=== PATIENT | male | born 1950 | race Hispanic/Latino ===

== ENCOUNTER → 2017-12-06 | Outpatient (CLI) | payer MEDICARE ==
[~2017-12-06] MED LIST: GADOBENATE DIMEGLUMINE 1 ML IV ONE; IOPAMIDOL 300 MG/ML 15ML VIAL IT ONE; LIDOCAINE HCL 1% LOCAL INJ 20 ML VIAL ONE
--- NOTE | 2017-12-06 12:59 | Diagnostic Imaging Report ---
MRI of the right shoulder with contrast. History: Shoulder pain. Labral tear. Fall. Decreased range of motion. Comparison: None Technique: Multiplanar multisequence MRI of the shoulder after the administration of intra-articular gadolinium contrast material Findings: Rotator cuff: There is rotator cuff tendinosis with a full-thickness tear involving the supraspinatus and anterior fibers of the infraspinatus tendons at the humeral insertion site. There is retraction of the torn fibers to the level of the glenoid and there is moderate rotator cuff muscle atrophy. Additionally, there is subscapularis tendinosis. The teres minor tendon is intact. Osseous acromion complex: There is a type II acromion with mild lateral downsloping. There is moderate degenerative arthrosis at the acromioclavicular joint with undersurface spurring and narrowing of the supraspinatus tendon outlet. There is subacromial/subdeltoid bursitis. Glenohumeral joint: There is circumferential degeneration and fraying of the labrum. The glenohumeral articular cartilage surfaces are thinned with regions of fraying and fissuring most pronounced at the inferior glenoid best seen on coronal series 5 image 12. Gadolinium contrast material is seen filling the glenohumeral joint. Biceps tendon: There is intra-articular biceps tendinosis with fraying at the biceps anchor. Other findings: Negative for muscle denervation or osseous fracture. Impression: Rotator cuff tendinosis with full-thickness tear, retraction and muscle atrophy as described above. Moderate degenerative arthrosis at the acromioclavicular joint with narrowing of the supraspinatus tendon outlet and subacromial/subdeltoid bursitis. 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 Intra-articular biceps tendinosis with fraying at the biceps anchor. Signed by: Dr. Pedro Glover M.D. on 12/06/2017 12:56 PM
--- NOTE | 2017-12-06 13:53 | Diagnostic Imaging Report ---
Right shoulder arthrogram December 06, 2017 Pre-Procedure Diagnosis: Right shoulder pain Post-procedure Diagnosis:Rotator cuff tear Oncology Account Specialist: Samantha Larson Non Destructive Evaluation Technician: None Radiation Dose: 32.55 mGy (cumulative air kerma) Fluoroscopy time: 3.8 minutes Estimate blood loss: <5 mL Blood administered: None Complications: None Implants/Grafts: None Specimen: None Procedure: Informed consent was obtained and the patient placed supine. A timeout was performed. The right shoulder was prepped and draped in standard sterile fashion. Using fluoroscopic guidance a 22-gauge spinal needle was advanced into the right glenohumeral joint. Fluid from an effusion was returned and a 10 mL solution consisting of 5 mL normal saline, 5 mL 1% lidocaine and 0.1 mL gadolinium contrast was injected into the joint. The injection was monitored under fluoroscopy to confirm intra-joint positioning. The needle was removed and a sterile dressing applied. Findings: Please see the magnetic resonance imaging report for full findings. Impression: Successful right shoulder arthrogram. This report was generated with voice-recognition technology. Errors in caddymaster can occur. Please interpret accordingly and contact a radiologist if there are any questions regarding the report. Signed by: Dr. Jaylon Larson M.D. on 12/06/2017 1:49 PM
== END ==
LOC: DX 09:46
PROVIDERS: ATTEND Specialist
DX: M19.011 Primary osteoarthritis, right shoulder (principal); S46.091A Other injury of muscle(s) and tendon(s) of the rotator cuff of right shoulder, initial encounter; S43.431A Superior glenoid labrum lesion of right shoulder, initial encounter
CPT/HCPCS: 23350; 73222; 77002; J2001; Q9967

== ENCOUNTER → 2019-01-20 | Outpatient (CLI) | payer MEDICARE ==
--- NOTE | 2019-01-20 14:00 | Diagnostic Imaging Report ---
Renal ultrasound. History: Proteinuria Discussion: Transverse and longitudinal images of the kidneys were obtained demonstrating normal renal sizes and echogenicities. There is no evidence of hydronephrosis, mass or renal calculus. The right kidney measures 11.5 x 6.8 x 6.3 cm with a maximal cortical thickness of 1.5 cm and the left kidney measures 12.2 x 7.1 x 4.2 cm with a maximal cortical thickness of 1.6 cm. The urinary bladder is unremarkable. Bilateral urinary jet is noted. There is no evidence of free fluid. IMPRESSION: Normal renal ultrasound. Signed by: Dr. Luis Armando Marin DO on 01/20/2019 1:56 PM
== END ==
LOC: US 10:47
PROVIDERS: ATTEND Urology
DX: R80.9 Proteinuria, unspecified (principal)
CPT/HCPCS: 76770

== ENCOUNTER 2020-08-21 07:06 | Inpatient (IN) | payer MEDICARE, OTHER ==
[2020-08-21] VITALS (11 sets, daily range): BP systolic 92–133; BP diastolic 55–67
[~2020-08-21] VITALS: Ht 170.2 cm; Wt 100.0 kg
[2020-08-21 07:29] LABS: BASOPHILS # (AUTO) 0.1 (0.0-0.1); BASOPHILS % 0.4 % (0.0-1.0); EOSINOPHILS % 0.2 % (0.0-6.0); HEMATOCRIT 27.5 % (38.2-49.6); HEMOGLOBIN 8.3 g/dL (14.0-18.0); LYMPHOCYTES # (AUTO) 2.2 (1.0-3.2); LYMPHOCYTES % 12.6 % (18.0-39.1); MEAN CORPUSCULAR HEMOGLOBIN 27.9 pg (28-32); MEAN CORPUSCULAR HGB CONC 30.2 g/dL (31-35); MEAN CORPUSCULAR VOLUME 92.3 fL (81-99); MONOCYTES # (AUTO) 0.4 (0.2-0.8); MONOCYTES % 2.3 % (4.4-11.3); NEUTROPHILS # (AUTO) 14.2 (2.1-6.9); NEUTROPHILS % 83.2 % (38.7-80.0); PLATELET COUNT 460 x10e3/uL (140-360); RED BLOOD COUNT 2.98 x10e6/uL (4.3-5.7); RED CELL DISTRIBUTION WIDTH 16.4 % (11.7-14.4)
[2020-08-21 07:44] LABS: BILIRUBIN,URINE SMALL (NEGATIVE); CLARITY,URINE CLEAR (CLEAR); COLOR,URINE YELLOW (YELLOW); KETONES,URINE 1+ (NEGATIVE); LEUKOCYTE ESTERASE ,URINE LARGE (NEGATIVE); NITRITE,URINE NEGATIVE (NEGATIVE); PROTEIN,URINE DIPSTICK 2+ (NEGATIVE); URINE UROBILINOGEN 1 mg/dL (0.2 - 1)
[2020-08-21 07:44] LABS: INR 1.16; PROTHROMBIN TIME 15.4 seconds (11.9-14.5)
[2020-08-21 07:54] LABS: ALANINE AMINOTRANSFERASE 19 IU/L (0-55); ALBUMIN 2.8 g/dL (3.5-5.0); ALBUMIN/GLOBULIN RATIO 0.6 (0.8-2.0); ALKALINE PHOSPHATASE 123 IU/L (40-150); ANION GAP 14.7 mmol/L (8-16); BLOOD UREA NITROGEN 37 mg/dL (7-26); BUN/CREATININE RATIO 50 (6-25); CALCIUM 8.3 mg/dL (8.4-10.2); CARBON DIOXIDE 29 mmol/L (22-29); CHLORIDE 97 mmol/L (98-107); CREATINE KINASE 158 IU/L (30-200); CREATININE, SERUM 0.74 mg/dL (0.72-1.25); EST GLOMERULAR FILTRATION RATE > 60 ML/MIN (60-); GLUCOSE 221 mg/dL (74-118); SODIUM 138 mmol/L (136-145)
[2020-08-21 07:57] LABS: POTASSIUM 2.7 mmol/L (3.5-5.1)
[2020-08-21] MEDS ORDERED: MEROPENEM 1GRAM 1 GM in SODIUM CHLORIDE 0.9% 100 ML 100 ML IV STA (07:57)
[2020-08-21] MEDS ORDERED: SODIUM CHLORIDE 0.9% 1000ML 1,000 ML IV STA ×2 (07:58→08:56)
[2020-08-21 08:00] LABS: BACTERIA,URINE RARE /HPF; EPITHELIAL CELLS,URINE FEW /LPF; WBC,URINE (MAN) 21-50 /HPF (0-5)
[2020-08-21] MEDS ORDERED: VANCOMYCIN 1GM/NS 250 ML 250 ML IV ONE (08:00)
[2020-08-21 08:06] LABS: B-TYPE NATRIURETIC PEPTIDE2 29.8 pg/mL (0-100)
[2020-08-21] MEDS ORDERED: POTASSIUM CHLORIDE 20MEQ/15ML UDC ONE (08:17)
[2020-08-21] MEDS ORDERED: SODIUM CHLORIDE 0.9% 500ML 500 ML IV ONE (09:00)
--- NOTE | 2020-08-21 09:02 | NUR ---
Received call from MAT team, notified this RN that [facility] should be arriving soon to nut picker pt for transport to inpatient facility.
--- NOTE | 2020-08-21 09:05 | Diagnostic Imaging Report ---
EXAMINATION: CHEST SINGLE (PORTABLE) INDICATION: trach/vent patient, hypoxia COMPARISON: None FINDINGS: TUBES and LINES: Left arm PICC terminates near the cavoatrial junction. LUNGS: Lungs are well inflated. Bilateral perihilar and interstitial opacities, right greater than left. Bibasilar patchy opacities. PLEURA: Small bilateral pleural effusions. No pneumothorax. HEART AND MEDIASTINUM: The cardiomediastinal silhouette is unremarkable. BONES AND SOFT TISSUES: No acute osseous abnormality. Partially seen cervical spine fusion. UPPER ABDOMEN: No free air under the diaphragm. IMPRESSION: Bilateral opacities, compatible with multifocal pneumonia and/or pulmonary edema. Small bilateral pleural effusions. Lucencies overlying the superior mediastinum, which may represent overlying material, although small volume pneumomediastinum may have a similar appearance. If of clinical concern, repeat radiograph may be considered. The above findings were discussed with Dr. Joby Denny on 08/21/2020 at 902 AM. Signed by: Dr. John Kelly MD on 08/21/2020 9:02 AM
[2020-08-21] MEDS ORDERED: MEROPENEM 1 GM VIAL ONE (09:07)
--- NOTE | 2020-08-21 09:15 | Emergency Department Note ---
History of Present Illnes History of Present Illness Chief Complaint: Respiratory History of Present Illness This is a 70 year old male PATIENT IN FROM THE [facility] FOR LOW O2 SATURATION FOR UNKNOWN LENGTH OF TIME; PATIENT BEING BAGGED BY EMS UPON ARRIVAL. PATIENT WITH CHRONIC TRACH, FOLLOWING COMMANDS UPON ARRIVAL; MD, RN, AND RT BEDSIDE UPON ARRIVAL. 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 Any updates have been documented here. Past Medical History Recent Fever: No Clinical Suspicion of Infectio: Yes New/Unexplained Change in Ment: No Past Medical History: Diabetes, Hyperlipedemia Other Medical History: RESP. FAILURE OBESITY SLEEP APNEA H/O CERVICAL SPINAL STENOSIS WITH CORD COMPRESSION, QUADRIPLEGIA G-TUBE TRACHEOSTOMY Other Surgery: G-TUBE TRACHEOSTOMY Social History Smoking Cessation: Former smoker Counseling Performed: No Alcohol Use: None Any Illegal Drug Use: No TB Exposure/Symptoms: No Physically hurt or threatened: No Family History Family history of heart diseas: No Other Any Pre-Existing Lines (PICC,: No Review of Systems ROS Narrative Unable to obtain ROS: altered mental status, critical patient Review of Systems Constitutional: Reports no symptoms EENTM: Reports no symptoms Cardiovascular: Reports no symptoms Respiratory: Reports as per HPI Gastrointestinal: Reports no symptoms Genitourinary: Reports no symptoms Musculoskeletal: Reports no symptoms Integumentary: Reports no symptoms Neurological: Reports no symptoms Psychological: Reports no symptoms Endocrine: Reports no symptoms Hematological/Lymphatic: Reports no symptoms Physical Exam Related Data Allergies: Coded Allergies: No Known Allergies (Unverified , 08/21/20) Triage Vital Signs Vital Signs Date Time Temp Pulse Resp B/P (MAP) Pulse Ox O2 Delivery O2 Flow Rate FiO2 08/21/20 07:06 97 24 97/49 90 Ambu-Bag Vital signs reviewed: Yes Physical Exam CONSTITUTIONAL Constitutional: Present ill appearing HENT HENT: Present normocephalic, Present atraumatic, Present oropharynx clear/moist, Present nose normal HENT L/R: Present left ext ear normal, Present right ext ear normal EYES Eyes: Reports PERRL, Reports conjunctivae normal NECK Neck: Present ROM normal, Present other (TRACHEOSTOMY IN PLACE, [place] C- COLLAR IN PLACE) PULMONARY Pulmonary: Present rales, Present rhonchi CARDIOVASCULAR Cardiovascular: Present regular rhythm, Present heart sounds normal, Present capillary refill normal, Present normal rate GASTROINTESTINAL Abdominal: Present soft, Present nontender, Present bowel sounds normal, Present other (G-TUBE PRESENT) GENITOURINARY Genitourinary: Present exam deferred, Present other (INDWELLING Guzman PRESENT) SKIN Skin: Present warm, Present dry, Present other (ST 2 PRESSURE ULCER SACRU M/GLUTEAL CREASE, ST 1 ON BILAT BUTTOCKS) MUSCULOSKELETAL Musculoskeletal: Present ROM normal, Present edema (PITTING EDEMA OF ALL EXT's), Present other (LEFT ARM PICC) NEUROLOGICAL Neurological: Present alert, Present other (NO SPEECH, FOLLOWS COMMANDS - 0/5 STR BILAT LE'S, 1/5 RUE, 3/5 LUE); Absent cranial nerve deficit PSYCHOLOGICAL Psychological: Present mood/affect normal, Present judgement normal Results Laboratory Result Diagram: 08/21/20 0715 08/21/20 0715 Laboratory Laboratory Tests Test 08/21/20 07:45 08/21/20 07:16 08/21/20 07:15 Urine Color Yellow (YELLOW) Urine Clarity Clear (CLEAR) Urine pH 6 (5 - 7) Urine Specific [place] 1.020 (1.010-1.025) Urine Protein 2+ (NEGATIVE) Urine Glucose (UA) Negative (NEGATIVE) Urine Ketones 1+ (NEGATIVE) Urine Blood Large (NEGATIVE) Urine Nitrite Negative (NEGATIVE) Urine Bilirubin Small (NEGATIVE) Urine Urobilinogen 1 mg/dL (0.2 - 1) Urine Leukocyte Esterase Large (NEGATIVE) Urine RBC 11-20 /HPF (0-5) Urine WBC 21-50 /HPF (0-5) Urine Epithelial Cells Few /LPF (NONE) Urine Bacteria Rare /HPF (NONE) White Blood Count 17.10 x10e3/uL (4.8-10.8) Red Blood Count 2.98 x10e6/uL (4.3-5.7) Hemoglobin 8.3 g/dL (14.0-18.0) Hematocrit 27.5 % (38.2-49.6) Mean Corpuscular Volume 92.3 fL (81-99) Mean Corpuscular Hemoglobin 27.9 pg (28-32) Mean Corpuscular Hemoglobin Concent 30.2 g/dL (31-35) Red Cell Distribution Width 16.4 % (11.7-14.4) Platelet Count 460 x10e3/uL (140-360) Neutrophils (%) (Auto) 83.2 % (38.7-80.0) Lymphocytes (%) (Auto) 12.6 % (18.0-39.1) Monocytes (%) (Auto) 2.3 % (4.4-11.3) Eosinophils (%) (Auto) 0.2 % (0.0-6.0) Basophils (%) (Auto) 0.4 % (0.0-1.0) Neutrophils # (Auto) 14.2 (2.1-6.9) Lymphocytes # (Auto) 2.2 (1.0-3.2) Monocytes # (Auto) 0.4 (0.2-0.8) Eosinophils # (Auto) 0.0 (0.0-0.4) Basophils # (Auto) 0.1 (0.0-0.1) Absolute Immature Granulocyte (auto 0.22 x10e3/uL (0-0.1) Prothrombin Time 15.4 seconds (11.9-14.5) Prothromb Time International Ratio 1.16 Activated Partial Thromboplast Time 39.0 seconds (23.8-35.5) Sodium Level 138 mmol/L (136-145) Potassium Level 2.7 mmol/L (3.5-5.1) Chloride Level 97 mmol/L (98-107) Carbon Dioxide Level 29 mmol/L (22-29) Anion Gap 14.7 mmol/L (8-16) Blood Urea Nitrogen 37 mg/dL (7-26) Creatinine 0.74 mg/dL (0.72-1.25) Estimat Glomerular Filtration Rate > 60 ML/MIN (60-) BUN/Creatinine Ratio 50 (6-25) Glucose Level 221 mg/dL (74-118) Lactic Acid Level 3.1 mmol/L (0.5-2.0) Calcium Level 8.3 mg/dL (8.4-10.2) Magnesium Level 1.6 MG/DL (1.3-2.1) Total Bilirubin 0.3 mg/dL (0.2-1.2) Aspartate Amino Transf (AST/SGOT) 16 IU/L (5-34) Alanine Aminotransferase (ALT/SGPT) 19 IU/L (0-55) Alkaline Phosphatase 123 IU/L (40-150) Creatine Kinase 158 IU/L (30-200) Creatine Kinase MB 8.70 ng/mL (0-5.0) Troponin I < 0.001 ng/mL (0-0.300) B-Type Natriuretic Peptide 29.8 pg/mL (0-100) Total Protein 7.3 g/dL (6.5-8.1) Albumin 2.8 g/dL (3.5-5.0) Globulin 4.5 g/dL (2.3-3.5) Albumin/Globulin Ratio 0.6 (0.8-2.0) Lab results reviewed: Yes Imaging Imaging results reviewed: Yes Procedures 12 Lead ECG Interpretation ECG Interpretation : ECG: ECG 1 Iron Assorter: Interpreted by ED physician Date: Aug 21, 2020 Time: 07:13 Rhythm: sinus rhythm Rate: normal BPM: 97 QRS axis: normal Conduction: incomplete LBBB T wave inversion: I, II, III, aVL, aVF, V6 Clinical Impression: abnormal ECG Additional Comments POOR RWP, POOR QUALITY ECG ABG Interpretation ABG Results: ABG 1 Interpretation: other (HYPOXIA) Additional comments pH 7.309, CO2 58.7, pO2 63 (ON 100% FIO2 VENT), HCO3 29.5 Critical Care Time Total Critical Care Time (min): 45 Critical care time exclusive o: separately billable procedures Critcal care necessary due to: circulatory failure, respiratory failure, sepsis Critcal care time spent by me: discussion w consultants, discussion w primary provider, order/review laboratory studies, order/review radiographic studies, pulse oximetry, re-evaluation of patient condition, review of old charts, ventilator management Assessment & Plan Medical Decision Making MDM QUADRIPLEGIC PT WITH TRACH/G-TUBE/INDWELLING GUZMAN PRESENTS FROM [place] WITH HYPOXIA AND LOW BP (MAP>65 CURRENTLY), HYPOTHERMIA - CBC, CHEM, ECG, CARDIACS, BNP, UA/CX, BLOOD CX'S, LACTIC ACID, CXR, ABG. PRESENTATION MOST CONCERNING FOR SEPSIS WITH SOURCE OF VENTILATOR ASSOC PNEUMONIA BUT ALSO HAS CHRONIC INDWELLING GUZMAN SO COULD HAVE UTI SOURCE. ALSO NEED TO R/O COVID19. PT APPEARS TO HAVE ANASARCA AND CONSIDER RENAL FAILURE, CHF, OR HYPOALBUMINEMIA. R/O STEMI/NSTEMI, ELECTROLYTE ABNL, PNEUMOTHORAX CAUSING HYPOXIA IN A VENT PT Reassessment Reassessment LACTIC RETURNED AT 0756 = 3.1. IVF'S GIVEN, MERREM/VANCO ORDERED. MAP DID DROP < 65 ONCE SO THIS IS SEPTIC SHOCK, 30CC/KG = 2590ML. I PERFORMED A VOLUME REASSESSMENT. I SPOKE WITH DR BASHIR FOR ADMISSION AND DR [facility]IT[facility] WHO HAS SEEN PT PRIOR Assessment & Plan Final Impression: (1) Septic shock (2) Ventilator-acquired pneumonia (3) UTI (urinary tract infection) (4) Hypoxia (5) Respiratory failure Depart Disposition: ADMITTED Last Vital Signs Date Time Temp Pulse Resp B/P (MAP) Pulse Ox O2 Delivery O2 Flow Rate FiO2 08/21/20 07:06 97 24 97/49 90 Ambu-Bag Medications in the ED Meropenem 1 gm/ Sodium Chloride 100 ml @ 100 mls/hr NOW STAT IV ; Start at 07:57; Stop 08/21/20 at 08:56 Vancomycin HCl 250 ml @ 200 mls/hr NOW ONCE IV ; Start 08/21/20 at 08:00; Stop 08/21/20 at 09:14 Sodium Chloride 1,000 ml @ 0 mls/hr Q0M STAT IV ; Start 08/21/20 at 07:58; Stop 08/21/20 at 08:02; Status DC Potassium Chloride 20 meq STK-MED ONCE .ROUTE ; Start 08/21/20 at 08:17; Stop 08/21/20 at 08:10; Status DC ANTONIA REYES MD Aug 21, 2020 09:15
[2020-08-21] MEDS ORDERED: SODIUM CHLORIDE 0.9% 1000ML 1,000 ML IV SCH (09:30)
[2020-08-21] MEDS ORDERED: NOREPINEPHRINE INJ 4MG/4ML 8 MG in DEXTROSE 5% 250ML 250 ML IV PRN (09:30)
[2020-08-21] MEDS ORDERED: POTASSIUM CHLORIDE 20MEQ/15ML UDC PO ONE ×2 (09:30→12:00)
[2020-08-21] MEDS ORDERED: NOREPINEPHRINE 8 MG/D5W 250 ML 250 ML IV PRN (09:45)
--- NOTE | 2020-08-21 10:16 | Diagnostic Imaging Report ---
EXAMINATION: CHEST SINGLE (PORTABLE) INDICATION: REPEAT COMPARISON: Chest radiograph 08/21/2020. FINDINGS: TUBES and LINES: Left arm PICC terminates near the cavoatrial junction. LUNGS: Lungs are well inflated. Bilateral perihilar and interstitial opacities, right greater than left. Bibasilar patchy opacities. PLEURA: Small bilateral pleural effusions. No pneumothorax. HEART AND MEDIASTINUM: The cardiomediastinal silhouette is unremarkable. Previously noted lucencies overlying the superior mediastinum are no longer present. BONES AND SOFT TISSUES: No acute osseous abnormality. Partially seen cervical spine fusion. UPPER ABDOMEN: No free air under the diaphragm. IMPRESSION: Previously noted lucencies overlying the superior mediastinum are no longer present, compatible with overlying material. Bilateral opacities, compatible with multifocal pneumonia and/or pulmonary edema. Small bilateral pleural effusions. Signed by: Dr. John Kelly MD on 08/21/2020 10:13 AM
[2020-08-21] MEDS ORDERED: ALTEPLASE RECOMBINANT 2 MG/2 ML VIAL IV ONE (10:30)
--- NOTE | 2020-08-21 13:09 | Consultation ---
DATE OF CONSULTATION: Pulmonary Critical Care Consultation. CHIEF COMPLAINT: Hypothermia, fever, and worsening respiratory status. HISTORY OF PRESENT ILLNESS: The patient is a 70-year-old man. He has a history of spinal stenosis leading to incomplete quadriplegia. He required a laminectomy and apparently fell and developed hematoma and required a second surgery. He is now at [facility]. He has a tracheostomy and is on the ventilator. He was sent from [facility] because of worsening oxygen saturation. He also had hypothermia and increased secretions. PAST SURGICAL HISTORY: 1. Status post cervical spine surgery as noted above. 2. Status post tracheostomy. PAST MEDICAL HISTORY: 1. Incomplete quadriplegia from spinal stenosis. 2. Arm swelling was checked with the ultrasound, but there was no deep vein thrombosis. 3. Diabetes. 4. Hyperlipidemia. ALLERGIES: THERE ARE NO KNOWN DRUG ALLERGIES. SOCIAL HISTORY: The patient stays at [facility]. He has a feeding tube in place. He also has a tracheostomy and remains on the ventilator. His smoking status is out of a former smoker. He is not an active drinker. FAMILY HISTORY: Family history is not obtainable at this time. REVIEW OF SYSTEMS: The patient had a low temperature. There was no reported headache. He has a hard cervical collar in place. He has tracheostomy. He is not having any chest pain. He does have increased secretions and congestion. He does not have abdominal pain. There is no nausea or vomiting. He has no abdominal pain. He does have some arm swelling. He has incomplete quadriplegia neurologically. PHYSICAL EXAMINATION: VITAL SIGNS: The patient is afebrile, the blood pressure is 111/62, saturation is 97%. He is currently on a PRVC mode of ventilation at a rate of 20 with a tidal volume of 450 and FiO2 of 100%. His PEEP is set at 10. He is breathing over the vent in the low 20s. HEENT: Shows no facial swelling or erythema. LYMPHATIC: Shows no submandibular, cervical, supraclavicular adenopathy. The patient has a hard cervical collar in place. There is tracheostomy. The site looks clean. CARDIAC: Reveals a regular rate and rhythm with normal S1, S2. LUNGS: Auscultation of lungs shows decreased breath sounds at the bases. There is no wheezing. ABDOMEN: Soft and nontender. There is no rebound or guarding. EXTREMITIES: Shows no leg edema or calf tenderness. There is no cyanosis or clubbing. SKIN: Shows no rashes. NEUROLOGICAL: Incomplete quadriplegia. LABORATORY DATA: White blood cell count is 17.1, hemoglobin is 8.3, platelet count is 460. The BUN to creatinine ratio is 37 to 0.74. The potassium is 2.7. The carbon dioxide is 29. The lactic acid is 3.1 and the albumin is 2.8. Urinalysis shows 20-50 white blood cells. RADIOGRAPHIC DATA: Chest x-ray shows bilateral infiltrates, suggestive of multifocal pneumonia. IMPRESSION: 1. Acute on chronic respiratory failure. 2. Healthcare-associated pneumonia with severe sepsis, present on admission. 3. Urinary tract infection with chronic indwelling [place] present on admission. 4. Spinal stenosis and prior cervical spine surgery. 5. Diabetes. 6. Obesity. PLAN: 1. The patient has received 30 mL/kg of intravenous fluid. 2. The patient has been gutierrez-cultured and has been started on meropenem and vancomycin. 3. Continue current ventilator settings and monitor ABG. 4. Continue enteral feedings. 5. Tracheostomy care. 6. Long-term prognosis is poor. Micky Hernandez MD [facility] /[id number]
[2020-08-21 13:13] LABS: ABG HCO3 30 mmol/L (22-26); ABG PCO2 59 mmHg (35-45); ABG PH 7.31 (7.35-7.45); ABG PO2 63 mmHg (80-105); ABG TCO2 31
--- NOTE | 2020-08-21 14:00 | NUR ---
Rec'd patient to Room 196; trach to mechanical ventilator. 97.1 ax, HR 109, 89% O2 sats, 101/57, RR 27 Communicates via nodding to "yes/no" questions and mouthing words. Alert, oriented to self, situation, place, and time. Unable to turn patient d/t respiratory status presently.
--- NOTE | 2020-08-21 14:35 | NUR ---
Per conversation with Dr Ralph Hernandez, no DVT to right arm, aware of swelling, okay to place PICC in right arm so as to remove PICC in left arm that was present on admission.
--- NOTE | 2020-08-21 15:10 | Diagnostic Imaging Report ---
EXAMINATION: CHEST SINGLE (PORTABLE) INDICATION: picc line placement verification COMPARISON: None FINDINGS: TUBES and LINES: Interval placement of right arm PICC which terminates in the SVC. Left arm PICC terminates at the cavoatrial junction. Tracheostomy tube terminates in the mid trachea. LUNGS: Lungs are well inflated. Bilateral perihilar and interstitial opacities, right greater than left. Bibasilar patchy opacities. PLEURA: Small bilateral pleural effusions. No pneumothorax. HEART AND MEDIASTINUM: The cardiomediastinal silhouette is unremarkable. BONES AND SOFT TISSUES: No acute osseous abnormality. Partially seen cervical spine fusion. UPPER ABDOMEN: No free air under the diaphragm. IMPRESSION: Interval placement of right arm PICC which terminates in the SVC. No evidence of pneumothorax. Bilateral opacities, compatible with multifocal pneumonia and/or pulmonary edema. Small bilateral pleural effusions. Signed by: Dr. John Kelly MD on 08/21/2020 3:07 PM
[2020-08-21] MEDS: MEROPENEM 1GM 100 ML IV SCH ×2 (15:42→22:02)
[2020-08-21] MEDS ORDERED: MAGNESIUM SULFATE 2GM/50ML 50 ML IV ONE (17:00)
[2020-08-21] MEDS ORDERED: FUROSEMIDE INJ 10 MG/ML 4 ML VIAL IV ONE (18:15)
--- NOTE | 2020-08-21 18:24 | NUR ---
Left arm PICC line removed per MD order, Right PICC line intact. No s/s distress noted, dressing clean, dry, and intact. Patient noted to have output of 50cc urine for this shift. Dr Hernandez made aware, new orders received and carried out.
[2020-08-21] MEDS: VANCOMYCIN 1GM/NS 250 ML 250 ML IV SCH (20:11)
[2020-08-21 20:16] LABS: CREATINE KINASE MB 5.6 ng/mL (0-5.0)
--- NOTE | 2020-08-21 20:18 | NUR ---
Nutrition Intervention Note RD Recommendation(s) for Physician: -Continue Vital AF 1.2, advance as tolerated to goal rate @60ml/hr, 1728kcal, 108g protein, 1168ml water -Rec adding MVI w/ minerals and vitamin C for wound healing Plan of Care: RD following, monitoring for tolerance and adequacy Nutrition reason for involvement: New tube feeding RD Assessment (08/21) 70yo M, who was admitted from [facility] for worsening oxygen saturation. + trach on vent and PEG. History of spinal stenosis leading to incomplete quadriplegia. Non-verbal. Per RN, Vital AF 1.2 was initiated an hour ago. + stage I pressure wound on sacrum and stage II on buttock. Negative COVID. Pt was septic on admission and received IVF. No vasopressors. On lasix due to poor output. Principal Problems/Diagnoses: 1. Acute on chronic respiratory failure. 2. Healthcare-associated pneumonia with severe sepsis, present on admission. PMH: 1. Incomplete quadriplegia from spinal stenosis. 2. Arm swelling was checked with the ultrasound, but there was no deep vein thrombosis. 3. Diabetes. 4. Hyperlipidemia. 5. Obesity I/O: +530ml/ -50ml GI: + PEG, LBM 08/21 Skin: stage I pressure wound on sacrum and stage II on buttock Labs: (08/21) K 2.7 L, BUN 37 H, Glucose 221 H, Ca 8.3 L Meds: (08/21) lasix, meropenem Ht: 67in Wt: 220.56lb BMI: 34.5kg/m2 IBW: 148lb +/- 10% Adjusted IBW: 125 133lb (quadriplegia) Malnutrition Evaluation (08/21/20) The patient does not meet criteria for a specified degree of malnutrition at this time. Will re-evaluate at follow-up as appropriate. Nutrition Prescription (Diet Order): Vital AF 1.2 @30ml/hr Estimated Nutritional Needs: Calories: 1500 1800kcal (25-30kcal/kg Adjusted IBW) Protein : 111 150g (1.5 2.5g/kg Adjusted IBW) Diet Adequacy: Not meeting calorie needs, Not meeting protein needs Tolerance: Tolerating TF Diet Education Needs Assessment: Diet education not indicated. Nutrition Care Level: moderate Nutrition Diagnosis: Swallowing difficulty related to trach/ neurological disorder as evidenced by EN via PEG. Goal: Patient will meet 75-100% of estimated needs by follow up Progress: Progressing Interventions: Composition, Rate, Route, Multivitamin/mineral supplement therapy Monitoring/Evaluation: Total energy intake, Total protein intake, Formula/Solution, Weight change Signed: Genevieve Xiao MS, RD, LD
--- NOTE | 2020-08-21 20:35 | History and Physical ---
PRIMARY CARE PHYSICIAN: Dr. Jasper Eisenberg. CONSULTING PHYSICIAN: Dr. Davin Quach with Pulmonary/Critical Care Medicine. CHIEF COMPLAINT: Respiratory failure. HISTORY OF PRESENT ILLNESS: The patient is a 70-year-old male, brought in by EMS from the [facility] due to hypoxia and respiratory failure. Apparently, his oxygen saturation was low for an undetermined duration of time and the patient was being manually ventilated by EMS upon arrival according to documentation by the emergency department physician. According to nurses in ICU, the patient has an unfortunate history of attempting to open his refrigerator door, having difficulty, gave it a hard jerk and fell backwards hitting his head. This led to an incomplete quadriplegia. He was put on a backboard, developed respiratory problems, had to be intubated. Spent about 45 days at a long-term acute care hospital on mechanical ventilation and after that was sent to the [facility]. He had been fully functional prior to that incident. Per documentation, he required laminectomy and apparently developed a hematoma and required a second surgery. In anyway, he was sent from the [facility] because of worsening oxygen saturation of unknown duration. He also had hypothermia with increased pulmonary secretions. He is currently seen in ICU bed #196 after being transferred from the OR holding bed #1. On admission, his temperature was 90.5 and subsequently 89.1 core, heart rate 97, respirations 24, blood pressure 97/49, oxygen saturation 90%. PAST MEDICAL HISTORY: 1. Cervical spinal stenosis with cord compression and incomplete quadriplegia. 2. Arm swelling. 3. Diabetes mellitus. 4. Hyperlipidemia. 5. Chronic respiratory failure. 6. Obesity. 7. Obstructive sleep apnea. PAST SURGICAL HISTORY: 1. Status post cervical spine surgery. 2. Status post tracheostomy placement. 3. Status post G-tube placement. FAMILY HISTORY: Unobtainable at this time. SOCIAL HISTORY: The patient is a former smoker. Not an active drinker. No known use of illicit drugs. The patient apparently now resides at [facility] and has tracheostomy with chronic ventilator use and a feeding tube in place. ALLERGIES: NO KNOWN ALLERGIES. REVIEW OF SYSTEMS: The patient able to mouth some words and apparently mostly speaks Martiniquais. He does complain of neck pain. He is really only able to move his left hand. He has incomplete quadriplegia neurologically, arrived with low temperature, but denies chills. PHYSICAL EXAMINATION: VITAL SIGNS: Most recent vital signs are temperature 94.4 core, pulse 96, blood pressure 111/62, respiratory rate 33, oxygen saturation 90%. Height 5 feet 7 inches. Weight 190 pounds, BMI 29.75. GENERAL: Supine. Head of bed elevated more than 40 degrees. LUNGS: Diminished in the bases. Tracheostomy to ventilator, currently on PRVC mode, respiratory rate 20, tidal volume 450, FiO2 of 95%, PEEP of 12, peak pressure 32, minute ventilation 14.9. HEENT: EOMI. Moist mucous membranes. NECK: C-collar in place. CARDIOVASCULAR: Regular rate and rhythm. No murmur. Right upper extremity PICC line with normal saline infusing at 125 mL an hour. ABDOMEN: Bowel sounds positive. Soft. Keene catheter with yellow urine. EXTREMITIES: Right upper extremity swelling noted. Otherwise, no signs of DVT. NEUROLOGICAL: Makes eye contact and able to mouth words. No speech. He is able to follow some commands. LABORATORY DATA: WBC 17.1, hemoglobin 8.3, hematocrit 27.5, platelets 460, neutrophils 83.2%. Blood gas; pH 7.31, pCO2 of 59, PO2 of 63, HCO3 of 30, SaO2 of 89%, base excess of 3, FiO2 of 100%. PT 15.4, INR 1.16, PTT 39. Sodium 138, potassium 2.7, chloride 97, CO2 of 29, anion gap 14.7, BUN 37, creatinine 0.74, estimated GFR greater than 60, glucose 221. Lactic acid 3.1 and then subsequently 2.9, calcium 8.3, magnesium 1.6, total bilirubin 0.3, AST 16, ALT 19, alkaline phosphatase 123. Creatine kinase 158, CK-MB 8.7, troponin I less than 0.001. B-type natriuretic peptide 29.8. Total protein 7.3, albumin 2.8. Urinalysis shows specific gravity 1.02, pH 6, urine protein 2+, urine ketones 1+, large amount of blood, negative for nitrites, small amount of bilirubin, large amount of leukocyte esterase, rbc 11-20, wbc 21-50, epithelial cells few, urine bacteria rare. Coronavirus PCR was negative on 08/21. Urine culture and blood culture are pending. IMAGING/OTHER: Three chest x-rays today thus far. First chest x-ray shows bilateral opacities compatible with multifocal pneumonia and/or pulmonary edema. Small bilateral pleural effusions. Lucencies overlying the superior mediastinum, which may represent overlying material. Following x-ray showed bilateral opacities compatible with multifocal pneumonia and/or pulmonary edema. Small bilateral pleural effusions. Final x-ray showed interval placement of right arm PICC line, which terminates in the superior vena cava. No evidence of pneumothorax. Bilateral opacities compatible with multifocal pneumonia and/or pulmonary edema. Small bilateral pleural effusions. A 12-lead EKG showed sinus rhythm with a heart rate of 97. ASSESSMENT AND PLAN: 1. Health care-associated pneumonia with severe sepsis, present on admission. The patient is currently on vancomycin and Merrem. Currently not requiring Levophed. Continue IV fluids with a strong rate of 125 mL an hour. 2. Cxccx-sc-orbgbgu respiratory failure, tracheostomy in situ. Ventilator weaning per Pulmonology/Critical Care Medicine as tolerated. 3. Acute urinary tract infection with chronic indwelling Keene catheter, present on admission. Continue IV antibiotics, Merrem and vancomycin. Await final culture and sensitivity results from urine and blood. 4. Incomplete quadriplegia from cervical spinal stenosis with cord compression. Supportive care. Wound care consult. Monitor for any breakdown of the skin. 5. Uncontrolled type 2 diabetes mellitus with hyperglycemia. Serum glucose 221. Regular insulin sliding scale. Monitor fingerstick blood glucose levels q.6 hours. 6. PEG in situ. 7. Acute hypomagnesemia. Magnesium level 1.6, repleted with 2 g of magnesium sulfate IV once, reassess magnesium in the morning. 8. Acute hypokalemia. Potassium level 2.7. Potassium chloride 40 mEq p.o. once ordered by ED physician as well as 20 mEq IV. Reassess potassium level tomorrow. 9. Hypoalbuminemia due to protein-calorie malnutrition. Orders have been entered for Vital AF at 30 mL an hour. 10. Prophylaxis, IV Pepcid, SCDs. Inpatient, ICU bed #196, billing code [id number], time spent 60 minutes. Dictated by Tomas Pretty, SONY Maico Fajardo MD [facility]ACOB Wheeler: 08/21/2020 17:03:24 /[id number]
[2020-08-21] MEDS ORDERED: LORAZEPAM INJ 2 MG/ML VIAL IV PRN (21:45)
[2020-08-21] MEDS ORDERED: ONDANSETRON HCL INJ 2MG/ML 2ML 2 MG/ML VIAL IV PRN (21:45)
[2020-08-21] MEDS ORDERED: HYDROCODONE/APAP 10MG-325MG TAB PO PRN (22:00)
[2020-08-21] MEDS ORDERED: DEXTROSE 50% SYRINGE 50 ML IV PRN (22:00)
[2020-08-22] VITALS (26 sets, daily range): BP systolic 89–138; BP diastolic 54–71
[2020-08-22] MEDS: INSULIN REGULAR, HUMAN 100 UNIT/1 ML 3ML VIAL SQ SCH ×4 (00:35→17:35)
[2020-08-22] MEDS ORDERED: DOXAZOSIN MESYLA4 MG GT (01:15)
[2020-08-22] MEDS ORDERED: ASPIRIN81 MG GT (01:15)
[2020-08-22] MEDS ORDERED: CHLORHEXIDINE 0.12% PO (01:15)
[2020-08-22] MEDS ORDERED: SPIRONOLACTONE100 MG GT (01:15)
[2020-08-22] MEDS ORDERED: ALB IH (01:15)
[2020-08-22] MEDS ORDERED: CILOSTAZOL100 MG GT (01:15)
[2020-08-22] MEDS ORDERED: ACETAMINOP325 MG/10 GT (01:15)
[2020-08-22] MEDS ORDERED: FUROSEMIDE40 MG GT (01:15)
[2020-08-22] MEDS ORDERED: BANANA FLAKES GT (01:15)
[2020-08-22] MEDS ORDERED: POTASSIUM CHLO20 ME1 GT (01:15)
[2020-08-22] MEDS ORDERED: [UNRECOGNIZED DRUG - OTHER] IH (01:15)
[2020-08-22] MEDS ORDERED: FAMOTIDINE20 MG GT (01:15)
[2020-08-22] MEDS ORDERED: ZOFRAN4 MG GT (01:15)
[2020-08-22] MEDS ORDERED: ATORVASTATIN CA10 MG PO (01:15)
[2020-08-22 04:08] LABS: CREATINE KINASE MB 7.8 ng/mL (0-5.0)
--- NOTE | 2020-08-22 04:58 | NUR ---
Cleaned or smear of stool. Alevyn drsg applied to sacral area.
[2020-08-22 05:10] LABS: BASOPHILS # (AUTO) 0.1 (0.0-0.1); BASOPHILS % 0.2 % (0.0-1.0); HEMATOCRIT 22.5 % (38.2-49.6); LYMPHOCYTES % 4.9 % (18.0-39.1); MEAN CORPUSCULAR HEMOGLOBIN 28.6 pg (28-32); MEAN CORPUSCULAR HGB CONC 30.7 g/dL (31-35); MEAN CORPUSCULAR VOLUME 93.4 fL (81-99); MONOCYTES # (AUTO) 0.5 (0.2-0.8); MONOCYTES % 2.2 % (4.4-11.3); NEUTROPHILS # (AUTO) 18.3 (2.1-6.9); PLATELET COUNT 470 x10e3/uL (140-360); RED BLOOD COUNT 2.41 x10e6/uL (4.3-5.7); RED CELL DISTRIBUTION WIDTH 16.9 % (11.7-14.4)
[2020-08-22 05:18] LABS: HEMOGLOBIN 6.9 g/dL (14.0-18.0)
[2020-08-22 05:25] LABS: ALANINE AMINOTRANSFERASE 17 IU/L (0-55); ALBUMIN 2.4 g/dL (3.5-5.0); ALBUMIN/GLOBULIN RATIO 0.6 (0.8-2.0); ALKALINE PHOSPHATASE 92 IU/L (40-150); ANION GAP 14.5 mmol/L (8-16); BLOOD UREA NITROGEN 42 mg/dL (7-26); BUN/CREATININE RATIO 47 (6-25); CALCIUM 7.9 mg/dL (8.4-10.2); CARBON DIOXIDE 25 mmol/L (22-29); CHLORIDE 105 mmol/L (98-107); EST GLOMERULAR FILTRATION RATE > 60 ML/MIN (60-); GLUCOSE 130 mg/dL (74-118); POTASSIUM 4.5 mmol/L (3.5-5.1); SODIUM 140 mmol/L (136-145)
[2020-08-22] MEDS: MEROPENEM 1GM 100 ML IV SCH ×3 (05:37→22:37)
[2020-08-22] MEDS ORDERED: SODIUM CHLORIDE 0.9% 250ML 250 ML IV ONE (06:30)
--- NOTE | 2020-08-22 06:30 | NUR ---
Call to Tomas Pretty NP for low Hgb. Orders given. Blood drawn for type & screen.
--- NOTE | 2020-08-22 06:43 | Diagnostic Imaging Report ---
EXAMINATION: CHEST SINGLE (PORTABLE) INDICATION: ^resp failure COMPARISON: 08/21/2020 FINDINGS: AP view TUBES and LINES: Stable tracheostomy tube and right PICC. Interval removal of left PICC. LUNGS: Lungs are well inflated. Diffuse bilateral airspace opacities, increased from prior exam. PLEURA: No pneumothorax. Suspected small bilateral pleural effusions. HEART AND MEDIASTINUM: The cardiomediastinal silhouette is enlarged. BONES AND SOFT TISSUES: No acute osseous lesion. Cervical spine fusion hardware. Soft tissues are unremarkable. UPPER ABDOMEN: No free air under the diaphragm. IMPRESSION: Diffuse bilateral airspace opacities, slightly increased from prior exam. Signed by: Dr. Eric Womack MD on 08/22/2020 6:40 AM
[2020-08-22] MEDS ORDERED: SODIUM CHLORIDE 0.9% 250ML 250 ML IV PRN (06:45)
[2020-08-22 06:53] LABS: BAND NEUTROPHILS % (MANUAL) 47 %; LYMPHOCYTES % (MANUAL) 6 % (19-48); METAMYELOCYTES % (MANUAL) 2 % (0-0); MONOCYTES % (MANUAL) 2 % (3.4-9.0); MYELOCYTES % (MANUAL) 2 % (0-0); NEUTROPHILS % (MANUAL) 41 % (40-74)
[2020-08-22 06:54] LABS: PLATELET ESTIMATE SLIGHTLY INCREASED; PLATELET MORPHOLOGY COMMENT NORMAL; RBC MORPHOLOGY COMMENT ABNORMAL; TOXIC GRANULATION SLIGHT
[2020-08-22 06:55] LABS: ANISOCYTOSIS SLIGHT; POLYCHROMASIA FEW; STOMATOCYTES FEW
[2020-08-22] MEDS: HEPARIN SOD (PORCINE) 5,000 UNIT/ML VIAL SC SCH ×2 (08:24→21:18)
[2020-08-22] MEDS: FAMOTIDINE 20 MG/2 ML VIAL IV SCH ×2 (08:24→16:29)
[2020-08-22] MEDS: VANCOMYCIN 1GM/NS 250 ML 250 ML IV SCH (08:24)
[2020-08-22 09:51] LABS: ABG HCO3 27 mmol/L (22-26); ABG PCO2 39 mmHg (35-45); ABG PH 7.44 (7.35-7.45); ABG PO2 168 mmHg (80-105); ABG TCO2 28
[2020-08-22] MEDS ORDERED: ACETAMINOPHEN 325 MG/10 ML UDC GT PRN (10:00)
--- NOTE | 2020-08-22 10:33 | Progress Note ---
DATE: SUBJECTIVE: The patient has remained on the ventilator overnight. He received intravenous fluids yesterday, followed by Lasix to maintain adequate urine output. His blood and urine are growing out gram-negative rods. PHYSICAL EXAMINATION: VITAL SIGNS: Blood pressure is 110/60, saturation is 99%. He is currently on a mechanical ventilator at a rate of 20 with a tidal volume of 430 and FiO2 of 60%. His PEEP is set at 8. His spontaneous breathing is 30. HEENT: Shows no facial swelling or erythema. NECK: There is a hard cervical collar in place. He has a tracheostomy. The patient has a right-sided PICC line. CARDIAC: Reveals regular rate and rhythm with normal S1, S2. LUNGS: Auscultation of lungs showed rhonchorous breath sounds bilaterally. There is no wheezing. ABDOMEN: Soft, nontender. There is no rebound or guarding. EXTREMITIES: Shows no leg edema or calf tenderness. There is some swelling in the right upper extremity. LABORATORY DATA: Hemoglobin is 6.9, white blood cell count is 20.1, and platelet count is 470. The BUN to creatinine ratio is 42 to 0.9. The other electrolytes are within normal limits. Albumin is 2.4. RADIOGRAPHIC DATA: Chest x-ray shows bilateral airspace disease. IMPRESSION: 1. Gram-negative urinary tract infection with bacteremia and septic shock, present on admission. 2. Izqxi-gn-rbamxeg respiratory failure. 3. Healthcare-associated pneumonia. 4. Spinal stenosis and prior cervical spine surgery. 5. Diabetes. 6. Obesity. 7. Anemia secondary to chronic blood loss. PLAN: 1. The patient to receive black red blood cells. 2. Continue meropenem and await final culture results. 3. Stop vancomycin. 4. Continue to wean oxygen and ventilator support as tolerated. 5. Continue enteral feedings. 6. Tracheostomy care. 7. Lasix as needed to maintain urine output. Greater than 35 minutes in direct critical care time. Micky Hernandez MD [facility] /[id number]
[2020-08-22] MEDS: CILOSTAZOL 100 MG TAB GT SCH ×2 (11:06→23:01)
[2020-08-22] MEDS: ALBUMIN 25% 25GM 100ML 0.25 GM/ML BTL IV SCH ×2 (11:19→17:26)
[2020-08-22] MEDS ORDERED: SODIUM CHLORIDE 0.9% 250ML 250 ML ONE (12:19)
[2020-08-22] MEDS ORDERED: FUROSEMIDE INJ 10 MG/ML 4 ML VIAL IV ONE (16:00)
--- OUTSIDE RECORDS SUMMARY | 2020-08-22 16:36 | XMS REPORT | Continuity of Care Document ---
Author Author [facility] t Organization [facility] Address [address] [place] [address] Phone Unavailable Care Team Providers Care Strand Buncher Fine Wire Name Role Phone RENEE BASHIR Attphys Unavailable ANA DYSON Attphys Unavailable ANA AGUILAR Attphys Unavailable RENEE BASHIR Admphypili Unavailable Payers Payer Name Policy Type Policy Number Effective Date Expiration Date S ource Problems This patient has no known problems. Allergies, Adverse Reactions, Alerts Allergy Name Allergy Type Status Severity Reaction(s) Onset Date Inacti ve Date Treating Clinician Comments Source No Known Allergies DA Active U 2020-06-11 00:00:00 [facility] No Known Allergies DA Active U 2020-06-10 00:00:00 [facility] No Known Allergies DA Active U 2020-05-25 00:00:00 [facility] No Known Allergies DA Active U 2019-09-23 00:00:00 [facility] Fish Containing Products DA Active U 2016-07-30 00:00:00 [facility] Fish Containing Products FA Active U 2016-07-30 00:00:00 [facility] Medications This patient has no known medications. Procedures This patient has no known procedures. Results Test Description Test Time Test Comments Results Result Comments Source CHEST SINGLE (PORTABLE) 2020-08-22 06:38:00 [facility] [address] [place], [place] [address] Patient Name: BOOKER PIERRE MR #: [id number] : 1950 Age/Sex: 70/M Req #: [id number] Adm Physician: RENEE BASHIR MD Ordered by: ALEXEI WRIGHT MD Report #: [id number] Location: ICU Room/Bed: ICU 196 Procedure: [id number] DX/CHEST SINGLE (PORTABLE) Exam Date: Exam Time: REPORT STATUS: Signed EXAMINATION: CHEST SINGLE (PORTABLE) INDICATION: resp failure COMPARISON: 08/21/2020 FINDINGS: AP view TUBES and LINES: Stable tracheostomy tube and right PICC. Interval removal of left PICC. LUNGS: Lungs are well inflated. Diffuse bilateral airspace opacities, increased from prior exam. PLEURA: No pneumothorax. Suspected small bilateral pleural effusions. HEART AND MEDIASTINUM: The cardiomediastinal silhouette is enlarged. BONES AND SOFT TISSUES: No acute osseous lesion. Cervical spine fusion hardware. Soft tissues are unremarkable. UPPER ABDOMEN: No free air under the diaphragm. IMPRESSION: Diffuse bilateral airspace opacities, slightly increased from prior exam. Signed by: Dr. Fox Womack MD on 08/22/2020 6:40 AM Dictated By: FOX WOMACK MD 9 Transcribed By: MIRIAN on 08/22/20639 COPY TO: ALEXEI WRIGHT MD CHEST SINGLE (PORTABLE) 2020-08-21 15:04:00 [place] [address] Patient Name: BOOKER PIERRE MR #: [id number] : 1950 Age/Sex: 70/M Req #: [id number] Adm Physician: RENEE BASHIR MD Ordered by: ALEXEI WRIGHT MD Report #: [id number] Location: ICU Room/Bed: ICU 196-1 Procedure: [id number] DX/CHEST SINGLE (PORTABLE) Exam Date: Exam Time: REPORT STATUS: Signed EXAMINATION: CHEST SINGLE (PORTABLE) INDICATION: picc line placement verification COMPARISON: None FINDINGS: TUBES and LINES: Interval placement of right arm PICC which terminates in the SVC. Left arm PICC terminates at the cavoatrial junction. Tracheostomy tube terminates in the mid trachea. LUNGS: Lungs are well inflated. Bilateral perihilar and interstitial opacities, right greater than left. Bibasilar patchy opacities. PLEURA: Small bilateral pleural effusions. No pneumothorax. HEART AND MEDIASTINUM: The cardiomediastinal silhouette is unremarkable. BONES AND SOFT TISSUES: No acute osseous abnormality. Partially seen cervical spine fusion. UPPER ABDOMEN: No free air under the diaphragm. IMPRESSION: Interval placement of right arm PICC which terminates in the SVC. No evidence of pneumothorax. Bilateral opacities, compatible with multifocal pneumonia and/or pulmonary edema. Small bilateral pleural effusions. Signed by: Dr. Jayant Bolden MD on 08/21/2020 3:07 PM Dictated By: JAYANT BOLDEN MD 1508 Transcribed By: MIRIAN on 08/21/20 1507 COPY TO: ALEXEI WRIGHT MD CHEST SINGLE (PORTABLE) 2020-08-21 10:10:00 [place] [address] Patient Name: BOOKER PIERRE MR #: [id number] : 1950 Age/Sex: 70/M Req #: [id number] Adm Physician: RENEE BASHIR MD Ordered by: JOBY DENNY MD Report #: [id number] Location: ERHOLD Room/Bed: ERHOLD-1 Procedure: [id number] DX/CHEST SINGLE (PORTABLE) Exam Date: 08/21/20 Exam Time: 924 REPORT STATUS: Signed EXAMINATION: CHEST SINGLE (PORTABLE) INDICATION: REPEAT COMPARISON: Chest radiograph 08/21/2020. FINDINGS: TUBES and LINES: Left arm PICC terminates near the cavoatrial junction. LUNGS: Lungs are well inflated. Bilateral perihilar and interstitial opacities, right greater than left. Bibasilar patchy opacities. PLEURA: Small bilateral pleural effusions. No pneumothorax. HEART AND MEDIASTINUM: The cardiomediastinal silhouette is unremarkable. Previously noted lucencies overlying the superior mediastinum are no longer present. BONES AND SOFT TISSUES: No acute osseous abnormality. Partially seen cervical spine fusion. UPPER ABDOMEN: No free air under the diaphragm. IMPRESSION: Previously noted lucencies overlying the superior mediastinum are no longer present, compatible with overlying material. Bilateral opacities, compatible with multifocal pneumonia and/or pulmonary edema. Small bilateral pleural effusions. Signed by: Dr. Jayant Bolden MD on 08/21/2020 10:13 AM Dictated By: JAYANT BOLDEN MD 1013 Transcribed By: MIRIAN on 08/21/20 1013 COPY TO: JOBY DENNY MD CHEST SINGLE (PORTABLE) 2020-08-21 08:55:00 [place] [address] Patient Name: BOOKER PIERRE MR #: [id number] : 1950 Age/Sex: 70/M Req #: [id number] Adm Physician: Ordered by: JOBY DENNY MD Report #: [id number] Location: ER Room/Bed: Procedure: [id number] DX/CHEST SINGLE (PORTABLE) Exam Date: 08/21/20 Exam Time: 729 REPORT STATUS: Signed EXAMINATION: CHEST SINGLE (PORTABLE) INDICATION: trach/vent patient, hypoxia COMPARISON: None FINDINGS: TUBES and LINES: Left arm PICC terminates near the cavoatrial junction. LUNGS: Lungs are well inflated. Bilateral perihilar and interstitial opacities, right greater than left. Bibasilar patchy opacities. PLEURA: Small bilateral pleural effusions. No pneumothorax. HEART AND MEDIASTINUM: The cardiomediastinal silhouette is unremarkable. BONES AND SOFT TISSUES: No acute osseous abnormality. Partially seen cervical spine fusion. UPPER ABDOMEN: No free air under the diaphragm. IMPRESSION: Bilateral opacities, compatible with multifocal pneumonia and/or pulmonary edema. Small bilateral pleural effusions. Lucencies overlying the superior mediastinum, which may represent overlying material, although small volume pneumomediastinum may have a similar appearance. If of clinical concern, repeat radiograph may be considered. The above findings were discussed with Dr. Joby Denny on 08/21/2020 at 902 AM. Signed by: Dr. Jayant Bolden MD on 08/21/2020 9:02 AM Dictated By: JAYANT BOLDEN MD 1 Transcribed By: MIRIAN on 08/21/20901 COPY TO: JOBY DENNY MD [facility] 2020-07-02 16:28:00 RUN DATE: 07/02/20 [facility] Lab PAGE 1 RUN TIME: 1628 Specimen Inquiry RUN USER: INTERFACE PATIENT: BOOKER PIERRE LOC: DAYAN U #: [id number] AGE/SX: 70/M ROOM: [facility] RE06/14/20REG DR: Stephanie Morel : 50 BED: A DIS: 07/01/20 STATUS: DIS IN TLOC: SPEC #: [id number] RECD: 07/01/20 STATUS: SOUT REQ #: [id number] MYLES: 06/30/20- [facility] DR: Denilson Morel ENTERED: 07/01/20-1003 SP TYPE: STOMACH OTHR DR: No Primary or Family Physician Sánchez Gan MD, Daniel Haryanto MD Faisal, Muhammad MD Guthikonda, Lalitha N MD Pakzaban, Peyman MD Pham,Jasper Bobo MD, MD, Andres F MDORDERED: GROSS COPIES TO: No Primary or Family Physician Sánchez Gan MD [address] [place] [address] Patrick Martinez MD [address] [place], [place] [address] Checo Valladares MD [address] [place] [address] Maria TeresaTyresejerome Escoto [address] [place] [address] [place] F[place] [address] [facility], [address] [place] [address] Jamie Rust MD [address] [place] [address] CONTINUED ON NEXT PAGE RUN DATE: 07/02/20 [facility] - Lab PAGE 2 RUN TIME: 1628 Specimen Inquiry RUN USER: INTERFACE SPEC #: [id number] PATIENT: BOOKER PIERRE #[id number] (Continued)--------- --- COPIES TO: (Continued) Tnaja oBateng MD [address] [place], [place] [address], [place] [address] Jasper Eisenberg MD [address] [place] [address] Gordon Priest MD [address] [facility] [address] [place] [address] PROCEDURES: GROSS (07/02/20-1321) TISSUES: ANTRUM - BX CLINICAL HISTORY COLLECTION DATE: 06/30/20 DYSPHAGIA FINAL DIAGNOSIS Gastric antrum, biopsy: GASTRIC MUCOSA WITH MILD REACTIVE EPITHELIAL CHANGE NO SIGNIFICANTLY INCREASED ACUTE OR CHRONIC INFLAMMATION NEGATIVE FOR INTESTINAL METAPLASIA NEGATIVE FOR HELICOBACTER ORGANISMS NEGATIVE FOR MALIGNANCY RRB/gm D 71413, 75985 MACROSCOPIC The specimen is received in formalin, labeled with the patient's name, identified as "antrum", and consists of a single hennessy biopsy measuring 0.25 cm, submitted for histologic evaluation. GROSS PERFORMED AT [facility] CONTINUED ON NEXT PAGE ---- --------RUN DATE: 07/02/20 [facility] - Lab PAGE 3 RUN TIME: 1628 Specimen Inquiry RUN USER: INTERFACE SPEC #: [id number] PATIENT: BOOKER PIERRE #[id number] (Continued) MACROSCOPIC (Continued) [address] [place] [address] [phone] MICROSCOPIC At the request of Dr. Saldaña, a Giemsa stain is performed to exclude Helicobacter organisms. No organisms are identified. All of the stains, including any controls performed, stain appropriately. MICROSCOPIC PERFORMED AT [facility] [address] [place] [address] [phone] PERFORMING SITE Processed at: [facility] [address] [place] [address] Signed SIGNATURE ON FILE Josef Nuno MD 07/02/20 1628 END OF REPORT GLUBED 2020-07-01 17:54:00 Test Item GLUBED (test code = GLUBED) 163 mg/dL 74-106 H Performed by certified tool machine setup operator at [facility] [id number] 17:38:00* Test Item Value Reference Range Interpretation Comments GLUBED (test code = GLUBED) 165 mg/dL 74-106 H Performed by certified tool machine setup operator at [facility] [id number] 12:10:00* Test Item Value Reference Range Interpretation Comments GLUBED (test code = GLUBED) 174 mg/dL 74-106 H Performed by certified tool machine setup operator at [facility] - XR CHEST 1 [id number] 07:51:00 FAX: Ama Long NP [place]: B St: ADM FAX: David Townsend [facility] Fo FAX: Jasper Prince MD [phone] Name: BOOKER PIERRE [facility] : 1950 Age[facility]S: 70/M [address] [facility]: [id number] Loc: [address] [address] Phys: Ama Long NP Acct: [id number] Dis Date: Status: ADM IN PH ONE #: [phone] Exam Date: 07/01/2020 0518 FAX #: [phone] Reason: Acute Respiratory Failure EXAMS: CPT CODE: [id number] XR CHEST 1 V [id number] REASON FOR EXAM: Acute Respiratory Failure Exam Order Date: 07/01/2020 2:00 AM Ordering M.DRitesh: Ama Long NP PROCEDURE: - XR CHEST 1 V COMPARISON: Chest x-ray the previous morning FINDINGS: Enteric suction tube has been removed. Tracheostomy appli ance is unchanged. Opacity in the left midlung on the previo us examination has nearly resolved on this exam. Additionally the previous ly seen right lung base opacity is also improved in the right hemidiaphrag m is able to be visualized. Left lung base opacity is unchanged. These opa cities may represent any combination of pneumonia and atelectasis bilatera lly as well as a pleural effusion on the left side. Cardiome diastinal silhouette appears prominent however this may be due to the dimi nished lung volumes. There are degenerative changes in the thoracic spine. Cervical spine hardware is unchanged. Upper abdomen is radiographically u nremarkable. IMPRESSION: Improved aeration of the lungs and interval removal of enteric suction tube. Location : [facility] at 0751 Reported and signed by: Michael Mehta MD CC: Ama Long HAZARDOUS SUBSTANCES SCIENTIST; David Guzman DO; Jasper Eisenberg Technologist: JONN MILES JR RT (R) Trnscrd Date/Time/By: 07/01/2020 (075) : B y: [id number] Orig Print D/T: S: 07/01/2020 (0755) PAGE 1 Signed Report [id number] 05:50:00* Test Item Value Reference Range Interpretation Comments GLUBED (test code = GLUBED) 132 mg/dL 74-106 H Performed by certified tool machine setup operator at [facility] COMPREHENSIVE METABOLIC [id number] 04:15:00* Test Item Value Reference Range Interpretation Comments SODIUM (test code = NA) 139 mmol/L 136-145 N POTASSIUM (test code = K) 3.9 mmol/L 3.5-5.1 N CHLORIDE (test code = CL) 101.0 mmol/L 98-107 N CARBON DIOXIDE (test code = CO2) 31.0 mmol/L 21-32 N ANION GAP (test code = GAP) 10.9 10-20 N GLUCOSE (test code = GLU) 135 mg/dL 74-106 H BLOOD UREA NITROGEN (test code = BUN) 29 mg/dL 7-18 H GLOMERULAR FILTRATION RATE (test code = GFR) > 60 mL/min >=60 Estimated GFR by using Modified MDRD formula.Chronic kidney disease is defined as either kidney damageor GFR <60 mL/min/1.73 m2 for >3 months. CREATININE (test code = CREAT) 0.70 mg/dL 0.7-1.3 N BUN/CREATININE RATIO (test code = BUN/CREA) 39.5 10-20 H TOTAL PROTEIN (test code = PROT) 4.5 gram/dL 6.4-8.2 L ALBUMIN (test code = ALB) 1.6 g/dL 3.4-5.0 L GLOBULIN (test code = GLOB) 2.9 gram/dL 2.7-4.2 N ALBUMIN/GLOBULIN RATIO (test code = A/G) 0.6 0.75-1.50 L CALCIUM (test code = CA) 8.1 mg/dL 8.5-10.1 L BILIRUBIN TOTAL (test code = BILT) 0.50 mg/dL 0.0-1.0 N SGOT/AST (test code = AST) 13 IUnit/L 15-37 L SGPT/ALT (test code = ALT) 49 IUnit/L 12-78 N ALKALINE PHOSPHATASE TOTAL (test code = ALKP) 79 IUnit/L 45-117 N Note change in reference range due to change in reagent. [id number] 04:15:00* Test Item Value Reference Range Interpretation Comments PHOSPHORUS (test code = PHOS) 3.4 mg/dL 2.5-4.9 N [id number] 04:15:00* Test Item Value Reference Range Interpretation Comments MAGNESIUM (test code = MAG) 2.0 mg/dL 1.8-2.4 N CALCIUM [id number] 04:15:00* Test Item Value Reference Range Interpretation Comments CALCIUM IONIZED (test code = PHILLIP) 1.20 mmol/L 1.12-1.32 N COMPREHENSIVE METABOLIC [id number] 04:10:00* Test Item Value Reference Range Interpretation Comments SODIUM (test code = NA) 139 mmol/L 136-145 N POTASSIUM (test code = K) 3.9 mmol/L 3.5-5.1 N CHLORIDE (test code = CL) 101.0 mmol/L 98-107 N CARBON DIOXIDE (test code = CO2) 31.0 mmol/L 21-32 N ANION GAP (test code = GAP) 10.9 10-20 N GLUCOSE (test code = GLU) 135 mg/dL 74-106 H BLOOD UREA NITROGEN (test code = BUN) 29 mg/dL 7-18 H GLOMERULAR FILTRATION RATE (test code = GFR) > 60 mL/min >=60 Estimated GFR by using Modified MDRD formula.Chronic kidney disease is defined as either kidney damageor GFR <60 mL/min/1.73 m2 for >3 months. CREATININE (test code = CREAT) 0.70 mg/dL 0.7-1.3 N BUN/CREATININE RATIO (test code = BUN/CREA) 39.5 10-20 H TOTAL PROTEIN (test code = PROT) 4.5 gram/dL 6.4-8.2 L ALBUMIN (test code = ALB) 1.6 g/dL 3.4-5.0 L GLOBULIN (test code = GLOB) 2.9 gram/dL 2.7-4.2 N ALBUMIN/GLOBULIN RATIO (test code = A/G) 0.6 0.75-1.50 L CALCIUM (test code = CA) 8.1 mg/dL 8.5-10.1 L BILIRUBIN TOTAL (test code = BILT) 0.50 mg/dL 0.0-1.0 N SGOT/AST (test code = AST) 13 IUnit/L 15-37 L SGPT/ALT (test code = ALT) 49 IUnit/L 12-78 N ALKALINE PHOSPHATASE TOTAL (test code = ALKP) 79 IUnit/L 45-117 N Note change in reference range due to change in reagent. [id number] 04:10:00* Test Item Value Reference Range Interpretation Comments PHOSPHORUS (test code = PHOS) 3.4 mg/dL 2.5-4.9 N [id number] 04:10:00* Test Item Value Reference Range Interpretation Comments MAGNESIUM (test code = MAG) 2.0 mg/dL 1.8-2.4 N CALCIUM [id number] 04:10:00* Test Item Value Reference Range Interpretation Comments CALCIUM IONIZED (test code = PHILLIP) mmol/L 1.12-1.32 COMPREHENSIVE METABOLIC [id number] 04:07:00* Test Item Value Reference Range Interpretation Comments SODIUM (test code = NA) 139 mmol/L 136-145 N POTASSIUM (test code = K) 3.9 mmol/L 3.5-5.1 N CHLORIDE (test code = CL) 101.0 mmol/L 98-107 N CARBON DIOXIDE (test code = CO2) mmol/L 21-32 ANION GAP (test code = GAP) 10-20 GLUCOSE (test code = GLU) mg/dL 74-106 BLOOD UREA NITROGEN (test code = BUN) mg/dL 7-18 GLOMERULAR FILTRATION RATE (test code = GFR) mL/min >=60 CREATININE (test code = CREAT) mg/dL 0.7-1.3 BUN/CREATININE RATIO (test code = BUN/CREA) 10-20 TOTAL PROTEIN (test code = PROT) gram/dL 6.4-8.2 ALBUMIN (test code = ALB) g/dL 3.4-5.0 GLOBULIN (test code = GLOB) gram/dL 2.7-4.2 ALBUMIN/GLOBULIN RATIO (test code = A/G) 0.75-1.50 CALCIUM (test code = CA) mg/dL 8.5-10.1 BILIRUBIN TOTAL (test code = BILT) mg/dL 0.0-1.0 SGOT/AST (test code = AST) IUnit/L 15-37 SGPT/ALT (test code = ALT) IUnit/L 12-78 ALKALINE PHOSPHATASE TOTAL (test code = ALKP) IUnit/L 45-117 [id number] 04:07:00* Test Item Value Reference Range Interpretation Comments PHOSPHORUS (test code = PHOS) mg/dL 2.5-4.9 [id number] 04:07:00* Test Item Value Reference Range Interpretation Comments MAGNESIUM (test code = MAG) mg/dL 1.8-2.4 CALCIUM [id number] 04:07:00* Test Item Value Reference Range Interpretation Comments CALCIUM IONIZED (test code = PHILLIP) mmol/L 1.12-1.32 CBC W/AUTO [id number] 02:50:00* Test Item Value Reference Range Interpretation Comments WHITE BLOOD CELL (test code = WBC) 9.6 K/mm3 4.5-12.5 N RED BLOOD CELL (test code = RBC) 3.10 mill/mm3 4.0-5.8 L HEMOGLOBIN (test code = HGB) 9.0 gram/dL 13.0-17.5 L HEMATOCRIT (test code = HCT) 28.0 % 42.0-52.0 L MEAN CELL VOLUME (test code = MCV) 90.3 fL 80-98 N MEAN CELL HGB (test code = MCH) 29.0 picogram 27.0-33.0 N MEAN CELL HGB CONCETRATION (test code = MCHC) 32.1 gram/dL 33.0-36. 0 L RED CELL DISTRIBUTION WIDTH (test code = RDW) 14.9 % 11.6-16. 2 N RED CELL DISTRIBUTION WIDTH SD (test code = RDW-SD) 47.4 fL 37 .0-51.0 N PLATELET COUNT (test code = PLT) 289 K/mm3 150-450 N MEAN PLATELET VOLUME (test code = MPV) 10.6 fL 6.7-11.0 N NEUTROPHIL % (test code = NT%) 95.3 % 39.0-69.0 H IMMATURE GRANULOCYTE % (test code = IG%) 0.6 % 0.0-5.0 N LYMPHOCYTE % (test code = LY%) 1.8 % 25.0-55.0 L MONOCYTE % (test code = MO%) 2.2 % 0.0-10.0 N EOSINOPHIL % (test code = EO%) 0.0 % 0.0-5.0 N BASOPHIL % (test code = BA%) 0.1 % 0.0-1.0 N NUCLEATED RBC % (test code = NRBC%) 0.0 % 0-0 N NEUTROPHIL # (test code = NT#) 9.11 K/mm3 1.8-7.7 H IMMATURE GRANULOCYTE # (test code = IG#) 0.06 x10 3/uL 0-0.03 H LYMPHOCYTE # (test code = LY#) 0.17 K/mm3 1.0-5.0 L MONOCYTE # (test code = MO#) 0.21 K/mm3 0-0.8 N EOSINOPHIL # (test code = EO#) 0.00 K/mm3 0.0-0.5 N BASOPHIL # (test code = BA#) 0.01 K/mm3 0.0-0.2 N NUCLEATED RBC # (test code = NRBC#) 0.00 K/mm3 0.0-0.1 N MANUAL DIFF REQUIRED (test code = MDIFF) NO CBC W/AUTO [id number] 02:49:00* Test Item Value Reference Range Interpretation Comments WHITE BLOOD CELL (test code = WBC) K/mm3 4.5-12.5 RED BLOOD CELL (test code = RBC) mill/mm3 4.0-5.8 HEMOGLOBIN (test code = HGB) gram/dL 13.0-17.5 HEMATOCRIT (test code = HCT) % 42.0-52.0 MEAN CELL VOLUME (test code = MCV) fL 80-98 MEAN CELL HGB (test code = MCH) picogram 27.0-33.0 MEAN CELL HGB CONCETRATION (test code = MCHC) gram/dL 33.0-36. 0 RED CELL DISTRIBUTION WIDTH (test code = RDW) % 11.6-16. 2 RED CELL DISTRIBUTION WIDTH SD (test code = RDW-SD) fL 37 .0-51.0 PLATELET COUNT (test code = PLT) 289 K/mm3 150-450 N MEAN PLATELET VOLUME (test code = MPV) fL 6.7-11.0 NEUTROPHIL % (test code = NT%) % 39.0-69.0 IMMATURE GRANULOCYTE % (test code = IG%) % 0.0-5.0 LYMPHOCYTE % (test code = LY%) % 25.0-55.0 MONOCYTE % (test code = MO%) % 0.0-10.0 EOSINOPHIL % (test code = EO%) % 0.0-5.0 BASOPHIL % (test code = BA%) % 0.0-1.0 NEUTROPHIL # (test code = NT#) K/mm3 1.8-7.7 LYMPHOCYTE # (test code = LY#) K/mm3 1.0-5.0 MONOCYTE # (test code = MO#) K/mm3 0-0.8 EOSINOPHIL # (test code = EO#) K/mm3 0.0-0.5 BASOPHIL # (test code = BA#) K/mm3 0.0-0.2 [id number] 00:50:00* Test Item Value Reference Range Interpretation Comments GLUBED (test code = GLUBED) 149 mg/dL 74-106 H Performed by certified tool machine setup operator at [facility] [id number] 18:21:00* Test Item Value Reference Range Interpretation Comments GLUBED (test code = GLUBED) 141 mg/dL 74-106 H Performed by certified tool machine setup operator at [facility] [id number] 11:56:00* Test Item Value Reference Range Interpretation Comments GLUBED (test code = GLUBED) 145 mg/dL 74-106 H Performed by certified tool machine setup operator at [facility] - XR CHEST 1 [id number] 07:50:00 FAX: Ama Long NP [place]: B St: ADM FAX: David Townsend Fo FAX: Jasper Prince MD [phone] Name: BOOKER PIERRE [facility] : 1950 Age/S: 70/M [address] [facility] Unit #: [id number] Loc: [place] [address] Phys: Ama Long NP Acct: [id number] Dis Date: Status: ADM IN ONE #: [phone] Exam Date: 06/30/2020 05 FAX #: [phone] Reason: Acute Respiratory Failure EXAMS: CPT CODE: [id number] XR CHEST 1 V [id number] REASON FOR EXAM: Acute Respiratory Failure Exam Order Date: 06/30/2020 2:00 AM Ordering M.D.: Ama Long NP PROCEDURE: - XR CHEST 1 V COMPARISON: Chest x-ray the previous morning FINDINGS: Tracheostomy appliance and enteric suction tube appear gr ossly appropriately positioned. Cervical spine hardware is noted. Lung volumes are diminished and there are opacities in the lung bases which may represent any combination of layering effusions, atelectatic c hanges, and consolidations. Compared to the previous examination these fin dings appear grossly similar when accounting for differences in technique. Cardiac mediastinal silhouette appears prominent although this may be due to the diminished lung volumes. Degenerative changes are present in the shoulders and spine. IMPRESSION: Cardiopulm onary findings appear grossly unchanged when accounting for differences in technique. Location: [facility] at 0750 Reported and sig good by: Michael Mehta MD CC: Ama Long HAZARDOUS SUBSTANCES SCIENTIST; David Guzman DO; Jasper Eisenberg Technologist: JONN MILES JR RT(R) T rnscrd Date/Time/By: 06/30/2020 (075) : By: [id number] Orig Print D/T: S: 06/30/2020 (6703) PAGE 1 Sign ed Report [id number] 05:51:00* Test Item Value Reference Range Interpretation Comments GLUBED (test code = GLUBED) 207 mg/dL 74-106 H Performed by certified tool machine setup operator at [facility] COMPREHENSIVE METABOLIC [id number] 03:57:00* Test Item Value Reference Range Interpretation Comments SODIUM (test code = NA) 139 mmol/L 136-145 N POTASSIUM (test code = K) 3.6 mmol/L 3.5-5.1 N CHLORIDE (test code = CL) 102.0 mmol/L 98-107 N CARBON DIOXIDE (test code = CO2) 29.0 mmol/L 21-32 N ANION GAP (test code = GAP) 11.6 10-20 N GLUCOSE (test code = GLU) 241 mg/dL 74-106 H BLOOD UREA NITROGEN (test code = BUN) 33 mg/dL 7-18 H GLOMERULAR FILTRATION RATE (test code = GFR) > 60 mL/min >=60 Estimated GFR by using Modified MDRD formula.Chronic kidney disease is defined as either kidney damageor GFR <60 mL/min/1.73 m2 for >3 months. CREATININE (test code = CREAT) 0.80 mg/dL 0.7-1.3 N BUN/CREATININE RATIO (test code = BUN/CREA) 40.3 10-20 H TOTAL PROTEIN (test code = PROT) 4.3 gram/dL 6.4-8.2 L ALBUMIN (test code = ALB) 1.5 g/dL 3.4-5.0 L GLOBULIN (test code = GLOB) 2.8 gram/dL 2.7-4.2 N ALBUMIN/GLOBULIN RATIO (test code = A/G) 0.5 0.75-1.50 L CALCIUM (test code = CA) 7.7 mg/dL 8.5-10.1 L BILIRUBIN TOTAL (test code = BILT) 0.40 mg/dL 0.0-1.0 N SGOT/AST (test code = AST) 9 IUnit/L 15-37 L SGPT/ALT (test code = ALT) 37 IUnit/L 12-78 N ALKALINE PHOSPHATASE TOTAL (test code = ALKP) 83 IUnit/L 45-117 N Note change in reference range due to change in reagent. [id number] 03:57:00* Test Item Value Reference Range Interpretation Comments PHOSPHORUS (test code = PHOS) 3.1 mg/dL 2.5-4.9 N [id number] 03:57:00* Test Item Value Reference Range Interpretation Comments MAGNESIUM (test code = MAG) 1.6 mg/dL 1.8-2.4 L CALCIUM [id number] 03:57:00* Test Item Value Reference Range Interpretation Comments CALCIUM IONIZED (test code = PHILLIP) 0.88 mmol/L 1.12-1.32 L COMPREHENSIVE METABOLIC [id number] 03:17:00* Test Item Value Reference Range Interpretation Comments SODIUM (test code = NA) 139 mmol/L 136-145 N POTASSIUM (test code = K) 3.6 mmol/L 3.5-5.1 N CHLORIDE (test code = CL) 102.0 mmol/L 98-107 N CARBON DIOXIDE (test code = CO2) 29.0 mmol/L 21-32 N ANION GAP (test code = GAP) 11.6 10-20 N GLUCOSE (test code = GLU) 241 mg/dL 74-106 H BLOOD UREA NITROGEN (test code = BUN) 33 mg/dL 7-18 H GLOMERULAR FILTRATION RATE (test code = GFR) > 60 mL/min >=60 Estimated GFR by using Modified MDRD formula.Chronic kidney disease is defined as either kidney damageor GFR <60 mL/min/1.73 m2 for >3 months. CREATININE (test code = CREAT) 0.80 mg/dL 0.7-1.3 N BUN/CREATININE RATIO (test code = BUN/CREA) 40.3 10-20 H TOTAL PROTEIN (test code = PROT) 4.3 gram/dL 6.4-8.2 L ALBUMIN (test code = ALB) 1.5 g/dL 3.4-5.0 L GLOBULIN (test code = GLOB) 2.8 gram/dL 2.7-4.2 N ALBUMIN/GLOBULIN RATIO (test code = A/G) 0.5 0.75-1.50 L CALCIUM (test code = CA) 7.7 mg/dL 8.5-10.1 L BILIRUBIN TOTAL (test code = BILT) 0.40 mg/dL 0.0-1.0 N SGOT/AST (test code = AST) 9 IUnit/L 15-37 L SGPT/ALT (test code = ALT) 37 IUnit/L 12-78 N ALKALINE PHOSPHATASE TOTAL (test code = ALKP) 83 IUnit/L 45-117 N Note change in reference range due to change in reagent. [id number] 03:17:00* Test Item Value Reference Range Interpretation Comments PHOSPHORUS (test code = PHOS) 3.1 mg/dL 2.5-4.9 N [id number] 03:17:00* Test Item Value Reference Range Interpretation Comments MAGNESIUM (test code = MAG) 1.6 mg/dL 1.8-2.4 L CALCIUM [id number] 03:17:00* Test Item Value Reference Range Interpretation Comments CALCIUM IONIZED (test code = PHILLIP) mmol/L 1.12-1.32 COMPREHENSIVE METABOLIC [id number] 03:05:00* Test Item Value Reference Range Interpretation Comments SODIUM (test code = NA) 139 mmol/L 136-145 N POTASSIUM (test code = K) 3.6 mmol/L 3.5-5.1 N CHLORIDE (test code = CL) 102.0 mmol/L 98-107 N CARBON DIOXIDE (test code = CO2) mmol/L 21-32 ANION GAP (test code = GAP) 10-20 GLUCOSE (test code = GLU) mg/dL 74-106 BLOOD UREA NITROGEN (test code = BUN) mg/dL 7-18 GLOMERULAR FILTRATION RATE (test code = GFR) mL/min >=60 CREATININE (test code = CREAT) mg/dL 0.7-1.3 BUN/CREATININE RATIO (test code = BUN/CREA) 10-20 TOTAL PROTEIN (test code = PROT) gram/dL 6.4-8.2 ALBUMIN (test code = ALB) g/dL 3.4-5.0 GLOBULIN (test code = GLOB) gram/dL 2.7-4.2 ALBUMIN/GLOBULIN RATIO (test code = A/G) 0.75-1.50 CALCIUM (test code = CA) mg/dL 8.5-10.1 BILIRUBIN TOTAL (test code = BILT) mg/dL 0.0-1.0 SGOT/AST (test code = AST) IUnit/L 15-37 SGPT/ALT (test code = ALT) IUnit/L 12-78 ALKALINE PHOSPHATASE TOTAL (test code = ALKP) IUnit/L 45-117 [id number] 03:05:00* Test Item Value Reference Range Interpretation Comments PHOSPHORUS (test code = PHOS) mg/dL 2.5-4.9 [id number] 03:05:00* Test Item Value Reference Range Interpretation Comments MAGNESIUM (test code = MAG) mg/dL 1.8-2.4 CALCIUM [id number] 03:05:00* Test Item Value Reference Range Interpretation Comments CALCIUM IONIZED (test code = PHILLIP) mmol/L 1.12-1.32 CBC W/AUTO [id number] 02:49:00* Test Item Value Reference Range Interpretation Comments WHITE BLOOD CELL (test code = WBC) 9.9 K/mm3 4.5-12.5 N RED BLOOD CELL (test code = RBC) 2.89 mill/mm3 4.0-5.8 L HEMOGLOBIN (test code = HGB) 8.4 gram/dL 13.0-17.5 L HEMATOCRIT (test code = HCT) 26.5 % 42.0-52.0 L MEAN CELL VOLUME (test code = MCV) 91.7 fL 80-98 N MEAN CELL HGB (test code = MCH) 29.1 picogram 27.0-33.0 N MEAN CELL HGB CONCETRATION (test code = MCHC) 31.7 gram/dL 33.0-36. 0 L RED CELL DISTRIBUTION WIDTH (test code = RDW) 15.2 % 11.6-16. 2 N RED CELL DISTRIBUTION WIDTH SD (test code = RDW-SD) 48.8 fL 37 .0-51.0 N PLATELET COUNT (test code = PLT) 243 K/mm3 150-450 N MEAN PLATELET VOLUME (test code = MPV) 10.2 fL 6.7-11.0 N NEUTROPHIL % (test code = NT%) 96.1 % 39.0-69.0 H IMMATURE GRANULOCYTE % (test code = IG%) 0.8 % 0.0-5.0 N LYMPHOCYTE % (test code = LY%) 1.0 % 25.0-55.0 L MONOCYTE % (test code = MO%) 1.9 % 0.0-10.0 N EOSINOPHIL % (test code = EO%) 0.0 % 0.0-5.0 N BASOPHIL % (test code = BA%) 0.2 % 0.0-1.0 N NUCLEATED RBC % (test code = NRBC%) 0.0 % 0-0 N NEUTROPHIL # (test code = NT#) 9.53 K/mm3 1.8-7.7 H IMMATURE GRANULOCYTE # (test code = IG#) 0.08 x10 3/uL 0-0.03 H LYMPHOCYTE # (test code = LY#) 0.10 K/mm3 1.0-5.0 L MONOCYTE # (test code = MO#) 0.19 K/mm3 0-0.8 N EOSINOPHIL # (test code = EO#) 0.00 K/mm3 0.0-0.5 N BASOPHIL # (test code = BA#) 0.02 K/mm3 0.0-0.2 N NUCLEATED RBC # (test code = NRBC#) 0.00 K/mm3 0.0-0.1 N MANUAL DIFF REQUIRED (test code = MDIFF) NO [id number] 00:47:00* Test Item Value Reference Range Interpretation Comments GLUBED (test code = GLUBED) 211 mg/dL 74-106 H Performed by certified tool machine setup operator at [facility] [id number] 17:22:00* Test Item Value Reference Range Interpretation Comments GLUBED (test code = GLUBED) 225 mg/dL 74-106 H Performed by certified tool machine setup operator at [facility] [id number] 11:29:00* Test Item Value Reference Range Interpretation Comments GLUBED (test code = GLUBED) 212 mg/dL 74-106 H Performed by certified tool machine setup operator at [facility] ARTERIAL BLOOD [id number] 07:28:00* Test Item Value Reference Range Interpretation Comments ARTERIAL BLOOD GAS PH (test code = PHA) 7.51 7.35-7.45 H ARTERIAL BLOOD GAS PCO2 (test code = PCO2A) 35.1 mm Hg 35-45 N ARTERIAL BLOOD GAS PO2 (test code = PO2A) 65.6 mmHg 80-100 L BICARBONATE TOTAL HCO3 (test code = HCO3) 27.3 mmol/L 23.0-27.0 H BASE EXCESS (test code = HERBERT) 4.0 mmol/L -3.0-5.0 N ABG O2 SATURATION (test code = SATA) 94.4 % 90.0-98.0 N ABG TYPE (test code = TYPEA) Arterial FIO2 (test code = FIO2A) 40.0 ABG VENT MODE (test code = MODEA) Assist Control ABG SITE (test code = SITEA) ARTERIAL LINE MODIFIED ALLENS (test code = MODALL) Unable CHECK PERFORMED HEMATOCRIT (test code = HCT/ABG) 21 % 42-52 L TOTAL HGB (test code = THB) 7.3 gram/dL 13.0-17.5 L HGB O2 SAT (test code = HBOSAT) 93.9 % 94.00-98.00 L CARBOXYHEMOGLOBIN (test code = HOHGBT) 0.2 %totalHg 0.5-1.5 LL Results called to and read back by venkat : - 06/26/2020; by dave METHEMOGLOBIN (test code = METHGB) 0.3 % 0.0-1.50 N O2 CONTENT (test code = O2CT) 9.7 % vol 18.0-22.0 LL [id number] 05:42:00* Test Item Value Reference Range Interpretation Comments GLUBED (test code = GLUBED) 139 mg/dL 74-106 H Performed by certified tool machine setup operator at [facility] CBC W/MANUAL [id number] 04:42:00* Test Item Value Reference Range Interpretation Comments WHITE BLOOD CELL (test code = WBC) 7.7 K/mm3 4.5-12.5 N RED BLOOD CELL (test code = RBC) 3.11 mill/mm3 4.0-5.8 L HEMOGLOBIN (test code = HGB) 9.1 gram/dL 13.0-17.5 L HEMATOCRIT (test code = HCT) 28.6 % 42.0-52.0 L MEAN CELL VOLUME (test code = MCV) 92.0 fL 80-98 N MEAN CELL HGB (test code = MCH) 29.3 picogram 27.0-33.0 N MEAN CELL HGB CONCETRATION (test code = MCHC) 31.8 gram/dL 33.0-36. 0 L RED CELL DISTRIBUTION WIDTH (test code = RDW) 15.5 % 11.6-16. 2 N RED CELL DISTRIBUTION WIDTH SD (test code = RDW-SD) 48.9 fL 37 .0-51.0 N PLATELET COUNT (test code = PLT) 230 K/mm3 150-450 N MEAN PLATELET VOLUME (test code = MPV) 11.2 fL 6.7-11.0 H NEUTROPHIL % (test code = NT%) 95.2 % 39.0-69.0 H IMMATURE GRANULOCYTE % (test code = IG%) 1.2 % 0.0-5.0 N LYMPHOCYTE % (test code = LY%) 1.7 % 25.0-55.0 L MONOCYTE % (test code = MO%) 1.8 % 0.0-10.0 N EOSINOPHIL % (test code = EO%) 0.0 % 0.0-5.0 N BASOPHIL % (test code = BA%) 0.1 % 0.0-1.0 N NUCLEATED RBC % (test code = NRBC%) 0.0 % 0-0 N NEUTROPHIL # (test code = NT#) 7.28 K/mm3 1.8-7.7 N IMMATURE GRANULOCYTE # (test code = IG#) 0.09 x10 3/uL 0-0.03 H LYMPHOCYTE # (test code = LY#) 0.13 K/mm3 1.0-5.0 L MONOCYTE # (test code = MO#) 0.14 K/mm3 0-0.8 N EOSINOPHIL # (test code = EO#) 0.00 K/mm3 0.0-0.5 N BASOPHIL # (test code = BA#) 0.01 K/mm3 0.0-0.2 N NUCLEATED RBC # (test code = NRBC#) 0.00 K/mm3 0.0-0.1 N MANUAL DIFF REQUIRED (test code = MDIFF) DIFF NEEDED STAIN ACCEPTABILITY (test code = STN ACCEPTABLE) STAIN ACCEPTABLE TOTAL CELLS COUNTED (test code = TCC) 115 #CELLS SEGMENTED NEUTROPHILS (test code = SEG) 95.7 % 39-69 H BAND NEUTROPHIL (test code = BAND) 0 % 0-10 N LYMPHOCYTE (test code = LYMPH) 0.9 % 25-55 L REACTIVE LYMPH (test code = RELYMPH) 0 % MONOCYTE (test code = MON) 1.7 % 0-10 N EOSINOPHIL (test code = EOS) 0 % 0.0-5.0 N BASOPHIL (test code = BASO) 0 % 0-1.0 N METAMYELOCYTE (test code = META) 1.7 % 0-0 H MYELOCYTE (test code = MYELO) 0 % 0.0-0.0 N PROMYELOCYTE (test code = PROM) 0 % 0-0 N POLYCHROMASIA (test code = POLC) 1+ ANISOCYTOSIS (test code = ANISO) 1+ MORPHOLOGY COMMENT (test code = MOC) TEST NOT PERFORMED PLATELET ESTIMATE (test code = PLTEST) ADEQUATE PLATELET MORPHOLOGY (test code = PLTMORPH) NORMAL IMMATURE FORMS (test code = IMMAT) 0 % 0-0 N COMPREHENSIVE METABOLIC [id number] 04:35:00* Test Item Value Reference Range Interpretation Comments SODIUM (test code = NA) 141 mmol/L 136-145 N POTASSIUM (test code = K) 4.5 mmol/L 3.5-5.1 N CHLORIDE (test code = CL) 104.0 mmol/L 98-107 N CARBON DIOXIDE (test code = CO2) 29.0 mmol/L 21-32 N ANION GAP (test code = GAP) 12.5 10-20 N GLUCOSE (test code = GLU) 149 mg/dL 74-106 H BLOOD UREA NITROGEN (test code = BUN) 30 mg/dL 7-18 H GLOMERULAR FILTRATION RATE (test code = GFR) > 60 mL/min >=60 Estimated GFR by using Modified MDRD formula.Chronic kidney disease is defined as either kidney damageor GFR <60 mL/min/1.73 m2 for >3 months. CREATININE (test code = CREAT) 0.80 mg/dL 0.7-1.3 N BUN/CREATININE RATIO (test code = BUN/CREA) 37.3 10-20 H TOTAL PROTEIN (test code = PROT) 4.8 gram/dL 6.4-8.2 L ALBUMIN (test code = ALB) 1.7 g/dL 3.4-5.0 L GLOBULIN (test code = GLOB) 3.1 gram/dL 2.7-4.2 N ALBUMIN/GLOBULIN RATIO (test code = A/G) 0.5 0.75-1.50 L CALCIUM (test code = CA) 7.4 mg/dL 8.5-10.1 L BILIRUBIN TOTAL (test code = BILT) 0.60 mg/dL 0.0-1.0 N SGOT/AST (test code = AST) 15 IUnit/L 15-37 N SGPT/ALT (test code = ALT) 48 IUnit/L 12-78 N ALKALINE PHOSPHATASE TOTAL (test code = ALKP) 83 IUnit/L 45-117 N Note change in reference range due to change in reagent. [id number] 04:35:00* Test Item Value Reference Range Interpretation Comments PHOSPHORUS (test code = PHOS) 4.0 mg/dL 2.5-4.9 N [id number] 04:35:00* Test Item Value Reference Range Interpretation Comments MAGNESIUM (test code = MAG) 1.8 mg/dL 1.8-2.4 N CALCIUM [id number] 04:35:00* Test Item Value Reference Range Interpretation Comments CALCIUM IONIZED (test code = PHILLIP) 1.11 mmol/L 1.12-1.32 L COMPREHENSIVE METABOLIC [id number] 04:28:00* Test Item Value Reference Range Interpretation Comments SODIUM (test code = NA) 141 mmol/L 136-145 N POTASSIUM (test code = K) 4.5 mmol/L 3.5-5.1 N CHLORIDE (test code = CL) 104.0 mmol/L 98-107 N CARBON DIOXIDE (test code = CO2) mmol/L 21-32 ANION GAP (test code = GAP) 10-20 GLUCOSE (test code = GLU) mg/dL 74-106 BLOOD UREA NITROGEN (test code = BUN) mg/dL 7-18 GLOMERULAR FILTRATION RATE (test code = GFR) mL/min >=60 CREATININE (test code = CREAT) mg/dL 0.7-1.3 BUN/CREATININE RATIO (test code = BUN/CREA) 10-20 TOTAL PROTEIN (test code = PROT) gram/dL 6.4-8.2 ALBUMIN (test code = ALB) g/dL 3.4-5.0 GLOBULIN (test code = GLOB) gram/dL 2.7-4.2 ALBUMIN/GLOBULIN RATIO (test code = A/G) 0.75-1.50 CALCIUM (test code = CA) mg/dL 8.5-10.1 BILIRUBIN TOTAL (test code = BILT) mg/dL 0.0-1.0 SGOT/AST (test code = AST) IUnit/L 15-37 SGPT/ALT (test code = ALT) IUnit/L 12-78 ALKALINE PHOSPHATASE TOTAL (test code = ALKP) IUnit/L 45-117 [id number] 04:28:00* Test Item Value Reference Range Interpretation Comments PHOSPHORUS (test code = PHOS) mg/dL 2.5-4.9 [id number] 04:28:00* Test Item Value Reference Range Interpretation Comments MAGNESIUM (test code = MAG) mg/dL 1.8-2.4 CALCIUM [id number] 04:28:00* Test Item Value Reference Range Interpretation Comments CALCIUM IONIZED (test code = PHILLIP) 1.11 mmol/L 1.12-1.32 L COMPREHENSIVE METABOLIC [id number] 04:22:00* Test Item Value Reference Range Interpretation Comments SODIUM (test code = NA) mmol/L 136-145 POTASSIUM (test code = K) mmol/L 3.5-5.1 CHLORIDE (test code = CL) mmol/L 98-107 CARBON DIOXIDE (test code = CO2) mmol/L 21-32 ANION GAP (test code = GAP) 10-20 GLUCOSE (test code = GLU) mg/dL 74-106 BLOOD UREA NITROGEN (test code = BUN) mg/dL 7-18 GLOMERULAR FILTRATION RATE (test code = GFR) mL/min >=60 CREATININE (test code = CREAT) mg/dL 0.7-1.3 BUN/CREATININE RATIO (test code = BUN/CREA) 10-20 TOTAL PROTEIN (test code = PROT) gram/dL 6.4-8.2 ALBUMIN (test code = ALB) g/dL 3.4-5.0 GLOBULIN (test code = GLOB) gram/dL 2.7-4.2 ALBUMIN/GLOBULIN RATIO (test code = A/G) 0.75-1.50 CALCIUM (test code = CA) mg/dL 8.5-10.1 BILIRUBIN TOTAL (test code = BILT) mg/dL 0.0-1.0 SGOT/AST (test code = AST) IUnit/L 15-37 SGPT/ALT (test code = ALT) IUnit/L 12-78 ALKALINE PHOSPHATASE TOTAL (test code = ALKP) IUnit/L 45-117 [id number] 04:22:00* Test Item Value Reference Range Interpretation Comments PHOSPHORUS (test code = PHOS) mg/dL 2.5-4.9 [id number] 04:22:00* Test Item Value Reference Range Interpretation Comments MAGNESIUM (test code = MAG) mg/dL 1.8-2.4 CALCIUM [id number] 04:22:00* Test Item Value Reference Range Interpretation Comments CALCIUM IONIZED (test code = PHILLIP) 1.11 mmol/L 1.12-1.32 L CBC W/MANUAL [id number] 03:31:00* Test Item Value Reference Range Interpretation Comments WHITE BLOOD CELL (test code = WBC) 7.7 K/mm3 4.5-12.5 N RED BLOOD CELL (test code = RBC) 3.11 mill/mm3 4.0-5.8 L HEMOGLOBIN (test code = HGB) 9.1 gram/dL 13.0-17.5 L HEMATOCRIT (test code = HCT) 28.6 % 42.0-52.0 L MEAN CELL VOLUME (test code = MCV) 92.0 fL 80-98 N MEAN CELL HGB (test code = MCH) 29.3 picogram 27.0-33.0 N MEAN CELL HGB CONCETRATION (test code = MCHC) 31.8 gram/dL 33.0-36. 0 L RED CELL DISTRIBUTION WIDTH (test code = RDW) 15.5 % 11.6-16. 2 N RED CELL DISTRIBUTION WIDTH SD (test code = RDW-SD) 48.9 fL 37 .0-51.0 N PLATELET COUNT (test code = PLT) 230 K/mm3 150-450 N MEAN PLATELET VOLUME (test code = MPV) 11.2 fL 6.7-11.0 H NEUTROPHIL % (test code = NT%) 95.2 % 39.0-69.0 H IMMATURE GRANULOCYTE % (test code = IG%) 1.2 % 0.0-5.0 N LYMPHOCYTE % (test code = LY%) 1.7 % 25.0-55.0 L MONOCYTE % (test code = MO%) 1.8 % 0.0-10.0 N EOSINOPHIL % (test code = EO%) 0.0 % 0.0-5.0 N BASOPHIL % (test code = BA%) 0.1 % 0.0-1.0 N NUCLEATED RBC % (test code = NRBC%) 0.0 % 0-0 N NEUTROPHIL # (test code = NT#) 7.28 K/mm3 1.8-7.7 N IMMATURE GRANULOCYTE # (test code = IG#) 0.09 x10 3/uL 0-0.03 H LYMPHOCYTE # (test code = LY#) 0.13 K/mm3 1.0-5.0 L MONOCYTE # (test code = MO#) 0.14 K/mm3 0-0.8 N EOSINOPHIL # (test code = EO#) 0.00 K/mm3 0.0-0.5 N BASOPHIL # (test code = BA#) 0.01 K/mm3 0.0-0.2 N NUCLEATED RBC # (test code = NRBC#) 0.00 K/mm3 0.0-0.1 N MANUAL DIFF REQUIRED (test code = MDIFF) DIFF NEEDED STAIN ACCEPTABILITY (test code = STN ACCEPTABLE) TOTAL CELLS COUNTED (test code = TCC) #CELLS SEGMENTED NEUTROPHILS (test code = SEG) % 39-69 LYMPHOCYTE (test code = LYMPH) % 25-55 MONOCYTE (test code = MON) % 0-10 EOSINOPHIL (test code = EOS) % 0.0-5.0 CABOT RINGS (test code = CAB) MORPHOLOGY COMMENT (test code = MOC) PLATELET ESTIMATE (test code = PLTEST) PLATELET MORPHOLOGY (test code = PLTMORPH) CBC W/MANUAL [id number] 03:31:00* Test Item Value Reference Range Interpretation Comments WHITE BLOOD CELL (test code = WBC) 7.7 K/mm3 4.5-12.5 N RED BLOOD CELL (test code = RBC) 3.11 mill/mm3 4.0-5.8 L HEMOGLOBIN (test code = HGB) 9.1 gram/dL 13.0-17.5 L HEMATOCRIT (test code = HCT) 28.6 % 42.0-52.0 L MEAN CELL VOLUME (test code = MCV) 92.0 fL 80-98 N MEAN CELL HGB (test code = MCH) 29.3 picogram 27.0-33.0 N MEAN CELL HGB CONCETRATION (test code = MCHC) 31.8 gram/dL 33.0-36. 0 L RED CELL DISTRIBUTION WIDTH (test code = RDW) 15.5 % 11.6-16. 2 N RED CELL DISTRIBUTION WIDTH SD (test code = RDW-SD) 48.9 fL 37 .0-51.0 N PLATELET COUNT (test code = PLT) 230 K/mm3 150-450 N MEAN PLATELET VOLUME (test code = MPV) 11.2 fL 6.7-11.0 H NEUTROPHIL % (test code = NT%) 95.2 % 39.0-69.0 H IMMATURE GRANULOCYTE % (test code = IG%) 1.2 % 0.0-5.0 N LYMPHOCYTE % (test code = LY%) 1.7 % 25.0-55.0 L MONOCYTE % (test code = MO%) 1.8 % 0.0-10.0 N EOSINOPHIL % (test code = EO%) 0.0 % 0.0-5.0 N BASOPHIL % (test code = BA%) 0.1 % 0.0-1.0 N NUCLEATED RBC % (test code = NRBC%) 0.0 % 0-0 N NEUTROPHIL # (test code = NT#) 7.28 K/mm3 1.8-7.7 N IMMATURE GRANULOCYTE # (test code = IG#) 0.09 x10 3/uL 0-0.03 H LYMPHOCYTE # (test code = LY#) 0.13 K/mm3 1.0-5.0 L MONOCYTE # (test code = MO#) 0.14 K/mm3 0-0.8 N EOSINOPHIL # (test code = EO#) 0.00 K/mm3 0.0-0.5 N BASOPHIL # (test code = BA#) 0.01 K/mm3 0.0-0.2 N NUCLEATED RBC # (test code = NRBC#) 0.00 K/mm3 0.0-0.1 N MANUAL DIFF REQUIRED (test code = MDIFF) DIFF NEEDED STAIN ACCEPTABILITY (test code = STN ACCEPTABLE) TOTAL CELLS COUNTED (test code = TCC) #CELLS SEGMENTED NEUTROPHILS (test code = SEG) % 39-69 LYMPHOCYTE (test code = LYMPH) % 25-55 MONOCYTE (test code = MON) % 0-10 EOSINOPHIL (test code = EOS) % 0.0-5.0 CABOT RINGS (test code = CAB) MORPHOLOGY COMMENT (test code = MOC) PLATELET ESTIMATE (test code = PLTEST) PLATELET MORPHOLOGY (test code = PLTMORPH) CBC W/MANUAL [id number] 03:31:00* Test Item Value Reference Range Interpretation Comments WHITE BLOOD CELL (test code = WBC) 7.7 K/mm3 4.5-12.5 N RED BLOOD CELL (test code = RBC) 3.11 mill/mm3 4.0-5.8 L HEMOGLOBIN (test code = HGB) 9.1 gram/dL 13.0-17.5 L HEMATOCRIT (test code = HCT) 28.6 % 42.0-52.0 L MEAN CELL VOLUME (test code = MCV) 92.0 fL 80-98 N MEAN CELL HGB (test code = MCH) 29.3 picogram 27.0-33.0 N MEAN CELL HGB CONCETRATION (test code = MCHC) 31.8 gram/dL 33.0-36. 0 L RED CELL DISTRIBUTION WIDTH (test code = RDW) 15.5 % 11.6-16. 2 N RED CELL DISTRIBUTION WIDTH SD (test code = RDW-SD) 48.9 fL 37 .0-51.0 N PLATELET COUNT (test code = PLT) 230 K/mm3 150-450 N MEAN PLATELET VOLUME (test code = MPV) 11.2 fL 6.7-11.0 H NEUTROPHIL % (test code = NT%) 95.2 % 39.0-69.0 H IMMATURE GRANULOCYTE % (test code = IG%) 1.2 % 0.0-5.0 N LYMPHOCYTE % (test code = LY%) 1.7 % 25.0-55.0 L MONOCYTE % (test code = MO%) 1.8 % 0.0-10.0 N EOSINOPHIL % (test code = EO%) 0.0 % 0.0-5.0 N BASOPHIL % (test code = BA%) 0.1 % 0.0-1.0 N NUCLEATED RBC % (test code = NRBC%) 0.0 % 0-0 N NEUTROPHIL # (test code = NT#) 7.28 K/mm3 1.8-7.7 N IMMATURE GRANULOCYTE # (test code = IG#) 0.09 x10 3/uL 0-0.03 H LYMPHOCYTE # (test code = LY#) 0.13 K/mm3 1.0-5.0 L MONOCYTE # (test code = MO#) 0.14 K/mm3 0-0.8 N EOSINOPHIL # (test code = EO#) 0.00 K/mm3 0.0-0.5 N BASOPHIL # (test code = BA#) 0.01 K/mm3 0.0-0.2 N NUCLEATED RBC # (test code = NRBC#) 0.00 K/mm3 0.0-0.1 N MANUAL DIFF REQUIRED (test code = MDIFF) DIFF NEEDED STAIN ACCEPTABILITY (test code = STN ACCEPTABLE) TOTAL CELLS COUNTED (test code = TCC) #CELLS SEGMENTED NEUTROPHILS (test code = SEG) % 39-69 LYMPHOCYTE (test code = LYMPH) % 25-55 MONOCYTE (test code = MON) % 0-10 EOSINOPHIL (test code = EOS) % 0.0-5.0 MORPHOLOGY COMMENT (test code = MOC) PLATELET ESTIMATE (test code = PLTEST) PLATELET MORPHOLOGY (test code = PLTMORPH) CBC W/MANUAL [id number] 03:31:00* Test Item Value Reference Range Interpretation Comments WHITE BLOOD CELL (test code = WBC) 7.7 K/mm3 4.5-12.5 N RED BLOOD CELL (test code = RBC) 3.11 mill/mm3 4.0-5.8 L HEMOGLOBIN (test code = HGB) 9.1 gram/dL 13.0-17.5 L HEMATOCRIT (test code = HCT) 28.6 % 42.0-52.0 L MEAN CELL VOLUME (test code = MCV) 92.0 fL 80-98 N MEAN CELL HGB (test code = MCH) 29.3 picogram 27.0-33.0 N MEAN CELL HGB CONCETRATION (test code = MCHC) 31.8 gram/dL 33.0-36. 0 L RED CELL DISTRIBUTION WIDTH (test code = RDW) 15.5 % 11.6-16. 2 N RED CELL DISTRIBUTION WIDTH SD (test code = RDW-SD) 48.9 fL 37 .0-51.0 N PLATELET COUNT (test code = PLT) 230 K/mm3 150-450 N MEAN PLATELET VOLUME (test code = MPV) 11.2 fL 6.7-11.0 H NEUTROPHIL % (test code = NT%) 95.2 % 39.0-69.0 H IMMATURE GRANULOCYTE % (test code = IG%) 1.2 % 0.0-5.0 N LYMPHOCYTE % (test code = LY%) 1.7 % 25.0-55.0 L MONOCYTE % (test code = MO%) 1.8 % 0.0-10.0 N EOSINOPHIL % (test code = EO%) 0.0 % 0.0-5.0 N BASOPHIL % (test code = BA%) 0.1 % 0.0-1.0 N NUCLEATED RBC % (test code = NRBC%) 0.0 % 0-0 N NEUTROPHIL # (test code = NT#) 7.28 K/mm3 1.8-7.7 N IMMATURE GRANULOCYTE # (test code = IG#) 0.09 x10 3/uL 0-0.03 H LYMPHOCYTE # (test code = LY#) 0.13 K/mm3 1.0-5.0 L MONOCYTE # (test code = MO#) 0.14 K/mm3 0-0.8 N EOSINOPHIL # (test code = EO#) 0.00 K/mm3 0.0-0.5 N BASOPHIL # (test code = BA#) 0.01 K/mm3 0.0-0.2 N NUCLEATED RBC # (test code = NRBC#) 0.00 K/mm3 0.0-0.1 N MANUAL DIFF REQUIRED (test code = MDIFF) DIFF NEEDED STAIN ACCEPTABILITY (test code = STN ACCEPTABLE) TOTAL CELLS COUNTED (test code = TCC) #CELLS SEGMENTED NEUTROPHILS (test code = SEG) % 39-69 LYMPHOCYTE (test code = LYMPH) % 25-55 MONOCYTE (test code = MON) % 0-10 MORPHOLOGY COMMENT (test code = MOC) PLATELET ESTIMATE (test code = PLTEST) PLATELET MORPHOLOGY (test code = PLTMORPH) CBC W/MANUAL [id number] 03:31:00* Test Item Value Reference Range Interpretation Comments WHITE BLOOD CELL (test code = WBC) 7.7 K/mm3 4.5-12.5 N RED BLOOD CELL (test code = RBC) 3.11 mill/mm3 4.0-5.8 L HEMOGLOBIN (test code = HGB) 9.1 gram/dL 13.0-17.5 L HEMATOCRIT (test code = HCT) 28.6 % 42.0-52.0 L MEAN CELL VOLUME (test code = MCV) 92.0 fL 80-98 N MEAN CELL HGB (test code = MCH) 29.3 picogram 27.0-33.0 N MEAN CELL HGB CONCETRATION (test code = MCHC) 31.8 gram/dL 33.0-36. 0 L RED CELL DISTRIBUTION WIDTH (test code = RDW) 15.5 % 11.6-16. 2 N RED CELL DISTRIBUTION WIDTH SD (test code = RDW-SD) 48.9 fL 37 .0-51.0 N PLATELET COUNT (test code = PLT) 230 K/mm3 150-450 N MEAN PLATELET VOLUME (test code = MPV) 11.2 fL 6.7-11.0 H NEUTROPHIL % (test code = NT%) 95.2 % 39.0-69.0 H IMMATURE GRANULOCYTE % (test code = IG%) 1.2 % 0.0-5.0 N LYMPHOCYTE % (test code = LY%) 1.7 % 25.0-55.0 L MONOCYTE % (test code = MO%) 1.8 % 0.0-10.0 N EOSINOPHIL % (test code = EO%) 0.0 % 0.0-5.0 N BASOPHIL % (test code = BA%) 0.1 % 0.0-1.0 N NUCLEATED RBC % (test code = NRBC%) 0.0 % 0-0 N NEUTROPHIL # (test code = NT#) 7.28 K/mm3 1.8-7.7 N IMMATURE GRANULOCYTE # (test code = IG#) 0.09 x10 3/uL 0-0.03 H LYMPHOCYTE # (test code = LY#) 0.13 K/mm3 1.0-5.0 L MONOCYTE # (test code = MO#) 0.14 K/mm3 0-0.8 N EOSINOPHIL # (test code = EO#) 0.00 K/mm3 0.0-0.5 N BASOPHIL # (test code = BA#) 0.01 K/mm3 0.0-0.2 N NUCLEATED RBC # (test code = NRBC#) 0.00 K/mm3 0.0-0.1 N MANUAL DIFF REQUIRED (test code = MDIFF) DIFF NEEDED STAIN ACCEPTABILITY (test code = STN ACCEPTABLE) TOTAL CELLS COUNTED (test code = TCC) #CELLS SEGMENTED NEUTROPHILS (test code = SEG) % 39-69 LYMPHOCYTE (test code = LYMPH) % 25-55 MONOCYTE (test code = MON) % 0-10 EOSINOPHIL (test code = EOS) % 0.0-5.0 CABOT RINGS (test code = CAB) MORPHOLOGY COMMENT (test code = MOC) PLATELET ESTIMATE (test code = PLTEST) PLATELET MORPHOLOGY (test code = PLTMORPH) CBC W/AUTO [id number] 03:26:00* Test Item Value Reference Range Interpretation Comments WHITE BLOOD CELL (test code = WBC) K/mm3 4.5-12.5 RED BLOOD CELL (test code = RBC) mill/mm3 4.0-5.8 HEMOGLOBIN (test code = HGB) gram/dL 13.0-17.5 HEMATOCRIT (test code = HCT) % 42.0-52.0 MEAN CELL VOLUME (test code = MCV) fL 80-98 MEAN CELL HGB (test code = MCH) picogram 27.0-33.0 MEAN CELL HGB CONCETRATION (test code = MCHC) gram/dL 33.0-36. 0 RED CELL DISTRIBUTION WIDTH (test code = RDW) % 11.6-16. 2 RED CELL DISTRIBUTION WIDTH SD (test code = RDW-SD) fL 37 .0-51.0 PLATELET COUNT (test code = PLT) 230 K/mm3 150-450 N MEAN PLATELET VOLUME (test code = MPV) fL 6.7-11.0 NEUTROPHIL % (test code = NT%) % 39.0-69.0 IMMATURE GRANULOCYTE % (test code = IG%) % 0.0-5.0 LYMPHOCYTE % (test code = LY%) % 25.0-55.0 MONOCYTE % (test code = MO%) % 0.0-10.0 EOSINOPHIL % (test code = EO%) % 0.0-5.0 BASOPHIL % (test code = BA%) % 0.0-1.0 NEUTROPHIL # (test code = NT#) K/mm3 1.8-7.7 LYMPHOCYTE # (test code = LY#) K/mm3 1.0-5.0 MONOCYTE # (test code = MO#) K/mm3 0-0.8 EOSINOPHIL # (test code = EO#) K/mm3 0.0-0.5 BASOPHIL # (test code = BA#) K/mm3 0.0-0.2 - XR CHEST 1 [id number] 03:25:00 FAX: Ama Long NP [place]: B St: ADM FAX: David Townsend FAX: Jasper Prince MD [phone] Name: BOOKER PIERRE [facility] : 1950 Age/S: 70/M [address] Unit #: [id number] Loc: V.S12 [place] [address] Phys: Ama Long NP Acct: [id number] Dis Date: Status: ADM IN ONE #: [phone] Exam Date: 06/29/2020 0130 FAX #: [phone] Reason: acute resp failure EXAMS: CPT CODE: [id number] XR CHEST 1 V 00686 HISTOR Y: Respiratory failure Location: C3 COMPARISON:06/28/2020 FINDINGS: Endotracheal tube and nasogastric tube are ag ain demonstrated. Perihilar and basilar opacities with bilateral pleural effusions are noted. No pneumothorax. No other changes. IMPRESSION: 1. Nasogastric tube demonstrated with dist al aspect overlying the stomach. 2. No other changes from prior study with perihilar and basilar opacities Electronically S igned by Kathy Bagley MD on 06/29/2020 at 0325 Reported and signed by: Kathy Bagley MD CC: Ama Long NP; Tequila Guzman DO; Jasper Eisenberg Technologist: Juanis Granados Trnscrd Date/Time/By: 06/29/2020 (0325) : By: [email or web address] Orig Print D/T: S: 06/29/2020 (0420) PAGE 1 Signed Report [id number] 00:17:00* Test Item Value Reference Range Interpretation Comments GLUBED (test code = GLUBED) 137 mg/dL 74-106 H Performed by certified tool machine setup operator at [facility] [id number] 12:06:00 Name: BOOKER PIERRE [facility] : 1950 Age/S: 70 / M [address] Unit #: [id number] Loc: [place] [address] Phys: Tanja Boateng MD Acct: [id number] Dis Date: Status: ADM IN PHONE #: [phone] Exam Date: 06/28/2020 1138 FAX #: [phone] Reason: right pleural effusion EXAMS: CPT CODE: [id number] US CHST W/MEDIASTINUM [id number] REASON FOR EXAM: right pleural effusion EXAM ORDER DATE: 06/28/2020 8:27 AM Attending M.D.: Tanja Boateng MD PROCEDURE: - US CHST W/MEDIASTINUM Comparison: Chest x-ray earlier today at 6:11 AM FINDINGS/ IMPRESSION: No pleural effusions are seen. Location: [facility] at 1206 Reported and signed by: Michael Mehta MD CC: David Guzman [facility] ; Tanja Boateng MD; Jasper Eisenberg Technologist: JUNAID MORTON [facility] Trnscb Date/Time: 06/28/2020 (8046) [email or web address] Orig Print D/T: S: 06/28/2020 (9583) Probe: PAGE 1 Signed Report [id number] 11:47:00* Test Item Value Reference Range Interpretation Comments GLUBED (test code = GLUBED) 159 mg/dL 74-106 H Performed by certified tool machine setup operator at [facility] - XR CHEST 1 [id number] 08:30:00 FAX: Ama Long NP [place]: B St: ADM FAX: David Townsend FAX: Jasper Prince MD [phone] Name: BOOKER PIERRE [facility] : 1950 Age/S: 70/M [address] [facility] Unit #: [id number] Loc: [place] [address] Phys: Ama Long NP Acct: [id number] Dis Date: Status: ADM IN PH ONE #: [phone] Exam Date: 06/28/2020 0611 FAX #: [phone] Reason: acute resp failure EXAMS: CPT CODE: [id number] XR CHEST 1 V 20240 REASON FOR EXAM: acute resp failure Exam Order Date: 06/28/2020 2:00 AM Ordering M.DRitesh: Ama Long NP PROCEDURE: - XR CHEST 1 V COMPARISON: Chest x-ray the previous morning FI NDINGS: Lines and tubes and cervical spinal hardware are unchanged from the previous examination. Opacities in the bilateral lung ba ses, which may represent any combination of effusions, atelectatic changes , and pneumonia, appear unchanged from the previous exam. De generative changes are seen in the thoracic spine and in the acromioclavic ular joints. IMPRESSION: No change from prior ex am. Location: [facility] at 0830 Reported and signed by: Noemy Mehta MD CC: Ama Long NP; David Guzman DO; Jasper Eisenberg Technologist: JONN MILES JR RT(R) Trnscrd Date/Time/By: 06/28/2020 (829) : By: [email or web address] Orig Print D/T: S: 01/2020 (1333) PAGE 1 Signed Repo rt [id number] 05:29:00* Test Item Value Reference Range Interpretation Comments GLUBED (test code = GLUBED) 149 mg/dL 74-106 H Performed by certified tool machine setup operator at [facility] COMPREHENSIVE METABOLIC [id number] 04:33:00* Test Item Value Reference Range Interpretation Comments SODIUM (test code = NA) 143 mmol/L 136-145 N POTASSIUM (test code = K) 4.5 mmol/L 3.5-5.1 N CHLORIDE (test code = CL) 109.0 mmol/L 98-107 H CARBON DIOXIDE (test code = CO2) 29.0 mmol/L 21-32 N ANION GAP (test code = GAP) 9.5 10-20 L GLUCOSE (test code = GLU) 151 mg/dL 74-106 H BLOOD UREA NITROGEN (test code = BUN) 31 mg/dL 7-18 H GLOMERULAR FILTRATION RATE (test code = GFR) > 60 mL/min >=60 Estimated GFR by using Modified MDRD formula.Chronic kidney disease is defined as either kidney damageor GFR <60 mL/min/1.73 m2 for >3 months. CREATININE (test code = CREAT) 0.70 mg/dL 0.7-1.3 N BUN/CREATININE RATIO (test code = BUN/CREA) 42.4 10-20 H TOTAL PROTEIN (test code = PROT) 4.4 gram/dL 6.4-8.2 L ALBUMIN (test code = ALB) 1.7 g/dL 3.4-5.0 L GLOBULIN (test code = GLOB) 2.7 gram/dL 2.7-4.2 N ALBUMIN/GLOBULIN RATIO (test code = A/G) 0.6 0.75-1.50 L CALCIUM (test code = CA) 7.4 mg/dL 8.5-10.1 L BILIRUBIN TOTAL (test code = BILT) 0.50 mg/dL 0.0-1.0 N SGOT/AST (test code = AST) 17 IUnit/L 15-37 N SGPT/ALT (test code = ALT) 45 IUnit/L 12-78 N ALKALINE PHOSPHATASE TOTAL (test code = ALKP) 86 IUnit/L 45-117 N Note change in reference range due to change in reagent. [id number] 04:33:00* Test Item Value Reference Range Interpretation Comments PHOSPHORUS (test code = PHOS) 3.0 mg/dL 2.5-4.9 N [id number] 04:33:00* Test Item Value Reference Range Interpretation Comments MAGNESIUM (test code = MAG) 1.7 mg/dL 1.8-2.4 L CALCIUM [id number] 04:33:00* Test Item Value Reference Range Interpretation Comments CALCIUM IONIZED (test code = PHILLIP) 1.14 mmol/L 1.12-1.32 N CBC W/MANUAL [id number] 04:30:00* Test Item Value Reference Range Interpretation Comments WHITE BLOOD CELL (test code = WBC) 6.3 K/mm3 4.5-12.5 N RED BLOOD CELL (test code = RBC) 3.08 mill/mm3 4.0-5.8 L HEMOGLOBIN (test code = HGB) 9.0 gram/dL 13.0-17.5 L HEMATOCRIT (test code = HCT) 28.4 % 42.0-52.0 L MEAN CELL VOLUME (test code = MCV) 92.2 fL 80-98 N MEAN CELL HGB (test code = MCH) 29.2 picogram 27.0-33.0 N MEAN CELL HGB CONCETRATION (test code = MCHC) 31.7 gram/dL 33.0-36. 0 L RED CELL DISTRIBUTION WIDTH (test code = RDW) 15.9 % 11.6-16. 2 N RED CELL DISTRIBUTION WIDTH SD (test code = RDW-SD) 50.4 fL 37 .0-51.0 N PLATELET COUNT (test code = PLT) 201 K/mm3 150-450 N MEAN PLATELET VOLUME (test code = MPV) 11.1 fL 6.7-11.0 H NEUTROPHIL % (test code = NT%) 88.0 % 39.0-69.0 H IMMATURE GRANULOCYTE % (test code = IG%) 4.1 % 0.0-5.0 N LYMPHOCYTE % (test code = LY%) 3.3 % 25.0-55.0 L MONOCYTE % (test code = MO%) 3.8 % 0.0-10.0 N EOSINOPHIL % (test code = EO%) 0.6 % 0.0-5.0 N BASOPHIL % (test code = BA%) 0.2 % 0.0-1.0 N NUCLEATED RBC % (test code = NRBC%) 0.0 % 0-0 N NEUTROPHIL # (test code = NT#) 5.51 K/mm3 1.8-7.7 N IMMATURE GRANULOCYTE # (test code = IG#) 0.26 x10 3/uL 0-0.03 H LYMPHOCYTE # (test code = LY#) 0.21 K/mm3 1.0-5.0 L MONOCYTE # (test code = MO#) 0.24 K/mm3 0-0.8 N EOSINOPHIL # (test code = EO#) 0.04 K/mm3 0.0-0.5 N BASOPHIL # (test code = BA#) 0.01 K/mm3 0.0-0.2 N NUCLEATED RBC # (test code = NRBC#) 0.00 K/mm3 0.0-0.1 N MANUAL DIFF REQUIRED (test code = MDIFF) DIFF NEEDED STAIN ACCEPTABILITY (test code = STN ACCEPTABLE) STAIN ACCEPTABLE TOTAL CELLS COUNTED (test code = TCC) 115 #CELLS SEGMENTED NEUTROPHILS (test code = SEG) 90.4 % 39-69 H BAND NEUTROPHIL (test code = BAND) 0.9 % 0-10 N LYMPHOCYTE (test code = LYMPH) 7.0 % 25-55 L REACTIVE LYMPH (test code = RELYMPH) 0 % MONOCYTE (test code = MON) 1.7 % 0-10 N EOSINOPHIL (test code = EOS) 0 % 0.0-5.0 N BASOPHIL (test code = BASO) 0 % 0-1.0 N METAMYELOCYTE (test code = META) 0 % 0-0 N MYELOCYTE (test code = MYELO) 0 % 0.0-0.0 N PROMYELOCYTE (test code = PROM) 0 % 0-0 N POLYCHROMASIA (test code = POLC) 1+ POIKILOCYTOSIS (test code = POIK) 1+ ANISOCYTOSIS (test code = ANISO) 1+ SPHEROCYTES (test code = SPH) 1+ WILBERTO CELLS (test code = WILBERTO) 1+ NONE MORPHOLOGY COMMENT (test code = MOC) TEST NOT PERFORMED PLATELET ESTIMATE (test code = PLTEST) ADEQUATE PLATELET MORPHOLOGY (test code = PLTMORPH) NORMAL IMMATURE FORMS (test code = IMMAT) 0 % 0-0 N COMPREHENSIVE METABOLIC [id number] 03:59:00* Test Item Value Reference Range Interpretation Comments SODIUM (test code = NA) 143 mmol/L 136-145 N POTASSIUM (test code = K) 4.5 mmol/L 3.5-5.1 N CHLORIDE (test code = CL) 109.0 mmol/L 98-107 H CARBON DIOXIDE (test code = CO2) mmol/L 21-32 ANION GAP (test code = GAP) 10-20 GLUCOSE (test code = GLU) mg/dL 74-106 BLOOD UREA NITROGEN (test code = BUN) mg/dL 7-18 GLOMERULAR FILTRATION RATE (test code = GFR) mL/min >=60 CREATININE (test code = CREAT) mg/dL 0.7-1.3 BUN/CREATININE RATIO (test code = BUN/CREA) 10-20 TOTAL PROTEIN (test code = PROT) gram/dL 6.4-8.2 ALBUMIN (test code = ALB) g/dL 3.4-5.0 GLOBULIN (test code = GLOB) gram/dL 2.7-4.2 ALBUMIN/GLOBULIN RATIO (test code = A/G) 0.75-1.50 CALCIUM (test code = CA) mg/dL 8.5-10.1 BILIRUBIN TOTAL (test code = BILT) mg/dL 0.0-1.0 SGOT/AST (test code = AST) IUnit/L 15-37 SGPT/ALT (test code = ALT) IUnit/L 12-78 ALKALINE PHOSPHATASE TOTAL (test code = ALKP) IUnit/L 45-117 [id number] 03:59:00* Test Item Value Reference Range Interpretation Comments PHOSPHORUS (test code = PHOS) mg/dL 2.5-4.9 [id number] 03:59:00* Test Item Value Reference Range Interpretation Comments MAGNESIUM (test code = MAG) mg/dL 1.8-2.4 CALCIUM [id number] 03:59:00* Test Item Value Reference Range Interpretation Comments CALCIUM IONIZED (test code = PHILLIP) 1.14 mmol/L 1.12-1.32 N COMPREHENSIVE METABOLIC [id number] 03:57:00* Test Item Value Reference Range Interpretation Comments SODIUM (test code = NA) 143 mmol/L 136-145 N POTASSIUM (test code = K) 4.5 mmol/L 3.5-5.1 N CHLORIDE (test code = CL) 109.0 mmol/L 98-107 H CARBON DIOXIDE (test code = CO2) mmol/L 21-32 ANION GAP (test code = GAP) 10-20 GLUCOSE (test code = GLU) mg/dL 74-106 BLOOD UREA NITROGEN (test code = BUN) mg/dL 7-18 GLOMERULAR FILTRATION RATE (test code = GFR) mL/min >=60 CREATININE (test code = CREAT) mg/dL 0.7-1.3 BUN/CREATININE RATIO (test code = BUN/CREA) 10-20 TOTAL PROTEIN (test code = PROT) gram/dL 6.4-8.2 ALBUMIN (test code = ALB) g/dL 3.4-5.0 GLOBULIN (test code = GLOB) gram/dL 2.7-4.2 ALBUMIN/GLOBULIN RATIO (test code = A/G) 0.75-1.50 CALCIUM (test code = CA) mg/dL 8.5-10.1 BILIRUBIN TOTAL (test code = BILT) mg/dL 0.0-1.0 SGOT/AST (test code = AST) IUnit/L 15-37 SGPT/ALT (test code = ALT) IUnit/L 12-78 ALKALINE PHOSPHATASE TOTAL (test code = ALKP) IUnit/L 45-117 [id number] 03:57:00* Test Item Value Reference Range Interpretation Comments PHOSPHORUS (test code = PHOS) mg/dL 2.5-4.9 [id number] 03:57:00* Test Item Value Reference Range Interpretation Comments MAGNESIUM (test code = MAG) mg/dL 1.8-2.4 CALCIUM [id number] 03:57:00* Test Item Value Reference Range Interpretation Comments CALCIUM IONIZED (test code = PHILLIP) mmol/L 1.12-1.32 ARTERIAL BLOOD [id number] 03:51:00* Test Item Value Reference Range Interpretation Comments ARTERIAL BLOOD GAS PH (test code = PHA) 7.49 7.35-7.45 H ARTERIAL BLOOD GAS PCO2 (test code = PCO2A) 34.2 mm Hg 35-45 L ARTERIAL BLOOD GAS PO2 (test code = PO2A) 55.2 mmHg 80-100 L BICARBONATE TOTAL HCO3 (test code = HCO3) 25.2 mmol/L 23.0-27.0 N BASE EXCESS (test code = HERBERT) 2.0 mmol/L -3.0-5.0 N ABG O2 SATURATION (test code = SATA) 88.9 % 90.0-98.0 L ABG TYPE (test code = TYPEA) Arterial FIO2 (test code = FIO2A) 40.0 ABG VENT MODE (test code = MODEA) Assist Control ABG VENT RESP RATE (test code = RRA) 18.0 per min ABG TIDAL VOLUME (test code = TVA) 450.0 mL ABG PEEP (test code = PEEPA) 5.0 cmH2O ABG SITE (test code = SITEA) ARTERIAL LINE MODIFIED ALLENS (test code = MODALL) Yes CHECK PERFORMED SODIUM (test code = NA/ABG) 135.5 mEq/L 135-148 N POTASSIUM (test code = K/ABG) 4.2 mEq/L 3.5-4.5 N CHLORIDE (test code = CL/ABG) 105 mEq/L 98-106 N GLUCOSE (test code = GLU/ABG) 146 mg/dL 74-99 H HEMATOCRIT (test code = HCT/ABG) 30 % 42-52 L IONIZED CALCIUM (test code = CAIABG) 1.05 mmol/L 1.1-1.37 L TOTAL HGB (test code = THB) 10.3 gram/dL 13.0-17.5 L HGB O2 SAT (test code = HBOSAT) 88.5 % 94.00-98.00 L CARBOXYHEMOGLOBIN (test code = HOHGBT) 0.3 %totalHg 0.5-1.5 LL Results called to and read back by Venkat 03:51 - 06/28/2020; by PONCHO METHEMOGLOBIN (test code = METHGB) 0.1 % 0.0-1.50 N O2 CONTENT (test code = O2CT) 12.8 % vol 18.0-22.0 L PROTHROMBIN [id number] 03:19:00* Test Item Value Reference Range Interpretation Comments PROTHROMBIN TIME PATIENT (test code = PTP) 11.5 seconds 9.0-14.0 N INTERNATIONAL NORMAL RATIO (test code = INR) 1.0 0.8-1.2 N The therapeutic range for oral anticoagulant therapy formost indications is an international normalized ratio (INR)of between 2.0 and 3.0. The recommended therapeutic INRrange for various clinical situations is listed below: Clinical Situation INR range Pulmonary e mbolism treatment (2.0-3.0)Venous thrombosis treatmentVenous thrombosis prophylaxis (high risk surgery)Prevention of systemic embolism from: Acute myocardial infarction Valvular heart disease Atrial fibrillation Mechanical prosthetic heart valves (2.5-3.5) IS PATIENT ON ANTICOAGULANTS? NTHROMBOPLASTIN TIME [id number] 03:19:00* Test Item Value Reference Range Interpretation Comments THROMBOPLASTIN TIME PARTIAL (test code = PTT) 27.0 seconds 23.0-37. 0 N IS PATIENT ON ANTICOAGULANTS? NCBC W/MANUAL [id number] 03:14:00* Test Item Value Reference Range Interpretation Comments WHITE BLOOD CELL (test code = WBC) 6.3 K/mm3 4.5-12.5 N RED BLOOD CELL (test code = RBC) 3.08 mill/mm3 4.0-5.8 L HEMOGLOBIN (test code = HGB) 9.0 gram/dL 13.0-17.5 L HEMATOCRIT (test code = HCT) 28.4 % 42.0-52.0 L MEAN CELL VOLUME (test code = MCV) 92.2 fL 80-98 N MEAN CELL HGB (test code = MCH) 29.2 picogram 27.0-33.0 N MEAN CELL HGB CONCETRATION (test code = MCHC) 31.7 gram/dL 33.0-36. 0 L RED CELL DISTRIBUTION WIDTH (test code = RDW) 15.9 % 11.6-16. 2 N RED CELL DISTRIBUTION WIDTH SD (test code = RDW-SD) 50.4 fL 37 .0-51.0 N PLATELET COUNT (test code = PLT) 201 K/mm3 150-450 N MEAN PLATELET VOLUME (test code = MPV) 11.1 fL 6.7-11.0 H NEUTROPHIL % (test code = NT%) 88.0 % 39.0-69.0 H IMMATURE GRANULOCYTE % (test code = IG%) 4.1 % 0.0-5.0 N LYMPHOCYTE % (test code = LY%) 3.3 % 25.0-55.0 L MONOCYTE % (test code = MO%) 3.8 % 0.0-10.0 N EOSINOPHIL % (test code = EO%) 0.6 % 0.0-5.0 N BASOPHIL % (test code = BA%) 0.2 % 0.0-1.0 N NUCLEATED RBC % (test code = NRBC%) 0.0 % 0-0 N NEUTROPHIL # (test code = NT#) 5.51 K/mm3 1.8-7.7 N IMMATURE GRANULOCYTE # (test code = IG#) 0.26 x10 3/uL 0-0.03 H LYMPHOCYTE # (test code = LY#) 0.21 K/mm3 1.0-5.0 L MONOCYTE # (test code = MO#) 0.24 K/mm3 0-0.8 N EOSINOPHIL # (test code = EO#) 0.04 K/mm3 0.0-0.5 N BASOPHIL # (test code = BA#) 0.01 K/mm3 0.0-0.2 N NUCLEATED RBC # (test code = NRBC#) 0.00 K/mm3 0.0-0.1 N MANUAL DIFF REQUIRED (test code = MDIFF) DIFF NEEDED STAIN ACCEPTABILITY (test code = STN ACCEPTABLE) TOTAL CELLS COUNTED (test code = TCC) #CELLS SEGMENTED NEUTROPHILS (test code = SEG) % 39-69 LYMPHOCYTE (test code = LYMPH) % 25-55 MONOCYTE (test code = MON) % 0-10 EOSINOPHIL (test code = EOS) % 0.0-5.0 CABOT RINGS (test code = CAB) MORPHOLOGY COMMENT (test code = MOC) PLATELET ESTIMATE (test code = PLTEST) PLATELET MORPHOLOGY (test code = PLTMORPH) CBC W/MANUAL [id number] 03:14:00* Test Item Value Reference Range Interpretation Comments WHITE BLOOD CELL (test code = WBC) 6.3 K/mm3 4.5-12.5 N RED BLOOD CELL (test code = RBC) 3.08 mill/mm3 4.0-5.8 L HEMOGLOBIN (test code = HGB) 9.0 gram/dL 13.0-17.5 L HEMATOCRIT (test code = HCT) 28.4 % 42.0-52.0 L MEAN CELL VOLUME (test code = MCV) 92.2 fL 80-98 N MEAN CELL HGB (test code = MCH) 29.2 picogram 27.0-33.0 N MEAN CELL HGB CONCETRATION (test code = MCHC) 31.7 gram/dL 33.0-36. 0 L RED CELL DISTRIBUTION WIDTH (test code = RDW) 15.9 % 11.6-16. 2 N RED CELL DISTRIBUTION WIDTH SD (test code = RDW-SD) 50.4 fL 37 .0-51.0 N PLATELET COUNT (test code = PLT) 201 K/mm3 150-450 N MEAN PLATELET VOLUME (test code = MPV) 11.1 fL 6.7-11.0 H NEUTROPHIL % (test code = NT%) 88.0 % 39.0-69.0 H IMMATURE GRANULOCYTE % (test code = IG%) 4.1 % 0.0-5.0 N LYMPHOCYTE % (test code = LY%) 3.3 % 25.0-55.0 L MONOCYTE % (test code = MO%) 3.8 % 0.0-10.0 N EOSINOPHIL % (test code = EO%) 0.6 % 0.0-5.0 N BASOPHIL % (test code = BA%) 0.2 % 0.0-1.0 N NUCLEATED RBC % (test code = NRBC%) 0.0 % 0-0 N NEUTROPHIL # (test code = NT#) 5.51 K/mm3 1.8-7.7 N IMMATURE GRANULOCYTE # (test code = IG#) 0.26 x10 3/uL 0-0.03 H LYMPHOCYTE # (test code = LY#) 0.21 K/mm3 1.0-5.0 L MONOCYTE # (test code = MO#) 0.24 K/mm3 0-0.8 N EOSINOPHIL # (test code = EO#) 0.04 K/mm3 0.0-0.5 N BASOPHIL # (test code = BA#) 0.01 K/mm3 0.0-0.2 N NUCLEATED RBC # (test code = NRBC#) 0.00 K/mm3 0.0-0.1 N MANUAL DIFF REQUIRED (test code = MDIFF) DIFF NEEDED STAIN ACCEPTABILITY (test code = STN ACCEPTABLE) TOTAL CELLS COUNTED (test code = TCC) #CELLS SEGMENTED NEUTROPHILS (test code = SEG) % 39-69 LYMPHOCYTE (test code = LYMPH) % 25-55 MONOCYTE (test code = MON) % 0-10 EOSINOPHIL (test code = EOS) % 0.0-5.0 CABOT RINGS (test code = CAB) MORPHOLOGY COMMENT (test code = MOC) PLATELET ESTIMATE (test code = PLTEST) PLATELET MORPHOLOGY (test code = PLTMORPH) CBC W/MANUAL [id number] 03:14:00* Test Item Value Reference Range Interpretation Comments WHITE BLOOD CELL (test code = WBC) 6.3 K/mm3 4.5-12.5 N RED BLOOD CELL (test code = RBC) 3.08 mill/mm3 4.0-5.8 L HEMOGLOBIN (test code = HGB) 9.0 gram/dL 13.0-17.5 L HEMATOCRIT (test code = HCT) 28.4 % 42.0-52.0 L MEAN CELL VOLUME (test code = MCV) 92.2 fL 80-98 N MEAN CELL HGB (test code = MCH) 29.2 picogram 27.0-33.0 N MEAN CELL HGB CONCETRATION (test code = MCHC) 31.7 gram/dL 33.0-36. 0 L RED CELL DISTRIBUTION WIDTH (test code = RDW) 15.9 % 11.6-16. 2 N RED CELL DISTRIBUTION WIDTH SD (test code = RDW-SD) 50.4 fL 37 .0-51.0 N PLATELET COUNT (test code = PLT) 201 K/mm3 150-450 N MEAN PLATELET VOLUME (test code = MPV) 11.1 fL 6.7-11.0 H NEUTROPHIL % (test code = NT%) 88.0 % 39.0-69.0 H IMMATURE GRANULOCYTE % (test code = IG%) 4.1 % 0.0-5.0 N LYMPHOCYTE % (test code = LY%) 3.3 % 25.0-55.0 L MONOCYTE % (test code = MO%) 3.8 % 0.0-10.0 N EOSINOPHIL % (test code = EO%) 0.6 % 0.0-5.0 N BASOPHIL % (test code = BA%) 0.2 % 0.0-1.0 N NUCLEATED RBC % (test code = NRBC%) 0.0 % 0-0 N NEUTROPHIL # (test code = NT#) 5.51 K/mm3 1.8-7.7 N IMMATURE GRANULOCYTE # (test code = IG#) 0.26 x10 3/uL 0-0.03 H LYMPHOCYTE # (test code = LY#) 0.21 K/mm3 1.0-5.0 L MONOCYTE # (test code = MO#) 0.24 K/mm3 0-0.8 N EOSINOPHIL # (test code = EO#) 0.04 K/mm3 0.0-0.5 N BASOPHIL # (test code = BA#) 0.01 K/mm3 0.0-0.2 N NUCLEATED RBC # (test code = NRBC#) 0.00 K/mm3 0.0-0.1 N MANUAL DIFF REQUIRED (test code = MDIFF) DIFF NEEDED STAIN ACCEPTABILITY (test code = STN ACCEPTABLE) TOTAL CELLS COUNTED (test code = TCC) #CELLS SEGMENTED NEUTROPHILS (test code = SEG) % 39-69 LYMPHOCYTE (test code = LYMPH) % 25-55 MONOCYTE (test code = MON) % 0-10 EOSINOPHIL (test code = EOS) % 0.0-5.0 MORPHOLOGY COMMENT (test code = MOC) PLATELET ESTIMATE (test code = PLTEST) PLATELET MORPHOLOGY (test code = PLTMORPH) CBC W/MANUAL [id number] 03:14:00* Test Item Value Reference Range Interpretation Comments WHITE BLOOD CELL (test code = WBC) 6.3 K/mm3 4.5-12.5 N RED BLOOD CELL (test code = RBC) 3.08 mill/mm3 4.0-5.8 L HEMOGLOBIN (test code = HGB) 9.0 gram/dL 13.0-17.5 L HEMATOCRIT (test code = HCT) 28.4 % 42.0-52.0 L MEAN CELL VOLUME (test code = MCV) 92.2 fL 80-98 N MEAN CELL HGB (test code = MCH) 29.2 picogram 27.0-33.0 N MEAN CELL HGB CONCETRATION (test code = MCHC) 31.7 gram/dL 33.0-36. 0 L RED CELL DISTRIBUTION WIDTH (test code = RDW) 15.9 % 11.6-16. 2 N RED CELL DISTRIBUTION WIDTH SD (test code = RDW-SD) 50.4 fL 37 .0-51.0 N PLATELET COUNT (test code = PLT) 201 K/mm3 150-450 N MEAN PLATELET VOLUME (test code = MPV) 11.1 fL 6.7-11.0 H NEUTROPHIL % (test code = NT%) 88.0 % 39.0-69.0 H IMMATURE GRANULOCYTE % (test code = IG%) 4.1 % 0.0-5.0 N LYMPHOCYTE % (test code = LY%) 3.3 % 25.0-55.0 L MONOCYTE % (test code = MO%) 3.8 % 0.0-10.0 N EOSINOPHIL % (test code = EO%) 0.6 % 0.0-5.0 N BASOPHIL % (test code = BA%) 0.2 % 0.0-1.0 N NUCLEATED RBC % (test code = NRBC%) 0.0 % 0-0 N NEUTROPHIL # (test code = NT#) 5.51 K/mm3 1.8-7.7 N IMMATURE GRANULOCYTE # (test code = IG#) 0.26 x10 3/uL 0-0.03 H LYMPHOCYTE # (test code = LY#) 0.21 K/mm3 1.0-5.0 L MONOCYTE # (test code = MO#) 0.24 K/mm3 0-0.8 N EOSINOPHIL # (test code = EO#) 0.04 K/mm3 0.0-0.5 N BASOPHIL # (test code = BA#) 0.01 K/mm3 0.0-0.2 N NUCLEATED RBC # (test code = NRBC#) 0.00 K/mm3 0.0-0.1 N MANUAL DIFF REQUIRED (test code = MDIFF) DIFF NEEDED STAIN ACCEPTABILITY (test code = STN ACCEPTABLE) TOTAL CELLS COUNTED (test code = TCC) #CELLS SEGMENTED NEUTROPHILS (test code = SEG) % 39-69 LYMPHOCYTE (test code = LYMPH) % 25-55 MONOCYTE (test code = MON) % 0-10 MORPHOLOGY COMMENT (test code = MOC) PLATELET ESTIMATE (test code = PLTEST) PLATELET MORPHOLOGY (test code = PLTMORPH) CBC W/MANUAL [id number] 03:14:00* Test Item Value Reference Range Interpretation Comments WHITE BLOOD CELL (test code = WBC) 6.3 K/mm3 4.5-12.5 N RED BLOOD CELL (test code = RBC) 3.08 mill/mm3 4.0-5.8 L HEMOGLOBIN (test code = HGB) 9.0 gram/dL 13.0-17.5 L HEMATOCRIT (test code = HCT) 28.4 % 42.0-52.0 L MEAN CELL VOLUME (test code = MCV) 92.2 fL 80-98 N MEAN CELL HGB (test code = MCH) 29.2 picogram 27.0-33.0 N MEAN CELL HGB CONCETRATION (test code = MCHC) 31.7 gram/dL 33.0-36. 0 L RED CELL DISTRIBUTION WIDTH (test code = RDW) 15.9 % 11.6-16. 2 N RED CELL DISTRIBUTION WIDTH SD (test code = RDW-SD) 50.4 fL 37 .0-51.0 N PLATELET COUNT (test code = PLT) 201 K/mm3 150-450 N MEAN PLATELET VOLUME (test code = MPV) 11.1 fL 6.7-11.0 H NEUTROPHIL % (test code = NT%) 88.0 % 39.0-69.0 H IMMATURE GRANULOCYTE % (test code = IG%) 4.1 % 0.0-5.0 N LYMPHOCYTE % (test code = LY%) 3.3 % 25.0-55.0 L MONOCYTE % (test code = MO%) 3.8 % 0.0-10.0 N EOSINOPHIL % (test code = EO%) 0.6 % 0.0-5.0 N BASOPHIL % (test code = BA%) 0.2 % 0.0-1.0 N NUCLEATED RBC % (test code = NRBC%) 0.0 % 0-0 N NEUTROPHIL # (test code = NT#) 5.51 K/mm3 1.8-7.7 N IMMATURE GRANULOCYTE # (test code = IG#) 0.26 x10 3/uL 0-0.03 H LYMPHOCYTE # (test code = LY#) 0.21 K/mm3 1.0-5.0 L MONOCYTE # (test code = MO#) 0.24 K/mm3 0-0.8 N EOSINOPHIL # (test code = EO#) 0.04 K/mm3 0.0-0.5 N BASOPHIL # (test code = BA#) 0.01 K/mm3 0.0-0.2 N NUCLEATED RBC # (test code = NRBC#) 0.00 K/mm3 0.0-0.1 N MANUAL DIFF REQUIRED (test code = MDIFF) DIFF NEEDED STAIN ACCEPTABILITY (test code = STN ACCEPTABLE) TOTAL CELLS COUNTED (test code = TCC) #CELLS SEGMENTED NEUTROPHILS (test code = SEG) % 39-69 LYMPHOCYTE (test code = LYMPH) % 25-55 MONOCYTE (test code = MON) % 0-10 EOSINOPHIL (test code = EOS) % 0.0-5.0 CABOT RINGS (test code = CAB) MORPHOLOGY COMMENT (test code = MOC) PLATELET ESTIMATE (test code = PLTEST) PLATELET MORPHOLOGY (test code = PLTMORPH) CBC W/AUTO [id number] 03:05:00* Test Item Value Reference Range Interpretation Comments WHITE BLOOD CELL (test code = WBC) K/mm3 4.5-12.5 RED BLOOD CELL (test code = RBC) mill/mm3 4.0-5.8 HEMOGLOBIN (test code = HGB) gram/dL 13.0-17.5 HEMATOCRIT (test code = HCT) % 42.0-52.0 MEAN CELL VOLUME (test code = MCV) fL 80-98 MEAN CELL HGB (test code = MCH) picogram 27.0-33.0 MEAN CELL HGB CONCETRATION (test code = MCHC) gram/dL 33.0-36. 0 RED CELL DISTRIBUTION WIDTH (test code = RDW) % 11.6-16. 2 RED CELL DISTRIBUTION WIDTH SD (test code = RDW-SD) fL 37 .0-51.0 PLATELET COUNT (test code = PLT) 201 K/mm3 150-450 N MEAN PLATELET VOLUME (test code = MPV) fL 6.7-11.0 NEUTROPHIL % (test code = NT%) % 39.0-69.0 IMMATURE GRANULOCYTE % (test code = IG%) % 0.0-5.0 LYMPHOCYTE % (test code = LY%) % 25.0-55.0 MONOCYTE % (test code = MO%) % 0.0-10.0 EOSINOPHIL % (test code = EO%) % 0.0-5.0 BASOPHIL % (test code = BA%) % 0.0-1.0 NEUTROPHIL # (test code = NT#) K/mm3 1.8-7.7 LYMPHOCYTE # (test code = LY#) K/mm3 1.0-5.0 MONOCYTE # (test code = MO#) K/mm3 0-0.8 EOSINOPHIL # (test code = EO#) K/mm3 0.0-0.5 BASOPHIL # (test code = BA#) K/mm3 0.0-0.2 [id number] 23:58:00* Test Item Value Reference Range Interpretation Comments GLUBED (test code = GLUBED) 130 mg/dL 74-106 H Performed by certified tool machine setup operator at [facility] [id number] 17:10:00* Test Item Value Reference Range Interpretation Comments GLUBED (test code = GLUBED) 166 mg/dL 74-106 H Performed by certified tool machine setup operator at [facility] [id number] 11:14:00* Test Item Value Reference Range Interpretation Comments GLUBED (test code = GLUBED) 199 mg/dL 74-106 H Performed by certified tool machine setup operator at [facility] - XR CHEST 1 [id number] 06:52:00 FAX: Ama Long NP [place]: St: ADM FAX: David Townsend Fo FAX: Jasper Prince MD [phone] Name: PIERREBOOKER [facility] : 1950 Age/S: 70/M [address] [facility] Unit #: [id number] Loc: V.S12 [place] [address] Phys: Ama Long NP Acct: [id number] Dis Date: Status: ADM IN ONE #: [phone] Exam Date: 06/27/2020 023 FAX #: [phone] Reason: acute resp failure EXAMS: CPT CODE: [id number] XR CHEST 1 V 20164 HISTORY: Acute respiratory failure. COMPARISON: Previous day. Loca tion: TH. ET tube and NG tube are in good position. Patchy bilate ral infiltrates with small effusions and bibasal subsegmental atelectasis demonstrating no change. Small effusions. Cardiomegaly. IMPRESSION: Unchanged bilateral alveolar infiltrates with basa l predominance. Electronically Signed by Samantha Meyer on 2019 at 0652 Reported and signed by: Maxx Meyer M.D. CC: Ama Long NP; David Guzman Tiwari DO; Jasper Hidalgo Technologist: Popeye Henley RT(R); EDENILSON JUAN RT(R) [facility] Date/Time/By: 06/27/2020 (0652) : By: [email or web address] Orig Print D/T: S: (0666) PAGE 1 Signed Rep ort [id number] 05:33:00* Test Item Value Reference Range Interpretation Comments GLUBED (test code = GLUBED) 184 mg/dL 74-106 H Performed by certified tool machine setup operator at [facility] ARTERIAL BLOOD [id number] 04:01:00* Test Item Value Reference Range Interpretation Comments ARTERIAL BLOOD GAS PH (test code = PHA) 7.43 7.35-7.45 N ARTERIAL BLOOD GAS PCO2 (test code = PCO2A) 39.4 mm Hg 35-45 N ARTERIAL BLOOD GAS PO2 (test code = PO2A) 84.4 mmHg 80-100 N BICARBONATE TOTAL HCO3 (test code = HCO3) 25.7 mmol/L 23.0-27.0 N BASE EXCESS (test code = HERBERT) 1.4 mmol/L -3.0-5.0 N ABG O2 SATURATION (test code = SATA) 95.7 % 90.0-98.0 N ABG TYPE (test code = TYPEA) Arterial FIO2 (test code = FIO2A) 40.0 ABG VENT MODE (test code = MODEA) Assist Control ABG VENT RESP RATE (test code = RRA) 20.0 per min ABG TIDAL VOLUME (test code = TVA) 450.0 mL ABG PEEP (test code = PEEPA) 5.0 cmH2O ABG SITE (test code = SITEA) Rt RADIAL ARTERY MODIFIED ALLENS (test code = MODALL) Yes CHECK PERFORMED SODIUM (test code = NA/ABG) 139.1 mEq/L 135-148 N POTASSIUM (test code = K/ABG) 4.4 mEq/L 3.5-4.5 N CHLORIDE (test code = CL/ABG) 110 mEq/L 98-106 H GLUCOSE (test code = GLU/ABG) 180 mg/dL 74-99 H HEMATOCRIT (test code = HCT/ABG) 29 % 42-52 L IONIZED CALCIUM (test code = CAIABG) 0.96 mmol/L 1.1-1.37 L TOTAL HGB (test code = THB) 10.0 gram/dL 13.0-17.5 L HGB O2 SAT (test code = HBOSAT) 95.1 % 94.00-98.00 N CARBOXYHEMOGLOBIN (test code = HOHGBT) 0.3 %totalHg 0.5-1.5 LL Results called to and read back by Michelle 04:01 - 06/27/2020; by PONCHO METHEMOGLOBIN (test code = METHGB) 0.3 % 0.0-1.50 N O2 CONTENT (test code = O2CT) 13.5 % vol 18.0-22.0 L COMPREHENSIVE METABOLIC [id number] 02:53:00* Test Item Value Reference Range Interpretation Comments SODIUM (test code = NA) 147 mmol/L 136-145 H POTASSIUM (test code = K) 4.5 mmol/L 3.5-5.1 N CHLORIDE (test code = CL) 116.0 mmol/L 98-107 H CARBON DIOXIDE (test code = CO2) 28.0 mmol/L 21-32 N ANION GAP (test code = GAP) 7.5 10-20 L GLUCOSE (test code = GLU) 198 mg/dL 74-106 H BLOOD UREA NITROGEN (test code = BUN) 33 mg/dL 7-18 H GLOMERULAR FILTRATION RATE (test code = GFR) > 60 mL/min >=60 Estimated GFR by using Modified MDRD formula.Chronic kidney disease is defined as either kidney damageor GFR <60 mL/min/1.73 m2 for >3 months. CREATININE (test code = CREAT) 0.80 mg/dL 0.7-1.3 N BUN/CREATININE RATIO (test code = BUN/CREA) 40.5 10-20 H TOTAL PROTEIN (test code = PROT) 4.2 gram/dL 6.4-8.2 L ALBUMIN (test code = ALB) 1.7 g/dL 3.4-5.0 L GLOBULIN (test code = GLOB) 2.5 gram/dL 2.7-4.2 L ALBUMIN/GLOBULIN RATIO (test code = A/G) 0.7 0.75-1.50 L CALCIUM (test code = CA) 7.0 mg/dL 8.5-10.1 L BILIRUBIN TOTAL (test code = BILT) 0.40 mg/dL 0.0-1.0 N SGOT/AST (test code = AST) 16 IUnit/L 15-37 N SGPT/ALT (test code = ALT) 38 IUnit/L 12-78 N ALKALINE PHOSPHATASE TOTAL (test code = ALKP) 84 IUnit/L 45-117 N Note change in reference range due to change in reagent. [id number] 02:53:00* Test Item Value Reference Range Interpretation Comments PHOSPHORUS (test code = PHOS) 2.7 mg/dL 2.5-4.9 N [id number] 02:53:00* Test Item Value Reference Range Interpretation Comments MAGNESIUM (test code = MAG) 1.8 mg/dL 1.8-2.4 N CALCIUM [id number] 02:53:00* Test Item Value Reference Range Interpretation Comments CALCIUM IONIZED (test code = PHILLIP) 1.11 mmol/L 1.12-1.32 L COMPREHENSIVE METABOLIC [id number] 02:37:00* Test Item Value Reference Range Interpretation Comments SODIUM (test code = NA) 147 mmol/L 136-145 H POTASSIUM (test code = K) 4.5 mmol/L 3.5-5.1 N CHLORIDE (test code = CL) 116.0 mmol/L 98-107 H CARBON DIOXIDE (test code = CO2) 28.0 mmol/L 21-32 N ANION GAP (test code = GAP) 7.5 10-20 L GLUCOSE (test code = GLU) 198 mg/dL 74-106 H BLOOD UREA NITROGEN (test code = BUN) 33 mg/dL 7-18 H GLOMERULAR FILTRATION RATE (test code = GFR) > 60 mL/min >=60 Estimated GFR by using Modified MDRD formula.Chronic kidney disease is defined as either kidney damageor GFR <60 mL/min/1.73 m2 for >3 months. CREATININE (test code = CREAT) 0.80 mg/dL 0.7-1.3 N BUN/CREATININE RATIO (test code = BUN/CREA) 40.5 10-20 H TOTAL PROTEIN (test code = PROT) 4.2 gram/dL 6.4-8.2 L ALBUMIN (test code = ALB) 1.7 g/dL 3.4-5.0 L GLOBULIN (test code = GLOB) 2.5 gram/dL 2.7-4.2 L ALBUMIN/GLOBULIN RATIO (test code = A/G) 0.7 0.75-1.50 L CALCIUM (test code = CA) 7.0 mg/dL 8.5-10.1 L BILIRUBIN TOTAL (test code = BILT) 0.40 mg/dL 0.0-1.0 N SGOT/AST (test code = AST) 16 IUnit/L 15-37 N SGPT/ALT (test code = ALT) 38 IUnit/L 12-78 N ALKALINE PHOSPHATASE TOTAL (test code = ALKP) 84 IUnit/L 45-117 N Note change in reference range due to change in reagent. [id number] 02:37:00* Test Item Value Reference Range Interpretation Comments PHOSPHORUS (test code = PHOS) 2.7 mg/dL 2.5-4.9 N [id number] 02:37:00* Test Item Value Reference Range Interpretation Comments MAGNESIUM (test code = MAG) 1.8 mg/dL 1.8-2.4 N CALCIUM [id number] 02:37:00* Test Item Value Reference Range Interpretation Comments CALCIUM IONIZED (test code = PHILLIP) mmol/L 1.12-1.32 COMPREHENSIVE METABOLIC [id number] 02:30:00* Test Item Value Reference Range Interpretation Comments SODIUM (test code = NA) 147 mmol/L 136-145 H POTASSIUM (test code = K) 4.5 mmol/L 3.5-5.1 N CHLORIDE (test code = CL) 116.0 mmol/L 98-107 H CARBON DIOXIDE (test code = CO2) mmol/L 21-32 ANION GAP (test code = GAP) 10-20 GLUCOSE (test code = GLU) mg/dL 74-106 BLOOD UREA NITROGEN (test code = BUN) mg/dL 7-18 GLOMERULAR FILTRATION RATE (test code = GFR) mL/min >=60 CREATININE (test code = CREAT) mg/dL 0.7-1.3 BUN/CREATININE RATIO (test code = BUN/CREA) 10-20 TOTAL PROTEIN (test code = PROT) gram/dL 6.4-8.2 ALBUMIN (test code = ALB) g/dL 3.4-5.0 GLOBULIN (test code = GLOB) gram/dL 2.7-4.2 ALBUMIN/GLOBULIN RATIO (test code = A/G) 0.75-1.50 CALCIUM (test code = CA) mg/dL 8.5-10.1 BILIRUBIN TOTAL (test code = BILT) mg/dL 0.0-1.0 SGOT/AST (test code = AST) IUnit/L 15-37 SGPT/ALT (test code = ALT) IUnit/L 12-78 ALKALINE PHOSPHATASE TOTAL (test code = ALKP) IUnit/L 45-117 [id number] 02:30:00* Test Item Value Reference Range Interpretation Comments PHOSPHORUS (test code = PHOS) mg/dL 2.5-4.9 [id number] 02:30:00* Test Item Value Reference Range Interpretation Comments MAGNESIUM (test code = MAG) mg/dL 1.8-2.4 CALCIUM [id number] 02:30:00* Test Item Value Reference Range Interpretation Comments CALCIUM IONIZED (test code = PHILLIP) mmol/L 1.12-1.32 CBC W/AUTO [id number] 02:23:00* Test Item Value Reference Range Interpretation Comments WHITE BLOOD CELL (test code = WBC) 8.0 K/mm3 4.5-12.5 N RED BLOOD CELL (test code = RBC) 2.94 mill/mm3 4.0-5.8 L HEMOGLOBIN (test code = HGB) 8.6 gram/dL 13.0-17.5 L HEMATOCRIT (test code = HCT) 27.7 % 42.0-52.0 L MEAN CELL VOLUME (test code = MCV) 94.2 fL 80-98 N MEAN CELL HGB (test code = MCH) 29.3 picogram 27.0-33.0 N MEAN CELL HGB CONCETRATION (test code = MCHC) 31.0 gram/dL 33.0-36. 0 L RED CELL DISTRIBUTION WIDTH (test code = RDW) 16.1 % 11.6-16. 2 N RED CELL DISTRIBUTION WIDTH SD (test code = RDW-SD) 53.1 fL 37 .0-51.0 H PLATELET COUNT (test code = PLT) 155 K/mm3 150-450 N MEAN PLATELET VOLUME (test code = MPV) 11.4 fL 6.7-11.0 H NEUTROPHIL % (test code = NT%) 88.2 % 39.0-69.0 H IMMATURE GRANULOCYTE % (test code = IG%) 4.0 % 0.0-5.0 N LYMPHOCYTE % (test code = LY%) 2.9 % 25.0-55.0 L MONOCYTE % (test code = MO%) 4.5 % 0.0-10.0 N EOSINOPHIL % (test code = EO%) 0.3 % 0.0-5.0 N BASOPHIL % (test code = BA%) 0.1 % 0.0-1.0 N NUCLEATED RBC % (test code = NRBC%) 0.0 % 0-0 N NEUTROPHIL # (test code = NT#) 7.04 K/mm3 1.8-7.7 N IMMATURE GRANULOCYTE # (test code = IG#) 0.32 x10 3/uL 0-0.03 H LYMPHOCYTE # (test code = LY#) 0.23 K/mm3 1.0-5.0 L MONOCYTE # (test code = MO#) 0.36 K/mm3 0-0.8 N EOSINOPHIL # (test code = EO#) 0.02 K/mm3 0.0-0.5 N BASOPHIL # (test code = BA#) 0.01 K/mm3 0.0-0.2 N NUCLEATED RBC # (test code = NRBC#) 0.00 K/mm3 0.0-0.1 N MANUAL DIFF REQUIRED (test code = MDIFF) NO CBC W/AUTO [id number] 02:18:00* Test Item Value Reference Range Interpretation Comments WHITE BLOOD CELL (test code = WBC) K/mm3 4.5-12.5 RED BLOOD CELL (test code = RBC) mill/mm3 4.0-5.8 HEMOGLOBIN (test code = HGB) gram/dL 13.0-17.5 HEMATOCRIT (test code = HCT) % 42.0-52.0 MEAN CELL VOLUME (test code = MCV) fL 80-98 MEAN CELL HGB (test code = MCH) picogram 27.0-33.0 MEAN CELL HGB CONCETRATION (test code = MCHC) gram/dL 33.0-36. 0 RED CELL DISTRIBUTION WIDTH (test code = RDW) % 11.6-16. 2 RED CELL DISTRIBUTION WIDTH SD (test code = RDW-SD) fL 37 .0-51.0 PLATELET COUNT (test code = PLT) 155 K/mm3 150-450 N MEAN PLATELET VOLUME (test code = MPV) fL 6.7-11.0 NEUTROPHIL % (test code = NT%) % 39.0-69.0 IMMATURE GRANULOCYTE % (test code = IG%) % 0.0-5.0 LYMPHOCYTE % (test code = LY%) % 25.0-55.0 MONOCYTE % (test code = MO%) % 0.0-10.0 EOSINOPHIL % (test code = EO%) % 0.0-5.0 BASOPHIL % (test code = BA%) % 0.0-1.0 NEUTROPHIL # (test code = NT#) K/mm3 1.8-7.7 LYMPHOCYTE # (test code = LY#) K/mm3 1.0-5.0 MONOCYTE # (test code = MO#) K/mm3 0-0.8 EOSINOPHIL # (test code = EO#) K/mm3 0.0-0.5 BASOPHIL # (test code = BA#) K/mm3 0.0-0.2 [id number] 00:03:00* Test Item Value Reference Range Interpretation Comments GLUBED (test code = GLUBED) 201 mg/dL 74-106 H Performed by certified tool machine setup operator at [facility] HGB [id number] 20:56:00* Test Item Value Reference Range Interpretation Comments HEMOGLOBIN (test code = HGB) 8.7 gram/dL 13.0-17.5 L HEMATOCRIT (test code = HCT) 27.4 % 42.0-52.0 L [id number] 20:52:00* Test Item Value Reference Range Interpretation Comments GLUBED (test code = GLUBED) 239 mg/dL 74-106 H Performed by certified tool machine setup operator at [facility] [id number] 18:13:00* Test Item Value Reference Range Interpretation Comments GLUBED (test code = GLUBED) 239 mg/dL 74-106 H Performed by certified tool machine setup operator at [facility] [id number] 11:53:00* Test Item Value Reference Range Interpretation Comments GLUBED (test code = GLUBED) 249 mg/dL 74-106 H Performed by certified tool machine setup operator at [facility] - XR CHEST 1 [id number] 07:56:00 FAX: Ama Long NP [place]: B St: ADM FAX: David Townsend Peramonita Fo FAX: Jasper Prince MD [phone] Name: BOOKER PIERRE [facility] : 1950 Age/S: 70/M [address] Unit #: [id number] Loc: [place] [address] Phys: Ama Long NP Acct: [id number] Dis Date: Status: ADM IN ONE #: [phone] Exam Date: 06/26/2020238 FAX #: [phone] Reason: acute resp failure EXAMS: CPT CODE: [id number] XR CHEST 1 V 34462 REASON FOR EXAM: acute resp failure EXAM ORDER DATE: 06/26/2020 2:00 AM Ordering: Ama Long NP Attending:Denilson lane Location:[facility] PROCEDURE: - XR CHEST 1 V COMPARISON: 06/25/2020 FINDINGS: Portable AP frontal view of the c hest obtained at 2:39 AM shows diffuse airspace opacity. The heart size is minimally enlarged. Pulmonary vasculatures are minimally congested. Stab le appearance of the ET tube and OG tube. IMPRESSION: Pat domo airspace opacities suggestive of atelectasis or consolidation with s mall left pleural effusion at 0756 Reported and signed by: Meek Lepe M.D. CC: Ama Long NP; David Guzmang DO; Jasper Eisenberg chnologist: Popeye Henley RT(R); EDENILSON JUAN RT(R) Trnscrd Date/ Time/By: 06/26/2020 (0756) : By: Kecia Orig Print D/T: S: 06/26/20 20 (0757) PAGE 1 Signed Report [id number] 06:13:00* Test Item Value Reference Range Interpretation Comments GLUBED (test code = GLUBED) 264 mg/dL 74-106 H Performed by certified tool machine setup operator at [facility] [id number] 06:13:00* Test Item Value Reference Range Interpretation Comments GLUBED (test code = GLUBED) 301 mg/dL 74-106 H Performed by certified tool machine setup operator at [facility] COMPREHENSIVE METABOLIC [id number] 03:56:00* Test Item Value Reference Range Interpretation Comments SODIUM (test code = NA) 150 mmol/L 136-145 H POTASSIUM (test code = K) 3.8 mmol/L 3.5-5.1 N CHLORIDE (test code = CL) 115.0 mmol/L 98-107 H CARBON DIOXIDE (test code = CO2) 31.0 mmol/L 21-32 N ANION GAP (test code = GAP) 7.8 10-20 L GLUCOSE (test code = GLU) 306 mg/dL 74-106 H BLOOD UREA NITROGEN (test code = BUN) 37 mg/dL 7-18 H GLOMERULAR FILTRATION RATE (test code = GFR) > 60 mL/min >=60 Estimated GFR by using Modified MDRD formula.Chronic kidney disease is defined as either kidney damageor GFR <60 mL/min/1.73 m2 for >3 months. CREATININE (test code = CREAT) 0.90 mg/dL 0.7-1.3 N BUN/CREATININE RATIO (test code = BUN/CREA) 39.0 10-20 H TOTAL PROTEIN (test code = PROT) 3.9 gram/dL 6.4-8.2 L ALBUMIN (test code = ALB) 1.5 g/dL 3.4-5.0 L GLOBULIN (test code = GLOB) 2.4 gram/dL 2.7-4.2 L ALBUMIN/GLOBULIN RATIO (test code = A/G) 0.6 0.75-1.50 L CALCIUM (test code = CA) 7.1 mg/dL 8.5-10.1 L BILIRUBIN TOTAL (test code = BILT) 0.30 mg/dL 0.0-1.0 N SGOT/AST (test code = AST) 9 IUnit/L 15-37 L SGPT/ALT (test code = ALT) 42 IUnit/L 12-78 N ALKALINE PHOSPHATASE TOTAL (test code = ALKP) 83 IUnit/L 45-117 N Note change in reference range due to change in reagent. [id number] 03:56:00* Test Item Value Reference Range Interpretation Comments PHOSPHORUS (test code = PHOS) 2.3 mg/dL 2.5-4.9 L [id number] 03:56:00* Test Item Value Reference Range Interpretation Comments MAGNESIUM (test code = MAG) 2.0 mg/dL 1.8-2.4 N CALCIUM [id number] 03:56:00* Test Item Value Reference Range Interpretation Comments CALCIUM IONIZED (test code = PHILLIP) 1.10 mmol/L 1.12-1.32 L COMPREHENSIVE METABOLIC [id number] 02:58:00* Test Item Value Reference Range Interpretation Comments SODIUM (test code = NA) mmol/L 136-145 POTASSIUM (test code = K) mmol/L 3.5-5.1 CHLORIDE (test code = CL) mmol/L 98-107 CARBON DIOXIDE (test code = CO2) mmol/L 21-32 ANION GAP (test code = GAP) 10-20 GLUCOSE (test code = GLU) mg/dL 74-106 BLOOD UREA NITROGEN (test code = BUN) mg/dL 7-18 GLOMERULAR FILTRATION RATE (test code = GFR) mL/min >=60 CREATININE (test code = CREAT) mg/dL 0.7-1.3 BUN/CREATININE RATIO (test code = BUN/CREA) 10-20 TOTAL PROTEIN (test code = PROT) gram/dL 6.4-8.2 ALBUMIN (test code = ALB) g/dL 3.4-5.0 GLOBULIN (test code = GLOB) gram/dL 2.7-4.2 ALBUMIN/GLOBULIN RATIO (test code = A/G) 0.75-1.50 CALCIUM (test code = CA) mg/dL 8.5-10.1 BILIRUBIN TOTAL (test code = BILT) mg/dL 0.0-1.0 SGOT/AST (test code = AST) IUnit/L 15-37 SGPT/ALT (test code = ALT) IUnit/L 12-78 ALKALINE PHOSPHATASE TOTAL (test code = ALKP) IUnit/L 45-117 [id number] 02:58:00* Test Item Value Reference Range Interpretation Comments PHOSPHORUS (test code = PHOS) mg/dL 2.5-4.9 [id number] 02:58:00* Test Item Value Reference Range Interpretation Comments MAGNESIUM (test code = MAG) mg/dL 1.8-2.4 CALCIUM [id number] 02:58:00* Test Item Value Reference Range Interpretation Comments CALCIUM IONIZED (test code = PHILLIP) 1.10 mmol/L 1.12-1.32 L CBC W/AUTO [id number] 02:55:00* Test Item Value Reference Range Interpretation Comments WHITE BLOOD CELL (test code = WBC) 8.8 K/mm3 4.5-12.5 N RED BLOOD CELL (test code = RBC) 2.39 mill/mm3 4.0-5.8 L HEMOGLOBIN (test code = HGB) 7.0 gram/dL 13.0-17.5 L HEMATOCRIT (test code = HCT) 22.7 % 42.0-52.0 L MEAN CELL VOLUME (test code = MCV) 95.0 fL 80-98 N MEAN CELL HGB (test code = MCH) 29.3 picogram 27.0-33.0 N MEAN CELL HGB CONCETRATION (test code = MCHC) 30.8 gram/dL 33.0-36. 0 L RED CELL DISTRIBUTION WIDTH (test code = RDW) 16.5 % 11.6-16. 2 H RED CELL DISTRIBUTION WIDTH SD (test code = RDW-SD) 54.8 fL 37 .0-51.0 H PLATELET COUNT (test code = PLT) 146 K/mm3 150-450 L MEAN PLATELET VOLUME (test code = MPV) 11.5 fL 6.7-11.0 H NEUTROPHIL % (test code = NT%) 92.6 % 39.0-69.0 H IMMATURE GRANULOCYTE % (test code = IG%) 1.8 % 0.0-5.0 N LYMPHOCYTE % (test code = LY%) 1.7 % 25.0-55.0 L MONOCYTE % (test code = MO%) 3.8 % 0.0-10.0 N EOSINOPHIL % (test code = EO%) 0.0 % 0.0-5.0 N BASOPHIL % (test code = BA%) 0.1 % 0.0-1.0 N NUCLEATED RBC % (test code = NRBC%) 0.0 % 0-0 N NEUTROPHIL # (test code = NT#) 8.18 K/mm3 1.8-7.7 H IMMATURE GRANULOCYTE # (test code = IG#) 0.16 x10 3/uL 0-0.03 H LYMPHOCYTE # (test code = LY#) 0.15 K/mm3 1.0-5.0 L MONOCYTE # (test code = MO#) 0.34 K/mm3 0-0.8 N EOSINOPHIL # (test code = EO#) 0.00 K/mm3 0.0-0.5 N BASOPHIL # (test code = BA#) 0.01 K/mm3 0.0-0.2 N NUCLEATED RBC # (test code = NRBC#) 0.00 K/mm3 0.0-0.1 N MANUAL DIFF REQUIRED (test code = MDIFF) NO [id number] 17:33:00* Test Item Value Reference Range Interpretation Comments GLUBED (test code = GLUBED) 298 mg/dL 74-106 H Performed by certified tool machine setup operator at [facility] [id number] 13:08:00* Test Item Value Reference Range Interpretation Comments GLUBED (test code = GLUBED) 282 mg/dL 74-106 H Performed by certified tool machine setup operator at [facility] - XR CHEST 1 [id number] 07:03:00 FAX: Ama Long NP [place]: St: ADM FAX: David Townsend Pek FAX: Jasper Prince MD [phone] Name: BOOKER PIERRE [facility] : 1950 Age/S: 70/M [address] Unit #: [id number] Loc: [place], [place] [address] Phys: Ama Long NP Acct: [id number] Dis Date: Status: ADM IN ONE #: [phone] Exam Date: 06/25/2020 0525 FAX #: [phone] Reason: acute resp failure EXAMS: CPT CODE: [id number] XR CHEST 1 V [id number] HISTORY: Acute respiratory failure. COMPARISON: Previous day. Loca tion: TH. ET tube and NG tube are unchanged. Bilateral alveolar i nfiltrates appear unchanged. Dependent changes and left lower lobe segmen heber atelectasis. Cardiomegaly. IMPRESSION: No change in the dense bilateral alveolar infiltrates from previous day. at 070 3 Reported and signed by: Maxx Meyer M.D. CC: Ama Long NP; David Guzman [facility]; Jasper Eisenberg gist: JONN MILES JR RT(R) Trnscrd Date/Time/B y: 06/25/2020 (702) : By: [email or web address] Orig Print D/T: S: 06/25/2020 (05 31) PAGE 1 Signed Report [id number] 05:42:00* Test Item Value Reference Range Interpretation Comments GLUBED (test code = GLUBED) 257 mg/dL 74-106 H Performed by certified tool machine setup operator at [facility] [id number] 05:42:00* Test Item Value Reference Range Interpretation Comments GLUBED (test code = GLUBED) 344 mg/dL 74-106 H Performed by certified tool machine setup operator at [facility] [id number] 05:42:00* Test Item Value Reference Range Interpretation Comments GLUBED (test code = GLUBED) 240 mg/dL 74-106 H Performed by certified tool machine setup operator at [facility] COMPREHENSIVE METABOLIC [id number] 03:45:00* Test Item Value Reference Range Interpretation Comments SODIUM (test code = NA) 150 mmol/L 136-145 H POTASSIUM (test code = K) 3.4 mmol/L 3.5-5.1 L CHLORIDE (test code = CL) 114.0 mmol/L 98-107 H CARBON DIOXIDE (test code = CO2) 31.0 mmol/L 21-32 N ANION GAP (test code = GAP) 8.4 10-20 L GLUCOSE (test code = GLU) 264 mg/dL 74-106 H BLOOD UREA NITROGEN (test code = BUN) 34 mg/dL 7-18 H GLOMERULAR FILTRATION RATE (test code = GFR) > 60 mL/min >=60 Estimated GFR by using Modified MDRD formula.Chronic kidney disease is defined as either kidney damageor GFR <60 mL/min/1.73 m2 for >3 months. CREATININE (test code = CREAT) 0.90 mg/dL 0.7-1.3 N BUN/CREATININE RATIO (test code = BUN/CREA) 37.2 10-20 H TOTAL PROTEIN (test code = PROT) 4.0 gram/dL 6.4-8.2 L ALBUMIN (test code = ALB) 1.5 g/dL 3.4-5.0 L GLOBULIN (test code = GLOB) 2.5 gram/dL 2.7-4.2 L ALBUMIN/GLOBULIN RATIO (test code = A/G) 0.6 0.75-1.50 L CALCIUM (test code = CA) 6.6 mg/dL 8.5-10.1 L BILIRUBIN TOTAL (test code = BILT) 0.40 mg/dL 0.0-1.0 N SGOT/AST (test code = AST) 13 IUnit/L 15-37 L SGPT/ALT (test code = ALT) 34 IUnit/L 12-78 N ALKALINE PHOSPHATASE TOTAL (test code = ALKP) 94 IUnit/L 45-117 N Note change in reference range due to change in reagent. [id number] 03:45:00* Test Item Value Reference Range Interpretation Comments PHOSPHORUS (test code = PHOS) 1.9 mg/dL 2.5-4.9 L [id number] 03:45:00* Test Item Value Reference Range Interpretation Comments MAGNESIUM (test code = MAG) 2.1 mg/dL 1.8-2.4 N CALCIUM [id number] 03:45:00* Test Item Value Reference Range Interpretation Comments CALCIUM IONIZED (test code = PHILLIP) 1.13 mmol/L 1.12-1.32 N COMPREHENSIVE METABOLIC [id number] 03:02:00* Test Item Value Reference Range Interpretation Comments SODIUM (test code = NA) 150 mmol/L 136-145 H POTASSIUM (test code = K) 3.4 mmol/L 3.5-5.1 L CHLORIDE (test code = CL) 114.0 mmol/L 98-107 H CARBON DIOXIDE (test code = CO2) 31.0 mmol/L 21-32 N ANION GAP (test code = GAP) 8.4 10-20 L GLUCOSE (test code = GLU) 264 mg/dL 74-106 H BLOOD UREA NITROGEN (test code = BUN) 34 mg/dL 7-18 H GLOMERULAR FILTRATION RATE (test code = GFR) > 60 mL/min >=60 Estimated GFR by using Modified MDRD formula.Chronic kidney disease is defined as either kidney damageor GFR <60 mL/min/1.73 m2 for >3 months. CREATININE (test code = CREAT) 0.90 mg/dL 0.7-1.3 N BUN/CREATININE RATIO (test code = BUN/CREA) 37.2 10-20 H TOTAL PROTEIN (test code = PROT) 4.0 gram/dL 6.4-8.2 L ALBUMIN (test code = ALB) 1.5 g/dL 3.4-5.0 L GLOBULIN (test code = GLOB) 2.5 gram/dL 2.7-4.2 L ALBUMIN/GLOBULIN RATIO (test code = A/G) 0.6 0.75-1.50 L CALCIUM (test code = CA) 6.6 mg/dL 8.5-10.1 L BILIRUBIN TOTAL (test code = BILT) 0.40 mg/dL 0.0-1.0 N SGOT/AST (test code = AST) 13 IUnit/L 15-37 L SGPT/ALT (test code = ALT) 34 IUnit/L 12-78 N ALKALINE PHOSPHATASE TOTAL (test code = ALKP) 94 IUnit/L 45-117 N Note change in reference range due to change in reagent. [id number] 03:02:00* Test Item Value Reference Range Interpretation Comments PHOSPHORUS (test code = PHOS) 1.9 mg/dL 2.5-4.9 L [id number] 03:02:00* Test Item Value Reference Range Interpretation Comments MAGNESIUM (test code = MAG) 2.1 mg/dL 1.8-2.4 N CALCIUM [id number] 03:02:00* Test Item Value Reference Range Interpretation Comments CALCIUM IONIZED (test code = PHILLIP) mmol/L 1.12-1.32 COMPREHENSIVE METABOLIC [id number] 02:54:00* Test Item Value Reference Range Interpretation Comments SODIUM (test code = NA) 150 mmol/L 136-145 H POTASSIUM (test code = K) 3.4 mmol/L 3.5-5.1 L CHLORIDE (test code = CL) 114.0 mmol/L 98-107 H CARBON DIOXIDE (test code = CO2) mmol/L 21-32 ANION GAP (test code = GAP) 10-20 GLUCOSE (test code = GLU) mg/dL 74-106 BLOOD UREA NITROGEN (test code = BUN) mg/dL 7-18 GLOMERULAR FILTRATION RATE (test code = GFR) mL/min >=60 CREATININE (test code = CREAT) mg/dL 0.7-1.3 BUN/CREATININE RATIO (test code = BUN/CREA) 10-20 TOTAL PROTEIN (test code = PROT) gram/dL 6.4-8.2 ALBUMIN (test code = ALB) g/dL 3.4-5.0 GLOBULIN (test code = GLOB) gram/dL 2.7-4.2 ALBUMIN/GLOBULIN RATIO (test code = A/G) 0.75-1.50 CALCIUM (test code = CA) mg/dL 8.5-10.1 BILIRUBIN TOTAL (test code = BILT) mg/dL 0.0-1.0 SGOT/AST (test code = AST) IUnit/L 15-37 SGPT/ALT (test code = ALT) IUnit/L 12-78 ALKALINE PHOSPHATASE TOTAL (test code = ALKP) IUnit/L 45-117 [id number] 02:54:00* Test Item Value Reference Range Interpretation Comments PHOSPHORUS (test code = PHOS) mg/dL 2.5-4.9 [id number] 02:54:00* Test Item Value Reference Range Interpretation Comments MAGNESIUM (test code = MAG) mg/dL 1.8-2.4 CALCIUM [id number] 02:54:00* Test Item Value Reference Range Interpretation Comments CALCIUM IONIZED (test code = PHILLIP) mmol/L 1.12-1.32 ARTERIAL BLOOD [id number] 02:47:00* Test Item Value Reference Range Interpretation Comments ARTERIAL BLOOD GAS PH (test code = PHA) 7.50 7.35-7.45 H ARTERIAL BLOOD GAS PCO2 (test code = PCO2A) 36.1 mm Hg 35-45 N ARTERIAL BLOOD GAS PO2 (test code = PO2A) 65.1 mmHg 80-100 L BICARBONATE TOTAL HCO3 (test code = HCO3) 27.5 mmol/L 23.0-27.0 H BASE EXCESS (test code = HERBERT) 4.0 mmol/L -3.0-5.0 N ABG O2 SATURATION (test code = SATA) 93.1 % 90.0-98.0 N ABG TYPE (test code = TYPEA) Arterial FIO2 (test code = FIO2A) 40.0 ABG VENT MODE (test code = MODEA) Assist Control ABG VENT RESP RATE (test code = RRA) 18.0 per min ABG TIDAL VOLUME (test code = TVA) 450.0 mL ABG PEEP (test code = PEEPA) 5.0 cmH2O ABG SITE (test code = SITEA) ARTERIAL LINE MODIFIED ALLENS (test code = MODALL) Unable CHECK PERFORMED SODIUM (test code = NA/ABG) 141.4 mEq/L 135-148 N POTASSIUM (test code = K/ABG) 3.4 mEq/L 3.5-4.5 L CHLORIDE (test code = CL/ABG) 108 mEq/L 98-106 H GLUCOSE (test code = GLU/ABG) 280 mg/dL 74-99 H HEMATOCRIT (test code = HCT/ABG) 24 % 42-52 L IONIZED CALCIUM (test code = CAIABG) 1.04 mmol/L 1.1-1.37 L TOTAL HGB (test code = THB) 8.0 gram/dL 13.0-17.5 L HGB O2 SAT (test code = HBOSAT) 92.9 % 94.00-98.00 L CARBOXYHEMOGLOBIN (test code = HOHGBT) 0.0 %totalHg 0.5-1.5 LL Results called to and read back by Venkat :35 - 06/25/2020; by DAVE METHEMOGLOBIN (test code = METHGB) 0.2 % 0.0-1.50 N O2 CONTENT (test code = O2CT) 10.5 % vol 18.0-22.0 L CBC W/AUTO [id number] 02:35:00* Test Item Value Reference Range Interpretation Comments WHITE BLOOD CELL (test code = WBC) 10.2 K/mm3 4.5-12.5 N RED BLOOD CELL (test code = RBC) 2.48 mill/mm3 4.0-5.8 L HEMOGLOBIN (test code = HGB) 7.3 gram/dL 13.0-17.5 L HEMATOCRIT (test code = HCT) 22.9 % 42.0-52.0 L MEAN CELL VOLUME (test code = MCV) 92.3 fL 80-98 N MEAN CELL HGB (test code = MCH) 29.4 picogram 27.0-33.0 N MEAN CELL HGB CONCETRATION (test code = MCHC) 31.9 gram/dL 33.0-36. 0 L RED CELL DISTRIBUTION WIDTH (test code = RDW) 16.5 % 11.6-16. 2 H RED CELL DISTRIBUTION WIDTH SD (test code = RDW-SD) 53.3 fL 37 .0-51.0 H PLATELET COUNT (test code = PLT) 129 K/mm3 150-450 L MEAN PLATELET VOLUME (test code = MPV) 11.4 fL 6.7-11.0 H NEUTROPHIL % (test code = NT%) 94.5 % 39.0-69.0 H IMMATURE GRANULOCYTE % (test code = IG%) 1.3 % 0.0-5.0 N LYMPHOCYTE % (test code = LY%) 1.3 % 25.0-55.0 L MONOCYTE % (test code = MO%) 2.8 % 0.0-10.0 N EOSINOPHIL % (test code = EO%) 0.0 % 0.0-5.0 N BASOPHIL % (test code = BA%) 0.1 % 0.0-1.0 N NUCLEATED RBC % (test code = NRBC%) 0.0 % 0-0 N NEUTROPHIL # (test code = NT#) 9.64 K/mm3 1.8-7.7 H IMMATURE GRANULOCYTE # (test code = IG#) 0.13 x10 3/uL 0-0.03 H LYMPHOCYTE # (test code = LY#) 0.13 K/mm3 1.0-5.0 L MONOCYTE # (test code = MO#) 0.29 K/mm3 0-0.8 N EOSINOPHIL # (test code = EO#) 0.00 K/mm3 0.0-0.5 N BASOPHIL # (test code = BA#) 0.01 K/mm3 0.0-0.2 N NUCLEATED RBC # (test code = NRBC#) 0.00 K/mm3 0.0-0.1 N MANUAL DIFF REQUIRED (test code = MDIFF) NO [id number] 17:23:00* Test Item Value Reference Range Interpretation Comments GLUBED (test code = GLUBED) 249 mg/dL 74-106 H Performed by certified tool machine setup operator at [facility] [id number] 10:58:00* Test Item Value Reference Range Interpretation Comments GLUBED (test code = GLUBED) 229 mg/dL 74-106 H Performed by certified tool machine setup operator at [facility] - XR CHEST 1 [id number] 07:04:00 FAX: Ama Long NP [place]: St: ADM FAX: David Townsend [facility] FAX: Jasper Prince MD [phone] Name: BOOKER PIERRE [facility] : 1950 Age/S: 70/M [address] [facility] Unit #: [id number] Loc: [address] [address] 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 COMPARISON: Previous day. Location: [facility]. ET tube and NG tube are in good position. Diffuse dense bilat eral alveolar infiltrates, greater on the left. Dependent changes. C ardiomegaly. IMPRESSION: Diffuse dense bilater al alveolar infiltrates are unchanged. at 0704 Reported and signed by: Maxx Meyer M.D. CC: Ama Long NP; Clarence Guzman on Jose Bergmang DO; Jasper Eisenberg Technologist: JONN MILES JR RT(R) Trnscrd Date/Time/By: 06/24/2020 (703) : By: [email or web address] Orig Print D/T: S: 06/24/2020 (07) PAGE 1 Signed Report [id number] 05:29:00 * Test Item Value Reference Range Interpretation Comments GLUBED (test code = GLUBED) 188 mg/dL 74-106 H Performed by certified tool machine setup operator at [facility] CBC W/MANUAL [id number] 04:05:00* Test Item Value Reference Range Interpretation Comments WHITE BLOOD CELL (test code = WBC) 10.8 K/mm3 4.5-12.5 N RED BLOOD CELL (test code = RBC) 2.35 mill/mm3 4.0-5.8 L HEMOGLOBIN (test code = HGB) 6.9 gram/dL 13.0-17.5 L HEMATOCRIT (test code = HCT) 21.4 % 42.0-52.0 LL Results called to [id number] by DONI 06/24/20 0244Critical results verified and read back by Nurse? Y MEAN CELL VOLUME (test code = MCV) 91.1 fL 80-98 N MEAN CELL HGB (test code = MCH) 29.4 picogram 27.0-33.0 N MEAN CELL HGB CONCETRATION (test code = MCHC) 32.2 gram/dL 33.0-36. 0 L RED CELL DISTRIBUTION WIDTH (test code = RDW) 16.4 % 11.6-16. 2 H RED CELL DISTRIBUTION WIDTH SD (test code = RDW-SD) 51.5 fL 37 .0-51.0 H PLATELET COUNT (test code = PLT) 120 K/mm3 150-450 L MEAN PLATELET VOLUME (test code = MPV) 11.5 fL 6.7-11.0 H IMMATURE GRANULOCYTE % (test code = IG%) 1.1 % 0.0-5.0 N NUCLEATED RBC % (test code = NRBC%) 0.2 % 0-0 H NEUTROPHIL # (test code = NT#) 10.41 K/mm3 1.8-7.7 H IMMATURE GRANULOCYTE # (test code = IG#) 0.12 x10 3/uL 0-0.03 H LYMPHOCYTE # (test code = LY#) 0.10 K/mm3 1.0-5.0 L MONOCYTE # (test code = MO#) 0.18 K/mm3 0-0.8 N EOSINOPHIL # (test code = EO#) 0.00 K/mm3 0.0-0.5 N BASOPHIL # (test code = BA#) 0.01 K/mm3 0.0-0.2 N NUCLEATED RBC # (test code = NRBC#) 0.02 K/mm3 0.0-0.1 N MANUAL DIFF REQUIRED (test code = MDIFF) YES STAIN ACCEPTABILITY (test code = STN ACCEPTABLE) STAIN ACCEPTABLE TOTAL CELLS COUNTED (test code = TCC) 114 #CELLS SEGMENTED NEUTROPHILS (test code = SEG) 99.1 % 39-69 H BAND NEUTROPHIL (test code = BAND) 0 % 0-10 N LYMPHOCYTE (test code = LYMPH) 0 % 25-55 L REACTIVE LYMPH (test code = RELYMPH) 0 % MONOCYTE (test code = MON) 0.9 % 0-10 N EOSINOPHIL (test code = EOS) 0 % 0.0-5.0 N BASOPHIL (test code = BASO) 0 % 0-1.0 N METAMYELOCYTE (test code = META) 0 % 0-0 N MYELOCYTE (test code = MYELO) 0 % 0.0-0.0 N PROMYELOCYTE (test code = PROM) 0 % 0-0 N POIKILOCYTOSIS (test code = POIK) 1+ ANISOCYTOSIS (test code = ANISO) 1+ MICROCYTOSIS (test code = MICR) 1+ CRENATED CELLS (test code = CREN) 1+ MORPHOLOGY COMMENT (test code = MOC) TEST NOT PERFORMED PLATELET ESTIMATE (test code = PLTEST) DECREASED PLATELET MORPHOLOGY (test code = PLTMORPH) NORMAL IMMATURE FORMS (test code = IMMAT) 0 % 0-0 N ARTERIAL BLOOD [id number] 04:02:00* Test Item Value Reference Range Interpretation Comments ARTERIAL BLOOD GAS PH (test code = PHA) 7.50 7.35-7.45 H ARTERIAL BLOOD GAS PCO2 (test code = PCO2A) 35.5 mm Hg 35-45 N ARTERIAL BLOOD GAS PO2 (test code = PO2A) 85.4 mmHg 80-100 N BICARBONATE TOTAL HCO3 (test code = HCO3) 27.2 mmol/L 23.0-27.0 H BASE EXCESS (test code = HERBERT) 3.8 mmol/L -3.0-5.0 N ABG O2 SATURATION (test code = SATA) 95.7 % 90.0-98.0 N ABG TYPE (test code = TYPEA) Arterial FIO2 (test code = FIO2A) 40.0 ABG VENT MODE (test code = MODEA) Assist Control ABG VENT RESP RATE (test code = RRA) 18.0 per min ABG TIDAL VOLUME (test code = TVA) 450.0 mL ABG PEEP (test code = PEEPA) 5.0 cmH2O ABG SITE (test code = SITEA) ARTERIAL LINE MODIFIED ALLENS (test code = MODALL) Unable CHECK PERFORMED SODIUM (test code = NA/ABG) 141.1 mEq/L 135-148 N POTASSIUM (test code = K/ABG) 3.0 mEq/L 3.5-4.5 L CHLORIDE (test code = CL/ABG) 108 mEq/L 98-106 H GLUCOSE (test code = GLU/ABG) 212 mg/dL 74-99 H HEMATOCRIT (test code = HCT/ABG) 23 % 42-52 L IONIZED CALCIUM (test code = CAIABG) 0.97 mmol/L 1.1-1.37 L TOTAL HGB (test code = THB) 7.7 gram/dL 13.0-17.5 L HGB O2 SAT (test code = HBOSAT) 95.1 % 94.00-98.00 N CARBOXYHEMOGLOBIN (test code = HOHGBT) 0.3 %totalHg 0.5-1.5 LL Results called to and read back by Michelle : - 06/24/2020; by Jeanna METHEMOGLOBIN (test code = METHGB) 0.3 % 0.0-1.50 N O2 CONTENT (test code = O2CT) 10.4 % vol 18.0-22.0 L [id number] 03:34:00* Test Item Value Reference Range Interpretation Comments TRIGLYCERIDES (test code = TRIG) 135 mg/dL 20-150 N Are CHOL,TRIG & HDL ordered? NOCOMPREHENSIVE METABOLIC [id number] 03:20:00 * Test Item Value Reference Range Interpretation Comments SODIUM (test code = NA) 150 mmol/L 136-145 H POTASSIUM (test code = K) 3.1 mmol/L 3.5-5.1 L CHLORIDE (test code = CL) 113.0 mmol/L 98-107 H CARBON DIOXIDE (test code = CO2) 32.0 mmol/L 21-32 N ANION GAP (test code = GAP) 8.1 10-20 L GLUCOSE (test code = GLU) 212 mg/dL 74-106 H BLOOD UREA NITROGEN (test code = BUN) 32 mg/dL 7-18 H GLOMERULAR FILTRATION RATE (test code = GFR) > 60 mL/min >=60 Estimated GFR by using Modified MDRD formula.Chronic kidney disease is defined as either kidney damageor GFR <60 mL/min/1.73 m2 for >3 months. CREATININE (test code = CREAT) 0.80 mg/dL 0.7-1.3 N BUN/CREATININE RATIO (test code = BUN/CREA) 38.4 10-20 H TOTAL PROTEIN (test code = PROT) 3.9 gram/dL 6.4-8.2 L ALBUMIN (test code = ALB) 1.4 g/dL 3.4-5.0 L GLOBULIN (test code = GLOB) 2.5 gram/dL 2.7-4.2 L ALBUMIN/GLOBULIN RATIO (test code = A/G) 0.6 0.75-1.50 L CALCIUM (test code = CA) 6.8 mg/dL 8.5-10.1 L BILIRUBIN TOTAL (test code = BILT) 0.40 mg/dL 0.0-1.0 N SGOT/AST (test code = AST) 14 IUnit/L 15-37 L SGPT/ALT (test code = ALT) 34 IUnit/L 12-78 N ALKALINE PHOSPHATASE TOTAL (test code = ALKP) 95 IUnit/L 45-117 N Note change in reference range due to change in reagent. [id number] 03:20:00* Test Item Value Reference Range Interpretation Comments PHOSPHORUS (test code = PHOS) 2.6 mg/dL 2.5-4.9 N [id number] 03:20:00* Test Item Value Reference Range Interpretation Comments MAGNESIUM (test code = MAG) 2.0 mg/dL 1.8-2.4 N CALCIUM [id number] 03:20:00* Test Item Value Reference Range Interpretation Comments CALCIUM IONIZED (test code = PHILLIP) 1.05 mmol/L 1.12-1.32 L COMPREHENSIVE METABOLIC [id number] 02:46:00* Test Item Value Reference Range Interpretation Comments SODIUM (test code = NA) 150 mmol/L 136-145 H POTASSIUM (test code = K) 3.1 mmol/L 3.5-5.1 L CHLORIDE (test code = CL) 113.0 mmol/L 98-107 H CARBON DIOXIDE (test code = CO2) 32.0 mmol/L 21-32 N ANION GAP (test code = GAP) 8.1 10-20 L GLUCOSE (test code = GLU) 212 mg/dL 74-106 H BLOOD UREA NITROGEN (test code = BUN) 32 mg/dL 7-18 H GLOMERULAR FILTRATION RATE (test code = GFR) > 60 mL/min >=60 Estimated GFR by using Modified MDRD formula.Chronic kidney disease is defined as either kidney damageor GFR <60 mL/min/1.73 m2 for >3 months. CREATININE (test code = CREAT) 0.80 mg/dL 0.7-1.3 N BUN/CREATININE RATIO (test code = BUN/CREA) 38.4 10-20 H TOTAL PROTEIN (test code = PROT) 3.9 gram/dL 6.4-8.2 L ALBUMIN (test code = ALB) 1.4 g/dL 3.4-5.0 L GLOBULIN (test code = GLOB) 2.5 gram/dL 2.7-4.2 L ALBUMIN/GLOBULIN RATIO (test code = A/G) 0.6 0.75-1.50 L CALCIUM (test code = CA) 6.8 mg/dL 8.5-10.1 L BILIRUBIN TOTAL (test code = BILT) 0.40 mg/dL 0.0-1.0 N SGOT/AST (test code = AST) 14 IUnit/L 15-37 L SGPT/ALT (test code = ALT) 34 IUnit/L 12-78 N ALKALINE PHOSPHATASE TOTAL (test code = ALKP) 95 IUnit/L 45-117 N Note change in reference range due to change in reagent. [id number] 02:46:00* Test Item Value Reference Range Interpretation Comments PHOSPHORUS (test code = PHOS) 2.6 mg/dL 2.5-4.9 N [id number] 02:46:00* Test Item Value Reference Range Interpretation Comments MAGNESIUM (test code = MAG) 2.0 mg/dL 1.8-2.4 N CALCIUM [id number] 02:46:00* Test Item Value Reference Range Interpretation Comments CALCIUM IONIZED (test code = PHILLIP) mmol/L 1.12-1.32 COMPREHENSIVE METABOLIC [id number] 02:45:00* Test Item Value Reference Range Interpretation Comments SODIUM (test code = NA) 150 mmol/L 136-145 H POTASSIUM (test code = K) 3.1 mmol/L 3.5-5.1 L CHLORIDE (test code = CL) 113.0 mmol/L 98-107 H CARBON DIOXIDE (test code = CO2) mmol/L 21-32 ANION GAP (test code = GAP) 10-20 GLUCOSE (test code = GLU) mg/dL 74-106 BLOOD UREA NITROGEN (test code = BUN) mg/dL 7-18 GLOMERULAR FILTRATION RATE (test code = GFR) mL/min >=60 CREATININE (test code = CREAT) mg/dL 0.7-1.3 BUN/CREATININE RATIO (test code = BUN/CREA) 10-20 TOTAL PROTEIN (test code = PROT) gram/dL 6.4-8.2 ALBUMIN (test code = ALB) g/dL 3.4-5.0 GLOBULIN (test code = GLOB) gram/dL 2.7-4.2 ALBUMIN/GLOBULIN RATIO (test code = A/G) 0.75-1.50 CALCIUM (test code = CA) mg/dL 8.5-10.1 BILIRUBIN TOTAL (test code = BILT) mg/dL 0.0-1.0 SGOT/AST (test code = AST) IUnit/L 15-37 SGPT/ALT (test code = ALT) IUnit/L 12-78 ALKALINE PHOSPHATASE TOTAL (test code = ALKP) IUnit/L 45-117 [id number] 02:45:00* Test Item Value Reference Range Interpretation Comments PHOSPHORUS (test code = PHOS) mg/dL 2.5-4.9 [id number] 02:45:00* Test Item Value Reference Range Interpretation Comments MAGNESIUM (test code = MAG) mg/dL 1.8-2.4 CALCIUM [id number] 02:45:00* Test Item Value Reference Range Interpretation Comments CALCIUM IONIZED (test code = PHILLIP) mmol/L 1.12-1.32 CBC W/MANUAL [id number] 02:44:00* Test Item Value Reference Range Interpretation Comments WHITE BLOOD CELL (test code = WBC) 10.8 K/mm3 4.5-12.5 N RED BLOOD CELL (test code = RBC) 2.35 mill/mm3 4.0-5.8 L HEMOGLOBIN (test code = HGB) 6.9 gram/dL 13.0-17.5 L HEMATOCRIT (test code = HCT) 21.4 % 42.0-52.0 LL Results called [place] [id number] by DONI 06/24/20 0244Critical results verified and read back by Nurse? Y MEAN CELL VOLUME (test code = MCV) 91.1 fL 80-98 N MEAN CELL HGB (test code = MCH) 29.4 picogram 27.0-33.0 N MEAN CELL HGB CONCETRATION (test code = MCHC) 32.2 gram/dL 33.0-36. 0 L RED CELL DISTRIBUTION WIDTH (test code = RDW) 16.4 % 11.6-16. 2 H RED CELL DISTRIBUTION WIDTH SD (test code = RDW-SD) 51.5 fL 37 .0-51.0 H PLATELET COUNT (test code = PLT) 120 K/mm3 150-450 L MEAN PLATELET VOLUME (test code = MPV) 11.5 fL 6.7-11.0 H IMMATURE GRANULOCYTE % (test code = IG%) 1.1 % 0.0-5.0 N NUCLEATED RBC % (test code = NRBC%) 0.2 % 0-0 H NEUTROPHIL # (test code = NT#) 10.41 K/mm3 1.8-7.7 H IMMATURE GRANULOCYTE # (test code = IG#) 0.12 x10 3/uL 0-0.03 H LYMPHOCYTE # (test code = LY#) 0.10 K/mm3 1.0-5.0 L MONOCYTE # (test code = MO#) 0.18 K/mm3 0-0.8 N EOSINOPHIL # (test code = EO#) 0.00 K/mm3 0.0-0.5 N BASOPHIL # (test code = BA#) 0.01 K/mm3 0.0-0.2 N NUCLEATED RBC # (test code = NRBC#) 0.02 K/mm3 0.0-0.1 N MANUAL DIFF REQUIRED (test code = MDIFF) YES STAIN ACCEPTABILITY (test code = STN ACCEPTABLE) TOTAL CELLS COUNTED (test code = TCC) #CELLS SEGMENTED NEUTROPHILS (test code = SEG) % 39-69 LYMPHOCYTE (test code = LYMPH) % 25-55 MONOCYTE (test code = MON) % 0-10 EOSINOPHIL (test code = EOS) % 0.0-5.0 CABOT RINGS (test code = CAB) MORPHOLOGY COMMENT (test code = MOC) PLATELET ESTIMATE (test code = PLTEST) PLATELET MORPHOLOGY (test code = PLTMORPH) CBC W/MANUAL [id number] 02:44:00* Test Item Value Reference Range Interpretation Comments WHITE BLOOD CELL (test code = WBC) 10.8 K/mm3 4.5-12.5 N RED BLOOD CELL (test code = RBC) 2.35 mill/mm3 4.0-5.8 L HEMOGLOBIN (test code = HGB) 6.9 gram/dL 13.0-17.5 L HEMATOCRIT (test code = HCT) 21.4 % 42.0-52.0 LL Results called to [id number] by V.LAB.GP 06/24/20 0244Critical results verified and read back by Nurse? Y MEAN CELL VOLUME (test code = MCV) 91.1 fL 80-98 N MEAN CELL HGB (test code = MCH) 29.4 picogram 27.0-33.0 N MEAN CELL HGB CONCETRATION (test code = MCHC) 32.2 gram/dL 33.0-36. 0 L RED CELL DISTRIBUTION WIDTH (test code = RDW) 16.4 % 11.6-16. 2 H RED CELL DISTRIBUTION WIDTH SD (test code = RDW-SD) 51.5 fL 37 .0-51.0 H PLATELET COUNT (test code = PLT) 120 K/mm3 150-450 L MEAN PLATELET VOLUME (test code = MPV) 11.5 fL 6.7-11.0 H IMMATURE GRANULOCYTE % (test code = IG%) 1.1 % 0.0-5.0 N NUCLEATED RBC % (test code = NRBC%) 0.2 % 0-0 H NEUTROPHIL # (test code = NT#) 10.41 K/mm3 1.8-7.7 H IMMATURE GRANULOCYTE # (test code = IG#) 0.12 x10 3/uL 0-0.03 H LYMPHOCYTE # (test code = LY#) 0.10 K/mm3 1.0-5.0 L MONOCYTE # (test code = MO#) 0.18 K/mm3 0-0.8 N EOSINOPHIL # (test code = EO#) 0.00 K/mm3 0.0-0.5 N BASOPHIL # (test code = BA#) 0.01 K/mm3 0.0-0.2 N NUCLEATED RBC # (test code = NRBC#) 0.02 K/mm3 0.0-0.1 N MANUAL DIFF REQUIRED (test code = MDIFF) YES STAIN ACCEPTABILITY (test code = STN ACCEPTABLE) TOTAL CELLS COUNTED (test code = TCC) #CELLS SEGMENTED NEUTROPHILS (test code = SEG) % 39-69 LYMPHOCYTE (test code = LYMPH) % 25-55 MONOCYTE (test code = MON) % 0-10 EOSINOPHIL (test code = EOS) % 0.0-5.0 CABOT RINGS (test code = CAB) MORPHOLOGY COMMENT (test code = MOC) PLATELET ESTIMATE (test code = PLTEST) PLATELET MORPHOLOGY (test code = PLTMORPH) CBC W/MANUAL [id number] 02:44:00* Test Item Value Reference Range Interpretation Comments WHITE BLOOD CELL (test code = WBC) 10.8 K/mm3 4.5-12.5 N RED BLOOD CELL (test code = RBC) 2.35 mill/mm3 4.0-5.8 L HEMOGLOBIN (test code = HGB) 6.9 gram/dL 13.0-17.5 L HEMATOCRIT (test code = HCT) 21.4 % 42.0-52.0 LL Results called to [id number] by AXELGP 06/24/20 0244Critical results verified and read back by Nurse? Y MEAN CELL VOLUME (test code = MCV) 91.1 fL 80-98 N MEAN CELL HGB (test code = MCH) 29.4 picogram 27.0-33.0 N MEAN CELL HGB CONCETRATION (test code = MCHC) 32.2 gram/dL 33.0-36. 0 L RED CELL DISTRIBUTION WIDTH (test code = RDW) 16.4 % 11.6-16. 2 H RED CELL DISTRIBUTION WIDTH SD (test code = RDW-SD) 51.5 fL 37 .0-51.0 H PLATELET COUNT (test code = PLT) 120 K/mm3 150-450 L MEAN PLATELET VOLUME (test code = MPV) 11.5 fL 6.7-11.0 H IMMATURE GRANULOCYTE % (test code = IG%) 1.1 % 0.0-5.0 N NUCLEATED RBC % (test code = NRBC%) 0.2 % 0-0 H NEUTROPHIL # (test code = NT#) 10.41 K/mm3 1.8-7.7 H IMMATURE GRANULOCYTE # (test code = IG#) 0.12 x10 3/uL 0-0.03 H LYMPHOCYTE # (test code = LY#) 0.10 K/mm3 1.0-5.0 L MONOCYTE # (test code = MO#) 0.18 K/mm3 0-0.8 N EOSINOPHIL # (test code = EO#) 0.00 K/mm3 0.0-0.5 N BASOPHIL # (test code = BA#) 0.01 K/mm3 0.0-0.2 N NUCLEATED RBC # (test code = NRBC#) 0.02 K/mm3 0.0-0.1 N MANUAL DIFF REQUIRED (test code = MDIFF) YES STAIN ACCEPTABILITY (test code = STN ACCEPTABLE) TOTAL CELLS COUNTED (test code = TCC) #CELLS SEGMENTED NEUTROPHILS (test code = SEG) % 39-69 LYMPHOCYTE (test code = LYMPH) % 25-55 MONOCYTE (test code = MON) % 0-10 EOSINOPHIL (test code = EOS) % 0.0-5.0 MORPHOLOGY COMMENT (test code = MOC) PLATELET ESTIMATE (test code = PLTEST) PLATELET MORPHOLOGY (test code = PLTMORPH) CBC W/MANUAL [id number] 02:44:00* Test Item Value Reference Range Interpretation Comments WHITE BLOOD CELL (test code = WBC) 10.8 K/mm3 4.5-12.5 N RED BLOOD CELL (test code = RBC) 2.35 mill/mm3 4.0-5.8 L HEMOGLOBIN (test code = HGB) 6.9 gram/dL 13.0-17.5 L HEMATOCRIT (test code = HCT) 21.4 % 42.0-52.0 LL Results called to [id number] by DONI 06/24/20 0244Critical results verified and read back by Nurse? Y MEAN CELL VOLUME (test code = MCV) 91.1 fL 80-98 N MEAN CELL HGB (test code = MCH) 29.4 picogram 27.0-33.0 N MEAN CELL HGB CONCETRATION (test code = MCHC) 32.2 gram/dL 33.0-36. 0 L RED CELL DISTRIBUTION WIDTH (test code = RDW) 16.4 % 11.6-16. 2 H RED CELL DISTRIBUTION WIDTH SD (test code = RDW-SD) 51.5 fL 37 .0-51.0 H PLATELET COUNT (test code = PLT) 120 K/mm3 150-450 L MEAN PLATELET VOLUME (test code = MPV) 11.5 fL 6.7-11.0 H IMMATURE GRANULOCYTE % (test code = IG%) 1.1 % 0.0-5.0 N NUCLEATED RBC % (test code = NRBC%) 0.2 % 0-0 H NEUTROPHIL # (test code = NT#) 10.41 K/mm3 1.8-7.7 H IMMATURE GRANULOCYTE # (test code = IG#) 0.12 x10 3/uL 0-0.03 H LYMPHOCYTE # (test code = LY#) 0.10 K/mm3 1.0-5.0 L MONOCYTE # (test code = MO#) 0.18 K/mm3 0-0.8 N EOSINOPHIL # (test code = EO#) 0.00 K/mm3 0.0-0.5 N BASOPHIL # (test code = BA#) 0.01 K/mm3 0.0-0.2 N NUCLEATED RBC # (test code = NRBC#) 0.02 K/mm3 0.0-0.1 N MANUAL DIFF REQUIRED (test code = MDIFF) YES STAIN ACCEPTABILITY (test code = STN ACCEPTABLE) TOTAL CELLS COUNTED (test code = TCC) #CELLS SEGMENTED NEUTROPHILS (test code = SEG) % 39-69 LYMPHOCYTE (test code = LYMPH) % 25-55 MONOCYTE (test code = MON) % 0-10 MORPHOLOGY COMMENT (test code = MOC) PLATELET ESTIMATE (test code = PLTEST) PLATELET MORPHOLOGY (test code = PLTMORPH) CBC W/MANUAL [id number] 02:44:00* Test Item Value Reference Range Interpretation Comments WHITE BLOOD CELL (test code = WBC) 10.8 K/mm3 4.5-12.5 N RED BLOOD CELL (test code = RBC) 2.35 mill/mm3 4.0-5.8 L HEMOGLOBIN (test code = HGB) 6.9 gram/dL 13.0-17.5 L HEMATOCRIT (test code = HCT) 21.4 % 42.0-52.0 LL Results called to [id number] by V.LAB.GP 06/24/20 0244Critical results verified and read back by Nurse? Y MEAN CELL VOLUME (test code = MCV) 91.1 fL 80-98 N MEAN CELL HGB (test code = MCH) 29.4 picogram 27.0-33.0 N MEAN CELL HGB CONCETRATION (test code = MCHC) 32.2 gram/dL 33.0-36. 0 L RED CELL DISTRIBUTION WIDTH (test code = RDW) 16.4 % 11.6-16. 2 H RED CELL DISTRIBUTION WIDTH SD (test code = RDW-SD) 51.5 fL 37 .0-51.0 H PLATELET COUNT (test code = PLT) 120 K/mm3 150-450 L MEAN PLATELET VOLUME (test code = MPV) 11.5 fL 6.7-11.0 H IMMATURE GRANULOCYTE % (test code = IG%) 1.1 % 0.0-5.0 N NUCLEATED RBC % (test code = NRBC%) 0.2 % 0-0 H NEUTROPHIL # (test code = NT#) 10.41 K/mm3 1.8-7.7 H IMMATURE GRANULOCYTE # (test code = IG#) 0.12 x10 3/uL 0-0.03 H LYMPHOCYTE # (test code = LY#) 0.10 K/mm3 1.0-5.0 L MONOCYTE # (test code = MO#) 0.18 K/mm3 0-0.8 N EOSINOPHIL # (test code = EO#) 0.00 K/mm3 0.0-0.5 N BASOPHIL # (test code = BA#) 0.01 K/mm3 0.0-0.2 N NUCLEATED RBC # (test code = NRBC#) 0.02 K/mm3 0.0-0.1 N MANUAL DIFF REQUIRED (test code = MDIFF) YES STAIN ACCEPTABILITY (test code = STN ACCEPTABLE) TOTAL CELLS COUNTED (test code = TCC) #CELLS SEGMENTED NEUTROPHILS (test code = SEG) % 39-69 LYMPHOCYTE (test code = LYMPH) % 25-55 MONOCYTE (test code = MON) % 0-10 EOSINOPHIL (test code = EOS) % 0.0-5.0 CABOT RINGS (test code = CAB) MORPHOLOGY COMMENT (test code = MOC) PLATELET ESTIMATE (test code = PLTEST) PLATELET MORPHOLOGY (test code = PLTMORPH) [id number] 18:31:00* Test Item Value Reference Range Interpretation Comments GLUBED (test code = GLUBED) 194 mg/dL 74-106 H Performed by certified tool machine setup operator at [facility] INTERVERTEBRAL [id number] 13:11:00 RUN DATE: 06/23/20 [facility] - Lab PAGE 1 RUN TIME: 1311 Specimen Inqui ry RUN USER: INTERFACE PATIENT: BOOKER PIERRE ACCT #: [id number] LOC: V.ICU U #: [id number] AGE/SX: 70/M ROOM: [facility] RE06/14/20LAVINIA DR: Rik Morel : 50 BED: A DIS: STATUS: ADM IN TLOC: SPEC #: [id number] RECD: 06/22/20 STATUS: LAKSHMI RELan #: [id number] MYLES: 06/21/20 DR: Rik Morel ENTERED: 06/22/20 SP TYPE: INT DISC OTHR DR: Kia [facility] man or Family Physician Patrick Martinez MD, Muhammad MD Guthikonda, Lalitha N MD Pakzaban, Peyman MD Pham, Dang Thanh MD Sunkara, Durga P MD Vasquez Donado, Andres F MDORDERED: GROSS COPIES TO: Kia Primary or Family Physician Patrick Martinez MD [address] [place] [address] Checo Valladares MD [address] [place] [address] Denilson Morel [address] [place], [place] [id number] [place] F[place] [address] [facility], [address] [place], [place] [phone] Jamie Rust MD [address] [place] [address] Tanja Boateng MD [address] [place] [address] [phone] CONTIN UED ON NEXT PAGE RUN DATE: 06/23/20 [facility] - Lab PAGE 2 RUN TIME: 1311 Specimen Inquiry RUN USER: INTERFACE SPEC #: [id number] CARMELA GOLDMANNT: BOOKER PIERRE #[id number] (Continued) POLE CUTTER IES TO: (Continued) Jasper Eisenberg MD [address] [facility] [address] [place], [place] [id number] Gordon Priest MD [address] [facility] [address] [place] [address] PROCEDURES: GROSS (06/23/20-10 05) TISSUES: CERVICAL VERTEBRA, NOS - DISC CLINICAL HISTORY COLLECTION DATE: 06/21/20 C5-6 AND C6-7 INSTABILITY FINAL DIAGNOSIS Cervical disc, C5-6 and C6-7, anterior cervical discectomy: INTERVER TEBRAL DISC MATERIAL BONE NEGATIVE FOR MALIGNANCY DMW/sm D 91172, 95853 MACROSCOPIC The specimen is received in formalin labeled with the patient's name, "cervical disc" and consists of an irregular fragment of light hennessy fibrous tissue and small fragments of possible bone. The tissue measures 1.7 x 1.5 x 0.3 cm in aggregate. After light decalcifica tion the specimen is submitted for histologic evaluation in a single cassette. GROSS PERFORMED AT [facility] [address] [place] [address] (p)[phone] CONTINUED ON NEXT PAGE RUN DATE: [facility] - Lab PAGE 3 R UN TIME: 1311 Specimen Inquiry RUN USER: INTERFACE ----- -------SPEC #: [id number] PATIENT: BOOKER PIERRE #[id number] (Continued) MICROSCOPIC All of the stains, inc luding any controls performed, stain appropriately. MICROSCOPIC PERFORME D AT [facility] [address] [place] [address] (p)[phone] PERFORMING SITE Diagnosis pe rformed at: [facility] CARMELA lazaro [address] [place] [address] Signed SIGNATURE ON FILE Randy Bustos MD 06/23/20 1311 END OF REPORT [id number] 12:11:00* Test Item Value Reference Range Interpretation Comments GLUBED (test code = GLUBED) 169 mg/dL 74-106 H Performed by certified tool machine setup operator at [facility] - XR CHEST 1 [id number] 06:58:00 FAX: Ama Long NP [place]: B St: ADM FAX: David Townsend [facility] FAX: Jasper Prince MD [phone] Name: BOOKER PIERRE [facility] : 1950 Age/S: 70/M [address] [facility] Unit #: [id number] Loc: [place] [address] Phys: Ama Long NP Acct: [id number] Dis Date: Status: ADM IN PH ONE #: [phone] Exam Date: 06/23/2020520 FAX #: [phone] Reason: Resp Failure EXAMS: CPT CODE: [id number] XR CHEST 1 V 27638 HISTORY: Respi ratory failure. COMPARISON: Previous day. Location: TH. ET tube and NG tube are in good position. Dense bilateral gilbert eolar infiltrates, greater on the left are unchanged. Dependent changes. Cardiomegaly. Cervical fusion in the lower neck. IMPRESS ION: Dense bilateral alveolar infiltrates, greater on the left ulcerated no change. at 0658 Reported and signed by: Maxx Meyer M.D. CC: Ama Long HAZARDOUS SUBSTANCES SCIENTIST; David Guzman DO; Jasper Eisenberg Technologist: JONN MILES JR RT(R) Trnscrd Date/Time/By: 06/23/2020 (0658) : By: [email or web address] Orig Print D/T: S: 06/23/2020 (0701) PAGE 1 Signed Report [id number] 05:45:00* Test Item Value Reference Range Interpretation Comments GLUBED (test code = GLUBED) 155 mg/dL 74-106 H Performed by certified tool machine setup operator at [facility] CBC W/MANUAL [id number] 05:43:00* Test Item Value Reference Range Interpretation Comments WHITE BLOOD CELL (test code = WBC) 8.8 K/mm3 4.5-12.5 N RED BLOOD CELL (test code = RBC) 2.47 mill/mm3 4.0-5.8 L HEMOGLOBIN (test code = HGB) 7.3 gram/dL 13.0-17.5 L HEMATOCRIT (test code = HCT) 22.4 % 42.0-52.0 L MEAN CELL VOLUME (test code = MCV) 90.7 fL 80-98 N MEAN CELL HGB (test code = MCH) 29.6 picogram 27.0-33.0 N MEAN CELL HGB CONCETRATION (test code = MCHC) 32.6 gram/dL 33.0-36. 0 L RED CELL DISTRIBUTION WIDTH (test code = RDW) 15.9 % 11.6-16. 2 N RED CELL DISTRIBUTION WIDTH SD (test code = RDW-SD) 51.6 fL 37 .0-51.0 H PLATELET COUNT (test code = PLT) 113 K/mm3 150-450 L MEAN PLATELET VOLUME (test code = MPV) 11.0 fL 6.7-11.0 N IMMATURE GRANULOCYTE % (test code = IG%) 1.5 % 0.0-5.0 N NUCLEATED RBC % (test code = NRBC%) 0.0 % 0-0 N NEUTROPHIL # (test code = NT#) 8.38 K/mm3 1.8-7.7 H IMMATURE GRANULOCYTE # (test code = IG#) 0.13 x10 3/uL 0-0.03 H LYMPHOCYTE # (test code = LY#) 0.17 K/mm3 1.0-5.0 L MONOCYTE # (test code = MO#) 0.15 K/mm3 0-0.8 N EOSINOPHIL # (test code = EO#) 0.00 K/mm3 0.0-0.5 N BASOPHIL # (test code = BA#) 0.01 K/mm3 0.0-0.2 N NUCLEATED RBC # (test code = NRBC#) 0.00 K/mm3 0.0-0.1 N MANUAL DIFF REQUIRED (test code = MDIFF) YES STAIN ACCEPTABILITY (test code = STN ACCEPTABLE) STAIN ACCEPTABLE TOTAL CELLS COUNTED (test code = TCC) 115 #CELLS SEGMENTED NEUTROPHILS (test code = SEG) 92.2 % 39-69 H BAND NEUTROPHIL (test code = BAND) 5.2 % 0-10 N LYMPHOCYTE (test code = LYMPH) 1.7 % 25-55 L REACTIVE LYMPH (test code = RELYMPH) 0 % MONOCYTE (test code = MON) 0.9 % 0-10 N EOSINOPHIL (test code = EOS) 0 % 0.0-5.0 N BASOPHIL (test code = BASO) 0 % 0-1.0 N METAMYELOCYTE (test code = META) 0 % 0-0 N MYELOCYTE (test code = MYELO) 0 % 0.0-0.0 N PROMYELOCYTE (test code = PROM) 0 % 0-0 N POIKILOCYTOSIS (test code = POIK) 1+ PLATELET ESTIMATE (test code = PLTEST) DECREASED PLATELET MORPHOLOGY (test code = PLTMORPH) SIZE VARIABLE IMMATURE FORMS (test code = IMMAT) 0 % 0-0 N COMPREHENSIVE METABOLIC [id number] 03:00:00* Test Item Value Reference Range Interpretation Comments SODIUM (test code = NA) 151 mmol/L 136-145 H POTASSIUM (test code = K) 2.9 mmol/L 3.5-5.1 L Re sults called to [id number] by AXELT 06/23/20 0300Critical results verified and read back by Nurse? Y CHLORIDE (test code = CL) 114.0 mmol/L 98-107 H CARBON DIOXIDE (test code = CO2) 30.0 mmol/L 21-32 N ANION GAP (test code = GAP) 9.9 10-20 L GLUCOSE (test code = GLU) 169 mg/dL 74-106 H BLOOD UREA NITROGEN (test code = BUN) 30 mg/dL 7-18 H GLOMERULAR FILTRATION RATE (test code = GFR) > 60 mL/min >=60 Estimated GFR by using Modified MDRD formula.Chronic kidney disease is defined as either kidney damageor GFR <60 mL/min/1.73 m2 for >3 months. CREATININE (test code = CREAT) 0.90 mg/dL 0.7-1.3 N BUN/CREATININE RATIO (test code = BUN/CREA) 32.7 10-20 H TOTAL PROTEIN (test code = PROT) 4.7 gram/dL 6.4-8.2 L ALBUMIN (test code = ALB) 1.4 g/dL 3.4-5.0 L GLOBULIN (test code = GLOB) 3.3 gram/dL 2.7-4.2 N ALBUMIN/GLOBULIN RATIO (test code = A/G) 0.4 0.75-1.50 L CALCIUM (test code = CA) 7.3 mg/dL 8.5-10.1 L BILIRUBIN TOTAL (test code = BILT) 0.60 mg/dL 0.0-1.0 N SGOT/AST (test code = AST) 18 IUnit/L 15-37 N SGPT/ALT (test code = ALT) 38 IUnit/L 12-78 N ALKALINE PHOSPHATASE TOTAL (test code = ALKP) 84 IUnit/L 45-117 N Note change in reference range due to change in reagent. [id number] 03:00:00* Test Item Value Reference Range Interpretation Comments PHOSPHORUS (test code = PHOS) 2.2 mg/dL 2.5-4.9 L [id number] 03:00:00* Test Item Value Reference Range Interpretation Comments MAGNESIUM (test code = MAG) 1.7 mg/dL 1.8-2.4 L CALCIUM [id number] 03:00:00* Test Item Value Reference Range Interpretation Comments CALCIUM IONIZED (test code = PHILLIP) 1.10 mmol/L 1.12-1.32 L COMPREHENSIVE METABOLIC [id number] 02:50:00* Test Item Value Reference Range Interpretation Comments SODIUM (test code = NA) mmol/L 136-145 POTASSIUM (test code = K) mmol/L 3.5-5.1 CHLORIDE (test code = CL) mmol/L 98-107 CARBON DIOXIDE (test code = CO2) mmol/L 21-32 ANION GAP (test code = GAP) 10-20 GLUCOSE (test code = GLU) mg/dL 74-106 BLOOD UREA NITROGEN (test code = BUN) mg/dL 7-18 GLOMERULAR FILTRATION RATE (test code = GFR) mL/min >=60 CREATININE (test code = CREAT) mg/dL 0.7-1.3 BUN/CREATININE RATIO (test code = BUN/CREA) 10-20 TOTAL PROTEIN (test code = PROT) gram/dL 6.4-8.2 ALBUMIN (test code = ALB) g/dL 3.4-5.0 GLOBULIN (test code = GLOB) gram/dL 2.7-4.2 ALBUMIN/GLOBULIN RATIO (test code = A/G) 0.75-1.50 CALCIUM (test code = CA) mg/dL 8.5-10.1 BILIRUBIN TOTAL (test code = BILT) mg/dL 0.0-1.0 SGOT/AST (test code = AST) IUnit/L 15-37 SGPT/ALT (test code = ALT) IUnit/L 12-78 ALKALINE PHOSPHATASE TOTAL (test code = ALKP) IUnit/L 45-117 [id number] 02:50:00* Test Item Value Reference Range Interpretation Comments PHOSPHORUS (test code = PHOS) mg/dL 2.5-4.9 [id number] 02:50:00* Test Item Value Reference Range Interpretation Comments MAGNESIUM (test code = MAG) mg/dL 1.8-2.4 CALCIUM [id number] 02:50:00* Test Item Value Reference Range Interpretation Comments CALCIUM IONIZED (test code = PHILLIP) 1.10 mmol/L 1.12-1.32 L CBC W/MANUAL [id number] 02:46:00* Test Item Value Reference Range Interpretation Comments WHITE BLOOD CELL (test code = WBC) 8.8 K/mm3 4.5-12.5 N RED BLOOD CELL (test code = RBC) 2.47 mill/mm3 4.0-5.8 L HEMOGLOBIN (test code = HGB) 7.3 gram/dL 13.0-17.5 L HEMATOCRIT (test code = HCT) 22.4 % 42.0-52.0 L MEAN CELL VOLUME (test code = MCV) 90.7 fL 80-98 N MEAN CELL HGB (test code = MCH) 29.6 picogram 27.0-33.0 N MEAN CELL HGB CONCETRATION (test code = MCHC) 32.6 gram/dL 33.0-36. 0 L RED CELL DISTRIBUTION WIDTH (test code = RDW) 15.9 % 11.6-16. 2 N RED CELL DISTRIBUTION WIDTH SD (test code = RDW-SD) 51.6 fL 37 .0-51.0 H PLATELET COUNT (test code = PLT) 113 K/mm3 150-450 L MEAN PLATELET VOLUME (test code = MPV) 11.0 fL 6.7-11.0 N IMMATURE GRANULOCYTE % (test code = IG%) 1.5 % 0.0-5.0 N NUCLEATED RBC % (test code = NRBC%) 0.0 % 0-0 N NEUTROPHIL # (test code = NT#) 8.38 K/mm3 1.8-7.7 H IMMATURE GRANULOCYTE # (test code = IG#) 0.13 x10 3/uL 0-0.03 H LYMPHOCYTE # (test code = LY#) 0.17 K/mm3 1.0-5.0 L MONOCYTE # (test code = MO#) 0.15 K/mm3 0-0.8 N EOSINOPHIL # (test code = EO#) 0.00 K/mm3 0.0-0.5 N BASOPHIL # (test code = BA#) 0.01 K/mm3 0.0-0.2 N NUCLEATED RBC # (test code = NRBC#) 0.00 K/mm3 0.0-0.1 N MANUAL DIFF REQUIRED (test code = MDIFF) YES STAIN ACCEPTABILITY (test code = STN ACCEPTABLE) TOTAL CELLS COUNTED (test code = TCC) #CELLS SEGMENTED NEUTROPHILS (test code = SEG) % 39-69 LYMPHOCYTE (test code = LYMPH) % 25-55 MONOCYTE (test code = MON) % 0-10 EOSINOPHIL (test code = EOS) % 0.0-5.0 CABOT RINGS (test code = CAB) MORPHOLOGY COMMENT (test code = MOC) PLATELET ESTIMATE (test code = PLTEST) PLATELET MORPHOLOGY (test code = PLTMORPH) CBC W/MANUAL [id number] 02:46:00* Test Item Value Reference Range Interpretation Comments WHITE BLOOD CELL (test code = WBC) 8.8 K/mm3 4.5-12.5 N RED BLOOD CELL (test code = RBC) 2.47 mill/mm3 4.0-5.8 L HEMOGLOBIN (test code = HGB) 7.3 gram/dL 13.0-17.5 L HEMATOCRIT (test code = HCT) 22.4 % 42.0-52.0 L MEAN CELL VOLUME (test code = MCV) 90.7 fL 80-98 N MEAN CELL HGB (test code = MCH) 29.6 picogram 27.0-33.0 N MEAN CELL HGB CONCETRATION (test code = MCHC) 32.6 gram/dL 33.0-36. 0 L RED CELL DISTRIBUTION WIDTH (test code = RDW) 15.9 % 11.6-16. 2 N RED CELL DISTRIBUTION WIDTH SD (test code = RDW-SD) 51.6 fL 37 .0-51.0 H PLATELET COUNT (test code = PLT) 113 K/mm3 150-450 L MEAN PLATELET VOLUME (test code = MPV) 11.0 fL 6.7-11.0 N IMMATURE GRANULOCYTE % (test code = IG%) 1.5 % 0.0-5.0 N NUCLEATED RBC % (test code = NRBC%) 0.0 % 0-0 N NEUTROPHIL # (test code = NT#) 8.38 K/mm3 1.8-7.7 H IMMATURE GRANULOCYTE # (test code = IG#) 0.13 x10 3/uL 0-0.03 H LYMPHOCYTE # (test code = LY#) 0.17 K/mm3 1.0-5.0 L MONOCYTE # (test code = MO#) 0.15 K/mm3 0-0.8 N EOSINOPHIL # (test code = EO#) 0.00 K/mm3 0.0-0.5 N BASOPHIL # (test code = BA#) 0.01 K/mm3 0.0-0.2 N NUCLEATED RBC # (test code = NRBC#) 0.00 K/mm3 0.0-0.1 N MANUAL DIFF REQUIRED (test code = MDIFF) YES STAIN ACCEPTABILITY (test code = STN ACCEPTABLE) TOTAL CELLS COUNTED (test code = TCC) #CELLS SEGMENTED NEUTROPHILS (test code = SEG) % 39-69 LYMPHOCYTE (test code = LYMPH) % 25-55 MONOCYTE (test code = MON) % 0-10 EOSINOPHIL (test code = EOS) % 0.0-5.0 CABOT RINGS (test code = CAB) MORPHOLOGY COMMENT (test code = MOC) PLATELET ESTIMATE (test code = PLTEST) PLATELET MORPHOLOGY (test code = PLTMORPH) CBC W/MANUAL [id number] 02:46:00* Test Item Value Reference Range Interpretation Comments WHITE BLOOD CELL (test code = WBC) 8.8 K/mm3 4.5-12.5 N RED BLOOD CELL (test code = RBC) 2.47 mill/mm3 4.0-5.8 L HEMOGLOBIN (test code = HGB) 7.3 gram/dL 13.0-17.5 L HEMATOCRIT (test code = HCT) 22.4 % 42.0-52.0 L MEAN CELL VOLUME (test code = MCV) 90.7 fL 80-98 N MEAN CELL HGB (test code = MCH) 29.6 picogram 27.0-33.0 N MEAN CELL HGB CONCETRATION (test code = MCHC) 32.6 gram/dL 33.0-36. 0 L RED CELL DISTRIBUTION WIDTH (test code = RDW) 15.9 % 11.6-16. 2 N RED CELL DISTRIBUTION WIDTH SD (test code = RDW-SD) 51.6 fL 37 .0-51.0 H PLATELET COUNT (test code = PLT) 113 K/mm3 150-450 L MEAN PLATELET VOLUME (test code = MPV) 11.0 fL 6.7-11.0 N IMMATURE GRANULOCYTE % (test code = IG%) 1.5 % 0.0-5.0 N NUCLEATED RBC % (test code = NRBC%) 0.0 % 0-0 N NEUTROPHIL # (test code = NT#) 8.38 K/mm3 1.8-7.7 H IMMATURE GRANULOCYTE # (test code = IG#) 0.13 x10 3/uL 0-0.03 H LYMPHOCYTE # (test code = LY#) 0.17 K/mm3 1.0-5.0 L MONOCYTE # (test code = MO#) 0.15 K/mm3 0-0.8 N EOSINOPHIL # (test code = EO#) 0.00 K/mm3 0.0-0.5 N BASOPHIL # (test code = BA#) 0.01 K/mm3 0.0-0.2 N NUCLEATED RBC # (test code = NRBC#) 0.00 K/mm3 0.0-0.1 N MANUAL DIFF REQUIRED (test code = MDIFF) YES STAIN ACCEPTABILITY (test code = STN ACCEPTABLE) TOTAL CELLS COUNTED (test code = TCC) #CELLS SEGMENTED NEUTROPHILS (test code = SEG) % 39-69 LYMPHOCYTE (test code = LYMPH) % 25-55 MONOCYTE (test code = MON) % 0-10 EOSINOPHIL (test code = EOS) % 0.0-5.0 MORPHOLOGY COMMENT (test code = MOC) PLATELET ESTIMATE (test code = PLTEST) PLATELET MORPHOLOGY (test code = PLTMORPH) CBC W/MANUAL [id number] 02:46:00* Test Item Value Reference Range Interpretation Comments WHITE BLOOD CELL (test code = WBC) 8.8 K/mm3 4.5-12.5 N RED BLOOD CELL (test code = RBC) 2.47 mill/mm3 4.0-5.8 L HEMOGLOBIN (test code = HGB) 7.3 gram/dL 13.0-17.5 L HEMATOCRIT (test code = HCT) 22.4 % 42.0-52.0 L MEAN CELL VOLUME (test code = MCV) 90.7 fL 80-98 N MEAN CELL HGB (test code = MCH) 29.6 picogram 27.0-33.0 N MEAN CELL HGB CONCETRATION (test code = MCHC) 32.6 gram/dL 33.0-36. 0 L RED CELL DISTRIBUTION WIDTH (test code = RDW) 15.9 % 11.6-16. 2 N RED CELL DISTRIBUTION WIDTH SD (test code = RDW-SD) 51.6 fL 37 .0-51.0 H PLATELET COUNT (test code = PLT) 113 K/mm3 150-450 L MEAN PLATELET VOLUME (test code = MPV) 11.0 fL 6.7-11.0 N IMMATURE GRANULOCYTE % (test code = IG%) 1.5 % 0.0-5.0 N NUCLEATED RBC % (test code = NRBC%) 0.0 % 0-0 N NEUTROPHIL # (test code = NT#) 8.38 K/mm3 1.8-7.7 H IMMATURE GRANULOCYTE # (test code = IG#) 0.13 x10 3/uL 0-0.03 H LYMPHOCYTE # (test code = LY#) 0.17 K/mm3 1.0-5.0 L MONOCYTE # (test code = MO#) 0.15 K/mm3 0-0.8 N EOSINOPHIL # (test code = EO#) 0.00 K/mm3 0.0-0.5 N BASOPHIL # (test code = BA#) 0.01 K/mm3 0.0-0.2 N NUCLEATED RBC # (test code = NRBC#) 0.00 K/mm3 0.0-0.1 N MANUAL DIFF REQUIRED (test code = MDIFF) YES STAIN ACCEPTABILITY (test code = STN ACCEPTABLE) TOTAL CELLS COUNTED (test code = TCC) #CELLS SEGMENTED NEUTROPHILS (test code = SEG) % 39-69 LYMPHOCYTE (test code = LYMPH) % 25-55 MONOCYTE (test code = MON) % 0-10 MORPHOLOGY COMMENT (test code = MOC) PLATELET ESTIMATE (test code = PLTEST) PLATELET MORPHOLOGY (test code = PLTMORPH) CBC W/MANUAL [id number] 02:46:00* Test Item Value Reference Range Interpretation Comments WHITE BLOOD CELL (test code = WBC) 8.8 K/mm3 4.5-12.5 N RED BLOOD CELL (test code = RBC) 2.47 mill/mm3 4.0-5.8 L HEMOGLOBIN (test code = HGB) 7.3 gram/dL 13.0-17.5 L HEMATOCRIT (test code = HCT) 22.4 % 42.0-52.0 L MEAN CELL VOLUME (test code = MCV) 90.7 fL 80-98 N MEAN CELL HGB (test code = MCH) 29.6 picogram 27.0-33.0 N MEAN CELL HGB CONCETRATION (test code = MCHC) 32.6 gram/dL 33.0-36. 0 L RED CELL DISTRIBUTION WIDTH (test code = RDW) 15.9 % 11.6-16. 2 N RED CELL DISTRIBUTION WIDTH SD (test code = RDW-SD) 51.6 fL 37 .0-51.0 H PLATELET COUNT (test code = PLT) 113 K/mm3 150-450 L MEAN PLATELET VOLUME (test code = MPV) 11.0 fL 6.7-11.0 N IMMATURE GRANULOCYTE % (test code = IG%) 1.5 % 0.0-5.0 N NUCLEATED RBC % (test code = NRBC%) 0.0 % 0-0 N NEUTROPHIL # (test code = NT#) 8.38 K/mm3 1.8-7.7 H IMMATURE GRANULOCYTE # (test code = IG#) 0.13 x10 3/uL 0-0.03 H LYMPHOCYTE # (test code = LY#) 0.17 K/mm3 1.0-5.0 L MONOCYTE # (test code = MO#) 0.15 K/mm3 0-0.8 N EOSINOPHIL # (test code = EO#) 0.00 K/mm3 0.0-0.5 N BASOPHIL # (test code = BA#) 0.01 K/mm3 0.0-0.2 N NUCLEATED RBC # (test code = NRBC#) 0.00 K/mm3 0.0-0.1 N MANUAL DIFF REQUIRED (test code = MDIFF) YES STAIN ACCEPTABILITY (test code = STN ACCEPTABLE) TOTAL CELLS COUNTED (test code = TCC) #CELLS SEGMENTED NEUTROPHILS (test code = SEG) % 39-69 LYMPHOCYTE (test code = LYMPH) % 25-55 MONOCYTE (test code = MON) % 0-10 EOSINOPHIL (test code = EOS) % 0.0-5.0 CABOT RINGS (test code = CAB) MORPHOLOGY COMMENT (test code = MOC) PLATELET ESTIMATE (test code = PLTEST) PLATELET MORPHOLOGY (test code = PLTMORPH) [id number] 00:49:00* Test Item Value Reference Range Interpretation Comments GLUBED (test code = GLUBED) 158 mg/dL 74-106 H Performed by certified tool machine setup operator at [facility] [id number] 18:28:00* Test Item Value Reference Range Interpretation Comments GLUBED (test code = GLUBED) 145 mg/dL 74-106 H Performed by certified tool machine setup operator at [facility] [id number] 11:31:00* Test Item Value Reference Range Interpretation Comments GLUBED (test code = GLUBED) 213 mg/dL 74-106 H Performed by certified tool machine setup operator at [facility] - XR CHEST 1 [id number] 07:23:00 FAX: Ama Long NP [place]: St: ADM FAX: David Townsend Fo FAX: Jasper Prince MD [phone] Name: BOOKER PIERRE [facility] : 1950 Age/S: 70/M [address] [facility] Unit #: [id number] Loc: [facility] [place] [address] Phys: Ama Long NP Acct: [id number] Dis Date: Status: ADM IN PH ONE #: [phone] Exam Date: 06/22/2020439 FAX #: [phone] Reason: Resp Failure EXAMS: CPT CODE: [id number] XR CHEST 1 V 35665 HISTORY: Respi ratory failure. COMPARISON: Previous day. Location: TH. ET tube and NG tube unchanged. Dense bilateral alveolar infil trates are unchanged. Dependent changes. Cardiomegaly. Residual barium within the stomach noted again. IMPRESSION: Unchanged diffuse dense bilateral alveolar infiltrates. Right costo phrenic angle is not included slightly limiting evaluation. Electron ically Signed by Samantha Meyer on 06/22/2020 at 0723 Reported and signed by: Maxx Meyer M.D. CC: Marlen Long HAZARDOUS SUBSTANCES SCIENTIST; David Guzman Tiwari DO; Jasper Eisenberg Technologist: Juanis Granados Trnscrd Date/Time/By: 06/22/2020 (0723) : By: [email or web address] Orig Print D/T: S: 06/22/2020 (0740) PAGE 1 Signed Report GLUBED 2020-06-22 06:01:00* Test Item Value Reference Range Interpretation Comments GLUBED (test code = GLUBED) 174 mg/dL 74-106 H Performed by certified tool machine setup operator at [facility] COMPREHENSIVE METABOLIC [id number] 03:59:00* Test Item Value Reference Range Interpretation Comments SODIUM (test code = NA) 151 mmol/L 136-145 H POTASSIUM (test code = K) 3.2 mmol/L 3.5-5.1 L CHLORIDE (test code = CL) 115.0 mmol/L 98-107 H CARBON DIOXIDE (test code = CO2) 29.0 mmol/L 21-32 N ANION GAP (test code = GAP) 10.2 10-20 N GLUCOSE (test code = GLU) 197 mg/dL 74-106 H BLOOD UREA NITROGEN (test code = BUN) 30 mg/dL 7-18 H RESULT VERIFIED BY REPEAT ANALYSIS GLOMERULAR FILTRATION RATE (test code = GFR) > 60 mL/min >=60 Estimated GFR by using Modified MDRD formula.Chronic kidney disease is defined as either kidney damageor GFR <60 mL/min/1.73 m2 for >3 months. CREATININE (test code = CREAT) 1.10 mg/dL 0.7-1.3 N BUN/CREATININE RATIO (test code = BUN/CREA) 27.3 10-20 H TOTAL PROTEIN (test code = PROT) 4.8 gram/dL 6.4-8.2 L ALBUMIN (test code = ALB) 1.4 g/dL 3.4-5.0 L GLOBULIN (test code = GLOB) 3.4 gram/dL 2.7-4.2 N ALBUMIN/GLOBULIN RATIO (test code = A/G) 0.4 0.75-1.50 L CALCIUM (test code = CA) 7.2 mg/dL 8.5-10.1 L BILIRUBIN TOTAL (test code = BILT) 0.50 mg/dL 0.0-1.0 N SGOT/AST (test code = AST) 19 IUnit/L 15-37 N SGPT/ALT (test code = ALT) 51 IUnit/L 12-78 N ALKALINE PHOSPHATASE TOTAL (test code = ALKP) 99 IUnit/L 45-117 N Note change in reference range due to change in reagent. [id number] 03:59:00* Test Item Value Reference Range Interpretation Comments PHOSPHORUS (test code = PHOS) 2.7 mg/dL 2.5-4.9 N [id number] 03:59:00* Test Item Value Reference Range Interpretation Comments MAGNESIUM (test code = MAG) 1.5 mg/dL 1.8-2.4 L CALCIUM [id number] 03:59:00* Test Item Value Reference Range Interpretation Comments CALCIUM IONIZED (test code = PHILLIP) 1.10 mmol/L 1.12-1.32 L ARTERIAL BLOOD [id number] 03:52:00* Test Item Value Reference Range Interpretation Comments ARTERIAL BLOOD GAS PH (test code = PHA) 7.43 7.35-7.45 N ARTERIAL BLOOD GAS PCO2 (test code = PCO2A) 40.3 mm Hg 35-45 N ARTERIAL BLOOD GAS PO2 (test code = PO2A) 130.6 mmHg 80-100 H BICARBONATE TOTAL HCO3 (test code = HCO3) 26.1 mmol/L 23.0-27.0 N BASE EXCESS (test code = HERBERT) 1.7 mmol/L -3.0-5.0 N ABG O2 SATURATION (test code = SATA) 98.0 % 90.0-98.0 N ABG TYPE (test code = TYPEA) Arterial FIO2 (test code = FIO2A) 80.0 ABG VENT MODE (test code = MODEA) Assist Control ABG VENT RESP RATE (test code = RRA) 22.0 per min ABG TIDAL VOLUME (test code = TVA) 450.0 mL ABG PEEP (test code = PEEPA) 10.0 cmH2O ABG SITE (test code = SITEA) ARTERIAL LINE MODIFIED ALLENS (test code = MODALL) Unable CHECK PERFORMED SODIUM (test code = NA/ABG) 147.0 mEq/L 135-148 N POTASSIUM (test code = K/ABG) 3.2 mEq/L 3.5-4.5 L CHLORIDE (test code = CL/ABG) 109 mEq/L 98-106 H GLUCOSE (test code = GLU/ABG) 197 mg/dL 74-99 H HEMATOCRIT (test code = HCT/ABG) 36 % 42-52 L IONIZED CALCIUM (test code = CAIABG) 1.01 mmol/L 1.1-1.37 L TOTAL HGB (test code = THB) 12.1 gram/dL 13.0-17.5 L HGB O2 SAT (test code = HBOSAT) 97.5 % 94.00-98.00 N CARBOXYHEMOGLOBIN (test code = HOHGBT) 0.3 %totalHg 0.5-1.5 LL Results called to and read back by Michelle 03:15 - 06/22/2020; by NIKKIE METHEMOGLOBIN (test code = METHGB) 0.2 % 0.0-1.50 N O2 CONTENT (test code = O2CT) 16.8 % vol 18.0-22.0 L CBC W/MANUAL [id number] 03:46:00* Test Item Value Reference Range Interpretation Comments WHITE BLOOD CELL (test code = WBC) 8.0 K/mm3 4.5-12.5 N RED BLOOD CELL (test code = RBC) 2.81 mill/mm3 4.0-5.8 L HEMOGLOBIN (test code = HGB) 8.1 gram/dL 13.0-17.5 L HEMATOCRIT (test code = HCT) 25.4 % 42.0-52.0 L MEAN CELL VOLUME (test code = MCV) 90.4 fL 80-98 N MEAN CELL HGB (test code = MCH) 28.8 picogram 27.0-33.0 N MEAN CELL HGB CONCETRATION (test code = MCHC) 31.9 gram/dL 33.0-36. 0 L RED CELL DISTRIBUTION WIDTH (test code = RDW) 16.2 % 11.6-16. 2 N RED CELL DISTRIBUTION WIDTH SD (test code = RDW-SD) 52.8 fL 37 .0-51.0 H PLATELET COUNT (test code = PLT) 125 K/mm3 150-450 L MEAN PLATELET VOLUME (test code = MPV) 10.5 fL 6.7-11.0 N NEUTROPHIL % (test code = NT%) 96.4 % 39.0-69.0 H IMMATURE GRANULOCYTE % (test code = IG%) 0.4 % 0.0-5.0 N LYMPHOCYTE % (test code = LY%) 1.6 % 25.0-55.0 L MONOCYTE % (test code = MO%) 1.5 % 0.0-10.0 N EOSINOPHIL % (test code = EO%) 0.0 % 0.0-5.0 N BASOPHIL % (test code = BA%) 0.1 % 0.0-1.0 N NUCLEATED RBC % (test code = NRBC%) 0.2 % 0-0 H NEUTROPHIL # (test code = NT#) 7.74 K/mm3 1.8-7.7 H IMMATURE GRANULOCYTE # (test code = IG#) 0.03 x10 3/uL 0-0.03 N LYMPHOCYTE # (test code = LY#) 0.13 K/mm3 1.0-5.0 L MONOCYTE # (test code = MO#) 0.12 K/mm3 0-0.8 N EOSINOPHIL # (test code = EO#) 0.00 K/mm3 0.0-0.5 N BASOPHIL # (test code = BA#) 0.01 K/mm3 0.0-0.2 N NUCLEATED RBC # (test code = NRBC#) 0.02 K/mm3 0.0-0.1 N MANUAL DIFF REQUIRED (test code = MDIFF) DIFF NEEDED STAIN ACCEPTABILITY (test code = STN ACCEPTABLE) STAIN ACCEPTABLE TOTAL CELLS COUNTED (test code = TCC) 115 #CELLS SEGMENTED NEUTROPHILS (test code = SEG) 97.4 % 39-69 H BAND NEUTROPHIL (test code = BAND) 0 % 0-10 N LYMPHOCYTE (test code = LYMPH) 1.7 % 25-55 L REACTIVE LYMPH (test code = RELYMPH) 0 % MONOCYTE (test code = MON) 0.9 % 0-10 N EOSINOPHIL (test code = EOS) 0 % 0.0-5.0 N BASOPHIL (test code = BASO) 0 % 0-1.0 N METAMYELOCYTE (test code = META) 0 % 0-0 N MYELOCYTE (test code = MYELO) 0 % 0.0-0.0 N PROMYELOCYTE (test code = PROM) 0 % 0-0 N POLYCHROMASIA (test code = POLC) 1+ POIKILOCYTOSIS (test code = POIK) 1+ ANISOCYTOSIS (test code = ANISO) 1+ WILBERTO CELLS (test code = WILBERTO) 1+ NONE MORPHOLOGY COMMENT (test code = MOC) TEST NOT PERFORMED PLATELET ESTIMATE (test code = PLTEST) DECREASED PLATELET MORPHOLOGY (test code = PLTMORPH) NORMAL IMMATURE FORMS (test code = IMMAT) 0 % 0-0 N COMPREHENSIVE METABOLIC [id number] 03:34:00* Test Item Value Reference Range Interpretation Comments SODIUM (test code = NA) 151 mmol/L 136-145 H POTASSIUM (test code = K) 3.2 mmol/L 3.5-5.1 L CHLORIDE (test code = CL) 115.0 mmol/L 98-107 H CARBON DIOXIDE (test code = CO2) mmol/L 21-32 ANION GAP (test code = GAP) 10-20 GLUCOSE (test code = GLU) mg/dL 74-106 BLOOD UREA NITROGEN (test code = BUN) mg/dL 7-18 GLOMERULAR FILTRATION RATE (test code = GFR) mL/min >=60 CREATININE (test code = CREAT) mg/dL 0.7-1.3 BUN/CREATININE RATIO (test code = BUN/CREA) 10-20 TOTAL PROTEIN (test code = PROT) gram/dL 6.4-8.2 ALBUMIN (test code = ALB) g/dL 3.4-5.0 GLOBULIN (test code = GLOB) gram/dL 2.7-4.2 ALBUMIN/GLOBULIN RATIO (test code = A/G) 0.75-1.50 CALCIUM (test code = CA) mg/dL 8.5-10.1 BILIRUBIN TOTAL (test code = BILT) mg/dL 0.0-1.0 SGOT/AST (test code = AST) IUnit/L 15-37 SGPT/ALT (test code = ALT) IUnit/L 12-78 ALKALINE PHOSPHATASE TOTAL (test code = ALKP) IUnit/L 45-117 [id number] 03:34:00* Test Item Value Reference Range Interpretation Comments PHOSPHORUS (test code = PHOS) mg/dL 2.5-4.9 [id number] 03:34:00* Test Item Value Reference Range Interpretation Comments MAGNESIUM (test code = MAG) mg/dL 1.8-2.4 CALCIUM [id number] 03:34:00* Test Item Value Reference Range Interpretation Comments CALCIUM IONIZED (test code = PHILLIP) 1.10 mmol/L 1.12-1.32 L COMPREHENSIVE METABOLIC [id number] 03:24:00* Test Item Value Reference Range Interpretation Comments SODIUM (test code = NA) 151 mmol/L 136-145 H POTASSIUM (test code = K) 3.2 mmol/L 3.5-5.1 L CHLORIDE (test code = CL) 115.0 mmol/L 98-107 H CARBON DIOXIDE (test code = CO2) mmol/L 21-32 ANION GAP (test code = GAP) 10-20 GLUCOSE (test code = GLU) mg/dL 74-106 BLOOD UREA NITROGEN (test code = BUN) mg/dL 7-18 GLOMERULAR FILTRATION RATE (test code = GFR) mL/min >=60 CREATININE (test code = CREAT) mg/dL 0.7-1.3 BUN/CREATININE RATIO (test code = BUN/CREA) 10-20 TOTAL PROTEIN (test code = PROT) gram/dL 6.4-8.2 ALBUMIN (test code = ALB) g/dL 3.4-5.0 GLOBULIN (test code = GLOB) gram/dL 2.7-4.2 ALBUMIN/GLOBULIN RATIO (test code = A/G) 0.75-1.50 CALCIUM (test code = CA) mg/dL 8.5-10.1 BILIRUBIN TOTAL (test code = BILT) mg/dL 0.0-1.0 SGOT/AST (test code = AST) IUnit/L 15-37 SGPT/ALT (test code = ALT) IUnit/L 12-78 ALKALINE PHOSPHATASE TOTAL (test code = ALKP) IUnit/L 45-117 [id number] 03:24:00* Test Item Value Reference Range Interpretation Comments PHOSPHORUS (test code = PHOS) mg/dL 2.5-4.9 [id number] 03:24:00* Test Item Value Reference Range Interpretation Comments MAGNESIUM (test code = MAG) mg/dL 1.8-2.4 CALCIUM [id number] 03:24:00* Test Item Value Reference Range Interpretation Comments CALCIUM IONIZED (test code = PHILLIP) mmol/L 1.12-1.32 CBC W/MANUAL [id number] 02:50:00* Test Item Value Reference Range Interpretation Comments WHITE BLOOD CELL (test code = WBC) 8.0 K/mm3 4.5-12.5 N RED BLOOD CELL (test code = RBC) 2.81 mill/mm3 4.0-5.8 L HEMOGLOBIN (test code = HGB) 8.1 gram/dL 13.0-17.5 L HEMATOCRIT (test code = HCT) 25.4 % 42.0-52.0 L MEAN CELL VOLUME (test code = MCV) 90.4 fL 80-98 N MEAN CELL HGB (test code = MCH) 28.8 picogram 27.0-33.0 N MEAN CELL HGB CONCETRATION (test code = MCHC) 31.9 gram/dL 33.0-36. 0 L RED CELL DISTRIBUTION WIDTH (test code = RDW) 16.2 % 11.6-16. 2 N RED CELL DISTRIBUTION WIDTH SD (test code = RDW-SD) 52.8 fL 37 .0-51.0 H PLATELET COUNT (test code = PLT) 125 K/mm3 150-450 L MEAN PLATELET VOLUME (test code = MPV) 10.5 fL 6.7-11.0 N NEUTROPHIL % (test code = NT%) 96.4 % 39.0-69.0 H IMMATURE GRANULOCYTE % (test code = IG%) 0.4 % 0.0-5.0 N LYMPHOCYTE % (test code = LY%) 1.6 % 25.0-55.0 L MONOCYTE % (test code = MO%) 1.5 % 0.0-10.0 N EOSINOPHIL % (test code = EO%) 0.0 % 0.0-5.0 N BASOPHIL % (test code = BA%) 0.1 % 0.0-1.0 N NUCLEATED RBC % (test code = NRBC%) 0.2 % 0-0 H NEUTROPHIL # (test code = NT#) 7.74 K/mm3 1.8-7.7 H IMMATURE GRANULOCYTE # (test code = IG#) 0.03 x10 3/uL 0-0.03 N LYMPHOCYTE # (test code = LY#) 0.13 K/mm3 1.0-5.0 L MONOCYTE # (test code = MO#) 0.12 K/mm3 0-0.8 N EOSINOPHIL # (test code = EO#) 0.00 K/mm3 0.0-0.5 N BASOPHIL # (test code = BA#) 0.01 K/mm3 0.0-0.2 N NUCLEATED RBC # (test code = NRBC#) 0.02 K/mm3 0.0-0.1 N MANUAL DIFF REQUIRED (test code = MDIFF) DIFF NEEDED STAIN ACCEPTABILITY (test code = STN ACCEPTABLE) TOTAL CELLS COUNTED (test code = TCC) #CELLS SEGMENTED NEUTROPHILS (test code = SEG) % 39-69 LYMPHOCYTE (test code = LYMPH) % 25-55 MONOCYTE (test code = MON) % 0-10 EOSINOPHIL (test code = EOS) % 0.0-5.0 CABOT RINGS (test code = CAB) MORPHOLOGY COMMENT (test code = MOC) PLATELET ESTIMATE (test code = PLTEST) PLATELET MORPHOLOGY (test code = PLTMORPH) CBC W/MANUAL [id number] 02:50:00* Test Item Value Reference Range Interpretation Comments WHITE BLOOD CELL (test code = WBC) 8.0 K/mm3 4.5-12.5 N RED BLOOD CELL (test code = RBC) 2.81 mill/mm3 4.0-5.8 L HEMOGLOBIN (test code = HGB) 8.1 gram/dL 13.0-17.5 L HEMATOCRIT (test code = HCT) 25.4 % 42.0-52.0 L MEAN CELL VOLUME (test code = MCV) 90.4 fL 80-98 N MEAN CELL HGB (test code = MCH) 28.8 picogram 27.0-33.0 N MEAN CELL HGB CONCETRATION (test code = MCHC) 31.9 gram/dL 33.0-36. 0 L RED CELL DISTRIBUTION WIDTH (test code = RDW) 16.2 % 11.6-16. 2 N RED CELL DISTRIBUTION WIDTH SD (test code = RDW-SD) 52.8 fL 37 .0-51.0 H PLATELET COUNT (test code = PLT) 125 K/mm3 150-450 L MEAN PLATELET VOLUME (test code = MPV) 10.5 fL 6.7-11.0 N NEUTROPHIL % (test code = NT%) 96.4 % 39.0-69.0 H IMMATURE GRANULOCYTE % (test code = IG%) 0.4 % 0.0-5.0 N LYMPHOCYTE % (test code = LY%) 1.6 % 25.0-55.0 L MONOCYTE % (test code = MO%) 1.5 % 0.0-10.0 N EOSINOPHIL % (test code = EO%) 0.0 % 0.0-5.0 N BASOPHIL % (test code = BA%) 0.1 % 0.0-1.0 N NUCLEATED RBC % (test code = NRBC%) 0.2 % 0-0 H NEUTROPHIL # (test code = NT#) 7.74 K/mm3 1.8-7.7 H IMMATURE GRANULOCYTE # (test code = IG#) 0.03 x10 3/uL 0-0.03 N LYMPHOCYTE # (test code = LY#) 0.13 K/mm3 1.0-5.0 L MONOCYTE # (test code = MO#) 0.12 K/mm3 0-0.8 N EOSINOPHIL # (test code = EO#) 0.00 K/mm3 0.0-0.5 N BASOPHIL # (test code = BA#) 0.01 K/mm3 0.0-0.2 N NUCLEATED RBC # (test code = NRBC#) 0.02 K/mm3 0.0-0.1 N MANUAL DIFF REQUIRED (test code = MDIFF) DIFF NEEDED STAIN ACCEPTABILITY (test code = STN ACCEPTABLE) TOTAL CELLS COUNTED (test code = TCC) #CELLS SEGMENTED NEUTROPHILS (test code = SEG) % 39-69 LYMPHOCYTE (test code = LYMPH) % 25-55 MONOCYTE (test code = MON) % 0-10 EOSINOPHIL (test code = EOS) % 0.0-5.0 CABOT RINGS (test code = CAB) MORPHOLOGY COMMENT (test code = MOC) PLATELET ESTIMATE (test code = PLTEST) PLATELET MORPHOLOGY (test code = PLTMORPH) CBC W/MANUAL [id number] 02:50:00* Test Item Value Reference Range Interpretation Comments WHITE BLOOD CELL (test code = WBC) 8.0 K/mm3 4.5-12.5 N RED BLOOD CELL (test code = RBC) 2.81 mill/mm3 4.0-5.8 L HEMOGLOBIN (test code = HGB) 8.1 gram/dL 13.0-17.5 L HEMATOCRIT (test code = HCT) 25.4 % 42.0-52.0 L MEAN CELL VOLUME (test code = MCV) 90.4 fL 80-98 N MEAN CELL HGB (test code = MCH) 28.8 picogram 27.0-33.0 N MEAN CELL HGB CONCETRATION (test code = MCHC) 31.9 gram/dL 33.0-36. 0 L RED CELL DISTRIBUTION WIDTH (test code = RDW) 16.2 % 11.6-16. 2 N RED CELL DISTRIBUTION WIDTH SD (test code = RDW-SD) 52.8 fL 37 .0-51.0 H PLATELET COUNT (test code = PLT) 125 K/mm3 150-450 L MEAN PLATELET VOLUME (test code = MPV) 10.5 fL 6.7-11.0 N NEUTROPHIL % (test code = NT%) 96.4 % 39.0-69.0 H IMMATURE GRANULOCYTE % (test code = IG%) 0.4 % 0.0-5.0 N LYMPHOCYTE % (test code = LY%) 1.6 % 25.0-55.0 L MONOCYTE % (test code = MO%) 1.5 % 0.0-10.0 N EOSINOPHIL % (test code = EO%) 0.0 % 0.0-5.0 N BASOPHIL % (test code = BA%) 0.1 % 0.0-1.0 N NUCLEATED RBC % (test code = NRBC%) 0.2 % 0-0 H NEUTROPHIL # (test code = NT#) 7.74 K/mm3 1.8-7.7 H IMMATURE GRANULOCYTE # (test code = IG#) 0.03 x10 3/uL 0-0.03 N LYMPHOCYTE # (test code = LY#) 0.13 K/mm3 1.0-5.0 L MONOCYTE # (test code = MO#) 0.12 K/mm3 0-0.8 N EOSINOPHIL # (test code = EO#) 0.00 K/mm3 0.0-0.5 N BASOPHIL # (test code = BA#) 0.01 K/mm3 0.0-0.2 N NUCLEATED RBC # (test code = NRBC#) 0.02 K/mm3 0.0-0.1 N MANUAL DIFF REQUIRED (test code = MDIFF) DIFF NEEDED STAIN ACCEPTABILITY (test code = STN ACCEPTABLE) TOTAL CELLS COUNTED (test code = TCC) #CELLS SEGMENTED NEUTROPHILS (test code = SEG) % 39-69 LYMPHOCYTE (test code = LYMPH) % 25-55 MONOCYTE (test code = MON) % 0-10 EOSINOPHIL (test code = EOS) % 0.0-5.0 MORPHOLOGY COMMENT (test code = MOC) PLATELET ESTIMATE (test code = PLTEST) PLATELET MORPHOLOGY (test code = PLTMORPH) CBC W/MANUAL [id number] 02:50:00* Test Item Value Reference Range Interpretation Comments WHITE BLOOD CELL (test code = WBC) 8.0 K/mm3 4.5-12.5 N RED BLOOD CELL (test code = RBC) 2.81 mill/mm3 4.0-5.8 L HEMOGLOBIN (test code = HGB) 8.1 gram/dL 13.0-17.5 L HEMATOCRIT (test code = HCT) 25.4 % 42.0-52.0 L MEAN CELL VOLUME (test code = MCV) 90.4 fL 80-98 N MEAN CELL HGB (test code = MCH) 28.8 picogram 27.0-33.0 N MEAN CELL HGB CONCETRATION (test code = MCHC) 31.9 gram/dL 33.0-36. 0 L RED CELL DISTRIBUTION WIDTH (test code = RDW) 16.2 % 11.6-16. 2 N RED CELL DISTRIBUTION WIDTH SD (test code = RDW-SD) 52.8 fL 37 .0-51.0 H PLATELET COUNT (test code = PLT) 125 K/mm3 150-450 L MEAN PLATELET VOLUME (test code = MPV) 10.5 fL 6.7-11.0 N NEUTROPHIL % (test code = NT%) 96.4 % 39.0-69.0 H IMMATURE GRANULOCYTE % (test code = IG%) 0.4 % 0.0-5.0 N LYMPHOCYTE % (test code = LY%) 1.6 % 25.0-55.0 L MONOCYTE % (test code = MO%) 1.5 % 0.0-10.0 N EOSINOPHIL % (test code = EO%) 0.0 % 0.0-5.0 N BASOPHIL % (test code = BA%) 0.1 % 0.0-1.0 N NUCLEATED RBC % (test code = NRBC%) 0.2 % 0-0 H NEUTROPHIL # (test code = NT#) 7.74 K/mm3 1.8-7.7 H IMMATURE GRANULOCYTE # (test code = IG#) 0.03 x10 3/uL 0-0.03 N LYMPHOCYTE # (test code = LY#) 0.13 K/mm3 1.0-5.0 L MONOCYTE # (test code = MO#) 0.12 K/mm3 0-0.8 N EOSINOPHIL # (test code = EO#) 0.00 K/mm3 0.0-0.5 N BASOPHIL # (test code = BA#) 0.01 K/mm3 0.0-0.2 N NUCLEATED RBC # (test code = NRBC#) 0.02 K/mm3 0.0-0.1 N MANUAL DIFF REQUIRED (test code = MDIFF) DIFF NEEDED STAIN ACCEPTABILITY (test code = STN ACCEPTABLE) TOTAL CELLS COUNTED (test code = TCC) #CELLS SEGMENTED NEUTROPHILS (test code = SEG) % 39-69 LYMPHOCYTE (test code = LYMPH) % 25-55 MONOCYTE (test code = MON) % 0-10 MORPHOLOGY COMMENT (test code = MOC) PLATELET ESTIMATE (test code = PLTEST) PLATELET MORPHOLOGY (test code = PLTMORPH) CBC W/MANUAL [id number] 02:50:00* Test Item Value Reference Range Interpretation Comments WHITE BLOOD CELL (test code = WBC) 8.0 K/mm3 4.5-12.5 N RED BLOOD CELL (test code = RBC) 2.81 mill/mm3 4.0-5.8 L HEMOGLOBIN (test code = HGB) 8.1 gram/dL 13.0-17.5 L HEMATOCRIT (test code = HCT) 25.4 % 42.0-52.0 L MEAN CELL VOLUME (test code = MCV) 90.4 fL 80-98 N MEAN CELL HGB (test code = MCH) 28.8 picogram 27.0-33.0 N MEAN CELL HGB CONCETRATION (test code = MCHC) 31.9 gram/dL 33.0-36. 0 L RED CELL DISTRIBUTION WIDTH (test code = RDW) 16.2 % 11.6-16. 2 N RED CELL DISTRIBUTION WIDTH SD (test code = RDW-SD) 52.8 fL 37 .0-51.0 H PLATELET COUNT (test code = PLT) 125 K/mm3 150-450 L MEAN PLATELET VOLUME (test code = MPV) 10.5 fL 6.7-11.0 N NEUTROPHIL % (test code = NT%) 96.4 % 39.0-69.0 H IMMATURE GRANULOCYTE % (test code = IG%) 0.4 % 0.0-5.0 N LYMPHOCYTE % (test code = LY%) 1.6 % 25.0-55.0 L MONOCYTE % (test code = MO%) 1.5 % 0.0-10.0 N EOSINOPHIL % (test code = EO%) 0.0 % 0.0-5.0 N BASOPHIL % (test code = BA%) 0.1 % 0.0-1.0 N NUCLEATED RBC % (test code = NRBC%) 0.2 % 0-0 H NEUTROPHIL # (test code = NT#) 7.74 K/mm3 1.8-7.7 H IMMATURE GRANULOCYTE # (test code = IG#) 0.03 x10 3/uL 0-0.03 N LYMPHOCYTE # (test code = LY#) 0.13 K/mm3 1.0-5.0 L MONOCYTE # (test code = MO#) 0.12 K/mm3 0-0.8 N EOSINOPHIL # (test code = EO#) 0.00 K/mm3 0.0-0.5 N BASOPHIL # (test code = BA#) 0.01 K/mm3 0.0-0.2 N NUCLEATED RBC # (test code = NRBC#) 0.02 K/mm3 0.0-0.1 N MANUAL DIFF REQUIRED (test code = MDIFF) DIFF NEEDED STAIN ACCEPTABILITY (test code = STN ACCEPTABLE) TOTAL CELLS COUNTED (test code = TCC) #CELLS SEGMENTED NEUTROPHILS (test code = SEG) % 39-69 LYMPHOCYTE (test code = LYMPH) % 25-55 MONOCYTE (test code = MON) % 0-10 EOSINOPHIL (test code = EOS) % 0.0-5.0 CABOT RINGS (test code = CAB) MORPHOLOGY COMMENT (test code = MOC) PLATELET ESTIMATE (test code = PLTEST) PLATELET MORPHOLOGY (test code = PLTMORPH) [id number] 23:35:00* Test Item Value Reference Range Interpretation Comments GLUBED (test code = GLUBED) 207 mg/dL 74-106 H Performed by certified tool machine setup operator at [facility] [id number] 17:59:00* Test Item Value Reference Range Interpretation Comments GLUBED (test code = GLUBED) 205 mg/dL 74-106 H Performed by certified tool machine setup operator at [facility] [id number] 11:58:00* Test Item Value Reference Range Interpretation Comments GLUBED (test code = GLUBED) 237 mg/dL 74-106 H Performed by certified tool machine setup operator at [facility] - XR CHEST 1 [id number] 07:28:00 FAX: Ama Long NP [place]: St: ADM FAX: David Townsend FAX: Jasper Prince MD [phone] Name: BOOKER PIERRE [facility] : 1950 Age/S: 70[facility] [address] [facility] #: [id number] Loc: [place] [address] Phys: Ama Long NP Acct: [id number] Dis Date: Status: ADM IN ONE #: [phone] Exam Date: 06/21/2020524 FAX #: [phone] Reason: Resp Failure EXAMS: CPT CODE: [id number] XR CHEST 1 V [id number] HISTORY: Respi ratory failure. COMPARISON: Chest x-ray from previous day. Location: TH. ET tube and NG tube are unchanged in position. Dense bilateral alveolar infiltrates are new. Dependent changes. Mode rate left effusion and small right effusion. Right costophrenic angle is not included limiting evaluation. Mild cardiomegaly. IMPR ESSION: New bilateral alveolar infiltrates. Electr onically Signed by Samantha Meyer on 06/21/2020 at 0728 Reported and signed by: Maxx Meyer M.D. CC: Ama Long NP; David Guzman [facility] DO; Jasper Eisenberg Technologist: Kathy Stevens) Trnscrd Date/Time/By: 06/21/2020 (0728) : By: [email or web address] Orig Print D/T: S: 06/21/2020 (7883) PAGE 1 Signed Report [id number] 05:48:00* Test Item Value Reference Range Interpretation Comments GLUBED (test code = GLUBED) 245 mg/dL 74-106 H Performed by certified tool machine setup operator at [facility] COMPREHENSIVE METABOLIC [id number] 05:26:00* Test Item Value Reference Range Interpretation Comments SODIUM (test code = NA) 149 mmol/L 136-145 H POTASSIUM (test code = K) 3.0 mmol/L 3.5-5.1 L CHLORIDE (test code = CL) 114.0 mmol/L 98-107 H CARBON DIOXIDE (test code = CO2) 27.0 mmol/L 21-32 N ANION GAP (test code = GAP) 11.0 10-20 N GLUCOSE (test code = GLU) 281 mg/dL 74-106 H BLOOD UREA NITROGEN (test code = BUN) 39 mg/dL 7-18 H GLOMERULAR FILTRATION RATE (test code = GFR) 60 mL/min >=60 Estimated GFR by using Modified MDRD formula.Chronic kidney disease is defined as either kidney damageor GFR <60 mL/min/1.73 m2 for >3 months. CREATININE (test code = CREAT) 1.20 mg/dL 0.7-1.3 N BUN/CREATININE RATIO (test code = BUN/CREA) 31.2 10-20 H TOTAL PROTEIN (test code = PROT) 4.7 gram/dL 6.4-8.2 L ALBUMIN (test code = ALB) 1.5 g/dL 3.4-5.0 L GLOBULIN (test code = GLOB) 3.2 gram/dL 2.7-4.2 N ALBUMIN/GLOBULIN RATIO (test code = A/G) 0.5 0.75-1.50 L CALCIUM (test code = CA) 7.3 mg/dL 8.5-10.1 L BILIRUBIN TOTAL (test code = BILT) 0.40 mg/dL 0.0-1.0 N SGOT/AST (test code = AST) 12 IUnit/L 15-37 L SGPT/ALT (test code = ALT) 51 IUnit/L 12-78 N ALKALINE PHOSPHATASE TOTAL (test code = ALKP) 106 IUnit/L 45-117 N Note change in reference range due to change in reagent. [id number] 05:26:00* Test Item Value Reference Range Interpretation Comments PHOSPHORUS (test code = PHOS) 1.6 mg/dL 2.5-4.9 L [id number] 05:26:00* Test Item Value Reference Range Interpretation Comments MAGNESIUM (test code = MAG) 2.0 mg/dL 1.8-2.4 N CALCIUM [id number] 05:26:00* Test Item Value Reference Range Interpretation Comments CALCIUM IONIZED (test code = PHILLIP) 1.09 mmol/L 1.12-1.32 L COMPREHENSIVE METABOLIC [id number] 04:37:00* Test Item Value Reference Range Interpretation Comments SODIUM (test code = NA) 149 mmol/L 136-145 H POTASSIUM (test code = K) 3.0 mmol/L 3.5-5.1 L CHLORIDE (test code = CL) 114.0 mmol/L 98-107 H CARBON DIOXIDE (test code = CO2) 27.0 mmol/L 21-32 N ANION GAP (test code = GAP) 11.0 10-20 N GLUCOSE (test code = GLU) 281 mg/dL 74-106 H BLOOD UREA NITROGEN (test code = BUN) 39 mg/dL 7-18 H GLOMERULAR FILTRATION RATE (test code = GFR) 60 mL/min >=60 Estimated GFR by using Modified MDRD formula.Chronic kidney disease is defined as either kidney damageor GFR <60 mL/min/1.73 m2 for >3 months. CREATININE (test code = CREAT) 1.20 mg/dL 0.7-1.3 N BUN/CREATININE RATIO (test code = BUN/CREA) 31.2 10-20 H TOTAL PROTEIN (test code = PROT) 4.7 gram/dL 6.4-8.2 L ALBUMIN (test code = ALB) 1.5 g/dL 3.4-5.0 L GLOBULIN (test code = GLOB) 3.2 gram/dL 2.7-4.2 N ALBUMIN/GLOBULIN RATIO (test code = A/G) 0.5 0.75-1.50 L CALCIUM (test code = CA) 7.3 mg/dL 8.5-10.1 L BILIRUBIN TOTAL (test code = BILT) 0.40 mg/dL 0.0-1.0 N SGOT/AST (test code = AST) 12 IUnit/L 15-37 L SGPT/ALT (test code = ALT) 51 IUnit/L 12-78 N ALKALINE PHOSPHATASE TOTAL (test code = ALKP) 106 IUnit/L 45-117 N Note change in reference range due to change in reagent. [id number] 04:37:00* Test Item Value Reference Range Interpretation Comments PHOSPHORUS (test code = PHOS) 1.6 mg/dL 2.5-4.9 L [id number] 04:37:00* Test Item Value Reference Range Interpretation Comments MAGNESIUM (test code = MAG) 2.0 mg/dL 1.8-2.4 N CALCIUM [id number] 04:37:00* Test Item Value Reference Range Interpretation Comments CALCIUM IONIZED (test code = PHILLIP) mmol/L 1.12-1.32 CBC W/AUTO [id number] 04:28:00* Test Item Value Reference Range Interpretation Comments WHITE BLOOD CELL (test code = WBC) 10.4 K/mm3 4.5-12.5 N RED BLOOD CELL (test code = RBC) 2.74 mill/mm3 4.0-5.8 L HEMOGLOBIN (test code = HGB) 8.0 gram/dL 13.0-17.5 L HEMATOCRIT (test code = HCT) 24.9 % 42.0-52.0 L MEAN CELL VOLUME (test code = MCV) 90.9 fL 80-98 N MEAN CELL HGB (test code = MCH) 29.2 picogram 27.0-33.0 N MEAN CELL HGB CONCETRATION (test code = MCHC) 32.1 gram/dL 33.0-36. 0 L RED CELL DISTRIBUTION WIDTH (test code = RDW) 15.9 % 11.6-16. 2 N RED CELL DISTRIBUTION WIDTH SD (test code = RDW-SD) 51.8 fL 37 .0-51.0 H PLATELET COUNT (test code = PLT) 148 K/mm3 150-450 L MEAN PLATELET VOLUME (test code = MPV) 11.0 fL 6.7-11.0 N NEUTROPHIL % (test code = NT%) 95.8 % 39.0-69.0 H IMMATURE GRANULOCYTE % (test code = IG%) 1.2 % 0.0-5.0 N LYMPHOCYTE % (test code = LY%) 1.0 % 25.0-55.0 L MONOCYTE % (test code = MO%) 1.9 % 0.0-10.0 N EOSINOPHIL % (test code = EO%) 0.0 % 0.0-5.0 N BASOPHIL % (test code = BA%) 0.1 % 0.0-1.0 N NUCLEATED RBC % (test code = NRBC%) 0.2 % 0-0 H NEUTROPHIL # (test code = NT#) 9.96 K/mm3 1.8-7.7 H IMMATURE GRANULOCYTE # (test code = IG#) 0.12 x10 3/uL 0-0.03 H LYMPHOCYTE # (test code = LY#) 0.10 K/mm3 1.0-5.0 L MONOCYTE # (test code = MO#) 0.20 K/mm3 0-0.8 N EOSINOPHIL # (test code = EO#) 0.00 K/mm3 0.0-0.5 N BASOPHIL # (test code = BA#) 0.01 K/mm3 0.0-0.2 N NUCLEATED RBC # (test code = NRBC#) 0.02 K/mm3 0.0-0.1 N MANUAL DIFF REQUIRED (test code = MDIFF) NO COMPREHENSIVE METABOLIC [id number] 04:26:00* Test Item Value Reference Range Interpretation Comments SODIUM (test code = NA) 149 mmol/L 136-145 H POTASSIUM (test code = K) 3.0 mmol/L 3.5-5.1 L CHLORIDE (test code = CL) 114.0 mmol/L 98-107 H CARBON DIOXIDE (test code = CO2) mmol/L 21-32 ANION GAP (test code = GAP) 10-20 GLUCOSE (test code = GLU) mg/dL 74-106 BLOOD UREA NITROGEN (test code = BUN) mg/dL 7-18 GLOMERULAR FILTRATION RATE (test code = GFR) mL/min >=60 CREATININE (test code = CREAT) mg/dL 0.7-1.3 BUN/CREATININE RATIO (test code = BUN/CREA) 10-20 TOTAL PROTEIN (test code = PROT) gram/dL 6.4-8.2 ALBUMIN (test code = ALB) g/dL 3.4-5.0 GLOBULIN (test code = GLOB) gram/dL 2.7-4.2 ALBUMIN/GLOBULIN RATIO (test code = A/G) 0.75-1.50 CALCIUM (test code = CA) mg/dL 8.5-10.1 BILIRUBIN TOTAL (test code = BILT) mg/dL 0.0-1.0 SGOT/AST (test code = AST) IUnit/L 15-37 SGPT/ALT (test code = ALT) IUnit/L 12-78 ALKALINE PHOSPHATASE TOTAL (test code = ALKP) IUnit/L 45-117 [id number] 04:26:00* Test Item Value Reference Range Interpretation Comments PHOSPHORUS (test code = PHOS) mg/dL 2.5-4.9 [id number] 04:26:00* Test Item Value Reference Range Interpretation Comments MAGNESIUM (test code = MAG) mg/dL 1.8-2.4 CALCIUM [id number] 04:26:00* Test Item Value Reference Range Interpretation Comments CALCIUM IONIZED (test code = PHILLIP) mmol/L 1.12-1.32 [id number] 00:32:00* Test Item Value Reference Range Interpretation Comments GLUBED (test code = GLUBED) 279 mg/dL 74-106 H Performed by certified tool machine setup operator at [facility] [id number] 17:00:00* Test Item Value Reference Range Interpretation Comments GLUBED (test code = GLUBED) 292 mg/dL 74-106 H Performed by certified tool machine setup operator at [facility] [id number] 12:08:00* Test Item Value Reference Range Interpretation Comments GLUBED (test code = GLUBED) 249 mg/dL 74-106 H Performed by certified tool machine setup operator at [facility] - XR CHEST 1 [id number] 07:49:00 FAX: Ama Long NP [place]: B St: ADM FAX: David Townsend ramonita FAX: Jasper Prince MD [phone] Name: BOOKER PIERRE [facility] : 1950 Age/S: 70/M [address] [facility] Unit #: [id number] Loc: [place] [address] Phys: Ama Long NP Acct: [id number] Dis Date: Status: ADM IN PH ONE #: [phone] Exam Date: 06/20/2020223 FAX #: [phone] Reason: Resp Failure EXAMS: CPT CODE: [id number] XR CHEST 1 V 58024 CLINICAL HISTO RY: Respiratory failure TECHNIQUE: AP chest x-ray CO MPARISON: Previous day. IMPRESSION: Worsening right basilar atelectasis and small effusion. Bilateral perihilar airspa ce opacity. Cardiomegaly. ET and enteric tubes. LOCATION: at 0749 Reported and signed by: Ashley Boateng D.O. CC: Ama Long HAZARDOUS SUBSTANCES SCIENTIST; David Guzman DO; Jasper Berry Technologist: Popeye Henley RT(R); EDENILSON JUAN RT(R) Tr [facility] Date/Time/By: 06/20/2020 (0749) : By: [email or web address] Orig Print D/T: S: 06/20/2020 (0752) PAGE 1 Marlin d Report [id number] 05:56:00* Test Item Value Reference Range Interpretation Comments GLUBED (test code = GLUBED) 264 mg/dL 74-106 H Performed by certified tool machine setup operator at [facility] ARTERIAL BLOOD [id number] 04:54:00* Test Item Value Reference Range Interpretation Comments ARTERIAL BLOOD GAS PH (test code = PHA) 7.43 7.35-7.45 N ARTERIAL BLOOD GAS PCO2 (test code = PCO2A) 32.7 mm Hg 35-45 L ARTERIAL BLOOD GAS PO2 (test code = PO2A) 88.4 mmHg 80-100 N BICARBONATE TOTAL HCO3 (test code = HCO3) 21.3 mmol/L 23.0-27.0 L BASE EXCESS (test code = HERBERT) -2.5 mmol/L -3.0-5.0 N ABG O2 SATURATION (test code = SATA) 96.2 % 90.0-98.0 N ABG TYPE (test code = TYPEA) Arterial FIO2 (test code = FIO2A) 50.0 ABG VENT MODE (test code = MODEA) Assist Control ABG VENT RESP RATE (test code = RRA) 22.0 per min ABG TIDAL VOLUME (test code = TVA) 500.0 mL ABG PEEP (test code = PEEPA) 8.0 cmH2O ABG SITE (test code = SITEA) ARTERIAL LINE MODIFIED ALLENS (test code = MODALL) Unable CHECK PERFORMED SODIUM (test code = NA/ABG) 140.6 mEq/L 135-148 N POTASSIUM (test code = K/ABG) 3.7 mEq/L 3.5-4.5 N CHLORIDE (test code = CL/ABG) 110 mEq/L 98-106 H GLUCOSE (test code = GLU/ABG) 307 mg/dL 74-99 H HEMATOCRIT (test code = HCT/ABG) 28 % 42-52 L IONIZED CALCIUM (test code = CAIABG) 0.96 mmol/L 1.1-1.37 L TOTAL HGB (test code = THB) 9.5 gram/dL 13.0-17.5 L HGB O2 SAT (test code = HBOSAT) 95.3 % 94.00-98.00 N CARBOXYHEMOGLOBIN (test code = HOHGBT) 0.3 %totalHg 0.5-1.5 LL Results called to and read back by Venkat 01:10 - 06/20/2020; by Adam METHEMOGLOBIN (test code = METHGB) 0.6 % 0.0-1.50 N O2 CONTENT (test code = O2CT) 12.9 % vol 18.0-22.0 L COMPREHENSIVE METABOLIC [id number] 02:28:00* Test Item Value Reference Range Interpretation Comments SODIUM (test code = NA) 146 mmol/L 136-145 H POTASSIUM (test code = K) 3.8 mmol/L 3.5-5.1 N CHLORIDE (test code = CL) 115.0 mmol/L 98-107 H CARBON DIOXIDE (test code = CO2) 21.0 mmol/L 21-32 N ANION GAP (test code = GAP) 13.8 10-20 N GLUCOSE (test code = GLU) 304 mg/dL 74-106 H BLOOD UREA NITROGEN (test code = BUN) 41 mg/dL 7-18 H GLOMERULAR FILTRATION RATE (test code = GFR) 55 mL/min >=60 Estimated GFR by using Modified MDRD formula.Chronic kidney disease is defined as either kidney damageor GFR <60 mL/min/1.73 m2 for >3 months. CREATININE (test code = CREAT) 1.30 mg/dL 0.7-1.3 N BUN/CREATININE RATIO (test code = BUN/CREA) 30.6 10-20 H TOTAL PROTEIN (test code = PROT) 4.8 gram/dL 6.4-8.2 L ALBUMIN (test code = ALB) 1.5 g/dL 3.4-5.0 L GLOBULIN (test code = GLOB) 3.3 gram/dL 2.7-4.2 N ALBUMIN/GLOBULIN RATIO (test code = A/G) 0.5 0.75-1.50 L CALCIUM (test code = CA) 7.6 mg/dL 8.5-10.1 L BILIRUBIN TOTAL (test code = BILT) 0.50 mg/dL 0.0-1.0 N SGOT/AST (test code = AST) 10 IUnit/L 15-37 L SGPT/ALT (test code = ALT) 53 IUnit/L 12-78 N ALKALINE PHOSPHATASE TOTAL (test code = ALKP) 96 IUnit/L 45-117 N Note change in reference range due to change in reagent. [id number] 02:28:00* Test Item Value Reference Range Interpretation Comments PHOSPHORUS (test code = PHOS) 2.6 mg/dL 2.5-4.9 N [id number] 02:28:00* Test Item Value Reference Range Interpretation Comments MAGNESIUM (test code = MAG) 2.0 mg/dL 1.8-2.4 N CALCIUM [id number] 02:28:00* Test Item Value Reference Range Interpretation Comments CALCIUM IONIZED (test code = PHILLIP) 1.13 mmol/L 1.12-1.32 N COMPREHENSIVE METABOLIC [id number] 01:45:00* Test Item Value Reference Range Interpretation Comments SODIUM (test code = NA) 146 mmol/L 136-145 H POTASSIUM (test code = K) 3.8 mmol/L 3.5-5.1 N CHLORIDE (test code = CL) 115.0 mmol/L 98-107 H CARBON DIOXIDE (test code = CO2) 21.0 mmol/L 21-32 N ANION GAP (test code = GAP) 13.8 10-20 N GLUCOSE (test code = GLU) 304 mg/dL 74-106 H BLOOD UREA NITROGEN (test code = BUN) 41 mg/dL 7-18 H GLOMERULAR FILTRATION RATE (test code = GFR) 55 mL/min >=60 Estimated GFR by using Modified MDRD formula.Chronic kidney disease is defined as either kidney damageor GFR <60 mL/min/1.73 m2 for >3 months. CREATININE (test code = CREAT) 1.30 mg/dL 0.7-1.3 N BUN/CREATININE RATIO (test code = BUN/CREA) 30.6 10-20 H TOTAL PROTEIN (test code = PROT) 4.8 gram/dL 6.4-8.2 L ALBUMIN (test code = ALB) 1.5 g/dL 3.4-5.0 L GLOBULIN (test code = GLOB) 3.3 gram/dL 2.7-4.2 N ALBUMIN/GLOBULIN RATIO (test code = A/G) 0.5 0.75-1.50 L CALCIUM (test code = CA) 7.6 mg/dL 8.5-10.1 L BILIRUBIN TOTAL (test code = BILT) 0.50 mg/dL 0.0-1.0 N SGOT/AST (test code = AST) 10 IUnit/L 15-37 L SGPT/ALT (test code = ALT) 53 IUnit/L 12-78 N ALKALINE PHOSPHATASE TOTAL (test code = ALKP) 96 IUnit/L 45-117 N Note change in reference range due to change in reagent. [id number] 01:45:00* Test Item Value Reference Range Interpretation Comments PHOSPHORUS (test code = PHOS) 2.6 mg/dL 2.5-4.9 N [id number] 01:45:00* Test Item Value Reference Range Interpretation Comments MAGNESIUM (test code = MAG) 2.0 mg/dL 1.8-2.4 N CALCIUM [id number] 01:45:00* Test Item Value Reference Range Interpretation Comments CALCIUM IONIZED (test code = PHILLIP) mmol/L 1.12-1.32 CBC W/AUTO [id number] 01:28:00* Test Item Value Reference Range Interpretation Comments WHITE BLOOD CELL (test code = WBC) 8.8 K/mm3 4.5-12.5 N RED BLOOD CELL (test code = RBC) 2.77 mill/mm3 4.0-5.8 L HEMOGLOBIN (test code = HGB) 8.1 gram/dL 13.0-17.5 L HEMATOCRIT (test code = HCT) 25.7 % 42.0-52.0 L MEAN CELL VOLUME (test code = MCV) 92.8 fL 80-98 N MEAN CELL HGB (test code = MCH) 29.2 picogram 27.0-33.0 N MEAN CELL HGB CONCETRATION (test code = MCHC) 31.5 gram/dL 33.0-36. 0 L RED CELL DISTRIBUTION WIDTH (test code = RDW) 16.6 % 11.6-16. 2 H RED CELL DISTRIBUTION WIDTH SD (test code = RDW-SD) 55.8 fL 37 .0-51.0 H PLATELET COUNT (test code = PLT) 147 K/mm3 150-450 L RESULT VERIFIED BY REPEAT ANALYSIS MEAN PLATELET VOLUME (test code = MPV) 10.7 fL 6.7-11.0 N NEUTROPHIL % (test code = NT%) 94.5 % 39.0-69.0 H IMMATURE GRANULOCYTE % (test code = IG%) 0.8 % 0.0-5.0 N LYMPHOCYTE % (test code = LY%) 2.5 % 25.0-55.0 L MONOCYTE % (test code = MO%) 2.0 % 0.0-10.0 N EOSINOPHIL % (test code = EO%) 0.0 % 0.0-5.0 N BASOPHIL % (test code = BA%) 0.2 % 0.0-1.0 N NUCLEATED RBC % (test code = NRBC%) 0.3 % 0-0 H NEUTROPHIL # (test code = NT#) 8.31 K/mm3 1.8-7.7 H IMMATURE GRANULOCYTE # (test code = IG#) 0.07 x10 3/uL 0-0.03 H LYMPHOCYTE # (test code = LY#) 0.22 K/mm3 1.0-5.0 L MONOCYTE # (test code = MO#) 0.18 K/mm3 0-0.8 N EOSINOPHIL # (test code = EO#) 0.00 K/mm3 0.0-0.5 N BASOPHIL # (test code = BA#) 0.02 K/mm3 0.0-0.2 N NUCLEATED RBC # (test code = NRBC#) 0.03 K/mm3 0.0-0.1 N MANUAL DIFF REQUIRED (test code = MDIFF) NO [id number] 00:00:00* Test Item Value Reference Range Interpretation Comments GLUBED (test code = GLUBED) 286 mg/dL 74-106 H Performed by certified tool machine setup operator at [facility] [id number] 19:53:00* Test Item Value Reference Range Interpretation Comments GLUBED (test code = GLUBED) 263 mg/dL 74-106 H Performed by certified tool machine setup operator at [facility] [id number] 13:07:00* Test Item Value Reference Range Interpretation Comments GLUBED (test code = GLUBED) 242 mg/dL 74-106 H Performed by certified tool machine setup operator at [facility] - CTA CHEST FOR [id number] 12:52:00 Name: BOOKER PIERRE [facility] : 1950 Age/S: 70 / M [address] [facility] Unit #: [id number] Loc: [place] [address] Phys: Jamie Rust MD Acct: [id number] Dis Date: Status: ADM IN PHONE #: [phone] Exam Date: 06/19/2020 1230 FAX #: [phone] Reason: r/p PE EXAMS: CPT CODE: [id number] [place] [id number] REASON FOR EXAM: r/p PE EXAM ORDER DATE: 06/19/2020 8:50 AM Ordering M.D.: Jamie Rust MD PROCEDURE: - CTA CHEST FOR PE Comparison:CT of the chest June 15, [address] images of the chest were obtained with IV contrast. Reconstructed sagittal and coronal images of the chest were provided for interpretation. Dose reduction techniques were applied. FINDINGS: Abducted position of the patient's upper extremities during this exam results in beam hardening artifact in the posterior aspect of the lungs. Visualized neck: Normal Airways, Lungs and Pleura: Moderate sized pleural effusions are present bilaterally and there is compressive atelectasis of the underlying lower lobes. This effusion extends into the major fissure of the right lung and there are also subsegmental atelectatic changes in the upper lobes. Due to artifact, it is difficult to assess the enhancement of the atelectatic lungs and superimposed infection cannot be excluded. However there is a small amount of mucus within the distal trachea extending into the bilateral bronchi Heart, great vessels, pulmonary vessels, mediastinum: The segmental and subsegmental emboli are not clearly visualized due to extensive artifact secondary to the abducted position of the patient's arm during this examination. No central pulmonary embolus is seen. Additionally there is no enlargement of the pulmonary trunk and no deviation of the intraventricular septum to suggest hemodynamically significant distal emboli. No significant aortic or coronary pathology. No pericardial effusion. Lymph nodes: No axillary, internal mammary, hilar, or mediastinal adenopathy. Musculoskeletal/chest wall: Dege nerative changes are present in the spine PAGE 1 Signed Report (CONTINUED) Name: BOOKER PIERRE [facility] : 1950 Age/S: 70 / M [address] [facility] Unit #: [id number] Loc: [place] [address] Phys: Jamie Rust MD Acct: [id number] Dis Date: Status: ADM IN PHONE #: [phone] Exam Date: 2019 1230 FAX #: [phone] Reason: r/p PE EXAMS: CPT CODE: [id number] [place] [address] <Continued> Visualized upper abdomen: Enteric suction tube terminates in the stomach IMPRESSION: No central pulmonary embolus and no findings of hemodynamically significant segmental or subsegmental pulmonary emboli. Moderate-sized pleural effusions bilaterally with atelectasis of the bilateral lower lobes and subsegmental atelectasis of the lateral upper lobes. Given the presence of mucus in the distal trachea, which extends into the bronchi, there may be superimposed aspiration and/or pneumonia. Location: [facility] at 1252 Reported and signed by: Michael Mehta MD CC: David Guzman DO; Jamie Rust MD; Jasper Eisenberg Technologist:Jami Bajwa RT(R),CT CTDI: DLP: Trnscb Date/Time: 06/19/2020 (5139) [email or web address] Orig Print D/T: S: 06/19/2020 (2217) PAGE 2 Signed Report [id number] 09:45:00* Test Item Value Reference Range Interpretation Comments VANCOMYCIN (test code = VANCO) 21.9 UG/ML 5.0-45.0 N - XR CHEST 1 [id number] 07:35:00 FAX: Enrique Segovia [phone] [place]: St: ADM FAX: David Townsend [facility] Fo FAX: Jasper Prince MD [phone] Name: DIAZ PIERRERO [facility] : 1950 Age/S: 70/M [address] [facility] Unit #: [id number] Loc: [address] [address] Phys: Enrique Segovia Acct: [id number] Dis Date: Status: ADM IN ONE #: [phone] Exam Date: 06/19/2020 0135 FAX #: [phone] Reason: updated pulm view. EXAMS: CPT CODE: [id number] XR CHEST 1 V 58578 REASON FOR EXAM: updated pulm view. Exam Order Date: 06/19/2020 2:00 AM Ordering Samantha: CARMELA Kaur PROCEDURE: - XR CHEST 1 V COMPARISON: Chest x-ray the previous afternoon FINDINGS: There are opacities in the bilateral lung bases which may rep resent any combination of layering effusions, atelectasis, and edema. Mosher tom compared to the prior examination. The lungs are significantly better aerated with the right hemidiaphragm and right costophrenic recess a ble to be visualized. ET tube and enteric suction tube are stable in position. Cardiomediastinal silhouette appears prominent althou gh this may be due to the diminished lung volumes. Degenerat jason changes are present in the spine and acromioclavicular joints. IMPRESSION: Bibasilar airspace opacities have improved from the previous examination. Location: [facility] Elect ronically Signed by Michael Mehta MD on 06/19/2020 at 0735 Reported and signed by: Michael Mehta MD CC: Enrique Segovia; David Guzman DO; Jasper Eisenberg Technologist: Popeye Henley RT(R); EDENILSON JUAN RT(R) Trnscrd Date/Time/By: 06/19/2020 (4154) : By: [email or web address] Orig Print D/T: S: 06/19/2020 (7732) PAGE 1 Signed Report ARTERIAL BLOOD GAS 2020-06-19 06:01:00* Test Item Value Reference Range Interpretation Comments ARTERIAL BLOOD GAS PH (test code = PHA) 7.21 7.35-7.45 L ARTERIAL BLOOD GAS PCO2 (test code = PCO2A) 33.9 mm Hg 35-45 L ARTERIAL BLOOD GAS PO2 (test code = PO2A) 120.4 mmHg 80-100 H BICARBONATE TOTAL HCO3 (test code = HCO3) 13.3 mmol/L 23.0-27.0 L BASE EXCESS (test code = HERBERT) -13.5 mmol/L -3.0-5.0 LL Results called to and read back by Venkat 03:10 - 06/19/2020; by Adam ABG O2 SATURATION (test code = SATA) 97.9 % 90.0-98.0 N ABG TYPE (test code = TYPEA) Arterial FIO2 (test code = FIO2A) 60.0 ABG VENT MODE (test code = MODEA) Assist Control ABG VENT RESP RATE (test code = RRA) 22.0 per min ABG TIDAL VOLUME (test code = TVA) 500.0 mL ABG PEEP (test code = PEEPA) 10.0 cmH2O ABG SITE (test code = SITEA) ARTERIAL LINE MODIFIED ALLENS (test code = MODALL) Unable CHECK PERFORMED SODIUM (test code = NA/ABG) 141.0 mEq/L 135-148 N POTASSIUM (test code = K/ABG) 4.0 mEq/L 3.5-4.5 N CHLORIDE (test code = CL/ABG) 113 mEq/L 98-106 H GLUCOSE (test code = GLU/ABG) 297 mg/dL 74-99 H HEMATOCRIT (test code = HCT/ABG) 31 % 42-52 L IONIZED CALCIUM (test code = CAIABG) 1.10 mmol/L 1.1-1.37 N TOTAL HGB (test code = THB) 10.7 gram/dL 13.0-17.5 L HGB O2 SAT (test code = HBOSAT) 97.3 % 94.00-98.00 N CARBOXYHEMOGLOBIN (test code = HOHGBT) 0.3 %totalHg 0.5-1.5 LL Results called to and read back by Venkat 03:10 - 06/19/2020; by Adam METHEMOGLOBIN (test code = METHGB) 0.3 % 0.0-1.50 N O2 CONTENT (test code = O2CT) 14.8 % vol 18.0-22.0 L [id number] 05:45:00* Test Item Value Reference Range Interpretation Comments PHOSPHORUS (test code = PHOS) 4.3 mg/dL 2.5-4.9 N [id number] 05:45:00* Test Item Value Reference Range Interpretation Comments MAGNESIUM (test code = MAG) 2.0 mg/dL 1.8-2.4 N CALCIUM [id number] 05:45:00* Test Item Value Reference Range Interpretation Comments CALCIUM IONIZED (test code = PHILLIP) 1.14 mmol/L 1.12-1.32 N [id number] 05:40:00* Test Item Value Reference Range Interpretation Comments PHOSPHORUS (test code = PHOS) mg/dL 2.5-4.9 [id number] 05:40:00* Test Item Value Reference Range Interpretation Comments MAGNESIUM (test code = MAG) 2.0 mg/dL 1.8-2.4 N CALCIUM [id number] 05:40:00* Test Item Value Reference Range Interpretation Comments CALCIUM IONIZED (test code = PHILLIP) 1.14 mmol/L 1.12-1.32 N [id number] 05:31:00* Test Item Value Reference Range Interpretation Comments PHOSPHORUS (test code = PHOS) mg/dL 2.5-4.9 [id number] 05:31:00* Test Item Value Reference Range Interpretation Comments MAGNESIUM (test code = MAG) mg/dL 1.8-2.4 CALCIUM [id number] 05:31:00* Test Item Value Reference Range Interpretation Comments CALCIUM IONIZED (test code = PHILLIP) 1.14 mmol/L 1.12-1.32 N [id number] 05:11:00* Test Item Value Reference Range Interpretation Comments GLUBED (test code = GLUBED) 279 mg/dL 74-106 H Performed by certified tool machine setup operator at [facility] BASIC METABOLIC [id number] 04:08:00* Test Item Value Reference Range Interpretation Comments SODIUM (test code = NA) 148 mmol/L 136-145 H POTASSIUM (test code = K) 4.1 mmol/L 3.5-5.1 N CHLORIDE (test code = CL) 116.0 mmol/L 98-107 H CARBON DIOXIDE (test code = CO2) 12.0 mmol/L 21-32 L ANION GAP (test code = GAP) 24.1 10-20 H GLUCOSE (test code = GLU) 293 mg/dL 74-106 H BLOOD UREA NITROGEN (test code = BUN) 41 mg/dL 7-18 H RESULT VERIFIED BY REPEAT ANALYSIS GLOMERULAR FILTRATION RATE (test code = GFR) 60 mL/min >=60 Estimated GFR by using Modified MDRD formula.Chronic kidney disease is defined as either kidney damageor GFR <60 mL/min/1.73 m2 for >3 months. CREATININE (test code = CREAT) 1.20 mg/dL 0.7-1.3 N BUN/CREATININE RATIO (test code = BUN/CREA) 34.2 10-20 H CALCIUM (test code = CA) 7.8 mg/dL 8.5-10.1 L HEPATIC FUNCTION [id number] 03:50:00* Test Item Value Reference Range Interpretation Comments TOTAL PROTEIN (test code = PROT) 5.3 gram/dL 6.4-8.2 L ALBUMIN (test code = ALB) 1.6 g/dL 3.4-5.0 L GLOBULIN (test code = GLOB) 3.7 gram/dL 2.7-4.2 N ALBUMIN/GLOBULIN RATIO (test code = A/G) 0.4 0.75-1.50 L BILIRUBIN TOTAL (test code = BILT) 0.60 mg/dL 0.0-1.0 N BILIRUBIN DIRECT (test code = BILD) 0.29 mg/dL 0.0-0.20 H SGOT/AST (test code = AST) 14 IUnit/L 15-37 L SGPT/ALT (test code = ALT) 66 IUnit/L 12-78 N ALKALINE PHOSPHATASE TOTAL (test code = ALKP) 105 IUnit/L 45-117 N Note change in reference range due to change in reagent. [id number] 03:49:00* Test Item Value Reference Range Interpretation Comments D-DIMER (test code = DDIMER) 1418.00 ng/mLFEU 0-500 HH Results called to [id number] by [email or web address] 06/19/20 0348Critical results verified and read back by Nurse? YClinical Cut-off value for D-Dimer is 500 ng/mL FEU. Comment: The [employer] D- Dimer assay is intended for use asan aid in the diagnosis of venous thromboembolism (VTE)[deep vein thrombosis (DVT) or pulmonary embolism (PE)].The measurement of D-Dimer should not be used as an aid inthe diagnosis of VTE, in patient with: -Therapeutic dose anticoagulant therapy for >24 hours - Fibrinolytic therapy within previous 7 days -Trauma or surgery within previous 4 weeks -Disseminated malignancies -Aortic aneurysm -Sepsis, severe infections, pneumonia, severe skin infections -Liver cirrhosis - BASIC METABOLIC [id number] 03:31:00* Test Item Value Reference Range Interpretation Comments SODIUM (test code = NA) 148 mmol/L 136-145 H POTASSIUM (test code = K) 4.1 mmol/L 3.5-5.1 N CHLORIDE (test code = CL) 116.0 mmol/L 98-107 H CARBON DIOXIDE (test code = CO2) mmol/L 21-32 ANION GAP (test code = GAP) 10-20 GLUCOSE (test code = GLU) mg/dL 74-106 BLOOD UREA NITROGEN (test code = BUN) mg/dL 7-18 GLOMERULAR FILTRATION RATE (test code = GFR) mL/min >=60 CREATININE (test code = CREAT) mg/dL 0.7-1.3 BUN/CREATININE RATIO (test code = BUN/CREA) 10-20 CALCIUM (test code = CA) mg/dL 8.5-10.1 CBC W/O [id number] 03:26:00* Test Item Value Reference Range Interpretation Comments WHITE BLOOD CELL (test code = WBC) 15.2 K/mm3 4.5-12.5 H RED BLOOD CELL (test code = RBC) 3.18 mill/mm3 4.0-5.8 L HEMOGLOBIN (test code = HGB) 9.3 gram/dL 13.0-17.5 L HEMATOCRIT (test code = HCT) 30.9 % 42.0-52.0 L MEAN CELL VOLUME (test code = MCV) 97.2 fL 80-98 N MEAN CELL HGB (test code = MCH) 29.2 picogram 27.0-33.0 N MEAN CELL HGB CONCETRATION (test code = MCHC) 30.1 gram/dL 33.0-36. 0 L RED CELL DISTRIBUTION WIDTH (test code = RDW) 17.0 % 11.6-16. 2 H PLATELET COUNT (test code = PLT) 214 K/mm3 150-450 N MEAN PLATELET VOLUME (test code = MPV) 10.6 fL 6.7-11.0 N [id number] 23:10:00* Test Item Value Reference Range Interpretation Comments GLUBED (test code = GLUBED) 249 mg/dL 74-106 H Performed by certified tool machine setup operator at [facility] [id number] 17:35:00* Test Item Value Reference Range Interpretation Comments VANCOMYCIN (test code = VANCO) 40.2 UG/ML 5.0-45.0 N BASIC METABOLIC [id number] 17:33:00* Test Item Value Reference Range Interpretation Comments SODIUM (test code = NA) 149 mmol/L 136-145 H POTASSIUM (test code = K) 4.0 mmol/L 3.5-5.1 N CHLORIDE (test code = CL) 116.0 mmol/L 98-107 H CARBON DIOXIDE (test code = CO2) 17.0 mmol/L 21-32 L ANION GAP (test code = GAP) 20.0 10-20 N GLUCOSE (test code = GLU) 235 mg/dL 74-106 H BLOOD UREA NITROGEN (test code = BUN) 32 mg/dL 7-18 H GLOMERULAR FILTRATION RATE (test code = GFR) > 60 mL/min >=60 Estimated GFR by using Modified MDRD formula.Chronic kidney disease is defined as either kidney damageor GFR <60 mL/min/1.73 m2 for >3 months. CREATININE (test code = CREAT) 1.00 mg/dL 0.7-1.3 N BUN/CREATININE RATIO (test code = BUN/CREA) 31.1 10-20 H CALCIUM (test code = CA) 7.7 mg/dL 8.5-10.1 L [id number] 17:33:00* Test Item Value Reference Range Interpretation Comments PHOSPHORUS (test code = PHOS) 3.9 mg/dL 2.5-4.9 N [id number] 17:33:00* Test Item Value Reference Range Interpretation Comments MAGNESIUM (test code = MAG) 2.1 mg/dL 1.8-2.4 N BASIC METABOLIC [id number] 17:29:00* Test Item Value Reference Range Interpretation Comments SODIUM (test code = NA) 149 mmol/L 136-145 H POTASSIUM (test code = K) 4.0 mmol/L 3.5-5.1 N CHLORIDE (test code = CL) 116.0 mmol/L 98-107 H CARBON DIOXIDE (test code = CO2) mmol/L 21-32 ANION GAP (test code = GAP) 10-20 GLUCOSE (test code = GLU) mg/dL 74-106 BLOOD UREA NITROGEN (test code = BUN) mg/dL 7-18 GLOMERULAR FILTRATION RATE (test code = GFR) mL/min >=60 CREATININE (test code = CREAT) mg/dL 0.7-1.3 BUN/CREATININE RATIO (test code = BUN/CREA) 10-20 CALCIUM (test code = CA) mg/dL 8.5-10.1 [id number] 17:29:00* Test Item Value Reference Range Interpretation Comments PHOSPHORUS (test code = PHOS) mg/dL 2.5-4.9 [id number] 17:29:00* Test Item Value Reference Range Interpretation Comments MAGNESIUM (test code = MAG) mg/dL 1.8-2.4 - XR CHEST 1 [id number] 13:04:00 FAX: Yves Rodriguez [place]: B St: ADM FAX: David Townsend Fo FAX: Jasper Prince MD [phone] Name: BOOKER PIERRE [facility] : 1950 Age/S: 70/M [address] [facility] Unit #: [id number] Loc: V.S12 [place] [address] Phys: Yves Hubbard Acct: [id number] Dis Date: Status: ADM IN PH ONE #: [phone] Exam Date: 06/18/2020 1250 FAX #: [phone] Reason: ett placement EXAMS: CPT CODE: [id number] XR CHEST 1 V [id number] REASON FOR EXAM: ett placement Exam Order Date: 06/18/2020 12:00 AM Ordering MMatt: CARMELA Mcleod PROCEDURE: - XR C HEST 1 V COMPARISON: Chest x-ray earlier today at 5:16 AM FINDINGS/ IMPRESSION: Interval placement of ET tube which terminates at the level of the clavicles. Enteric suction tube is also b een placement of the stomach. The cardiopulmonary findings are unchanged. Skeletal structures are unchanged. Locatio n: [facility] at 1307 Reported and signed by: Michael Mehta MD CC: Yves Hubbard; David Guzman [facility] DO; Jasper Eisenberg Technologist: RT DAISY(Evangelina) Trnscrd Date/Time/By: 06/18/20 20 (8204) : By: [email or web address] Orig Print D/T: S: 06/18/2020 (0944) PAGE 1 Signed Report ARTERIAL BLOOD [id number] 11:55:00* Test Item Value Reference Range Interpretation Comments ARTERIAL BLOOD GAS PH (test code = PHA) 7.24 7.35-7.45 L ARTERIAL BLOOD GAS PCO2 (test code = PCO2A) 41.0 mm Hg 35-45 N ARTERIAL BLOOD GAS PO2 (test code = PO2A) 87.9 mmHg 80-100 N BICARBONATE TOTAL HCO3 (test code = HCO3) 17.3 mmol/L 23.0-27.0 L BASE EXCESS (test code = HERBERT) -9.4 mmol/L -3.0-5.0 LL Results called to and read back by Dr Gordon 11:55 - 06/18/2020; by [id number] ABG O2 SATURATION (test code = SATA) 95.3 % 90.0-98.0 N ABG TYPE (test code = TYPEA) Arterial FIO2 (test code = FIO2A) 100.0 ABG VENT MODE (test code = MODEA) Assist Control ABG VENT RESP RATE (test code = RRA) 20.0 per min ABG TIDAL VOLUME (test code = TVA) 500.0 mL ABG PEEP (test code = PEEPA) 10.0 cmH2O ABG SITE (test code = SITEA) ARTERIAL LINE MODIFIED ALLENS (test code = MODALL) Unable CHECK PERFORMED HEMATOCRIT (test code = HCT/ABG) 33 % 42-52 L TOTAL HGB (test code = THB) 11.1 gram/dL 13.0-17.5 L HGB O2 SAT (test code = HBOSAT) 94.4 % 94.00-98.00 N CARBOXYHEMOGLOBIN (test code = HOHGBT) 0.3 %totalHg 0.5-1.5 LL Results called to and read back by Dr Gordon 11:55 06/18/2020; by [id number] METHEMOGLOBIN (test code = METHGB) 0.6 % 0.0-1.50 N O2 CONTENT (test code = O2CT) 14.8 % vol 18.0-22.0 L ARTERIAL BLOOD [id number] 08:41:00* Test Item Value Reference Range Interpretation Comments ARTERIAL BLOOD GAS PH (test code = PHA) 7.12 7.35-7.45 L L Results called to and read back by Roge 08:40 06/18/2020; by JADE ARTERIAL BLOOD GAS PCO2 (test code = PCO2A) 59.7 mm Hg 35-45 H ARTERIAL BLOOD GAS PO2 (test code = PO2A) 68.3 mmHg 80-100 L BICARBONATE TOTAL HCO3 (test code = HCO3) 18.8 mmol/L 23.0-27.0 L BASE EXCESS (test code = HERBERT) -10.8 mmol/L -3.0-5.0 LL Results called to and read back by ORat 08:40 - 06/18/2020; by JADE ABG O2 SATURATION (test code = SATA) 88.2 % 90.0-98.0 L ABG TYPE (test code = TYPEA) Arterial FIO2 (test code = FIO2A) 100.0 ABG SITE (test code = SITEA) OT MODIFIED ALLENS (test code = MODALL) Unable CHECK PERFORMED HEMATOCRIT (test code = HCT/ABG) 34 % 42-52 L TOTAL HGB (test code = THB) 11.5 gram/dL 13.0-17.5 L HGB O2 SAT (test code = HBOSAT) 87.7 % 94.00-98.00 L CARBOXYHEMOGLOBIN (test code = HOHGBT) 0.3 %totalHg 0.5-1.5 LL Results called to and read back by ORat 08:40 - 06/18/2020; by JADE METHEMOGLOBIN (test code = METHGB) 0.3 % 0.0-1.50 N O2 CONTENT (test code = O2CT) 14.2 % vol 18.0-22.0 L - XR CHEST 1 [id number] 07:39:00 FAX: Enrique Segovia [phone] [place]: St: ADM FAX: David Townsend [facility] FAX: Jasper Prince MD [phone] Name: BOOKER PIERRE [facility] : 1950 Age/S: 70/M [address] [facility] Unit #: [id number] Loc: [place] [address] Phys: Enriqeu Segovia Acct: [id number] Dis Date: Status: ADM IN PH ONE #: [phone] Exam Date: 06/18/2020527 FAX #: [phone] Reason: updated pulm view. EXAMS: CPT CODE: [id number] XR CHEST 1 V 97039 CLINICAL HISTO RY: updated pulm view. TECHNIQUE: AP chest x-ray CO MPARISON: Previous day. IMPRESSION: Developing small right pleural effusion and basilar atelectasis. Bilateral perihil ar airspace consolidation. Small right pleural effusion. Cardiomegaly. E T and enteric tubes have been removed. LOC ATION: LP Electronically Si gned by Ashley Boateng D.O. on 06/18/2020 at 0739 Reported an d signed by: Ashley Boateng D.O. CC: Enrique Segovia; David Guzman DO; Jasper Eisenberg Technologist: Rema Rodriguez RT(R) Trnscrd Date/Time/By: 06/18/2020 (0739) : By: [email or web address] Orig Print D/T: S: 06/18/2020 (0791) PAGE 1 Signed Report [id number] 06:05:00* Test Item Value Reference Range Interpretation Comments PHOSPHORUS (test code = PHOS) 4.0 mg/dL 2.5-4.9 N [id number] 06:05:00* Test Item Value Reference Range Interpretation Comments MAGNESIUM (test code = MAG) 2.0 mg/dL 1.8-2.4 N CALCIUM [id number] 06:05:00* Test Item Value Reference Range Interpretation Comments CALCIUM IONIZED (test code = PHILLIP) 1.18 mmol/L 1.12-1.32 N CBC W/O [id number] 06:04:00* Test Item Value Reference Range Interpretation Comments WHITE BLOOD CELL (test code = WBC) 11.6 K/mm3 4.5-12.5 N RED BLOOD CELL (test code = RBC) 3.26 mill/mm3 4.0-5.8 L HEMOGLOBIN (test code = HGB) 9.5 gram/dL 13.0-17.5 L RESULT VERIFIED BY REPEAT ANALYSIS HEMATOCRIT (test code = HCT) 30.3 % 42.0-52.0 L MEAN CELL VOLUME (test code = MCV) 92.9 fL 80-98 N MEAN CELL HGB (test code = MCH) 29.1 picogram 27.0-33.0 N MEAN CELL HGB CONCETRATION (test code = MCHC) 31.4 gram/dL 33.0-36. 0 L RED CELL DISTRIBUTION WIDTH (test code = RDW) 15.4 % 11.6-16. 2 N PLATELET COUNT (test code = PLT) 177 K/mm3 150-450 N MEAN PLATELET VOLUME (test code = MPV) 10.5 fL 6.7-11.0 N BASIC METABOLIC [id number] 05:48:00* Test Item Value Reference Range Interpretation Comments SODIUM (test code = NA) 148 mmol/L 136-145 H POTASSIUM (test code = K) 3.8 mmol/L 3.5-5.1 N CHLORIDE (test code = CL) 118.0 mmol/L 98-107 H CARBON DIOXIDE (test code = CO2) 20.0 mmol/L 21-32 L ANION GAP (test code = GAP) 13.8 10-20 N GLUCOSE (test code = GLU) 202 mg/dL 74-106 H BLOOD UREA NITROGEN (test code = BUN) 29 mg/dL 7-18 H GLOMERULAR FILTRATION RATE (test code = GFR) > 60 mL/min >=60 Estimated GFR by using Modified MDRD formula.Chronic kidney disease is defined as either kidney damageor GFR <60 mL/min/1.73 m2 for >3 months. CREATININE (test code = CREAT) 1.00 mg/dL 0.7-1.3 N BUN/CREATININE RATIO (test code = BUN/CREA) 29.3 10-20 H CALCIUM (test code = CA) 7.9 mg/dL 8.5-10.1 L [id number] 05:48:00* Test Item Value Reference Range Interpretation Comments PHOSPHORUS (test code = PHOS) 4.0 mg/dL 2.5-4.9 N [id number] 05:48:00* Test Item Value Reference Range Interpretation Comments MAGNESIUM (test code = MAG) 2.0 mg/dL 1.8-2.4 N CALCIUM [id number] 05:48:00* Test Item Value Reference Range Interpretation Comments CALCIUM IONIZED (test code = PHILLIP) mmol/L 1.12-1.32 [id number] 05:14:00* Test Item Value Reference Range Interpretation Comments GLUBED (test code = GLUBED) 196 mg/dL 74-106 H Performed by certified tool machine setup operator at [facility] [id number] 05:08:00* Test Item Value Reference Range Interpretation Comments D-DIMER (test code = DDIMER) 1367.00 ng/mLFEU 0-500 HH Results called to [id number] by [email or web address] 06/18/20 0508Critical results verified and read back by Nurse? YClinical Cut-off value for D-Dimer is 500 ng/mL FEU. Comment: The [employer] D- Dimer assay is intended for use asan aid in the diagnosis of venous thromboembolism (VTE)[deep vein thrombosis (DVT) or pulmonary embolism (PE)].The measurement of D-Dimer should not be used as an aid inthe diagnosis of VTE, in patient with: -Therapeutic dose anticoagulant therapy for >24 hours - Fibrinolytic therapy within previous 7 days -Trauma or surgery within previous 4 weeks -Disseminated malignancies -Aortic aneurysm -Sepsis, severe infections, pneumonia, severe skin infections -Liver cirrhosis - ARTERIAL BLOOD [id number] 04:09:00* Test Item Value Reference Range Interpretation Comments ARTERIAL BLOOD GAS PH (test code = PHA) 7.31 7.35-7.45 L ARTERIAL BLOOD GAS PCO2 (test code = PCO2A) 38.2 mm Hg 35-45 N ARTERIAL BLOOD GAS PO2 (test code = PO2A) 87.6 mmHg 80-100 N BICARBONATE TOTAL HCO3 (test code = HCO3) 18.8 mmol/L 23.0-27.0 L BASE EXCESS (test code = HERBERT) -6.9 mmol/L -3.0-5.0 LL Results called to and read back by MARCIA at : - 06/18/2020; by DAVE NANCE O2 SATURATION (test code = SATA) 95.9 % 90.0-98.0 N ABG TYPE (test code = TYPEA) Arterial FIO2 (test code = FIO2A) 90.0 ABG L/M (test code = L/M) 30.00 L/MIN ABG SITE (test code = SITEA) ARTERIAL LINE MODIFIED ALLENS (test code = MODALL) Unable CHECK PERFORMED SODIUM (test code = NA/ABG) 144.1 mEq/L 135-148 N POTASSIUM (test code = K/ABG) 3.8 mEq/L 3.5-4.5 N CHLORIDE (test code = CL/ABG) 114 mEq/L 98-106 H GLUCOSE (test code = GLU/ABG) 211 mg/dL 74-99 H HEMATOCRIT (test code = HCT/ABG) 31 % 42-52 L IONIZED CALCIUM (test code = CAIABG) 1.09 mmol/L 1.1-1.37 L TOTAL HGB (test code = THB) 10.6 gram/dL 13.0-17.5 L HGB O2 SAT (test code = HBOSAT) 95.2 % 94.00-98.00 N CARBOXYHEMOGLOBIN (test code = HOHGBT) 0.3 %totalHg 0.5-1.5 LL Results called to and read back by MARCIA at :08 - 06/18/2020; by DAVE METHEMOGLOBIN (test code = METHGB) 0.4 % 0.0-1.50 N O2 CONTENT (test code = O2CT) 14.3 % vol 18.0-22.0 L [id number] 23:46:00* Test Item Value Reference Range Interpretation Comments GLUBED (test code = GLUBED) 175 mg/dL 74-106 H Performed by certified tool machine setup operator at [facility] [id number] 18:20:00* Test Item Value Reference Range Interpretation Comments GLUBED (test code = GLUBED) 178 mg/dL 74-106 H Performed by certified tool machine setup operator at [facility] [id number] 11:39:00* Test Item Value Reference Range Interpretation Comments GLUBED (test code = GLUBED) 203 mg/dL 74-106 H Performed by certified tool machine setup operator at [facility] - XR CHEST 1 [id number] 07:18:00 FAX: Enrique Segovia [phone] [place]: B St: ADM FAX: David Townsend Fo FAX: Jasper Prince MD [phone] Name: BOOKER PIERRE [facility] : 1950 Age/S: 70/M [address] [facility] Unit #: [id number] [facility] [place] [place] [address] Phys: Enrique Segovia Acct: [id number] Dis Date: Status: ADM IN ONE #: [phone] Exam Date: 06/17/2020 045 FAX #: [phone] Reason: updated pulm view. EXAMS: CPT CODE: [id number] XR CHEST 1 V 20011 CLINICAL HISTO RY: updated pulm view. TECHNIQUE: AP chest x-ray CO MPARISON: Previous day. IMPRESSION: No signifi cant interval change. Bilateral perihilar airspace consolidation. No ple ural effusion. Normal heart size. ET tube. Enteric tube. LOCATION: LP E lectronically Signed by Ashley Boateng D.O. on 06/17/2020 at 0718 Reported and signed by: Ashley Boateng D.O. CC: Enrique Segovia; David Guzman ramonita Tiwari DO; Jasper Eisenberg Technologist: Juanis Granados Trnscrd Date/Time/By: 06/17/2020 (0718) : By: larisa [email or web address] Orig Print D/T: S: 06/17/2020 (07) P AGE 1 Signed Report CBC W/MANUAL [id number] 06:41:00* Test Item Value Reference Range Interpretation Comments WHITE BLOOD CELL (test code = WBC) 14.3 K/mm3 4.5-12.5 H RED BLOOD CELL (test code = RBC) 2.35 mill/mm3 4.0-5.8 L HEMOGLOBIN (test code = HGB) 6.9 gram/dL 13.0-17.5 L HEMATOCRIT (test code = HCT) 22.5 % 42.0-52.0 L MEAN CELL VOLUME (test code = MCV) 95.7 fL 80-98 N MEAN CELL HGB (test code = MCH) 29.4 picogram 27.0-33.0 N MEAN CELL HGB CONCETRATION (test code = MCHC) 30.7 gram/dL 33.0-36. 0 L RED CELL DISTRIBUTION WIDTH (test code = RDW) 15.9 % 11.6-16. 2 N RED CELL DISTRIBUTION WIDTH SD (test code = RDW-SD) 55.2 fL 37 .0-51.0 H PLATELET COUNT (test code = PLT) 213 K/mm3 150-450 N MEAN PLATELET VOLUME (test code = MPV) 10.6 fL 6.7-11.0 N IMMATURE GRANULOCYTE % (test code = IG%) 1.0 % 0.0-5.0 N NUCLEATED RBC % (test code = NRBC%) 0.0 % 0-0 N NEUTROPHIL # (test code = NT#) 13.37 K/mm3 1.8-7.7 H IMMATURE GRANULOCYTE # (test code = IG#) 0.14 x10 3/uL 0-0.03 H LYMPHOCYTE # (test code = LY#) 0.46 K/mm3 1.0-5.0 L MONOCYTE # (test code = MO#) 0.29 K/mm3 0-0.8 N EOSINOPHIL # (test code = EO#) 0.00 K/mm3 0.0-0.5 N BASOPHIL # (test code = BA#) 0.01 K/mm3 0.0-0.2 N NUCLEATED RBC # (test code = NRBC#) 0.00 K/mm3 0.0-0.1 N MANUAL DIFF REQUIRED (test code = MDIFF) YES STAIN ACCEPTABILITY (test code = STN ACCEPTABLE) STAIN ACCEPTABLE TOTAL CELLS COUNTED (test code = TCC) 115 #CELLS SEGMENTED NEUTROPHILS (test code = SEG) 88.7 % 39-69 H BAND NEUTROPHIL (test code = BAND) 6.1 % 0-10 N LYMPHOCYTE (test code = LYMPH) 3.5 % 25-55 L REACTIVE LYMPH (test code = RELYMPH) 0 % MONOCYTE (test code = MON) 1.7 % 0-10 N EOSINOPHIL (test code = EOS) 0 % 0.0-5.0 N BASOPHIL (test code = BASO) 0 % 0-1.0 N METAMYELOCYTE (test code = META) 0 % 0-0 N MYELOCYTE (test code = MYELO) 0 % 0.0-0.0 N PROMYELOCYTE (test code = PROM) 0 % 0-0 N POLYCHROMASIA (test code = POLC) 1+ POIKILOCYTOSIS (test code = POIK) 1+ ANISOCYTOSIS (test code = ANISO) 1+ MICROCYTOSIS (test code = MICR) 1+ WILBERTO CELLS (test code = WILBERTO) 1+ NONE PLATELET ESTIMATE (test code = PLTEST) ADEQUATE PLATELET MORPHOLOGY (test code = PLTMORPH) NORMAL IMMATURE FORMS (test code = IMMAT) 0 % 0-0 N SPECIMEN COMMENTS: RECOLLECTED SPECIMEN [id number] 04:24:00* Test Item Value Reference Range Interpretation Comments GLUBED (test code = GLUBED) 232 mg/dL 74-106 H Performed by certified tool machine setup operator at [facility] CBC W/MANUAL [id number] 03:41:00* Test Item Value Reference Range Interpretation Comments WHITE BLOOD CELL (test code = WBC) 14.3 K/mm3 4.5-12.5 H RED BLOOD CELL (test code = RBC) 2.35 mill/mm3 4.0-5.8 L HEMOGLOBIN (test code = HGB) 6.9 gram/dL 13.0-17.5 L HEMATOCRIT (test code = HCT) 22.5 % 42.0-52.0 L MEAN CELL VOLUME (test code = MCV) 95.7 fL 80-98 N MEAN CELL HGB (test code = MCH) 29.4 picogram 27.0-33.0 N MEAN CELL HGB CONCETRATION (test code = MCHC) 30.7 gram/dL 33.0-36. 0 L RED CELL DISTRIBUTION WIDTH (test code = RDW) 15.9 % 11.6-16. 2 N RED CELL DISTRIBUTION WIDTH SD (test code = RDW-SD) 55.2 fL 37 .0-51.0 H PLATELET COUNT (test code = PLT) 213 K/mm3 150-450 N MEAN PLATELET VOLUME (test code = MPV) 10.6 fL 6.7-11.0 N IMMATURE GRANULOCYTE % (test code = IG%) 1.0 % 0.0-5.0 N NUCLEATED RBC % (test code = NRBC%) 0.0 % 0-0 N NEUTROPHIL # (test code = NT#) 13.37 K/mm3 1.8-7.7 H IMMATURE GRANULOCYTE # (test code = IG#) 0.14 x10 3/uL 0-0.03 H LYMPHOCYTE # (test code = LY#) 0.46 K/mm3 1.0-5.0 L MONOCYTE # (test code = MO#) 0.29 K/mm3 0-0.8 N EOSINOPHIL # (test code = EO#) 0.00 K/mm3 0.0-0.5 N BASOPHIL # (test code = BA#) 0.01 K/mm3 0.0-0.2 N NUCLEATED RBC # (test code = NRBC#) 0.00 K/mm3 0.0-0.1 N MANUAL DIFF REQUIRED (test code = MDIFF) YES STAIN ACCEPTABILITY (test code = STN ACCEPTABLE) TOTAL CELLS COUNTED (test code = TCC) #CELLS SEGMENTED NEUTROPHILS (test code = SEG) % 39-69 LYMPHOCYTE (test code = LYMPH) % 25-55 MONOCYTE (test code = MON) % 0-10 EOSINOPHIL (test code = EOS) % 0.0-5.0 CABOT RINGS (test code = CAB) MORPHOLOGY COMMENT (test code = MOC) PLATELET ESTIMATE (test code = PLTEST) PLATELET MORPHOLOGY (test code = PLTMORPH) SPECIMEN COMMENTS: RECOLLECTED SPECIMEN INLABCBC W/MANUAL [id number] 03:41:00* Test Item Value Reference Range Interpretation Comments WHITE BLOOD CELL (test code = WBC) 14.3 K/mm3 4.5-12.5 H RED BLOOD CELL (test code = RBC) 2.35 mill/mm3 4.0-5.8 L HEMOGLOBIN (test code = HGB) 6.9 gram/dL 13.0-17.5 L HEMATOCRIT (test code = HCT) 22.5 % 42.0-52.0 L MEAN CELL VOLUME (test code = MCV) 95.7 fL 80-98 N MEAN CELL HGB (test code = MCH) 29.4 picogram 27.0-33.0 N MEAN CELL HGB CONCETRATION (test code = MCHC) 30.7 gram/dL 33.0-36. 0 L RED CELL DISTRIBUTION WIDTH (test code = RDW) 15.9 % 11.6-16. 2 N RED CELL DISTRIBUTION WIDTH SD (test code = RDW-SD) 55.2 fL 37 .0-51.0 H PLATELET COUNT (test code = PLT) 213 K/mm3 150-450 N MEAN PLATELET VOLUME (test code = MPV) 10.6 fL 6.7-11.0 N IMMATURE GRANULOCYTE % (test code = IG%) 1.0 % 0.0-5.0 N NUCLEATED RBC % (test code = NRBC%) 0.0 % 0-0 N NEUTROPHIL # (test code = NT#) 13.37 K/mm3 1.8-7.7 H IMMATURE GRANULOCYTE # (test code = IG#) 0.14 x10 3/uL 0-0.03 H LYMPHOCYTE # (test code = LY#) 0.46 K/mm3 1.0-5.0 L MONOCYTE # (test code = MO#) 0.29 K/mm3 0-0.8 N EOSINOPHIL # (test code = EO#) 0.00 K/mm3 0.0-0.5 N BASOPHIL # (test code = BA#) 0.01 K/mm3 0.0-0.2 N NUCLEATED RBC # (test code = NRBC#) 0.00 K/mm3 0.0-0.1 N MANUAL DIFF REQUIRED (test code = MDIFF) YES STAIN ACCEPTABILITY (test code = STN ACCEPTABLE) TOTAL CELLS COUNTED (test code = TCC) #CELLS SEGMENTED NEUTROPHILS (test code = SEG) % 39-69 LYMPHOCYTE (test code = LYMPH) % 25-55 MONOCYTE (test code = MON) % 0-10 EOSINOPHIL (test code = EOS) % 0.0-5.0 CABOT RINGS (test code = CAB) MORPHOLOGY COMMENT (test code = MOC) PLATELET ESTIMATE (test code = PLTEST) PLATELET MORPHOLOGY (test code = PLTMORPH) SPECIMEN COMMENTS: RECOLLECTED SPECIMEN INLABCBC W/MANUAL [id number] 03:41:00* Test Item Value Reference Range Interpretation Comments WHITE BLOOD CELL (test code = WBC) 14.3 K/mm3 4.5-12.5 H RED BLOOD CELL (test code = RBC) 2.35 mill/mm3 4.0-5.8 L HEMOGLOBIN (test code = HGB) 6.9 gram/dL 13.0-17.5 L HEMATOCRIT (test code = HCT) 22.5 % 42.0-52.0 L MEAN CELL VOLUME (test code = MCV) 95.7 fL 80-98 N MEAN CELL HGB (test code = MCH) 29.4 picogram 27.0-33.0 N MEAN CELL HGB CONCETRATION (test code = MCHC) 30.7 gram/dL 33.0-36. 0 L RED CELL DISTRIBUTION WIDTH (test code = RDW) 15.9 % 11.6-16. 2 N RED CELL DISTRIBUTION WIDTH SD (test code = RDW-SD) 55.2 fL 37 .0-51.0 H PLATELET COUNT (test code = PLT) 213 K/mm3 150-450 N MEAN PLATELET VOLUME (test code = MPV) 10.6 fL 6.7-11.0 N IMMATURE GRANULOCYTE % (test code = IG%) 1.0 % 0.0-5.0 N NUCLEATED RBC % (test code = NRBC%) 0.0 % 0-0 N NEUTROPHIL # (test code = NT#) 13.37 K/mm3 1.8-7.7 H IMMATURE GRANULOCYTE # (test code = IG#) 0.14 x10 3/uL 0-0.03 H LYMPHOCYTE # (test code = LY#) 0.46 K/mm3 1.0-5.0 L MONOCYTE # (test code = MO#) 0.29 K/mm3 0-0.8 N EOSINOPHIL # (test code = EO#) 0.00 K/mm3 0.0-0.5 N BASOPHIL # (test code = BA#) 0.01 K/mm3 0.0-0.2 N NUCLEATED RBC # (test code = NRBC#) 0.00 K/mm3 0.0-0.1 N MANUAL DIFF REQUIRED (test code = MDIFF) YES STAIN ACCEPTABILITY (test code = STN ACCEPTABLE) TOTAL CELLS COUNTED (test code = TCC) #CELLS SEGMENTED NEUTROPHILS (test code = SEG) % 39-69 LYMPHOCYTE (test code = LYMPH) % 25-55 MONOCYTE (test code = MON) % 0-10 EOSINOPHIL (test code = EOS) % 0.0-5.0 MORPHOLOGY COMMENT (test code = MOC) PLATELET ESTIMATE (test code = PLTEST) PLATELET MORPHOLOGY (test code = PLTMORPH) SPECIMEN COMMENTS: RECOLLECTED SPECIMEN INLABCBC W/MANUAL [id number] 03:41:00* Test Item Value Reference Range Interpretation Comments WHITE BLOOD CELL (test code = WBC) 14.3 K/mm3 4.5-12.5 H RED BLOOD CELL (test code = RBC) 2.35 mill/mm3 4.0-5.8 L HEMOGLOBIN (test code = HGB) 6.9 gram/dL 13.0-17.5 L HEMATOCRIT (test code = HCT) 22.5 % 42.0-52.0 L MEAN CELL VOLUME (test code = MCV) 95.7 fL 80-98 N MEAN CELL HGB (test code = MCH) 29.4 picogram 27.0-33.0 N MEAN CELL HGB CONCETRATION (test code = MCHC) 30.7 gram/dL 33.0-36. 0 L RED CELL DISTRIBUTION WIDTH (test code = RDW) 15.9 % 11.6-16. 2 N RED CELL DISTRIBUTION WIDTH SD (test code = RDW-SD) 55.2 fL 37 .0-51.0 H PLATELET COUNT (test code = PLT) 213 K/mm3 150-450 N MEAN PLATELET VOLUME (test code = MPV) 10.6 fL 6.7-11.0 N IMMATURE GRANULOCYTE % (test code = IG%) 1.0 % 0.0-5.0 N NUCLEATED RBC % (test code = NRBC%) 0.0 % 0-0 N NEUTROPHIL # (test code = NT#) 13.37 K/mm3 1.8-7.7 H IMMATURE GRANULOCYTE # (test code = IG#) 0.14 x10 3/uL 0-0.03 H LYMPHOCYTE # (test code = LY#) 0.46 K/mm3 1.0-5.0 L MONOCYTE # (test code = MO#) 0.29 K/mm3 0-0.8 N EOSINOPHIL # (test code = EO#) 0.00 K/mm3 0.0-0.5 N BASOPHIL # (test code = BA#) 0.01 K/mm3 0.0-0.2 N NUCLEATED RBC # (test code = NRBC#) 0.00 K/mm3 0.0-0.1 N MANUAL DIFF REQUIRED (test code = MDIFF) YES STAIN ACCEPTABILITY (test code = STN ACCEPTABLE) TOTAL CELLS COUNTED (test code = TCC) #CELLS SEGMENTED NEUTROPHILS (test code = SEG) % 39-69 LYMPHOCYTE (test code = LYMPH) % 25-55 MONOCYTE (test code = MON) % 0-10 MORPHOLOGY COMMENT (test code = MOC) PLATELET ESTIMATE (test code = PLTEST) PLATELET MORPHOLOGY (test code = PLTMORPH) SPECIMEN COMMENTS: RECOLLECTED SPECIMEN INLABCBC W/MANUAL [id number] 03:41:00* Test Item Value Reference Range Interpretation Comments WHITE BLOOD CELL (test code = WBC) 14.3 K/mm3 4.5-12.5 H RED BLOOD CELL (test code = RBC) 2.35 mill/mm3 4.0-5.8 L HEMOGLOBIN (test code = HGB) 6.9 gram/dL 13.0-17.5 L HEMATOCRIT (test code = HCT) 22.5 % 42.0-52.0 L MEAN CELL VOLUME (test code = MCV) 95.7 fL 80-98 N MEAN CELL HGB (test code = MCH) 29.4 picogram 27.0-33.0 N MEAN CELL HGB CONCETRATION (test code = MCHC) 30.7 gram/dL 33.0-36. 0 L RED CELL DISTRIBUTION WIDTH (test code = RDW) 15.9 % 11.6-16. 2 N RED CELL DISTRIBUTION WIDTH SD (test code = RDW-SD) 55.2 fL 37 .0-51.0 H PLATELET COUNT (test code = PLT) 213 K/mm3 150-450 N MEAN PLATELET VOLUME (test code = MPV) 10.6 fL 6.7-11.0 N IMMATURE GRANULOCYTE % (test code = IG%) 1.0 % 0.0-5.0 N NUCLEATED RBC % (test code = NRBC%) 0.0 % 0-0 N NEUTROPHIL # (test code = NT#) 13.37 K/mm3 1.8-7.7 H IMMATURE GRANULOCYTE # (test code = IG#) 0.14 x10 3/uL 0-0.03 H LYMPHOCYTE # (test code = LY#) 0.46 K/mm3 1.0-5.0 L MONOCYTE # (test code = MO#) 0.29 K/mm3 0-0.8 N EOSINOPHIL # (test code = EO#) 0.00 K/mm3 0.0-0.5 N BASOPHIL # (test code = BA#) 0.01 K/mm3 0.0-0.2 N NUCLEATED RBC # (test code = NRBC#) 0.00 K/mm3 0.0-0.1 N MANUAL DIFF REQUIRED (test code = MDIFF) YES STAIN ACCEPTABILITY (test code = STN ACCEPTABLE) TOTAL CELLS COUNTED (test code = TCC) #CELLS SEGMENTED NEUTROPHILS (test code = SEG) % 39-69 LYMPHOCYTE (test code = LYMPH) % 25-55 MONOCYTE (test code = MON) % 0-10 EOSINOPHIL (test code = EOS) % 0.0-5.0 CABOT RINGS (test code = CAB) MORPHOLOGY COMMENT (test code = MOC) PLATELET ESTIMATE (test code = PLTEST) PLATELET MORPHOLOGY (test code = PLTMORPH) SPECIMEN COMMENTS: RECOLLECTED SPECIMEN [id number] 01:53:00* Test Item Value Reference Range Interpretation Comments D-DIMER (test code = DDIMER) 1082.00 ng/mLFEU 0-500 HH Results called to [id number] by [email or web address] 06/17/20 0153Critical results verified and read back by Nurse? YClinical Cut-off value for D-Dimer is 500 ng/mL FEU. Comment: The [employer] D- Dimer assay is intended for use asan aid in the diagnosis of venous thromboembolism (VTE)[deep vein thrombosis (DVT) or pulmonary embolism (PE)].The measurement of D-Dimer should not be used as an aid inthe diagnosis of VTE, in patient with: -Therapeutic dose anticoagulant therapy for >24 hours - Fibrinolytic therapy within previous 7 days -Trauma or surgery within previous 4 weeks -Disseminated malignancies -Aortic aneurysm -Sepsis, severe infections, pneumonia, severe skin infections -Liver cirrhosis - BASIC METABOLIC [id number] 01:51:00* Test Item Value Reference Range Interpretation Comments SODIUM (test code = NA) 146 mmol/L 136-145 H POTASSIUM (test code = K) 4.2 mmol/L 3.5-5.1 N CHLORIDE (test code = CL) 118.0 mmol/L 98-107 H CARBON DIOXIDE (test code = CO2) 23.0 mmol/L 21-32 N ANION GAP (test code = GAP) 9.2 10-20 L GLUCOSE (test code = GLU) 264 mg/dL 74-106 H BLOOD UREA NITROGEN (test code = BUN) 29 mg/dL 7-18 H GLOMERULAR FILTRATION RATE (test code = GFR) 60 mL/min >=60 Estimated GFR by using Modified MDRD formula.Chronic kidney disease is defined as either kidney damageor GFR <60 mL/min/1.73 m2 for >3 months. CREATININE (test code = CREAT) 1.20 mg/dL 0.7-1.3 N BUN/CREATININE RATIO (test code = BUN/CREA) 23.2 10-20 H CALCIUM (test code = CA) 7.5 mg/dL 8.5-10.1 L [id number] 01:51:00* Test Item Value Reference Range Interpretation Comments PHOSPHORUS (test code = PHOS) 3.0 mg/dL 2.5-4.9 N [id number] 01:51:00* Test Item Value Reference Range Interpretation Comments MAGNESIUM (test code = MAG) 2.1 mg/dL 1.8-2.4 N CALCIUM [id number] 01:51:00* Test Item Value Reference Range Interpretation Comments CALCIUM IONIZED (test code = PHILLIP) 1.17 mmol/L 1.12-1.32 N CBC W/O [id number] 01:39:00* Test Item Value Reference Range Interpretation Comments WHITE BLOOD CELL (test code = WBC) 13.9 K/mm3 4.5-12.5 H RED BLOOD CELL (test code = RBC) 2.28 mill/mm3 4.0-5.8 L HEMOGLOBIN (test code = HGB) 6.8 gram/dL 13.0-17.5 L HEMATOCRIT (test code = HCT) 21.7 % 42.0-52.0 LL Results called [place] [id number] by DONI 06/17/20 0138Critical results verified and read back by Nurse? Y MEAN CELL VOLUME (test code = MCV) 95.2 fL 80-98 N MEAN CELL HGB (test code = MCH) 29.8 picogram 27.0-33.0 N MEAN CELL HGB CONCETRATION (test code = MCHC) 31.3 gram/dL 33.0-36. 0 L RED CELL DISTRIBUTION WIDTH (test code = RDW) 16.0 % 11.6-16. 2 N PLATELET COUNT (test code = PLT) 212 K/mm3 150-450 RESULT VERIFIED BY REPEAT ANALYSIS MEAN PLATELET VOLUME (test code = MPV) 10.2 fL 6.7-11.0 N BASIC METABOLIC [id number] 01:37:00* Test Item Value Reference Range Interpretation Comments SODIUM (test code = NA) 146 mmol/L 136-145 H POTASSIUM (test code = K) 4.2 mmol/L 3.5-5.1 N CHLORIDE (test code = CL) 118.0 mmol/L 98-107 H CARBON DIOXIDE (test code = CO2) mmol/L 21-32 ANION GAP (test code = GAP) 10-20 GLUCOSE (test code = GLU) mg/dL 74-106 BLOOD UREA NITROGEN (test code = BUN) mg/dL 7-18 GLOMERULAR FILTRATION RATE (test code = GFR) mL/min >=60 CREATININE (test code = CREAT) mg/dL 0.7-1.3 BUN/CREATININE RATIO (test code = BUN/CREA) 10-20 CALCIUM (test code = CA) mg/dL 8.5-10.1 [id number] 01:37:00* Test Item Value Reference Range Interpretation Comments PHOSPHORUS (test code = PHOS) mg/dL 2.5-4.9 [id number] 01:37:00* Test Item Value Reference Range Interpretation Comments MAGNESIUM (test code = MAG) mg/dL 1.8-2.4 CALCIUM [id number] 01:37:00* Test Item Value Reference Range Interpretation Comments CALCIUM IONIZED (test code = PHILLIP) 1.17 mmol/L 1.12-1.32 N BASIC METABOLIC [id number] 01:36:00* Test Item Value Reference Range Interpretation Comments SODIUM (test code = NA) mmol/L 136-145 POTASSIUM (test code = K) mmol/L 3.5-5.1 CHLORIDE (test code = CL) mmol/L 98-107 CARBON DIOXIDE (test code = CO2) mmol/L 21-32 ANION GAP (test code = GAP) 10-20 GLUCOSE (test code = GLU) mg/dL 74-106 BLOOD UREA NITROGEN (test code = BUN) mg/dL 7-18 GLOMERULAR FILTRATION RATE (test code = GFR) mL/min >=60 CREATININE (test code = CREAT) mg/dL 0.7-1.3 BUN/CREATININE RATIO (test code = BUN/CREA) 10-20 CALCIUM (test code = CA) mg/dL 8.5-10.1 [id number] 01:36:00* Test Item Value Reference Range Interpretation Comments PHOSPHORUS (test code = PHOS) mg/dL 2.5-4.9 [id number] 01:36:00* Test Item Value Reference Range Interpretation Comments MAGNESIUM (test code = MAG) mg/dL 1.8-2.4 CALCIUM [id number] 01:36:00* Test Item Value Reference Range Interpretation Comments CALCIUM IONIZED (test code = PHILLIP) 1.17 mmol/L 1.12-1.32 N [id number] 21:53:00* Test Item Value Reference Range Interpretation Comments GLUBED (test code = GLUBED) 242 mg/dL 74-106 H Performed by certified tool machine setup operator at [facility] [id number] 15:54:00* Test Item Value Reference Range Interpretation Comments GLUBED (test code = GLUBED) 236 mg/dL 74-106 H Performed by certified tool machine setup operator at [facility] [id number] 10:36:00* Test Item Value Reference Range Interpretation Comments GLUBED (test code = GLUBED) 248 mg/dL 74-106 H Performed by certified tool machine setup operator at [facility] - XR CHEST 1 [id number] 07:27:00 FAX: Enrique Segovia [phone] [place]: B St: ADM FAX: David Townsend [facility] FAX: Jasper Prince MD [phone] Name: BOOKER PIERRE [facility] : 1950 Age[facility]S: 70/[facility] [address] [facility]: [id number] Loc: Fernandez[place]ENG [place] [address] Phys: Enrique Segovia Acct: [id number] Dis Date: Status: ADM IN ONE #: [phone] Exam Date: 06/16/2020 0430 FAX #: [phone] Reason: updated pulm view. EXAMS: CPT CODE: [id number] XR CHEST 1 V 70947 CLINICAL HISTO RY: updated pulm view. TECHNIQUE: AP chest x-ray CO MPARISON: Previous day. IMPRESSION: No signifi cant interval change. Bilateral perihilar airspace consolidation, greate r on the right. No pleural effusion. Normal heart size. ET tube. Enteric tube. LOCATION: LP at 0727 Reported and signed by: Ashley Boateng D.O. CC: Enrique Segovia; David Guzman DO; Jasper Eisenberg Technologist: Juanis hunter Trnyaneli Date/Time/By: 06/16/2020 (0 727) : By: [email or web address] Orig Print D/T: S: 06/16/2020 (2509) PAGE 1 Signed Report [id number] 05:53:00* Test Item Value Reference Range Interpretation Comments GLUBED (test code = GLUBED) 280 mg/dL 74-106 H Performed by certified tool machine setup operator at [facility] ARTERIAL BLOOD [id number] 05:48:00* Test Item Value Reference Range Interpretation Comments ARTERIAL BLOOD GAS PH (test code = PHA) 7.30 7.35-7.45 L ARTERIAL BLOOD GAS PCO2 (test code = PCO2A) 38.0 mm Hg 35-45 N ARTERIAL BLOOD GAS PO2 (test code = PO2A) 160.5 mmHg 80-100 H BICARBONATE TOTAL HCO3 (test code = HCO3) 18.4 mmol/L 23.0-27.0 L BASE EXCESS (test code = HERBERT) -7.3 mmol/L -3.0-5.0 LL Results called to and read back by Venkat 03:17 - 06/16/2020; by NIKKIE ABG O2 SATURATION (test code = SATA) 98.6 % 90.0-98.0 H ABG TYPE (test code = TYPEA) Arterial FIO2 (test code = FIO2A) 100.0 ABG VENT MODE (test code = MODEA) Assist Control ABG VENT RESP RATE (test code = RRA) 28.0 per min ABG TIDAL VOLUME (test code = TVA) 430.0 mL ABG PEEP (test code = PEEPA) 14.0 cmH2O ABG SITE (test code = SITEA) ARTERIAL LINE MODIFIED ALLENS (test code = MODALL) Unable CHECK PERFORMED SODIUM (test code = NA/ABG) 140.4 mEq/L 135-148 N POTASSIUM (test code = K/ABG) 4.5 mEq/L 3.5-4.5 N CHLORIDE (test code = CL/ABG) 114 mEq/L 98-106 H GLUCOSE (test code = GLU/ABG) 268 mg/dL 74-99 H HEMATOCRIT (test code = HCT/ABG) 28 % 42-52 L IONIZED CALCIUM (test code = CAIABG) 1.00 mmol/L 1.1-1.37 L TOTAL HGB (test code = THB) 9.6 gram/dL 13.0-17.5 L HGB O2 SAT (test code = HBOSAT) 97.7 % 94.00-98.00 N CARBOXYHEMOGLOBIN (test code = HOHGBT) 0.3 %totalHg 0.5-1.5 LL Results called to and read back by Venkat 03:17 - 06/16/2020; by NIKKIE METHEMOGLOBIN (test code = METHGB) 0.6 % 0.0-1.50 N O2 CONTENT (test code = O2CT) 13.5 % vol 18.0-22.0 L [id number] 04:40:00* Test Item Value Reference Range Interpretation Comments D-DIMER (test code = DDIMER) 1787.00 ng/mLFEU 0-500 HH Results called to [id number] by [email or web address] 06/16/20 0439Critical results verified and read back by Nurse? YClinical Cut-off value for D-Dimer is 500 ng/mL FEU. Comment: The [employer] D- Dimer assay is intended for use asan aid in the diagnosis of venous thromboembolism (VTE)[deep vein thrombosis (DVT) or pulmonary embolism (PE)].The measurement of D-Dimer should not be used as an aid inthe diagnosis of VTE, in patient with: -Therapeutic dose anticoagulant therapy for >24 hours - Fibrinolytic therapy within previous 7 days -Trauma or surgery within previous 4 weeks -Disseminated malignancies -Aortic aneurysm -Sepsis, severe infections, pneumonia, severe skin infections -Liver cirrhosis - [id number] 04:09:00* Test Item Value Reference Range Interpretation Comments PHOSPHORUS (test code = PHOS) 4.2 mg/dL 2.5-4.9 N [id number] 04:09:00* Test Item Value Reference Range Interpretation Comments MAGNESIUM (test code = MAG) 2.0 mg/dL 1.8-2.4 N CALCIUM [id number] 04:09:00* Test Item Value Reference Range Interpretation Comments CALCIUM IONIZED (test code = PHILLIP) 1.15 mmol/L 1.12-1.32 N [id number] 03:58:00* Test Item Value Reference Range Interpretation Comments PHOSPHORUS (test code = PHOS) mg/dL 2.5-4.9 [id number] 03:58:00* Test Item Value Reference Range Interpretation Comments MAGNESIUM (test code = MAG) 2.0 mg/dL 1.8-2.4 N CALCIUM [id number] 03:58:00* Test Item Value Reference Range Interpretation Comments CALCIUM IONIZED (test code = PHILLIP) 1.15 mmol/L 1.12-1.32 N [id number] 03:36:00* Test Item Value Reference Range Interpretation Comments PHOSPHORUS (test code = PHOS) mg/dL 2.5-4.9 [id number] 03:36:00* Test Item Value Reference Range Interpretation Comments MAGNESIUM (test code = MAG) mg/dL 1.8-2.4 CALCIUM [id number] 03:36:00* Test Item Value Reference Range Interpretation Comments CALCIUM IONIZED (test code = PHILLIP) 1.15 mmol/L 1.12-1.32 N BASIC METABOLIC [id number] 03:34:00* Test Item Value Reference Range Interpretation Comments SODIUM (test code = NA) 147 mmol/L 136-145 H POTASSIUM (test code = K) 4.6 mmol/L 3.5-5.1 N CHLORIDE (test code = CL) 119.0 mmol/L 98-107 H CARBON DIOXIDE (test code = CO2) 17.0 mmol/L 21-32 L ANION GAP (test code = GAP) 15.6 10-20 N GLUCOSE (test code = GLU) 257 mg/dL 74-106 H BLOOD UREA NITROGEN (test code = BUN) 33 mg/dL 7-18 H GLOMERULAR FILTRATION RATE (test code = GFR) 60 mL/min >=60 Estimated GFR by using Modified MDRD formula.Chronic kidney disease is defined as either kidney damageor GFR <60 mL/min/1.73 m2 for >3 months. CREATININE (test code = CREAT) 1.20 mg/dL 0.7-1.3 N BUN/CREATININE RATIO (test code = BUN/CREA) 27.0 10-20 H CALCIUM (test code = CA) 7.1 mg/dL 8.5-10.1 L CBC W/O [id number] 03:22:00* Test Item Value Reference Range Interpretation Comments WHITE BLOOD CELL (test code = WBC) 21.1 K/mm3 4.5-12.5 H RED BLOOD CELL (test code = RBC) 3.10 mill/mm3 4.0-5.8 L HEMOGLOBIN (test code = HGB) 9.0 gram/dL 13.0-17.5 L HEMATOCRIT (test code = HCT) 29.7 % 42.0-52.0 L MEAN CELL VOLUME (test code = MCV) 95.8 fL 80-98 N MEAN CELL HGB (test code = MCH) 29.0 picogram 27.0-33.0 N MEAN CELL HGB CONCETRATION (test code = MCHC) 30.3 gram/dL 33.0-36. 0 L RED CELL DISTRIBUTION WIDTH (test code = RDW) 15.3 % 11.6-16. 2 N PLATELET COUNT (test code = PLT) 304 K/mm3 150-450 N MEAN PLATELET VOLUME (test code = MPV) 10.9 fL 6.7-11.0 N BASIC METABOLIC [id number] 03:22:00* Test Item Value Reference Range Interpretation Comments SODIUM (test code = NA) 147 mmol/L 136-145 H POTASSIUM (test code = K) 4.6 mmol/L 3.5-5.1 N CHLORIDE (test code = CL) 119.0 mmol/L 98-107 H CARBON DIOXIDE (test code = CO2) mmol/L 21-32 ANION GAP (test code = GAP) 10-20 GLUCOSE (test code = GLU) mg/dL 74-106 BLOOD UREA NITROGEN (test code = BUN) mg/dL 7-18 GLOMERULAR FILTRATION RATE (test code = GFR) mL/min >=60 CREATININE (test code = CREAT) mg/dL 0.7-1.3 BUN/CREATININE RATIO (test code = BUN/CREA) 10-20 CALCIUM (test code = CA) mg/dL 8.5-10.1 [id number] 23:48:00* Test Item Value Reference Range Interpretation Comments GLUBED (test code = GLUBED) 223 mg/dL 74-106 H Performed by certified tool machine setup operator at [facility] [id number] 18:59:00* Test Item Value Reference Range Interpretation Comments TROPONIN-I (test code = TROPI) 0.027 ng/mL 0-0.045 N [id number] 16:15:00* Test Item Value Reference Range Interpretation Comments GLUBED (test code = GLUBED) 227 mg/dL 74-106 H Performed by certified tool machine setup operator at [facility] [id number] 15:33:00* Test Item Value Reference Range Interpretation Comments TROPONIN-I (test code = TROPI) 0.036 ng/mL 0-0.045 N - XR CHEST 1 [id number] 13:18:00 FAX: David Townsend [facility] [place]: B St: ADM FAX: Jasper Prince MD [phone] Name: BOOKER PIERRE [facility] : 1950 Age/S: 70/M [address] [facility] Unit #: [id number] Loc: SH[place] [address] Phys: Denilson Morel Acct: [id number] Dis Date: Status: ADM IN PHONE #: [phone] Exam Date: 06/15/2020 1256 FAX #: [phone] Reason: NEW OG TUBE PLACEMENT EXAMS: CPT CODE: [id number] XR CHEST 1 V 90502 REASON FOR EXAM: NEW OG TUBE PLACEMENT Exam Order Date: 06/15/2020 12:36 PM Ordering Samantha: Denilson Morel PROCEDURE: - XR CHEST 1 V COMPARISON: Chest x-ray and CT scan earlier today FINDINGS/ IMPRESSION: Enteric suction tube terminates in the stomach. ET tube and cardiac pulmonary findings are unchanged. Location: [facility] at 1318 Reported and signed by: Michael Mehta MD CC: David Guzman DO; Jasper Eisenberg Technologist: Irma Delong(R) Trnscrd Date/Time/By: 06/15/2020 (4988) : By: [email or web address] Orig Print D/T: S: 06/15/2020 (5452) PAGE 1 Signed Report [id number] 12:21:00* Test Item Value Reference Range Interpretation Comments TROPONIN-I (test code = TROPI) 0.037 ng/mL 0-0.045 N [id number] 11:26:00* Test Item Value Reference Range Interpretation Comments GLUBED (test code = GLUBED) 199 mg/dL 74-106 H Performed by certified tool machine setup operator at [facility] COVID 19 INHOUSE [id number] 10:27:00* Test Item Value Reference Range Interpretation Comments COVID 19 INHOUSE AG (test code = [id number]) NEGATIVE ARTERIAL BLOOD [id number] 07:32:00* Test Item Value Reference Range Interpretation Comments ARTERIAL BLOOD GAS PH (test code = PHA) 7.35 7.35-7.45 N ARTERIAL BLOOD GAS PCO2 (test code = PCO2A) 37.4 mm Hg 35-45 N ARTERIAL BLOOD GAS PO2 (test code = PO2A) 64.3 mmHg 80-100 L BICARBONATE TOTAL HCO3 (test code = HCO3) 20.4 mmol/L 23.0-27.0 L BASE EXCESS (test code = HERBERT) -4.7 mmol/L -3.0-5.0 LL Results called to and read back by Dr boateng/alonzo 07:31 - 06/15/2020; by [id number] ABG O2 SATURATION (test code = SATA) 91.0 % 90.0-98.0 N ABG TYPE (test code = TYPEA) Arterial FIO2 (test code = FIO2A) 100.0 ABG VENT MODE (test code = MODEA) Assist Control ABG VENT RESP RATE (test code = RRA) 28.0 per min ABG TIDAL VOLUME (test code = TVA) 430.0 mL ABG PEEP (test code = PEEPA) 16.0 cmH2O ABG SITE (test code = SITEA) ARTERIAL LINE MODIFIED ALLENS (test code = MODALL) Unable CHECK PERFORMED HEMATOCRIT (test code = HCT/ABG) 33 % 42-52 L TOTAL HGB (test code = THB) 11.2 gram/dL 13.0-17.5 L HGB O2 SAT (test code = HBOSAT) 90.4 % 94.00-98.00 L CARBOXYHEMOGLOBIN (test code = HOHGBT) 0.1 %totalHg 0.5-1.5 LL Results called to and read back by Dr boateng/alonzo 07:31 - 06/15/2020; by [id number] METHEMOGLOBIN (test code = METHGB) 0.6 % 0.0-1.50 N O2 CONTENT (test code = O2CT) 14.3 % vol 18.0-22.0 L - XR CHEST 1 [id number] 07:18:00 FAX: Enrique Segovia [phone] [place]: St: ADM FAX: David Townsend [facility] FAX: Jasper Prince MD [phone] Name: BOOKER PIERRE [facility] : 1950 Age/S: 70/M [address] [facility] Unit #: [id number] Loc: [place] [address] Phys: Enrique Segovia Acct: [id number] Dis Date: Status: ADM IN ONE #: [phone] Exam Date: 06/15/2020520 FAX #: [phone] Reason: updated pulm view. EXAMS: CPT CODE: [id number] XR CHEST 1 V 87568 CLINICAL HISTO RY: updated pulm view. TECHNIQUE: AP chest x-ray CO MPARISON: Previous day. IMPRESSION: Worsening bilateral perihilar airspace consolidation, greater on the right. No ple ural effusion. Normal heart size. ET tube positioned 7 cm above the estella na. LOCATION: LP at 0718 Reported and signed by: Ashley Boateng D.O. CC: Cristine avila,Enrique CASEY; David Guzman DO; Jasper Eisenberg Technologist: JONN MILES JR RT(R) Trnscrd Date/Time/By: 06/15/2020 (717 ) : By: [email or web address] Orig Print D/T: S: 06/15/2020 (720) PAGE 1 Signed Report PROCALCITONIN (PCT)2020-06-15 06:42:00* Test Item Value Reference Range Interpretation Comments PROCALCITONIN (PCT) (test code = PROCAL) 1.51 ng/ml Concentration Interpretation (ng/mL) <0.51 Sepsis is not likely. Local bacterial infection is possible. (LOW RISK for progression to Sepsis) 0.51 - 2.00 Sepsis is possible, but other conditions are known to elevate PCT as well. (MODERATE RISK for progression to Sepsis) > 2.00 Sepsis is likely, unless other causes are known. (HIGH RISK for progression to Severe Sepsis or Septic Shock) 10.00 High likelihood of Severe Sepsis or Septic or higher Shock. *Increased PCT levels may not always be related to systemic bacterial infection.*Low PCT levels do not automatically exclude the presence of bacterial infection.*All results should be interpreted taking into account the patients history. ARTERIAL BLOOD [id number] 06:28:00* Test Item Value Reference Range Interpretation Comments ARTERIAL BLOOD GAS PH (test code = PHA) 7.30 7.35-7.45 L ARTERIAL BLOOD GAS PCO2 (test code = PCO2A) 53.7 mm Hg 35-45 H ARTERIAL BLOOD GAS PO2 (test code = PO2A) 56.8 mmHg 80-100 L BICARBONATE TOTAL HCO3 (test code = HCO3) 25.8 mmol/L 23.0-27.0 N BASE EXCESS (test code = HERBERT) -1.1 mmol/L -3.0-5.0 N ABG O2 SATURATION (test code = SATA) 86.6 % 90.0-98.0 L ABG TYPE (test code = TYPEA) Arterial FIO2 (test code = FIO2A) 100.0 ABG VENT MODE (test code = MODEA) Assist Control ABG VENT RESP RATE (test code = RRA) 22.0 per min ABG TIDAL VOLUME (test code = TVA) 450.0 mL ABG PEEP (test code = PEEPA) 16.0 cmH2O ABG SITE (test code = SITEA) Rt RADIAL ARTERY MODIFIED ALLENS (test code = MODALL) Yes CHECK PERFORMED SODIUM (test code = NA/ABG) 145.5 mEq/L 135-148 N POTASSIUM (test code = K/ABG) 3.2 mEq/L 3.5-4.5 L CHLORIDE (test code = CL/ABG) 113 mEq/L 98-106 H GLUCOSE (test code = GLU/ABG) 215 mg/dL 74-99 H HEMATOCRIT (test code = HCT/ABG) 31 % 42-52 L IONIZED CALCIUM (test code = CAIABG) 1.20 mmol/L 1.1-1.37 N TOTAL HGB (test code = THB) 10.7 gram/dL 13.0-17.5 L HGB O2 SAT (test code = HBOSAT) 85.7 % 94.00-98.00 L CARBOXYHEMOGLOBIN (test code = HOHGBT) 0.3 %totalHg 0.5-1.5 LL Results called to and read back by enrique burns 20:18 - 06/14/2020; by vince jones, gamaliel METHEMOGLOBIN (test code = METHGB) 0.7 % 0.0-1.50 N O2 CONTENT (test code = O2CT) 12.9 % vol 18.0-22.0 L - CT CHEST W/O [id number] 06:26:00 Name: OBOKER PIERRE [facility] : 1950 Age/S: 70 / M [address] Unit #: [id number] Loc: [place] [address] Phys: Enrique Segovia Acct: [id number] Dis Date: Status: ADM IN PHONE #: [phone] Exam Date: 06/15/2020 06 FAX #: [phone] Reason: S/P Cardaic arrest with acute respiratory failu EXAMS: CPT CODE: [id number] CT CHEST W/O CONTRAST 40410 EXAM: - CT CHEST W/O CONTRAST LOCATION: C3 HISTORY: S/P Cardiac arrest with acute respiratory failure TECHNIQUE: Axial tomograms through the chest were obtained without intravenous contrast. Coronal and sagittal reformatted images are provided. This exam was performed according to our departmental dose-optimization program, which includes automated exposure control, adjustment of the mA and/or kV according to patient size and/or use of iterative reconstruction technique. COMPARISON: None available time of interpretation. FINDINGS: LUNGS/PLEURA: Moderate dense consolidation in the bilateral lower lobes and in the right upper lobe. Mild consolidation in the dependent left upper lobe. Scattered n odular opacities are identified in the upper lobes bilaterally. No effusi ons. MEDIASTINUM: There is no pericardial effusion. The aorta ta pers normally. The trachea is unremarkable. The esophagus is grossly unremarkable. LYMPHADENOPATHY: There is no mediastinal, hilar, or axillary adenopathy. VISUALIZED ABDOMEN: Unremarkable. BONES: No acute osseous findings. SOFT TISSUES: Unrema rkable. IMPRESSION: Multifocal pneumonia. at 0626 Reported and signed by: Keshav Guevara M.D. PAGE 1 Signed Report (CONTINUED) Name: BOOKER PIERRE [facility] : 1950 Age/S: 70 / M [address] [facility] [address] Unit #: [id number] Loc: Babita SHENG 7 [address] Phys: Enrique Segovia Acct: [id number] Dis Date: Status: ADM IN PHONE #: [phone] Exam Date: 06/15/2020 0606 FAX #: [phone] Reason: S/P Cardaic arrest with acute respiratory failu EXAMS: CPT CODE: [id number] CT CHEST W/O CONTRAST 71572 <Continued> CC: Enrique Segovia; David Guzman ramonita Tiwari DO; Jasper Eisenberg Technologist:DIGNA JHAVERI, RT; JUAN ANTONIO DIA CTDI: DLP: Trnscb Date/Time: 06/15/2020 (625) t.SDR.HV2 Orig Print D/T: S: 06/15/2020 (628) PAGE 2 Signed Report LIPID PROFILE (CORONARY RISK)2020-06-15 06:25:00* Test Item Value Reference Range Interpretation Comments TRIGLYCERIDES (test code = TRIG) 173 mg/dL 20-150 H CHOLESTEROL (test code = CHOL) 146 mg/dL 0-200 N CHOLESTEROL/HDL RATIO (test code = CHOLHDL) 4.0 RATIO 0-4.9 N RISK ASSOCIATED WITH CHOL/HDL RATIOS: Risk Male Female1/2 AVERAGE 3.43 3.27AVERAGE 4.97 4.442X AVERAGE 9.55 7.053X AVERAGE 23.39 11.04 REFERENCE VALUE IS RELATED TO RISK LEVELS ASRECOMMENDED BY THE IGGY. HEART, LUNG, AND BLOOD INST. HDL CHOLESTEROL (test code = HDL) 30 mg/dL 40-60 L LIPOPROTEIN LDL (test code = LDL) 99 mg/dL 100-129 L Reference Interval: mg/dL mmol/L Optimal <100 <2.6Near/above optimal 100-129 2.6- 3.3Borderline High 130-159 3.4-4.1High 160-189 4.1-4.9Very High >=190 >=4.9========= This LDL result is a direct measurement.========= [id number] 06:25:00* Test Item Value Reference Range Interpretation Comments TROPONIN-I (test code = TROPI) 0.047 ng/mL 0-0.045 HH Results called [place] [id number] by V.[email or web address].[email or web address] 06/15/20 0625Critical results verified and read back by Nurse? Y - CT HEAD/BRAIN W/O [id number] 06:21:00 Name: BOOKER PIERRE [facility] : 1950 Age[facility]S: 70 / M [address] [facility] #: [id number] Loc: [place] [address] Phys: Enrique Segovia Acct: [id number] Dis Date: Status: ADM IN PHONE #: [phone] Exam Date: 06/15/2020 0606 FAX #: [phone] Reason: S/P Cardaic arrest EXAMS: CPT CODE: [id number] CT HEAD/BRAIN W/O CONT 04146 EXAM: - CT HEAD/BRAIN W/O CONT LOCATION: C3 HISTORY: 70 years-year old Male with S/P Cardiac arrest TECHNIQUE: Computerized tomography images from the skull base to the vertex were obtained. Coronal and sagittal reformatted images are provided. This exam was performed according to our departmental dose-optimization program, which includes automated exposure control, adjustment of the mA and/or kV according to patient size and/or use of iterative reconstruction technique COMPARISON: None FINDINGS: Brain: The brain parenchymal architecture is unremarkable. The brain parenchyma is age appropriate. There is no evidence of an acute territorial infarct. Hemorrhage: There is no CT evidence of acute intracranial hemorrhage. Mass/edema: There is no CT evidence of mass effect, midline shift, or parenchymal edema. Ventricles: There is no evidence of hydrocephalus. Bones: There is no evidence of acute displaced calvarial fracture. Sinuses: The visualized portions of the paranasal sinuses and mastoid air cells are free of significant opacification. Other/Soft Ti ssues: Unremarkable. IMPRESSION: 1. No CT ev idence of acute intracranial abnormality. PAGE 1 Signed Report (CONTINUED) Name: BOOKER PIERRE [facility] : 1950 Age/S: 70 / M [address] Unit #: [id number] Loc: [place] [address] Phys: Enrique Segovia Acct: [id number] Dis Date: Status: ADM IN PHONE #: [phone] Exam Date: 605 FAX #: [phone] Reason: S/P Cardaic arres t EXAMS: CPT CODE: [id number] CT HEAD/BRAIN W/O CONT 59497 <Continued> at 0621 Reported and signed by: Keshav Guevara M.D. CC: Enrique Segovia; David Guzman DO; Jasper Eisenberg Technologist:DIGNA JHAVERI, RT; JUAN ANTONIO DIA CTDI: DLP: Trnscb Date/Time: 06/15/2020 (620) t.COLLINSR.[email or web address] Orig Print D/T: S: 06/15/2020 (0624) PAGE 2 Signed Report - CT C-SPINE W/O [id number] 06:19:00 Name: BOOKER PIERRE [facility] : 1950 Age/S: 70 / M [address] Unit #: [id number] Loc: [place] [address] Phys: Enrique Segovia Acct: [id number] Dis Date: Status: ADM IN PHONE #: [phone] Exam Date: 06/15/2020605 FAX #: [phone] Reason: S/P Cardaic arrest with recent cervical discect EXAMS: CPT CODE: [id number] CT C-SPINE W/O CONTRAST 83480 EXAM: CT CERVICAL SPINE WITHOUT CONTRAST LOCATION: C3 HISTORY: S/P Cardiac arrest with recent cervical discectomy TECHNIQUE: Axial tomograms through the cervical spine were obtained without intravenous contrast. Sagittal and coronal reformatted images are provided. This exam was performed according to our departmental dose-optimization program, which includes automated exposure control, adjustment of the mA and/or kV acc ording to patient size and/or use of iterative reconstruction technique. COMPARISON: None available time of interpretation. FI NDINGS: Perched C6-C7 right facet with subluxation at C6-C7. Fractured osteophyte at the anterior aspect of the C7 vertebral body. Anterior cervical fusion hardware C3-C5 noted. Dense consolidation partiall y visualized in the right upper lobe. 1 cm left thyroid nodule. IMPRESSION: C6-C7 subluxation with perched right C6-C7 facet. Fractured osteophyte at the anterior aspect of t he C7 vertebral body. Dense pulmonary consolidation in the par tially visualized right upper lobe. at 0619 Reported and signed by: Keshav Guevara M.D. PAGE 1 Signed Report (CONTINUED) Name: BOOKER PIERRE [facility] : 1950 Age/S: 70 / M [address] [facility] Unit #: [id number] Loc: [place] [address] Phys: Roopa Segovia Acct: [id number] Dis Date: Status: ADM IN PHONE #: [phone] Exam Date: 06/15/2020 06 FAX #: [phone] Reason: S/P Cardaic arrest with recent cervical discect EXAMS: CPT CODE: [id number] CT C-SPINE W/O CONTRAST 74181 <Continued> CC: Enrique Segovia; David Guzman [facility] DO; Jasper Eisenberg Technologist:DIGNA JHAVERI, RT; JUAN ANTONIO AT [facility]: DLP: Trnscb Date/Time: 06/15/2020 (618) [id number] Orig Print D/T: S: 06/15/2020 (621) PAGE 2 Signed Report LACTIC [id number] 06:14:00* Test Item Value Reference Range Interpretation Comments LACTIC ACID (test code = LACT) 1.5 mmol/L 0.4-1.9 N [id number] 05:53:00* Test Item Value Reference Range Interpretation Comments D-DIMER (test code = DDIMER) 6737.00 ng/mLFEU 0-500 HH Results called to [id number] by DONI 06/15/20 0552Critical results verified and read back by Nurse? YClinical Cut-off value for D-Dimer is 500 ng/mL FEU. Comment: The [employer] D- Dimer assay is intended for use asan aid in the diagnosis of venous thromboembolism (VTE)[deep vein thrombosis (DVT) or pulmonary embolism (PE)].The measurement of D-Dimer should not be used as an aid inthe diagnosis of VTE, in patient with: -Therapeutic dose anticoagulant therapy for >24 hours - Fibrinolytic therapy within previous 7 days -Trauma or surgery within previous 4 weeks -Disseminated malignancies -Aortic aneurysm -Sepsis, severe infections, pneumonia, severe skin infections -Liver cirrhosis - [id number] 05:44:00* Test Item Value Reference Range Interpretation Comments GLUBED (test code = GLUBED) 195 mg/dL 74-106 H Performed by certified tool machine setup operator at [facility] ARTERIAL BLOOD [id number] 05:07:00* Test Item Value Reference Range Interpretation Comments ARTERIAL BLOOD GAS PH (test code = PHA) 7.35 7.35-7.45 N ARTERIAL BLOOD GAS PCO2 (test code = PCO2A) 39.0 mm Hg 35-45 N ARTERIAL BLOOD GAS PO2 (test code = PO2A) 60.0 mmHg 80-100 L BICARBONATE TOTAL HCO3 (test code = HCO3) 20.9 mmol/L 23.0-27.0 L BASE EXCESS (test code = HERBERT) -4.3 mmol/L -3.0-5.0 LL Results called to and read back by Michelle 03:35 - 06/15/2020; by NIKKIE ABG O2 SATURATION (test code = SATA) 91.0 % 90.0-98.0 N ABG TYPE (test code = TYPEA) Arterial FIO2 (test code = FIO2A) 100.0 ABG VENT RESP RATE (test code = RRA) 28.0 per min ABG TIDAL VOLUME (test code = TVA) 430.0 mL ABG PEEP (test code = PEEPA) 16.0 cmH2O ABG SITE (test code = SITEA) ARTERIAL LINE MODIFIED ALLENS (test code = MODALL) Unable CHECK PERFORMED SODIUM (test code = NA/ABG) 142.5 mEq/L 135-148 N POTASSIUM (test code = K/ABG) 3.6 mEq/L 3.5-4.5 N CHLORIDE (test code = CL/ABG) 114 mEq/L 98-106 H GLUCOSE (test code = GLU/ABG) 208 mg/dL 74-99 H HEMATOCRIT (test code = HCT/ABG) 34 % 42-52 L IONIZED CALCIUM (test code = CAIABG) 1.12 mmol/L 1.1-1.37 N TOTAL HGB (test code = THB) 11.4 gram/dL 13.0-17.5 L HGB O2 SAT (test code = HBOSAT) 90.4 % 94.00-98.00 L CARBOXYHEMOGLOBIN (test code = HOHGBT) 0.3 %totalHg 0.5-1.5 LL Results called to and read back by Michelle 03:35 - 06/15/2020; by NIKKIE METHEMOGLOBIN (test code = METHGB) 0.4 % 0.0-1.50 N O2 CONTENT (test code = O2CT) 14.5 % vol 18.0-22.0 L [id number] 05:04:00* Test Item Value Reference Range Interpretation Comments PHOSPHORUS (test code = PHOS) 4.4 mg/dL 2.5-4.9 N [id number] 05:04:00* Test Item Value Reference Range Interpretation Comments MAGNESIUM (test code = MAG) 2.0 mg/dL 1.8-2.4 N CALCIUM [id number] 05:04:00* Test Item Value Reference Range Interpretation Comments CALCIUM IONIZED (test code = PHILLIP) 1.21 mmol/L 1.12-1.32 N [id number] 04:57:00* Test Item Value Reference Range Interpretation Comments PHOSPHORUS (test code = PHOS) mg/dL 2.5-4.9 [id number] 04:57:00* Test Item Value Reference Range Interpretation Comments MAGNESIUM (test code = MAG) 2.0 mg/dL 1.8-2.4 N CALCIUM [id number] 04:57:00* Test Item Value Reference Range Interpretation Comments CALCIUM IONIZED (test code = PHILLIP) 1.21 mmol/L 1.12-1.32 N BASIC METABOLIC [id number] 04:57:00* Test Item Value Reference Range Interpretation Comments SODIUM (test code = NA) 149 mmol/L 136-145 H POTASSIUM (test code = K) 3.6 mmol/L 3.5-5.1 N CHLORIDE (test code = CL) 119.0 mmol/L 98-107 H CARBON DIOXIDE (test code = CO2) 21.0 mmol/L 21-32 N ANION GAP (test code = GAP) 12.6 10-20 N GLUCOSE (test code = GLU) 205 mg/dL 74-106 H BLOOD UREA NITROGEN (test code = BUN) 38 mg/dL 7-18 H GLOMERULAR FILTRATION RATE (test code = GFR) 43 mL/min >=60 Estimated GFR by using Modified MDRD formula.Chronic kidney disease is defined as either kidney damageor GFR <60 mL/min/1.73 m2 for >3 months. CREATININE (test code = CREAT) 1.60 mg/dL 0.7-1.3 H BUN/CREATININE RATIO (test code = BUN/CREA) 23.9 10-20 H CALCIUM (test code = CA) 7.7 mg/dL 8.5-10.1 L BASIC METABOLIC [id number] 04:56:00* Test Item Value Reference Range Interpretation Comments SODIUM (test code = NA) 149 mmol/L 136-145 H POTASSIUM (test code = K) 3.6 mmol/L 3.5-5.1 N CHLORIDE (test code = CL) 119.0 mmol/L 98-107 H CARBON DIOXIDE (test code = CO2) mmol/L 21-32 ANION GAP (test code = GAP) 10-20 GLUCOSE (test code = GLU) mg/dL 74-106 BLOOD UREA NITROGEN (test code = BUN) mg/dL 7-18 GLOMERULAR FILTRATION RATE (test code = GFR) mL/min >=60 CREATININE (test code = CREAT) mg/dL 0.7-1.3 BUN/CREATININE RATIO (test code = BUN/CREA) 10-20 CALCIUM (test code = CA) mg/dL 8.5-10.1 [id number] 04:47:00* Test Item Value Reference Range Interpretation Comments PHOSPHORUS (test code = PHOS) mg/dL 2.5-4.9 [id number] 04:47:00* Test Item Value Reference Range Interpretation Comments MAGNESIUM (test code = MAG) mg/dL 1.8-2.4 CALCIUM [id number] 04:47:00* Test Item Value Reference Range Interpretation Comments CALCIUM IONIZED (test code = PHILLIP) 1.21 mmol/L 1.12-1.32 N CBC W/O [id number] 04:30:00* Test Item Value Reference Range Interpretation Comments WHITE BLOOD CELL (test code = WBC) 16.1 K/mm3 4.5-12.5 H RED BLOOD CELL (test code = RBC) 3.51 mill/mm3 4.0-5.8 L HEMOGLOBIN (test code = HGB) 10.4 gram/dL 13.0-17.5 L HEMATOCRIT (test code = HCT) 32.8 % 42.0-52.0 L MEAN CELL VOLUME (test code = MCV) 93.4 fL 80-98 N MEAN CELL HGB (test code = MCH) 29.6 picogram 27.0-33.0 N MEAN CELL HGB CONCETRATION (test code = MCHC) 31.7 gram/dL 33.0-36. 0 L RED CELL DISTRIBUTION WIDTH (test code = RDW) 14.6 % 11.6-16. 2 N PLATELET COUNT (test code = PLT) 348 K/mm3 150-450 N MEAN PLATELET VOLUME (test code = MPV) 10.4 fL 6.7-11.0 N [id number] 23:23:00* Test Item Value Reference Range Interpretation Comments GLUBED (test code = GLUBED) 144 mg/dL 74-106 H Performed by certified tool machine setup operator at [facility] [id number] 20:15:00* Test Item Value Reference Range Interpretation Comments GLUBED (test code = GLUBED) 153 mg/dL 74-106 H Performed by certified tool machine setup operator at [facility] COVID 19 INHOUSE [id number] 19:17:00* Test Item Value Reference Range Interpretation Comments COVID 19 INHOUSE AG (test code = [id number]) NEGATIVE - XR CHEST 1 [id number] 18:47:00 FAX: David Townsend [place]: B St: ADM FAX: Jasper Prince MD [phone] Name: BOOKER PIERRE [facility] : 1950 Age/S: 70/M [address] [facility] Unit #: [id number] Loc: V.3096 [place] [address] Phys: David Guzman DO Acct: [id number] Dis Date: Status: ADM IN PHONE #: [phone] Exam Date: 06/14/20201839 FAX #: [phone] Reason: SOB EXAMS: CPT CODE: [id number] XR CHEST 1 V 80742 Examination: One view chest x-ray Location code: H60 Comparison: 06/08/2020 Discussion: Clinical history is remarkable for shortness of breath. Heart is prominent. Lungs are clear of consolidating infiltrates. No masses, nodules or effusions are noted. When compared to the prior study there has been no interval change. Impression: 1. Stable chest x-ray without evidence for acute infiltrates or effusions. at 1847 Reported and signed by: Bill Bolden M.D. CC: David Guzman Jose Tiwari DO; Jasper Eisenberg Technologist: NICOLE ALCALA, RT(R); JOSTIN MONDRAGON Trnvard Date/Time/By: 06/14/2020 (1846) : By: [email or web address] Orig Print D/T: S: 06/14/2020 (1849) PAGE 1 Signed Report [id number] 17:32:00* Test Item Value Reference Range Interpretation Comments GLUBED (test code = GLUBED) 204 mg/dL 74-106 H Performed by certified tool machine setup operator at [facility] [id number] 12:46:00* Test Item Value Reference Range Interpretation Comments GLUBED (test code = GLUBED) 268 mg/dL 74-106 H Performed by certified tool machine setup operator at [facility] - XR SWLW FUNC W/C [id number] 12:34:00 FAX: David Townsend [place]: B St: ADM FAX: Jasper Prince MD [phone] Name: BOOKER PIERRE [facility] : 1950 Age/S: 70/M [address] [facility] Unit #: [id number] Loc: [address] [address] [facility] Ac[facility]: [id number] Dis Date: Status: ADM IN PHONE #: [phone] Exam Date: 06/14/2020 1050 FAX #: [phone] Reason: SWALLOW EVAL EXAMS: CPT CODE: [id number] [facility] W/C V 99473 EXAM: Modified barium swallow; INFORMATION: HISTORY of fall; cord contusion, cervical myelopathy; dysphagia; IMPRESSION: 1. No evidence of aspiration. 2. Laryngeal penetration was observed with all consistencies including thin liquids nectar, honey and puree. 3. Vallecular pooling with all consistencies. Fluoroscopy Time: 115.4 sec CAK : 9.27 mGy Location code: [facility] at 1234 Reported and signed by: Lucio Taylor M.D. CC: David Guzman ; Jasper Eisenberg Technologist: RT DAISY(Evangelina) Jaquelin Date/Time/By: (1754) : By: Nighat Orig Print D/T: S: 06/14/2020 (9105) PAGE 1 Signed Report [id number] 09:05:00* Test Item Value Reference Range Interpretation Comments GLUBED (test code = GLUBED) 193 mg/dL 74-106 H Performed by certified tool machine setup operator at [facility] [id number] 20:14:00* Test Item Value Reference Range Interpretation Comments GLUBED (test code = GLUBED) 183 mg/dL 74-106 H Performed by certified tool machine setup operator at [facility] [id number] 16:29:00* Test Item Value Reference Range Interpretation Comments GLUBED (test code = GLUBED) 211 mg/dL 74-106 H Performed by certified tool machine setup operator at [facility] [id number] 11:40:00* Test Item Value Reference Range Interpretation Comments GLUBED (test code = GLUBED) 261 mg/dL 74-106 H Performed by certified tool machine setup operator at [facility] [id number] 08:01:00* Test Item Value Reference Range Interpretation Comments GLUBED (test code = GLUBED) 223 mg/dL 74-106 H Performed by certified tool machine setup operator at [facility] [id number] 20:37:00* Test Item Value Reference Range Interpretation Comments GLUBED (test code = GLUBED) 154 mg/dL 74-106 H Performed by certified tool machine setup operator at [facility] BASIC METABOLIC [id number] 15:51:00* Test Item Value Reference Range Interpretation Comments SODIUM (test code = NA) 149 mmol/L 136-145 H POTASSIUM (test code = K) 4.0 mmol/L 3.5-5.1 N CHLORIDE (test code = CL) 118.0 mmol/L 98-107 H CARBON DIOXIDE (test code = CO2) 23.0 mmol/L 21-32 N ANION GAP (test code = GAP) 12.0 10-20 N GLUCOSE (test code = GLU) 174 mg/dL 74-106 H BLOOD UREA NITROGEN (test code = BUN) 38 mg/dL 7-18 H GLOMERULAR FILTRATION RATE (test code = GFR) > 60 mL/min >=60 Estimated GFR by using Modified MDRD formula.Chronic kidney disease is defined as either kidney damageor GFR <60 mL/min/1.73 m2 for >3 months. CREATININE (test code = CREAT) 1.00 mg/dL 0.7-1.3 N BUN/CREATININE RATIO (test code = BUN/CREA) 36.9 10-20 H CALCIUM (test code = CA) 7.5 mg/dL 8.5-10.1 L BASIC METABOLIC [id number] 15:47:00* Test Item Value Reference Range Interpretation Comments SODIUM (test code = NA) 149 mmol/L 136-145 H POTASSIUM (test code = K) 4.0 mmol/L 3.5-5.1 N CHLORIDE (test code = CL) 118.0 mmol/L 98-107 H CARBON DIOXIDE (test code = CO2) mmol/L 21-32 ANION GAP (test code = GAP) 10-20 GLUCOSE (test code = GLU) mg/dL 74-106 BLOOD UREA NITROGEN (test code = BUN) mg/dL 7-18 GLOMERULAR FILTRATION RATE (test code = GFR) mL/min >=60 CREATININE (test code = CREAT) mg/dL 0.7-1.3 BUN/CREATININE RATIO (test code = BUN/CREA) 10-20 CALCIUM (test code = CA) mg/dL 8.5-10.1 [id number] 15:40:00* Test Item Value Reference Range Interpretation Comments GLUBED (test code = GLUBED) 157 mg/dL 74-106 H Performed by certified tool machine setup operator at [facility] [id number] 12:28:00* Test Item Value Reference Range Interpretation Comments GLUBED (test code = GLUBED) 198 mg/dL 74-106 H Performed by certified tool machine setup operator at [facility] [id number] 07:20:00* Test Item Value Reference Range Interpretation Comments GLUBED (test code = GLUBED) 248 mg/dL 74-106 H Performed by certified tool machine setup operator at [facility] CBC W/O [id number] 05:58:00* Test Item Value Reference Range Interpretation Comments WHITE BLOOD CELL (test code = WBC) 15.5 K/mm3 4.5-12.5 H RED BLOOD CELL (test code = RBC) 3.29 mill/mm3 4.0-5.8 L HEMOGLOBIN (test code = HGB) 9.6 gram/dL 13.0-17.5 L HEMATOCRIT (test code = HCT) 30.7 % 42.0-52.0 L MEAN CELL VOLUME (test code = MCV) 93.3 fL 80-98 N MEAN CELL HGB (test code = MCH) 29.2 picogram 27.0-33.0 N MEAN CELL HGB CONCETRATION (test code = MCHC) 31.3 gram/dL 33.0-36. 0 L RED CELL DISTRIBUTION WIDTH (test code = RDW) 14.3 % 11.6-16. 2 N PLATELET COUNT (test code = PLT) 317 K/mm3 150-450 N MEAN PLATELET VOLUME (test code = MPV) 10.6 fL 6.7-11.0 N [id number] 20:29:00* Test Item Value Reference Range Interpretation Comments GLUBED (test code = GLUBED) 280 mg/dL 74-106 H Performed by certified tool machine setup operator at [facility] [id number] 15:59:00* Test Item Value Reference Range Interpretation Comments GLUBED (test code = GLUBED) 208 mg/dL 74-106 H Performed by certified tool machine setup operator at [facility] COMPREHENSIVE METABOLIC [id number] 13:21:00* Test Item Value Reference Range Interpretation Comments SODIUM (test code = NA) 150 mmol/L 136-145 H POTASSIUM (test code = K) 5.1 mmol/L 3.5-5.1 N CHLORIDE (test code = CL) 122.0 mmol/L 98-107 H CARBON DIOXIDE (test code = CO2) 17.0 mmol/L 21-32 L ANION GAP (test code = GAP) 16.1 10-20 N GLUCOSE (test code = GLU) 292 mg/dL 74-106 H BLOOD UREA NITROGEN (test code = BUN) 50 mg/dL 7-18 H GLOMERULAR FILTRATION RATE (test code = GFR) 46 mL/min >=60 Estimated GFR by using Modified MDRD formula.Chronic kidney disease is defined as either kidney damageor GFR <60 mL/min/1.73 m2 for >3 months. CREATININE (test code = CREAT) 1.50 mg/dL 0.7-1.3 H BUN/CREATININE RATIO (test code = BUN/CREA) 34.0 10-20 H TOTAL PROTEIN (test code = PROT) 5.8 gram/dL 6.4-8.2 L ALBUMIN (test code = ALB) 2.6 g/dL 3.4-5.0 L GLOBULIN (test code = GLOB) 3.2 gram/dL 2.7-4.2 N ALBUMIN/GLOBULIN RATIO (test code = A/G) 0.8 0.75-1.50 N CALCIUM (test code = CA) 8.1 mg/dL 8.5-10.1 L BILIRUBIN TOTAL (test code = BILT) 0.70 mg/dL 0.0-1.0 N SGOT/AST (test code = AST) 40 IUnit/L 15-37 H SGPT/ALT (test code = ALT) 59 IUnit/L 12-78 N ALKALINE PHOSPHATASE TOTAL (test code = ALKP) 76 IUnit/L 45-117 N Note change in reference range due to change in reagent. COMPREHENSIVE METABOLIC [id number] 13:11:00* Test Item Value Reference Range Interpretation Comments SODIUM (test code = NA) 150 mmol/L 136-145 H POTASSIUM (test code = K) 5.1 mmol/L 3.5-5.1 N CHLORIDE (test code = CL) 122.0 mmol/L 98-107 H CARBON DIOXIDE (test code = CO2) mmol/L 21-32 ANION GAP (test code = GAP) 10-20 GLUCOSE (test code = GLU) mg/dL 74-106 BLOOD UREA NITROGEN (test code = BUN) mg/dL 7-18 GLOMERULAR FILTRATION RATE (test code = GFR) mL/min >=60 CREATININE (test code = CREAT) mg/dL 0.7-1.3 BUN/CREATININE RATIO (test code = BUN/CREA) 10-20 TOTAL PROTEIN (test code = PROT) gram/dL 6.4-8.2 ALBUMIN (test code = ALB) g/dL 3.4-5.0 GLOBULIN (test code = GLOB) gram/dL 2.7-4.2 ALBUMIN/GLOBULIN RATIO (test code = A/G) 0.75-1.50 CALCIUM (test code = CA) mg/dL 8.5-10.1 BILIRUBIN TOTAL (test code = BILT) mg/dL 0.0-1.0 SGOT/AST (test code = AST) IUnit/L 15-37 SGPT/ALT (test code = ALT) IUnit/L 12-78 ALKALINE PHOSPHATASE TOTAL (test code = ALKP) IUnit/L 45-117 - XR ABDOMEN AP 1 [id number] 12:04:00 FAX: David Townsend Fo [place]: B St: ADM FAX: Jasper Prnice MD [phone] Name: BOOKER PIERRE [facility] : 1950 Age[facility]S: 70[facility] [address] [facility] #: [id number] Loc: V.[address] [place] [address] Phys: Meek Lepe MD Acct: [id number] Dis Date: Status: ADM IN PHONE #: [phone] Exam Date: 06/11/2020 1150 FAX #: [phone] Reason: BOWEL OBSTRUCTION EXAMS: CPT CODE: [id number] XR ABDOMEN AP 1 V 52652 HISTORY: BOWEL OBSTRUCTION TECHNIQUE: AP abdomen x-ray COMPARISON: Abdominal radiographs the previous study as well as multiple additional abdominal radiographs and CT scans dating back to June 03, 2020 FINDINGS/ IMPRESSION: Enteric suction tube has been removed. Stomach remains markedly distended with air. Small amount of air is seen within the small bowel however the overall bowel gas pattern is nonobstructive. Degenerative changes are present in the spine. Lung bases are clear. Location: [facility] at 1204 Reported and signed by: Michael Mehta MD CC: David Guzman [facility] ; Jasper Esienberg Technologist: NICOLE ALCALA, RT(R); Steffany Tirado RT(R) Trn[place] Date/Time/By: 06/11/2020 (8256) : By: [email or web address] Orig Print D/T: S: 0 06/11/2020 (1758) PAGE 1 Signed Re port [id number] 11:51:00* Test Item Value Reference Range Interpretation Comments GLUBED (test code = GLUBED) 292 mg/dL 74-106 H Performed by certified tool machine setup operator at [facility] [id number] 08:09:00* Test Item Value Reference Range Interpretation Comments GLUBED (test code = GLUBED) 252 mg/dL 74-106 H Performed by certified tool machine setup operator at [facility] [id number] 21:45:00* Test Item Value Reference Range Interpretation Comments GLUBED (test code = GLUBED) 305 mg/dL 74-106 H Performed by certified tool machine setup operator at [facility] [id number] 18:49:00* Test Item Value Reference Range Interpretation Comments GLUBED (test code = GLUBED) 392 mg/dL 74-106 H Performed by certified tool machine setup operator at [facility] [id number] 17:09:00* Test Item Value Reference Range Interpretation Comments GLUBED (test code = GLUBED) 453 mg/dL 74-106 H Performed by certified tool machine setup operator at [facility] - CT ABD PELVIS W/O [id number] 11:56:00 Name: BOOKER PIERRE [facility] : 1950 Age[facility]S: 70 / M [address] [facility] Unit #: [id number] Loc: [place] [address] Phys: Armida Glover Acct: [id number] Dis Date: Status: ADM IN PHONE #: [phone] Exam Date: 06/10/2020 1131 FAX #: [phone] Reason: non improving abd distention EXAMS: CPT CODE: [id number] CT ABD PELVIS W/O CONT 74363 REASON FOR EXAM: non improving abd distention EXAM ORDER DATE: 06/10/2020 9:51 AM Ordering M.DRitesh: CARMELA Butler PROCEDURE: Axial CT images were acquired through the abdomen/pelvis at 5 mm intervals. Sagittal and coronal reformatted images were generated. Automated exposure control was utilized for this reduction. Phases of contrast: None COMPARISON: CT abdomen and pelvis June 03, 2020 and abdominal radiograph earlier today FINDINGS: The absence of IV contrast limits sensitivity of this exam for the detection of soft tissue pathology Visualized thorax: Grossly normal Hepatobiliary system: Grossly normal Pancreas: Grossly normal Spleen: Grossly normal Adrenal glands: Grossly normal Genitourinary system: Urinary bladder is decompressed by Keene catheter. Kidneys are atrophic Gastrointestinal tract and appendix: Oral c ontrast is seen within the large bowel. Small bowel is decompressed. Enter ic suction tube terminates in the stomach. On the field marketing associate views the stomach is markedly less distended than on the abdominal radiograph earlier today. No obvious lesion is seen in the pylorus or the duodenum Ab dominal vascular structures: After scarring calcifications are scattered t hroughout the abdominal aorta and iliac arteries Peritoneum and re troperitoneum: No free fluid or free air. No omental or mesenteric masses . No abnormal lymph nodes. PAGE 1 Signed Report (CONTINUED) Name: BOOKER PIERRE ast : 1950 Age/S: 70 / M [address] [facility] Unit #: [id number] Loc: [place], [place] [address] Phys: Armida Glover Acct: [id number] Dis Date: Status: ADM IN PHONE #: [phone] Exam Date: 06/10/2020 1131 FAX #: [phone] Reason: non improving abd distention EXAMS: CPT CODE: [id number] CT ABD PELVIS W/O CONT 79604 < Continued> Musculoskeletal structures and abdominal wall: Degenerative changes are present in the spine IMPRESSION: The stomach is less distended than on the abdominal radiographs earlier today. No pyloric or duodenal mass to explain the gastric distention seen on the earlier today. No findings of bowel obstruction. Location: [facility] at 1156 Reported and signed by: Michael Mehta MD CC: Armida Glover; Jasper Eisenberg Technologist:Roxane Neville,RT(R),CT CTDI: DLP: Trnscb Date/Time: 06/10/2020 (1156) t.[email or web address].[email or web address] Orig Print D/T: S: 06/10/2020 (1579) PAGE 2 Signed Report [id number] 11:38:00* Test Item Value Reference Range Interpretation Comments GLUBED (test code = GLUBED) 379 mg/dL 74-106 H Performed by certified tool machine setup operator at [facility] - XR ABDOMEN AP 1 [id number] 09:50:00 FAX: Jasper Prince MD [phone] [place]: B St: ADM Name: BOOKER ROYAL [facility] : [birth year] Age/S: 70/M [address] [facility] Unit #: [id number] Loc: V.5004 [place] [address] Phys: Meek Lepe MD Acct: [id number] Dis Date: Status: ADM IN PHONE #: [phone] Exam Date: 06/10/2020914 FAX #: [phone] Reason: FOLLOW UP GASTRIC DISTENTION EXAMS: CPT CODE: [id number] XR ABDOMEN AP 1 V 81484 HISTORY: FOLLOW UP GASTRIC DISTEN TION TECHNIQUE: AP abdomen x-ray COMPARISON: Abdom inal radiograph the previous afternoon FINDINGS/ IMPRESSIO N: The stomach is markedly distended despite the presence of an enteri c suction tube. There is a paucity of gas in the remainder of the bowel. Degenerative changes of the spine and other musculoskeletal f indings are unchanged. Location: [facility] Signed by Michael Mehta MD on 06/10/2020 at 0950 Reported and signed by: Michael Mehta MD CC: Jasper Eisenberg Technologist: Irma Delong(Evangelina) Trnscrd Date/Time/By: 06/10/2020 (0950) : By: missael [id number] [facility] Print D/T: S: 06/10/2020 (3557) PAGE 1 Signed Report GLUBED 2020-06-10 07:16:00* Test Item Value Reference Range Interpretation Comments GLUBED (test code = GLUBED) 300 mg/dL 74-106 H Performed by certified tool machine setup operator at [facility] [id number] 06:23:00* Test Item Value Reference Range Interpretation Comments GLUBED (test code = GLUBED) 313 mg/dL 74-106 H Performed by certified tool machine setup operator at [facility] BASIC METABOLIC [id number] 05:45:00* Test Item Value Reference Range Interpretation Comments SODIUM (test code = NA) 149 mmol/L 136-145 H POTASSIUM (test code = K) 5.5 mmol/L 3.5-5.1 H CHLORIDE (test code = CL) 119.2 mmol/L 98-107 H CARBON DIOXIDE (test code = CO2) 23.0 mmol/L 21-32 N ANION GAP (test code = GAP) 12.3 10-20 N GLUCOSE (test code = GLU) 349 mg/dL 74-106 H BLOOD UREA NITROGEN (test code = BUN) 55 mg/dL 7-18 H GLOMERULAR FILTRATION RATE (test code = GFR) 52 mL/min >=60 Estimated GFR by using Modified MDRD formula.Chronic kidney disease is defined as either kidney damageor GFR <60 mL/min/1.73 m2 for >3 months. CREATININE (test code = CREAT) 1.36 mg/dL 0.7-1.3 H BUN/CREATININE RATIO (test code = BUN/CREA) 40.4 10-20 H CALCIUM (test code = CA) 7.9 mg/dL 8.5-10.1 L [id number] 00:58:00* Test Item Value Reference Range Interpretation Comments GLUBED (test code = GLUBED) 339 mg/dL 74-106 H Performed by certified tool machine setup operator at [facility] [id number] 20:39:00* Test Item Value Reference Range Interpretation Comments GLUBED (test code = GLUBED) 343 mg/dL 74-106 H Performed by certified tool machine setup operator at [facility] [id number] 16:58:00* Test Item Value Reference Range Interpretation Comments GLUBED (test code = GLUBED) 269 mg/dL 74-106 H Performed by certified tool machine setup operator at [facility] - XR ABDOMEN AP 1 [id number] 12:48:00 FAX: Jasper Prince MD [phone] [place]: B St: ADM Name: BOOKER ROYAL [facility] : [birth year] Age/S: 70/M [address] Unit #: [id number] Loc: [address] [place] [address] Phys: Meek Lepe MD Acct: [id number] Dis Date: Status: ADM IN PHONE #: [phone] Exam Date: 06/09/2020 1222 FAX #: [phone] Reason: BOWEL OBSTRUCTION EXAMS: CPT CODE: [id number] XR ABDOMEN AP 1 V 84489 HISTORY: BOWEL OBSTRUCTION TECHNIQUE: AP abdomen x-ray COMPARISON: Abdominal radiograph the previous morning FINDINGS/ IMPRESSION: The stomach remains markedly distended despite the presence of an enteric suction tube. There is a paucity of gas within the large and small bowel. No abnormal intra-abdominal calcifications. Degenerative changes of the spine appear similar to the previous exam. Location: [facility] at 8605 Reported and signed by: Michael Mehta MD CC: Jasper Eisenberg Technologist: Kathy Galindo RT(R) Trnscrd Date/Time/By: 06/09/2020 (2894) : By: [email or web address] Orig Print D/T: S: 06/09/2020 (5938) PAGE 1 Signed R eport [id number] 11:17:00* Test Item Value Reference Range Interpretation Comments GLUBED (test code = GLUBED) 255 mg/dL 74-106 H Performed by certified tool machine setup operator at [facility] BASIC METABOLIC [id number] 09:42:00* Test Item Value Reference Range Interpretation Comments SODIUM (test code = NA) 150 mmol/L 136-145 H POTASSIUM (test code = K) 4.4 mmol/L 3.5-5.1 N CHLORIDE (test code = CL) 120.0 mmol/L 98-107 H CARBON DIOXIDE (test code = CO2) 21.0 mmol/L 21-32 N ANION GAP (test code = GAP) 13.4 10-20 N GLUCOSE (test code = GLU) 308 mg/dL 74-106 H BLOOD UREA NITROGEN (test code = BUN) 53 mg/dL 7-18 H GLOMERULAR FILTRATION RATE (test code = GFR) 55 mL/min >=60 Estimated GFR by using Modified MDRD formula.Chronic kidney disease is defined as either kidney damageor GFR <60 mL/min/1.73 m2 for >3 months. CREATININE (test code = CREAT) 1.30 mg/dL 0.7-1.3 N BUN/CREATININE RATIO (test code = BUN/CREA) 42.1 10-20 H CALCIUM (test code = CA) 8.2 mg/dL 8.5-10.1 L [V.LAB. 06/09/20 0326]BASIC METABOLIC [id number] 09:35:00* Test Item Value Reference Range Interpretation Comments SODIUM (test code = NA) 150 mmol/L 136-145 H POTASSIUM (test code = K) 4.4 mmol/L 3.5-5.1 N CHLORIDE (test code = CL) 120.0 mmol/L 98-107 H CARBON DIOXIDE (test code = CO2) mmol/L 21-32 ANION GAP (test code = GAP) 10-20 GLUCOSE (test code = GLU) mg/dL 74-106 BLOOD UREA NITROGEN (test code = BUN) mg/dL 7-18 GLOMERULAR FILTRATION RATE (test code = GFR) mL/min >=60 CREATININE (test code = CREAT) mg/dL 0.7-1.3 BUN/CREATININE RATIO (test code = BUN/CREA) 10-20 CALCIUM (test code = CA) mg/dL 8.5-10.1 [V.LAB. 06/09/20 0326][id number] 07:31:00* Test Item Value Reference Range Interpretation Comments GLUBED (test code = GLUBED) 301 mg/dL 74-106 H Performed by certified tool machine setup operator at [facility] [id number] 06:28:00* Test Item Value Reference Range Interpretation Comments GLUBED (test code = GLUBED) 327 mg/dL 74-106 H Performed by certified tool machine setup operator at [facility] [id number] 00:16:00* Test Item Value Reference Range Interpretation Comments GLUBED (test code = GLUBED) 362 mg/dL 74-106 H Performed by certified tool machine setup operator at [facility] [id number] 20:41:00* Test Item Value Reference Range Interpretation Comments GLUBED (test code = GLUBED) 353 mg/dL 74-106 H Performed by certified tool machine setup operator at [facility] [id number] 18:50:00* Test Item Value Reference Range Interpretation Comments GLUBED (test code = GLUBED) 320 mg/dL 74-106 H Performed by certified tool machine setup operator at [facility] - XR INTRO LONG GI [id number] 16:41:00 FAX: Jasper Prince MD [phone] [place]: St: ADM Name: BOOKER ROYAL [facility] : [birth year] Age/S: 70/M [address] [facility] Unit #: [id number] Loc: [address] [place] [address] Phys: Randal Morel Acct: [id number] Dis Date: Status: ADM IN PHONE #: [phone] Exam Date: 06/08/2020 1412 FAX #: [phone] Reason: NG TUBE PLACEMENT EXAMS: CPT CODE: [id number] XR INTRO LONG GI TUBE 57550 REASON FOR EXAM:Gastric distention Location: [facility] PROCEDURE: Fluoroscopic placement of NG tube FINDINGS: Prior to the procedure, informed consent was obtained after risks and benefits of the procedure were explained to the patient. The patient agreed and wanted to proceed. The patient was brought to radiology. An NG tube was advanced to the left nasal cavity into the proxi mal stomach. After some manipulation, the NG tube was successfully a dvanced into the gastric antrum. IMPRESSION: NG tube is ready fo r use at 1641 Reported and signed by: Meek Lepe M.D. CC: Jasper Eisenberg Technologist: Roopa ALCALA RT(R) [facility] Date/Time/By: 05/26 (1525) : By: [email or web address] Orig Print D/T: S: 06/08/2020 (5307) PAGE 1 Signed Report [id number] 16:11:00* Test Item Value Reference Range Interpretation Comments GLUBED (test code = GLUBED) 255 mg/dL 74-106 H Performed by certified tool machine setup operator at [facility] [id number] 11:47:00* Test Item Value Reference Range Interpretation Comments GLUBED (test code = GLUBED) 300 mg/dL 74-106 H Performed by certified tool machine setup operator at [facility] - XR ABDOMEN AP 1 [id number] 10:30:00 FAX: Nav Gomez MD [phone] [place]: St: ADM FAX: Jasper Prince MD [phone] Name: BOOKER PIERRE [facility] : 1950 Age/S: 70/M [address] [facility] Unit #: [id number] Loc: V.[address] [place] [address] Phys: Nav Gleason MD Acct: [id number] Dis Date: Status: ADM IN PHONE #: [phone] Exam Date: 06/08/2020939 FAX #: [phone] Reason: ngt EXAMS: CPT CODE: [id number] XR ABDOMEN AP 1 V 19635 HISTORY: ngt TECHNIQUE: AP abdomen x-ray COMPARISON: Abdominal radiograph the previous afternoon FI NDINGS: The stomach is markedly distended. No enteric suction tube is se en. There is a paucity of gas in the remainder of the gastrointestinal tract. No abnormal calcifications are observed. Degenerative changes are present in the spine. Visualized thorax is within normal limits. IMPRESSION: Marked gastric distention. No enteric suction tube is present. Locat ion: [facility] at 10 30 Reported and signed by: Michael Mehta MD CC: Nav Gleason MD; Jasper Eisenberg Technologist: Leroy Rodriguez RT(R) Trnscrd Date/Time/By: 020 (1030) : By: [email or web address] Orig Print D/T: S: 06/08/2020 (1822) PAGE 1 Signed Report - XR CHEST 1 [id number] 10:27:00 FAX: Nav Gomez MD [phone] [place]: St: ADM FAX: Jasper Prince MD [phone] Name: BOOKER PIERRE [facility] : 1950 Age/S: 70/M [address] [facility] Unit #: [id number] Loc: V.[address] [place] [address] Phys: Nav Gleason MD Acct: [id number] Dis Date: Status: ADM IN PHONE #: [phone] Exam Date: 06/08/2020 0950 FAX #: [phone] Reason: NG TUBE PLACEMENT EXAMS: CPT CODE: [id number] XR CHEST 1 V 74096 REASON FOR EXAM: NG TUBE PLACEMENT Exam Order Date: 06/08/2020 4:29 PM Ordering M.DRitesh: Nav Gleason MD PROCEDURE: - XR CHEST 1 V COMPARISON: Chest x-ray the pr evious morning FINDINGS: The lungs are well inflated but c lear. There is no pleural effusion or pneumothorax. Pulmonary vascularity is within normal limits. Cardiomediastinal silhouette is enlarged but stable in size. The mediastinal contours are within normal limits. Degenerative changes are present in the spine. Stomach is markedly distended. No enteric suction tube is seen. IMPRESSION: No acute cardiopulmonary process. No enteric suction tube is seen. Location: [facility] at 1027 Reported and s igned by: Michael Mehta MD CC: Nav Gleason MD; Jasper Eisenberg Technologist: Rema Rodriguez RT(R) Trnscrd Date/Time/By: 06/08/2020 (1027) : By: [email or web address] PAGE 1 Signed Report BASIC METABOLIC [id number] 06:04:00* Test Item Value Reference Range Interpretation Comments SODIUM (test code = NA) 155 mmol/L 136-145 H POTASSIUM (test code = K) 4.5 mmol/L 3.5-5.1 N CHLORIDE (test code = CL) 125.0 mmol/L 98-107 H CARBON DIOXIDE (test code = CO2) 24.0 mmol/L 21-32 N ANION GAP (test code = GAP) 10.5 10-20 N GLUCOSE (test code = GLU) 267 mg/dL 74-106 H BLOOD UREA NITROGEN (test code = BUN) 65 mg/dL 7-18 H GLOMERULAR FILTRATION RATE (test code = GFR) 50 mL/min >=60 Estimated GFR by using Modified MDRD formula.Chronic kidney disease is defined as either kidney damageor GFR <60 mL/min/1.73 m2 for >3 months. CREATININE (test code = CREAT) 1.40 mg/dL 0.7-1.3 H BUN/CREATININE RATIO (test code = BUN/CREA) 47.1 10-20 H CALCIUM (test code = CA) 8.2 mg/dL 8.5-10.1 L [V.LAB. 06/08/20110][id number] 06:04:00* Test Item Value Reference Range Interpretation Comments PHOSPHORUS (test code = PHOS) 4.2 mg/dL 2.5-4.9 N [V.LAB. 06/08/20110][id number] 06:04:00* Test Item Value Reference Range Interpretation Comments MAGNESIUM (test code = MAG) 2.7 mg/dL 1.8-2.4 H [V.LAB. 06/08/20110]CALCIUM [id number] 06:04:00* Test Item Value Reference Range Interpretation Comments CALCIUM IONIZED (test code = PHILLIP) 1.25 mmol/L 1.12-1.32 N [V.LAB. 06/08/20 0111]CBC W/O [id number] 05:36:00* Test Item Value Reference Range Interpretation Comments WHITE BLOOD CELL (test code = WBC) 14.3 K/mm3 4.5-12.5 H RED BLOOD CELL (test code = RBC) 3.66 mill/mm3 4.0-5.8 L HEMOGLOBIN (test code = HGB) 10.9 gram/dL 13.0-17.5 L HEMATOCRIT (test code = HCT) 35.6 % 42.0-52.0 L MEAN CELL VOLUME (test code = MCV) 97.3 fL 80-98 N MEAN CELL HGB (test code = MCH) 29.8 picogram 27.0-33.0 N MEAN CELL HGB CONCETRATION (test code = MCHC) 30.6 gram/dL 33.0-36. 0 L RED CELL DISTRIBUTION WIDTH (test code = RDW) 15.1 % 11.6-16. 2 N PLATELET COUNT (test code = PLT) 336 K/mm3 150-450 N MEAN PLATELET VOLUME (test code = MPV) 9.9 fL 6.7-11.0 N [id number] 05:34:00* Test Item Value Reference Range Interpretation Comments GLUBED (test code = GLUBED) 270 mg/dL 74-106 H Performed by certified tool machine setup operator at [facility] BASIC METABOLIC [id number] 05:30:00* Test Item Value Reference Range Interpretation Comments SODIUM (test code = NA) mmol/L 136-145 POTASSIUM (test code = K) mmol/L 3.5-5.1 CHLORIDE (test code = CL) mmol/L 98-107 CARBON DIOXIDE (test code = CO2) mmol/L 21-32 ANION GAP (test code = GAP) 10-20 GLUCOSE (test code = GLU) mg/dL 74-106 BLOOD UREA NITROGEN (test code = BUN) mg/dL 7-18 GLOMERULAR FILTRATION RATE (test code = GFR) mL/min >=60 CREATININE (test code = CREAT) mg/dL 0.7-1.3 BUN/CREATININE RATIO (test code = BUN/CREA) 10-20 CALCIUM (test code = CA) mg/dL 8.5-10.1 [V.LAB. 06/08/20110][id number] 05:30:00* Test Item Value Reference Range Interpretation Comments PHOSPHORUS (test code = PHOS) mg/dL 2.5-4.9 [V.LAB. 06/08/20110][id number] 05:30:00* Test Item Value Reference Range Interpretation Comments MAGNESIUM (test code = MAG) mg/dL 1.8-2.4 [V.LAB. 06/08/20110]CALCIUM [id number] 05:30:00* Test Item Value Reference Range Interpretation Comments CALCIUM IONIZED (test code = PHILLIP) 1.25 mmol/L 1.12-1.32 N [V.LAB. 06/08/20110][id number] 23:09:00* Test Item Value Reference Range Interpretation Comments GLUBED (test code = GLUBED) 235 mg/dL 74-106 H Performed by certified tool machine setup operator at [facility] [id number] 20:24:00* Test Item Value Reference Range Interpretation Comments GLUBED (test code = GLUBED) 319 mg/dL 74-106 H Performed by certified tool machine setup operator at [facility] - XR ABDOMEN AP 1 [id number] 17:30:00 FAX: Nav Gomez MD [phone] [place]: St: ADM FAX: Jasper Prince MD [phone] Name: BOOKER PIERRE [facility] : 1950 Age/S: 70/M [address] [facility] Unit #: [id number] Loc: V.[address] [place] [address] Phys: Nav Gleason MD Acct: [id number] Dis Date: Status: ADM IN PHONE #: [phone] Exam Date: 06/07/2020 1540 FAX #: [phone] Reason: ngt placement EXAMS: CPT CODE: [id number] XR ABDOMEN AP 1 V 80752 EXAM: Abdomen, 2 views; INFORMATION: Gastric diste ntion, NG tube placement; IMPRESSION: 1. Significant gas tric distention; otherwise, unremarkable bowel gas pattern; residual con trast material is seen within the normal caliber colon. 2. No NG tube is identified on these 2 studies were which include most of the ch est. Location code: [facility] Signed by Samantha Taylor on 06/07/2020 at 1730 Reported and signed by: Lucio barker M.D. CC: Nav Gleason MD; Jasper Eisenberg Technologist: JOSTIN MONDRAGON; Steffany Tirado RT(R) Trnscrd Date/Time/By: 06/07/2020 (082) : By: EnocGRW Orig Print D/T: S: 06/07/2020 (9848) PAGE 1 Signed Report [id number] 16:41:00* Test Item Value Reference Range Interpretation Comments GLUBED (test code = GLUBED) 246 mg/dL 74-106 H Performed by certified tool machine setup operator at [facility] ARTERIAL BLOOD [id number] 13:02:00* Test Item Value Reference Range Interpretation Comments ARTERIAL BLOOD GAS PH (test code = PHA) 7.45 7.35-7.45 N ARTERIAL BLOOD GAS PCO2 (test code = PCO2A) 33.8 mm Hg 35-45 L ARTERIAL BLOOD GAS PO2 (test code = PO2A) 88.1 mmHg 80-100 N BICARBONATE TOTAL HCO3 (test code = HCO3) 23.1 mmol/L 23.0-27.0 N BASE EXCESS (test code = HERBERT) -0.5 mmol/L -3.0-5.0 N ABG O2 SATURATION (test code = SATA) 96.1 % 90.0-98.0 N ABG TYPE (test code = TYPEA) Arterial FIO2 (test code = FIO2A) 21.0 ABG SITE (test code = SITEA) Rt RADIAL ARTERY MODIFIED ALLENS (test code = MODALL) Yes CHECK PERFORMED HEMATOCRIT (test code = HCT/ABG) 31 % 42-52 L TOTAL HGB (test code = THB) 10.6 gram/dL 13.0-17.5 L HGB O2 SAT (test code = HBOSAT) 95.0 % 94.00-98.00 N CARBOXYHEMOGLOBIN (test code = HOHGBT) 0.4 %totalHg 0.5-1.5 LL Results called to and read back by Dr scott 13:01 - 06/07/2020; by [id number] METHEMOGLOBIN (test code = METHGB) 0.7 % 0.0-1.50 N O2 CONTENT (test code = O2CT) 14.3 % vol 18.0-22.0 L [id number] 11:46:00* Test Item Value Reference Range Interpretation Comments GLUBED (test code = GLUBED) 231 mg/dL 74-106 H Performed by certified tool machine setup operator at [facility] - XR CHEST 1 [id number] 09:46:00 FAX: Enrique Segovia [phone] [place]: B St: ADM FAX: Jasper Prince MD [phone] Name: BOOKER PIERRE [facility] : 1950 Age/S: 70/M [address] [facility] Unit #: [id number] Loc: V.[address] [place] [address] Phys: Enrique Segovia Acct: [id number] Dis Date: Status: ADM IN PHONE #: [phone] Exam Date: 06/07/2020 0850 FAX #: [phone] Reason: updated pulm view EXAMS: CPT CODE: [id number] XR CHEST 1 V 86339 REASON FOR EXAM: updated pulm view EXAM ORDER DATE: 06/07/2020 2:00 AM Ordering: CARMELA Kaur Attending:Denilson Morel Location:[facility] PROCEDURE: - XR CHEST 1 V COMPARISON: 06/06/2020 FINDINGS: Portable AP frontal view of the chest obtained at 8:56 AM shows clear lungs without evidence of consolidation. There is no evidence of effusion. The heart size is within normal limits. Pulmonary vasculatures are unremarkable. IMPRESSION: No active disease. Previously seen NG tube has been dislodged with the tip in the hypopharynx/proximal esophagus. at 0946 Reported and signed by: Meek Lepe M.D. CC: Enrique Segovia; Jasper Eisenberg Technologist: JONN MILES JR RT(R) Trnscrd Date/Time/By: 06/07/2020 (0946) : By: larisa GARCIA Orig Print D/T: S: 06/07/2020 (1144) P AGE 1 Signed Report BASIC METABOLIC [id number] 08:26:00* Test Item Value Reference Range Interpretation Comments SODIUM (test code = NA) 157 mmol/L 136-145 H Resu lts called to [id number] by VLUÍS 06/07/20 0824Critical results verified and read back by Nurse? Y POTASSIUM (test code = K) 4.4 mmol/L 3.5-5.1 N CHLORIDE (test code = CL) 125.0 mmol/L 98-107 H CARBON DIOXIDE (test code = CO2) 23.0 mmol/L 21-32 N ANION GAP (test code = GAP) 13.4 10-20 N GLUCOSE (test code = GLU) 342 mg/dL 74-106 H BLOOD UREA NITROGEN (test code = BUN) 60 mg/dL 7-18 H GLOMERULAR FILTRATION RATE (test code = GFR) 46 mL/min >=60 Estimated GFR by using Modified MDRD formula.Chronic kidney disease is defined as either kidney damageor GFR <60 mL/min/1.73 m2 for >3 months. CREATININE (test code = CREAT) 1.50 mg/dL 0.7-1.3 H BUN/CREATININE RATIO (test code = BUN/CREA) 40.8 10-20 H CALCIUM (test code = CA) 8.5 mg/dL 8.5-10.1 N ORDER NEEDS TO BE CANCELLED ORDER NEEDS TO BE CANCELLEDCBC W/O [id number] 08:22:00* Test Item Value Reference Range Interpretation Comments WHITE BLOOD CELL (test code = WBC) 12.6 K/mm3 4.5-12.5 H RED BLOOD CELL (test code = RBC) 3.54 mill/mm3 4.0-5.8 L HEMOGLOBIN (test code = HGB) 10.3 gram/dL 13.0-17.5 L HEMATOCRIT (test code = HCT) 33.4 % 42.0-52.0 L MEAN CELL VOLUME (test code = MCV) 94.4 fL 80-98 N MEAN CELL HGB (test code = MCH) 29.1 picogram 27.0-33.0 N MEAN CELL HGB CONCETRATION (test code = MCHC) 30.8 gram/dL 33.0-36. 0 L RED CELL DISTRIBUTION WIDTH (test code = RDW) 14.7 % 11.6-16. 2 N PLATELET COUNT (test code = PLT) 354 K/mm3 150-450 N MEAN PLATELET VOLUME (test code = MPV) 9.6 fL 6.7-11.0 N [id number] 07:44:00* Test Item Value Reference Range Interpretation Comments GLUBED (test code = GLUBED) 295 mg/dL 74-106 H Performed by certified tool machine setup operator at [facility] BASIC METABOLIC [id number] 06:09:00* Test Item Value Reference Range Interpretation Comments SODIUM (test code = NA) 157 mmol/L 136-145 H Resu lts called to [id number] by V.LAB.GP 06/07/20 0609Critical results verified and read back by Nurse? Y POTASSIUM (test code = K) 4.3 mmol/L 3.5-5.1 N CHLORIDE (test code = CL) 127.0 mmol/L 98-107 H CARBON DIOXIDE (test code = CO2) 22.0 mmol/L 21-32 N ANION GAP (test code = GAP) 12.3 10-20 N GLUCOSE (test code = GLU) 303 mg/dL 74-106 H BLOOD UREA NITROGEN (test code = BUN) 62 mg/dL 7-18 H GLOMERULAR FILTRATION RATE (test code = GFR) 50 mL/min >=60 Estimated GFR by using Modified MDRD formula.Chronic kidney disease is defined as either kidney damageor GFR <60 mL/min/1.73 m2 for >3 months. CREATININE (test code = CREAT) 1.40 mg/dL 0.7-1.3 H BUN/CREATININE RATIO (test code = BUN/CREA) 45.6 10-20 H CALCIUM (test code = CA) 8.6 mg/dL 8.5-10.1 N [id number] 06:09:00* Test Item Value Reference Range Interpretation Comments PHOSPHORUS (test code = PHOS) 3.8 mg/dL 2.5-4.9 N [id number] 06:09:00* Test Item Value Reference Range Interpretation Comments MAGNESIUM (test code = MAG) 2.8 mg/dL 1.8-2.4 H CALCIUM [id number] 06:09:00* Test Item Value Reference Range Interpretation Comments CALCIUM IONIZED (test code = PHILLIP) 1.24 mmol/L 1.12-1.32 N BASIC METABOLIC [id number] 06:06:00* Test Item Value Reference Range Interpretation Comments SODIUM (test code = NA) mmol/L 136-145 POTASSIUM (test code = K) mmol/L 3.5-5.1 CHLORIDE (test code = CL) mmol/L 98-107 CARBON DIOXIDE (test code = CO2) mmol/L 21-32 ANION GAP (test code = GAP) 10-20 GLUCOSE (test code = GLU) mg/dL 74-106 BLOOD UREA NITROGEN (test code = BUN) mg/dL 7-18 GLOMERULAR FILTRATION RATE (test code = GFR) mL/min >=60 CREATININE (test code = CREAT) mg/dL 0.7-1.3 BUN/CREATININE RATIO (test code = BUN/CREA) 10-20 CALCIUM (test code = CA) mg/dL 8.5-10.1 [id number] 06:06:00* Test Item Value Reference Range Interpretation Comments PHOSPHORUS (test code = PHOS) mg/dL 2.5-4.9 [id number] 06:06:00* Test Item Value Reference Range Interpretation Comments MAGNESIUM (test code = MAG) mg/dL 1.8-2.4 CALCIUM [id number] 06:06:00* Test Item Value Reference Range Interpretation Comments CALCIUM IONIZED (test code = PHILLIP) 1.24 mmol/L 1.12-1.32 N [id number] 06:01:00* Test Item Value Reference Range Interpretation Comments GLUBED (test code = GLUBED) 286 mg/dL 74-106 H Performed by certified tool machine setup operator at [facility] [id number] 23:55:00* Test Item Value Reference Range Interpretation Comments GLUBED (test code = GLUBED) 274 mg/dL 74-106 H Performed by certified tool machine setup operator at [facility] [id number] 18:27:00* Test Item Value Reference Range Interpretation Comments GLUBED (test code = GLUBED) 278 mg/dL 74-106 H Performed by certified tool machine setup operator at [facility] [id number] 16:20:00* Test Item Value Reference Range Interpretation Comments GLUBED (test code = GLUBED) 244 mg/dL 74-106 H Performed by certified tool machine setup operator at [facility] [id number] 12:00:00* Test Item Value Reference Range Interpretation Comments GLUBED (test code = GLUBED) 254 mg/dL 74-106 H Performed by certified tool machine setup operator at [facility] - XR CHEST 1 [id number] 09:09:00 FAX: Enrique Segovia [phone] [place]: B St: [facility] FAX: Jasper Prince MD [phone] Name: GABBYBOOKER [facility] : 1950 Age/S: 70/M [address] [facility] Unit #: [id number] Loc: V.5004 [place] [address] Phys: Enrique Segovia Acct: [id number] Dis Date: Status: ADM IN PHONE #: [phone] Exam Date: 06/06/2020 0900 FAX #: [phone] Reason: updated pulm view EXAMS: CPT CODE: [id number] XR CHEST 1 V 10220 HISTORY: Fall and syncopal episode. COMPARISON: Previous day. Location: TH. NG tube is noted however the tip cannot be seen due to technique. No acute infiltrates, effusion or congestion is noted. Cardiomegaly. Distended stomach with residual contrast within the fundus noted again. IMPRESSION: No acute infiltrates, effusion or congestion. NG tube tip is not visible due to technique. at 0909 Reported and signed by: Maxx Meyer M.D. CC: Enrique Segovia; Jasper Eisenberg Technologist: LYNN RAY RT(R) Trnscrd Date/Time/By: 06/06/2020 (908) : By: [email or web address] Orig Print D/T: S: 06/06/2020 (911) PAGE 1 Signed Report [id number] 07:50:00* Test Item Value Reference Range Interpretation Comments GLUBED (test code = GLUBED) 238 mg/dL 74-106 H Performed by certified tool machine setup operator at [facility] BASIC METABOLIC [id number] 06:36:00* Test Item Value Reference Range Interpretation Comments SODIUM (test code = NA) 155 mmol/L 136-145 H POTASSIUM (test code = K) 4.1 mmol/L 3.5-5.1 N CHLORIDE (test code = CL) 121.0 mmol/L 98-107 H CARBON DIOXIDE (test code = CO2) 26.0 mmol/L 21-32 N ANION GAP (test code = GAP) 12.1 10-20 N GLUCOSE (test code = GLU) 244 mg/dL 74-106 H BLOOD UREA NITROGEN (test code = BUN) 63 mg/dL 7-18 H GLOMERULAR FILTRATION RATE (test code = GFR) 50 mL/min >=60 Estimated GFR by using Modified MDRD formula.Chronic kidney disease is defined as either kidney damageor GFR <60 mL/min/1.73 m2 for >3 months. CREATININE (test code = CREAT) 1.40 mg/dL 0.7-1.3 H BUN/CREATININE RATIO (test code = BUN/CREA) 44.4 10-20 H CALCIUM (test code = CA) 8.7 mg/dL 8.5-10.1 N [id number] 06:36:00* Test Item Value Reference Range Interpretation Comments PHOSPHORUS (test code = PHOS) 4.5 mg/dL 2.5-4.9 N [id number] 06:36:00* Test Item Value Reference Range Interpretation Comments MAGNESIUM (test code = MAG) 2.9 mg/dL 1.8-2.4 H CALCIUM [id number] 06:36:00* Test Item Value Reference Range Interpretation Comments CALCIUM IONIZED (test code = PHILLIP) 1.26 mmol/L 1.12-1.32 N BASIC METABOLIC [id number] 06:08:00* Test Item Value Reference Range Interpretation Comments SODIUM (test code = NA) 155 mmol/L 136-145 H POTASSIUM (test code = K) 4.1 mmol/L 3.5-5.1 N CHLORIDE (test code = CL) 121.0 mmol/L 98-107 H CARBON DIOXIDE (test code = CO2) 26.0 mmol/L 21-32 N ANION GAP (test code = GAP) 12.1 10-20 N GLUCOSE (test code = GLU) 244 mg/dL 74-106 H BLOOD UREA NITROGEN (test code = BUN) 63 mg/dL 7-18 H GLOMERULAR FILTRATION RATE (test code = GFR) 50 mL/min >=60 Estimated GFR by using Modified MDRD formula.Chronic kidney disease is defined as either kidney damageor GFR <60 mL/min/1.73 m2 for >3 months. CREATININE (test code = CREAT) 1.40 mg/dL 0.7-1.3 H BUN/CREATININE RATIO (test code = BUN/CREA) 44.4 10-20 H CALCIUM (test code = CA) 8.7 mg/dL 8.5-10.1 N [id number] 06:08:00* Test Item Value Reference Range Interpretation Comments PHOSPHORUS (test code = PHOS) 4.5 mg/dL 2.5-4.9 N [id number] 06:08:00* Test Item Value Reference Range Interpretation Comments MAGNESIUM (test code = MAG) 2.9 mg/dL 1.8-2.4 H CALCIUM [id number] 06:08:00* Test Item Value Reference Range Interpretation Comments CALCIUM IONIZED (test code = PHILLIP) mmol/L 1.12-1.32 [id number] 05:33:00* Test Item Value Reference Range Interpretation Comments GLUBED (test code = GLUBED) 238 mg/dL 74-106 H Performed by certified tool machine setup operator at [facility] CBC W/O [id number] 04:21:00* Test Item Value Reference Range Interpretation Comments WHITE BLOOD CELL (test code = WBC) 12.7 K/mm3 4.5-12.5 H RED BLOOD CELL (test code = RBC) 3.56 mill/mm3 4.0-5.8 L HEMOGLOBIN (test code = HGB) 10.4 gram/dL 13.0-17.5 L HEMATOCRIT (test code = HCT) 33.7 % 42.0-52.0 L MEAN CELL VOLUME (test code = MCV) 94.7 fL 80-98 N MEAN CELL HGB (test code = MCH) 29.2 picogram 27.0-33.0 N MEAN CELL HGB CONCETRATION (test code = MCHC) 30.9 gram/dL 33.0-36. 0 L RED CELL DISTRIBUTION WIDTH (test code = RDW) 14.7 % 11.6-16. 2 N PLATELET COUNT (test code = PLT) 330 K/mm3 150-450 N MEAN PLATELET VOLUME (test code = MPV) 9.2 fL 6.7-11.0 N [id number] 00:44:00* Test Item Value Reference Range Interpretation Comments GLUBED (test code = GLUBED) 223 mg/dL 74-106 H Performed by certified tool machine setup operator at [facility] - XR ABDOMEN AP 1 [id number] 19:38:00 FAX: Juan Alberto Paniagua MD [phone] [place]: B St: [facility] FAX: Jasper Prince MD [phone] Name: BOOKER PIERRE [facility] : 1950 Age/S: 70/M [address] [facility] Unit #: [id number] Loc: V.5004 [place] [address] Phys: Juan Alberto Paniagua MD Acct: [id number] Dis Date: Status: ADM IN PHONE #: [phone] Exam Date: 06/05/20201921 FAX #: [phone] Reason: ILEUS EXAMS: CPT CODE: [id number] XR ABDOMEN AP 1 V 11036 HISTORY: Ileus and syncope. COMPARISON: X-ray from previous day Location: TH. Severely distended stoma ch noted again with residual contrast within the fundus. Residual contras t within the colon. No bowel obstruction. Phleboliths. DJD of the lumba r spine. IMPRESSION: Persistent severe distent ion of the stomach. No bowel obstruction. at 1938 Reported and sig good by: Maxx Meyer M.D. CC: Juan Alberto Paniagua MD; Jasper Barcenas Technologist: Dafne Iglesias RT(R); EDENILSON GAMEZ RT(R); ... Trnscrd Date/Time/By: 06/05/2020 (1937) : By: [email or web address] Orig Print D/T: S: 06/05/2020 (1940) PAGE 1 Signed Report [id number] 16:09:00* Test Item Value Reference Range Interpretation Comments GLUBED (test code = GLUBED) 238 mg/dL 74-106 H Performed by certified tool machine setup operator at [facility] [id number] 11:54:00* Test Item Value Reference Range Interpretation Comments GLUBED (test code = GLUBED) 293 mg/dL 74-106 H Performed by certified tool machine setup operator at [facility] - XR CHEST 1 [id number] 09:08:00 FAX: Enrique Segvoia [phone] [place]: B St: ADM FAX: Jasper Prince MD [phone] Name: BOOKER PIERRE [facility] : 1950 Age/S: 70/M Justine Blake Unit #: [id number] Loc: V.5004 [place] [address] Phys: Enrique Segovia Acct: [id number] Dis Date: Status: ADM IN PHONE #: [phone] Exam Date: 06/05/2020 0840 FAX #: [phone] Reason: updated pulm view EXAMS: CPT CODE: [id number] XR CHEST 1 V 50152 EXAM: Chest x-ray, one view; INFORMATION: Status post fall, syncopal episode; IMPRESSION: 1. No significant change; no acute cardiothoracic abnormalities. 2. Residual contrast material is seen within the gastric fundus; well-positioned NG tube. Location code: [facility] at 0908 Reported and signed by: Lucio Taylor M.D. CC: Enrique Segovia; Jasper Eisenberg Technologist: LYNN ROCHE(Evangelina) Trnscrd Date/Time/By: 06/05/2020 (0908) : By: EnocGRW Orig Print D/T: S: 06/05/2020 (0911) PAGE 1 Signed Report [id number] 07:28:00* Test Item Value Reference Range Interpretation Comments GLUBED (test code = GLUBED) 299 mg/dL 74-106 H Performed by certified tool machine setup operator at [facility] [id number] 06:11:00* Test Item Value Reference Range Interpretation Comments GLUBED (test code = GLUBED) 284 mg/dL 74-106 H Performed by certified tool machine setup operator at [facility] BASIC METABOLIC [id number] 05:43:00* Test Item Value Reference Range Interpretation Comments SODIUM (test code = NA) 153 mmol/L 136-145 H POTASSIUM (test code = K) 3.9 mmol/L 3.5-5.1 N CHLORIDE (test code = CL) 118.0 mmol/L 98-107 H CARBON DIOXIDE (test code = CO2) 27.0 mmol/L 21-32 N ANION GAP (test code = GAP) 11.9 10-20 N GLUCOSE (test code = GLU) 294 mg/dL 74-106 H BLOOD UREA NITROGEN (test code = BUN) 53 mg/dL 7-18 H GLOMERULAR FILTRATION RATE (test code = GFR) 50 mL/min >=60 Estimated GFR by using Modified MDRD formula.Chronic kidney disease is defined as either kidney damageor GFR <60 mL/min/1.73 m2 for >3 months. CREATININE (test code = CREAT) 1.40 mg/dL 0.7-1.3 H BUN/CREATININE RATIO (test code = BUN/CREA) 37.3 10-20 H CALCIUM (test code = CA) 8.4 mg/dL 8.5-10.1 L BASIC METABOLIC [id number] 05:42:00* Test Item Value Reference Range Interpretation Comments SODIUM (test code = NA) 153 mmol/L 136-145 H POTASSIUM (test code = K) 3.9 mmol/L 3.5-5.1 N CHLORIDE (test code = CL) 118.0 mmol/L 98-107 H CARBON DIOXIDE (test code = CO2) mmol/L 21-32 ANION GAP (test code = GAP) 10-20 GLUCOSE (test code = GLU) mg/dL 74-106 BLOOD UREA NITROGEN (test code = BUN) mg/dL 7-18 GLOMERULAR FILTRATION RATE (test code = GFR) mL/min >=60 CREATININE (test code = CREAT) mg/dL 0.7-1.3 BUN/CREATININE RATIO (test code = BUN/CREA) 10-20 CALCIUM (test code = CA) mg/dL 8.5-10.1 [id number] 02:37:00* Test Item Value Reference Range Interpretation Comments PHOSPHORUS (test code = PHOS) 3.0 mg/dL 2.5-4.9 N [id number] 02:37:00* Test Item Value Reference Range Interpretation Comments MAGNESIUM (test code = MAG) 2.8 mg/dL 1.8-2.4 H CALCIUM [id number] 02:37:00* Test Item Value Reference Range Interpretation Comments CALCIUM IONIZED (test code = PHILLIP) 1.27 mmol/L 1.12-1.32 N BASIC METABOLIC [id number] 02:37:00* Test Item Value Reference Range Interpretation Comments SODIUM (test code = NA) 152 mmol/L 136-145 H POTASSIUM (test code = K) 3.6 mmol/L 3.5-5.1 N CHLORIDE (test code = CL) 118.0 mmol/L 98-107 H CARBON DIOXIDE (test code = CO2) 28.0 mmol/L 21-32 N ANION GAP (test code = GAP) 9.6 10-20 L GLUCOSE (test code = GLU) 324 mg/dL 74-106 H BLOOD UREA NITROGEN (test code = BUN) 56 mg/dL 7-18 H GLOMERULAR FILTRATION RATE (test code = GFR) 50 mL/min >=60 Estimated GFR by using Modified MDRD formula.Chronic kidney disease is defined as either kidney damageor GFR <60 mL/min/1.73 m2 for >3 months. CREATININE (test code = CREAT) 1.40 mg/dL 0.7-1.3 H BUN/CREATININE RATIO (test code = BUN/CREA) 38.6 10-20 H CALCIUM (test code = CA) 8.6 mg/dL 8.5-10.1 N CBC W/O [id number] 02:28:00* Test Item Value Reference Range Interpretation Comments WHITE BLOOD CELL (test code = WBC) 11.4 K/mm3 4.5-12.5 N RED BLOOD CELL (test code = RBC) 3.27 mill/mm3 4.0-5.8 L HEMOGLOBIN (test code = HGB) 9.7 gram/dL 13.0-17.5 L HEMATOCRIT (test code = HCT) 30.6 % 42.0-52.0 L MEAN CELL VOLUME (test code = MCV) 93.6 fL 80-98 N MEAN CELL HGB (test code = MCH) 29.7 picogram 27.0-33.0 N MEAN CELL HGB CONCETRATION (test code = MCHC) 31.7 gram/dL 33.0-36. 0 L RED CELL DISTRIBUTION WIDTH (test code = RDW) 14.9 % 11.6-16. 2 N PLATELET COUNT (test code = PLT) 326 K/mm3 150-450 N MEAN PLATELET VOLUME (test code = MPV) 9.3 fL 6.7-11.0 N [id number] 02:26:00* Test Item Value Reference Range Interpretation Comments PHOSPHORUS (test code = PHOS) mg/dL 2.5-4.9 [id number] 02:26:00* Test Item Value Reference Range Interpretation Comments MAGNESIUM (test code = MAG) 2.8 mg/dL 1.8-2.4 H CALCIUM [id number] 02:26:00* Test Item Value Reference Range Interpretation Comments CALCIUM IONIZED (test code = PHILLIP) 1.27 mmol/L 1.12-1.32 N BASIC METABOLIC [id number] 02:26:00* Test Item Value Reference Range Interpretation Comments SODIUM (test code = NA) 152 mmol/L 136-145 H POTASSIUM (test code = K) 3.6 mmol/L 3.5-5.1 N CHLORIDE (test code = CL) 118.0 mmol/L 98-107 H CARBON DIOXIDE (test code = CO2) mmol/L 21-32 ANION GAP (test code = GAP) 10-20 GLUCOSE (test code = GLU) mg/dL 74-106 BLOOD UREA NITROGEN (test code = BUN) mg/dL 7-18 GLOMERULAR FILTRATION RATE (test code = GFR) mL/min >=60 CREATININE (test code = CREAT) mg/dL 0.7-1.3 BUN/CREATININE RATIO (test code = BUN/CREA) 10-20 CALCIUM (test code = CA) mg/dL 8.5-10.1 [id number] 02:19:00* Test Item Value Reference Range Interpretation Comments PHOSPHORUS (test code = PHOS) mg/dL 2.5-4.9 [id number] 02:19:00* Test Item Value Reference Range Interpretation Comments MAGNESIUM (test code = MAG) mg/dL 1.8-2.4 CALCIUM [id number] 02:19:00* Test Item Value Reference Range Interpretation Comments CALCIUM IONIZED (test code = PHILLIP) 1.27 mmol/L 1.12-1.32 N [id number] 00:07:00* Test Item Value Reference Range Interpretation Comments GLUBED (test code = GLUBED) 293 mg/dL 74-106 H Performed by certified tool machine setup operator at [facility] [id number] 20:33:00* Test Item Value Reference Range Interpretation Comments GLUBED (test code = GLUBED) 229 mg/dL 74-106 H Performed by certified tool machine setup operator at [facility] [id number] 18:15:00* Test Item Value Reference Range Interpretation Comments GLUBED (test code = GLUBED) 208 mg/dL 74-106 H Performed by certified tool machine setup operator at [facility] [id number] 16:41:00* Test Item Value Reference Range Interpretation Comments GLUBED (test code = GLUBED) 191 mg/dL 74-106 H Performed by certified tool machine setup operator at [facility] - XR ABDOMEN AP 1 [id number] 14:28:00 FAX: Armida Glover [phone] [place]: St: [facility] FAX: Jasper Prince MD [phone] Name: BOOKER PIERRE [facility] : 1950 Age/S: 70/M [address] [facility] Unit #: [id number] Loc: V.5004 [place] [address] Phys: Armida Glover Acct: [id number] Dis Date: Status: ADM IN PHONE #: [phone] Exam Date: 06/04/2020 1415 FAX #: [phone] Reason: ileus status EXAMS: CPT CODE: [id number] XR ABDOMEN AP 1 V 09745 HISTORY: ileus status TECHNIQUE: AP abdomen x-ray COMPARISON: None FINDINGS: Nonobstructive bowel gas pattern. No significant stool burden. However there is marked gaseous distention of the stomach despite the presence of an enteric sucti on tube. No intra-abdominal mass effect. No abnorma l calcifications are observed. Degenerative changes are present i n the spine infiltrate. Visualized thorax is within normal limits. IMPRESSION: Marked gaseous distention of the stomach despite the presence of enteric suction tube. Location: [facility] at 1428 Reported and signed by: Michael Mehta MD CC: Armida Glover; Jasper Eisenberg Technologist: NICOLE ALCALA, RT(R); Rema Rodriguez RT(R) Trnscrd Date/Time/By: 08/2020 (0610) : By: [email or web address] Orig Print D/T: S: 06/04/2020 (1817) PAGE 1 Signed Report [id number] 14:11:00* Test Item Value Reference Range Interpretation Comments GLUBED (test code = GLUBED) 270 mg/dL 74-106 H Performed by certified tool machine setup operator at [facility] [id number] 12:26:00* Test Item Value Reference Range Interpretation Comments GLUBED (test code = GLUBED) 261 mg/dL 74-106 H Performed by certified tool machine setup operator at [facility] - XR CHEST 1 [id number] 07:38:00 FAX: Enrique Segovia [phone] [place]: B St: ADM FAX: Jasper Prince MD [phone] Name: BOOKER PIERRE [facility] : 1950 Age/S: 70/M [address] [facility] Unit #: [id number] Loc: V.S20 [place] [address] Phys: Enrique Segovia Acct: [id number] Dis Date: Status: ADM IN PHONE #: [phone] Exam Date: 06/04/2020 0539 FAX #: [phone] Reason: updated pulm view EXAMS: CPT CODE: [id number] XR CHEST 1 V 99280 CLINICAL HISTORY: updated pulm view TECHNIQUE: AP chest x-ray COMPARISON: Previous day. IMPRESSION: No significant interval change. Low lung volumes. No airspace consolidation or pleural effusion. Cardiomegaly. Enteric tube positioned within the stomach. LOCATION: [facility] at 0738 Reported and signed by: Ashley Boateng D.O. CC: Enrique Segovia; Jasper Eisenberg Technologist: JONN MILES JR RT(R) Trnscrd Date/Time/By: 06/04/2020 (07) : By: [email or web address] Orig Print D/T: S: 06/04/2020 (5941) PAGE 1 Signed Report [id number] 05:36:00* Test Item Value Reference Range Interpretation Comments PHOSPHORUS (test code = PHOS) 3.7 mg/dL 2.5-4.9 N [id number] 05:36:00* Test Item Value Reference Range Interpretation Comments MAGNESIUM (test code = MAG) 2.8 mg/dL 1.8-2.4 H CALCIUM [id number] 05:36:00* Test Item Value Reference Range Interpretation Comments CALCIUM IONIZED (test code = PHILLIP) 1.26 mmol/L 1.12-1.32 N COMPREHENSIVE METABOLIC [id number] 04:35:00* Test Item Value Reference Range Interpretation Comments SODIUM (test code = NA) 148 mmol/L 136-145 H RESU LT VERIFIED BY REPEAT ANALYSIS POTASSIUM (test code = K) 4.1 mmol/L 3.5-5.1 N CHLORIDE (test code = CL) 116.0 mmol/L 98-107 H CARBON DIOXIDE (test code = CO2) 25.0 mmol/L 21-32 N ANION GAP (test code = GAP) 11.1 10-20 N GLUCOSE (test code = GLU) 283 mg/dL 74-106 H BLOOD UREA NITROGEN (test code = BUN) 54 mg/dL 7-18 H GLOMERULAR FILTRATION RATE (test code = GFR) 46 mL/min >=60 Estimated GFR by using Modified MDRD formula.Chronic kidney disease is defined as either kidney damageor GFR <60 mL/min/1.73 m2 for >3 months. CREATININE (test code = CREAT) 1.50 mg/dL 0.7-1.3 H BUN/CREATININE RATIO (test code = BUN/CREA) 35.5 10-20 H TOTAL PROTEIN (test code = PROT) 6.7 gram/dL 6.4-8.2 N ALBUMIN (test code = ALB) 3.1 g/dL 3.4-5.0 L GLOBULIN (test code = GLOB) 3.6 gram/dL 2.7-4.2 N ALBUMIN/GLOBULIN RATIO (test code = A/G) 0.9 0.75-1.50 N CALCIUM (test code = CA) 8.5 mg/dL 8.5-10.1 N BILIRUBIN TOTAL (test code = BILT) 0.60 mg/dL 0.0-1.0 N SGOT/AST (test code = AST) 20 IUnit/L 15-37 N SGPT/ALT (test code = ALT) 35 IUnit/L 12-78 N ALKALINE PHOSPHATASE TOTAL (test code = ALKP) 63 IUnit/L 45-117 N Note change in reference range due to change in reagent. [id number] 03:42:00* Test Item Value Reference Range Interpretation Comments PHOSPHORUS (test code = PHOS) mg/dL 2.5-4.9 [id number] 03:42:00* Test Item Value Reference Range Interpretation Comments MAGNESIUM (test code = MAG) mg/dL 1.8-2.4 CALCIUM [id number] 03:42:00* Test Item Value Reference Range Interpretation Comments CALCIUM IONIZED (test code = PHILLIP) 1.26 mmol/L 1.12-1.32 N CBC W/O [id number] 03:27:00* Test Item Value Reference Range Interpretation Comments WHITE BLOOD CELL (test code = WBC) 14.4 K/mm3 4.5-12.5 H RED BLOOD CELL (test code = RBC) 3.37 mill/mm3 4.0-5.8 L HEMOGLOBIN (test code = HGB) 10.0 gram/dL 13.0-17.5 L HEMATOCRIT (test code = HCT) 31.1 % 42.0-52.0 L MEAN CELL VOLUME (test code = MCV) 92.3 fL 80-98 N MEAN CELL HGB (test code = MCH) 29.7 picogram 27.0-33.0 N MEAN CELL HGB CONCETRATION (test code = MCHC) 32.2 gram/dL 33.0-36. 0 L RED CELL DISTRIBUTION WIDTH (test code = RDW) 14.9 % 11.6-16. 2 N PLATELET COUNT (test code = PLT) 321 K/mm3 150-450 N MEAN PLATELET VOLUME (test code = MPV) 8.8 fL 6.7-11.0 N [id number] 22:14:00* Test Item Value Reference Range Interpretation Comments GLUBED (test code = GLUBED) 226 mg/dL 74-106 H Performed by certified tool machine setup operator at [facility] ARTERIAL BLOOD [id number] 19:38:00* Test Item Value Reference Range Interpretation Comments ARTERIAL BLOOD GAS PH (test code = PHA) 7.34 7.35-7.45 L ARTERIAL BLOOD GAS PCO2 (test code = PCO2A) 40.0 mm Hg 35-45 N ARTERIAL BLOOD GAS PO2 (test code = PO2A) 170.0 mmHg 80-100 H BICARBONATE TOTAL HCO3 (test code = HCO3) 20.9 mmol/L 23.0-27.0 L BASE EXCESS (test code = HERBERT) -4.6 mmol/L -3.0-5.0 LL Results called to and read back by Yannick : - 06/03/2020; by [id number] ABG O2 SATURATION (test code = SATA) 98.5 % 90.0-98.0 H ABG TYPE (test code = TYPEA) Arterial FIO2 (test code = FIO2A) 50.0 ABG VENT MODE (test code = MODEA) BiPAP ABG VENT RESP RATE (test code = RRA) 14.0 per min ABG PEEP (test code = PEEPA) 5.0 cmH2O ABG SITE (test code = SITEA) Rt RADIAL ARTERY MODIFIED ALLENS (test code = MODALL) Unable CHECK PERFORMED HEMATOCRIT (test code = HCT/ABG) 35 % 42-52 L TOTAL HGB (test code = THB) 11.9 gram/dL 13.0-17.5 L HGB O2 SAT (test code = HBOSAT) 98.2 % 94.00-98.00 H CARBOXYHEMOGLOBIN (test code = HOHGBT) 0.2 %totalHg 0.5-1.5 LL Results called to and read back by Yannick 06/03/2020; by [id number] METHEMOGLOBIN (test code = METHGB) 0.1 % 0.0-1.50 N O2 CONTENT (test code = O2CT) 16.8 % vol 18.0-22.0 L ARTERIAL BLOOD [id number] 19:37:00* Test Item Value Reference Range Interpretation Comments ARTERIAL BLOOD GAS PH (test code = PHA) 7.08 7.35-7.45 L L Results called to and read back by Jake 06/03/2020; by [id number] ARTERIAL BLOOD GAS PCO2 (test code = PCO2A) 89.2 mm Hg 35-45 HH Results called to and read back by Jake 06/03/2020; by [id number] ARTERIAL BLOOD GAS PO2 (test code = PO2A) 115.6 mmHg 80-100 H BICARBONATE TOTAL HCO3 (test code = HCO3) 26.0 mmol/L 23.0-27.0 N BASE EXCESS (test code = HERBERT) -5.9 mmol/L -3.0-5.0 LL Results called to and read back by Jake 06/03/2020; by [id number] ABG O2 SATURATION (test code = SATA) 96.3 % 90.0-98.0 N ABG TYPE (test code = TYPEA) Arterial FIO2 (test code = FIO2A) 34.0 ABG SITE (test code = SITEA) Rt RADIAL ARTERY MODIFIED ALLENS (test code = MODALL) Unable CHECK PERFORMED HEMATOCRIT (test code = HCT/ABG) 38 % 42-52 L TOTAL HGB (test code = THB) 13.0 gram/dL 13.0-17.5 N HGB O2 SAT (test code = HBOSAT) 95.3 % 94.00-98.00 N CARBOXYHEMOGLOBIN (test code = HOHGBT) 0.3 %totalHg 0.5-1.5 LL Results called to and read back by Jake 06/03/2020; by [id number] METHEMOGLOBIN (test code = METHGB) 0.7 % 0.0-1.50 N O2 CONTENT (test code = O2CT) 17.6 % vol 18.0-22.0 L [id number] 16:06:00* Test Item Value Reference Range Interpretation Comments GLUBED (test code = GLUBED) 244 mg/dL 74-106 H Performed by certified tool machine setup operator at [facility] INTERVERTEBRAL [id number] 15:48:00 RUN DATE: 06/03/20 [place] - Lab PAGE 1 RUN TIME: 1548 Specimen Inqui ry RUN USER: INTERFACE PATIENT: BOOKER PIERRE ACCT #: [id number] LOC: [place] U #: [id number] AGE/SX: 70/M ROOM: [facility] RE05/25/20REG DR: Rik Morel : 50 BED: A DIS: STATUS: ADM IN TLOC: SPEC #: [id number] RECD: 06/01/20-1312 STATUS: LAKSHMI REQ #: [id number] MYLES: 06/01/20- SUBM DR: Rik Morel ENTERED: 06/01/20-131 SP TYPE: INT DISC OTHR DR: Sheila Zarate MD, Salman A MD Lee,David Pek Tiwari DO Jamie Rust MD, Durga P MD Vasquez Donado, Andres F MDORDERED: GROSS COPIES TO: Maria TeresaHorosalind Escoto [address] [place] [address] [place] [address] [facility], [address] [place] [address] Pili Crockett MD [address] [facility] [address] [place] [address] Sherley rizo,David Pek Tiwari DO [address] [place] [address] [phone] Jamie Rust MD [address] [place] [address] Jasper Eisenberg MD [address] [facility] [address] [place] [address] Gordon Priest MD [address] [facility] [address] [place] [address] CONTINUED ON NEXT PAGE RUN DATE: 06/03/20 [place] PAGE 2 RUN TIME: 1548 Specimen Inquiry RUN USER: INTERFACE SPEC #: [id number] LIMAAMNA T: BOOKER PIERRE #[id number] (Continued) PROCEDU RES: GROSS (06/03/20-104) TISSUES: CERVICAL VERTEBRA, NOS - DISC CLINICAL HISTORY COLLECTION DATE: 06/01/2020 CERVICAL SPONDYLOSIS W /MYELOPATHY AND CORD CONTUSION FINAL DIAGNOSIS Cervical disc material , C3-C5, discectomy: CARTILAGE WITH DEGENERATIVE CHANGE SMALL FRAG MENTS OF UNREMARKABLE TRABECULAR BONE NEGATIVE FOR MALIGNANCY R RB/pino D [address], [address] MACROSCOPIC GROSS PERFORMED AT [facility] [address] [place] [address] [id number] [phone] MICROSCOPIC The specimen is r eceived in formalin, labeled with the patient's name, and is identified as "Ce rvical disc". It consists of irregular fragments of hennessy/light-pink fibrous ti ssue and small fragments of bone. The specimen measures 3.5 x 3.5 x 0.6 cm in aggregate. Sensitometrist portions of tissue are submitted for decalcificati on and followup histologic evaluation in a single cassette. GROSS PERFOR MED AT [facility] [address] [place] [address] ([phone] CONTINUED ON NEXT PAGE RUN DATE: 06/03/20 [facility] PAGE 3 RUN TIME: 1548 Specimen Inquiry RUN USER: INTERFACE SPEC #: [id number] PATIENT: BOOKER PIERRE #[id number] (Contin ued) PERFORMING SITE Diagnosis performed at: [facility] [address] [place] [address] Sig good SIGNATURE ON FILE Josef Nuno MD 06/03/20 1548 END OF REPORT - XR CHEST 1 [id number] 15:25:00 FAX: Jasper Prince MD [phone] [place]: St: ADM Name: BOOKER ROYAL [facility] : [birth year] Age/S: 70/M [address] [facility] Unit #: [id number] Loc: [id number].[address] [place] [address] Phys: Randal Morel Acct: [id number] Dis Date: Status: ADM IN PHONE #: [phone] Exam Date: 06/03/2020 1523 FAX #: [phone] Reason: DIFFICULTY BREATHING EXAMS: CPT CODE: [id number] XR CHEST 1 V [id number] REASON FOR EXAM: DIFFICULTY BREATHING Exam Order Date: 06/03/2020 2:56 PM Ordering M.DRitesh: Denilson Morel PROCEDURE: - XR CHEST 1 V COMPARISON: Chest x-ray May 25, 2020 FINDINGS: The lungs are hypoinflated with mild subsegmental atelectasis in the lung bases. There is no pleural effusion or pneumothorax. Pulmonary vascu larity is within normal limits. Cardiomediastinal silhouette appea rs prominent however this may be due to diminished lung volumes. The media stinal contours are within normal limits. Degenerative carter es are present in the spine. The visualized upper abdomen is withi n normal limits. IMPRESSION: No acute cardiopulm onary process. Location: [facility] at 1525 Reported and si gned by: Michael Mehta MD CC: Jasper Eisenberg Technologist: JOSTIN MONDRAGON Trnscrd Date/Time/By: 06/03/2020 (9721) : By: [email or web address] Orig Print D/T: S: 06/03/2020 (1298) PAGE 1 Signed Report [id number] 15:04:00* Test Item Value Reference Range Interpretation Comments GLUBED (test code = GLUBED) 219 mg/dL 74-106 H Performed by certified tool machine setup operator at [facility] [id number] 13:23:00* Test Item Value Reference Range Interpretation Comments GLUBED (test code = GLUBED) 228 mg/dL 74-106 H Performed by certified tool machine setup operator at [facility] - CT ABD PELVIS W/O [id number] 12:59:00 Name: BOOKER PIERRE [facility] : 1950 Age[facility]S: 70 / [facility] [address] [facility]: [id number] Loc: [place] [address] Phys: Kaelyn Crockett MD Acct: [id number] Dis Date: Status: ADM IN PHONE #: [phone] Exam Date: 06/03/2020 1237 FAX #: [phone] Reason: ABDOMINAL DISTENTION EXAMS: CPT CODE: [id number] CT ABD PELVIS W/O CONT 67066 HISTORY: Abdominal distention. COMPARISON: None available. Location: [facility]. CT of abdomen and pelvis: Stone protocol. Automated exposure control. CT of abdomen: The lung bases demonstrating dependent changes. Hepatic parenchyma is extensively obscured by artifact from patient's overlying arms as well as from the barium within the stomach. No gross lesions. Liver measured 14.2 cm in length. Unremarkable spleen which is also extensively obscured by artifact from the gastric barium within the fundus. The stomach demonstrating barium within gastric fundus resulting in extensive artifact. Rest of the stomach is severely distended with air. Etiology is not clear. No obstructing lesion in the pyloric channel or the duodenum. The duodenum is fluid-filled and mildly distended as well. Placement of NG tube recommended. Noncontrast pancreas is displaced posteriorly well-distended stomach otherwise is unremarkable. Adrenals are normal. Kidneys are free from hydrour eteronephrosis. No calyceal stones. Moderate atrophy. Mild fullness of the right collecting system. No pathologic adenopathy. Mild atheroscl erotic change of the abdominal and pelvic vasculature. No lynn wel obstruction or colitis or diverticulitis or enteritis. CT PELV IS: Appendix is normal. Pelvic bowel loops are unobstructed. No co litis or diverticulitis or enteritis. Well-distended urinary bladder. Prostate is measuring 4.5 cm. No pelvic pathologic adenopathy. No free fluid or free air. Subcutaneous tissues and the musculature are normal in appearance. No lytic or blastic lesions visible within the bony skeleton. DJD. PAGE 1 Signed Report (CONTINUED) Name: BOOKER PIERRE [facility] : 1950 Age/S: 70 / M [address] [facility] Unit #: [id number] Loc: [place] [address] Phys: Kaelyn Crockett MD Acct: [id number] Dis Date: Status: ADM IN PHONE #: [phone] Exam Date: 06/03/2020 1237 FAX #: [phone] Reason: ABDOMINAL DISTENTION EXAMS: CPT CODE: [id number] ABD PELVIS W/O CONT 45139 <Continued> IMPRESSION: Markedly distended air-filled st omach of unclear etiology. This no obstructing lesion within the pyloric channel or within the duodenum. This duodenum is fluid-filled and mildly distended. Residual barium within the fundus is resulting in extensive streak artifact. Placement of NG tube recommended. No bowel obstruction or colitis or diverticulitis or enteritis. Mild diverticulosis of the c olon. No free fluid or free air. Atrophied kidneys wit hout hydroureteronephrosis or calyceal stones. No pathologic adenopathy. Moderately distended urinary bladder resulting in mild fullness of the right collecting system. at 1259 Reported and signed by: Maxx cloud M.D. CC: Kaelyn Crockett MD; Jasper Eisenberg Technologist:Rios Preston RT(R),(MR),(CT) CTDI: DLP: Trnscb Date/Time: 06/03/2020 (1259) [email or web address] Orig Print D/T: S: 06/03/2020 (5250) PAGE 2 Signed Report - XR SWLW FUNC W/C [id number] 11:53:00 FAX: Jasper Prince MD [phone] [place]: B St: ADM Name: BOOKER ROYAL [facility] : [birth year] Age/S: 70/M [address] Unit #: [id number] Loc: V.5016 [place] [address] Phys: Randal Morel Acct: [id number] Dis Date: Status: ADM IN PHONE #: [phone] Exam Date: 06/03/2020 1120 FAX #: [phone] Reason: DIFFICULTY SWALLOWING EXAMS: CPT CODE: [id number] XR SWLW FUNC W/C V 33090 HISTORY: Difficulty swallowing. COMPARISON: None available. This study was performed in concert with the speech pathologist. Varying grades of barium were administered. Silent aspiration on thin and nectar thick liquids. Penetration with all consistencies. IMPRESSION: Silent aspiration on thin and nectar thick liquids. Penetration with all consistencies. For detailed evaluation please see the accompanying sheet provided by the speech therapist. Fluoroscopy time utilized was 122.4 seconds. at 1153 Reported and signed by: Maxx Meyer M.D. CC: Jasper Eisenberg Technologist: HERIBERTO VILLA) Trnscrd Date/Time/By: 06/03/2020 (1153) : By: [email or web address] Orig Print D/T: S: 06/03/2020 (1090) PAGE 1 Signed Report [id number] 08:02:00* Test Item Value Reference Range Interpretation Comments GLUBED (test code = GLUBED) 214 mg/dL 74-106 H Performed by certified tool machine setup operator at [facility] BASIC METABOLIC [id number] 04:54:00* Test Item Value Reference Range Interpretation Comments SODIUM (test code = NA) 143 mmol/L 136-145 N POTASSIUM (test code = K) 3.7 mmol/L 3.5-5.1 N CHLORIDE (test code = CL) 113.0 mmol/L 98-107 H CARBON DIOXIDE (test code = CO2) 22.0 mmol/L 21-32 N ANION GAP (test code = GAP) 11.7 10-20 N GLUCOSE (test code = GLU) 208 mg/dL 74-106 H BLOOD UREA NITROGEN (test code = BUN) 49 mg/dL 7-18 H GLOMERULAR FILTRATION RATE (test code = GFR) 46 mL/min >=60 Estimated GFR by using Modified MDRD formula.Chronic kidney disease is defined as either kidney damageor GFR <60 mL/min/1.73 m2 for >3 months. CREATININE (test code = CREAT) 1.50 mg/dL 0.7-1.3 H BUN/CREATININE RATIO (test code = BUN/CREA) 33.3 10-20 H CALCIUM (test code = CA) 8.7 mg/dL 8.5-10.1 N BASIC METABOLIC [id number] 04:46:00* Test Item Value Reference Range Interpretation Comments SODIUM (test code = NA) 143 mmol/L 136-145 N POTASSIUM (test code = K) 3.7 mmol/L 3.5-5.1 N CHLORIDE (test code = CL) 113.0 mmol/L 98-107 H CARBON DIOXIDE (test code = CO2) mmol/L 21-32 ANION GAP (test code = GAP) 10-20 GLUCOSE (test code = GLU) mg/dL 74-106 BLOOD UREA NITROGEN (test code = BUN) mg/dL 7-18 GLOMERULAR FILTRATION RATE (test code = GFR) mL/min >=60 CREATININE (test code = CREAT) mg/dL 0.7-1.3 BUN/CREATININE RATIO (test code = BUN/CREA) 10-20 CALCIUM (test code = CA) mg/dL 8.5-10.1 [id number] 21:27:00* Test Item Value Reference Range Interpretation Comments GLUBED (test code = GLUBED) 153 mg/dL 74-106 H Performed by certified tool machine setup operator at [facility] [id number] 20:36:00* Test Item Value Reference Range Interpretation Comments GLUBED (test code = GLUBED) 165 mg/dL 74-106 H Performed by certified tool machine setup operator at [facility] B-TYPE NATRIURETIC [id number] 17:17:00* Test Item Value Reference Range Interpretation Comments B-TYPE NATRIURETIC PEPTIDE (test code = BNP) 94.63 pgram/mL 0-100 N [id number] 11:56:00* Test Item Value Reference Range Interpretation Comments GLUBED (test code = GLUBED) 200 mg/dL 74-106 H Performed by certified tool machine setup operator at [facility] - XR C-SPINE 2-3 [id number] 10:23:00 FAX: Jamie Larios MD [phone] [place]: St: ADM FAX: Jasper Prince MD [phone] Name: BOOKER PIERRE [facility] : 1950 Age/S: 70/M [address] [facility] Unit #: [id number] Loc: V.5016 [place] [address] Phys: Jamie Rust MD Acct: [id number] Dis Date: Status: ADM IN PHONE #: [phone] Exam Date: 06/02/2020 1015 FAX #: [phone] Reason: s/p fusion EXAMS: CPT CODE: [id number] XR C-SPINE 2-3 VIEWS 12373 HISTORY: Post fusion. COMPARISON: CT scan from May 25, 2020. Location: [facility]. AP and lateral view of the cervical spine: Cervical fusion from C3 through C5 with metallic internal fixation plate and bone graft in good anatomic alignment. Verteb ral body heights are maintained. Uncovertebral joints are narrowed. Lung a pices are clear. IMPRESSION: Cervical fu senia with metallic internal fixation plate and bone graft from C3 throug h C5 in good anatomic alignment. at 1023 Reported and signed by: Howie Meyer M.D. CC: Jamie Rust MD; Jasper Eisenberg Technologist: HERIBERTO VILLA) Trnscrd Date/Time/By: 06/02/2020 (1023) : By: [email or web address] Orig Print D/T: S: 06/02/2020 (7196) PAGE 1 Signed Report [id number] 08:34:00* Test Item Value Reference Range Interpretation Comments GLUBED (test code = GLUBED) 158 mg/dL 74-106 H Performed by certified tool machine setup operator at [facility] BASIC METABOLIC [id number] 05:26:00* Test Item Value Reference Range Interpretation Comments SODIUM (test code = NA) 142 mmol/L 136-145 N POTASSIUM (test code = K) 4.1 mmol/L 3.5-5.1 N CHLORIDE (test code = CL) 112.0 mmol/L 98-107 H CARBON DIOXIDE (test code = CO2) 22.0 mmol/L 21-32 N ANION GAP (test code = GAP) 12.1 10-20 N GLUCOSE (test code = GLU) 176 mg/dL 74-106 H BLOOD UREA NITROGEN (test code = BUN) 37 mg/dL 7-18 H RESULT VERIFIED BY REPEAT ANALYSIS GLOMERULAR FILTRATION RATE (test code = GFR) 40 mL/min >=60 Estimated GFR by using Modified MDRD formula.Chronic kidney disease is defined as either kidney damageor GFR <60 mL/min/1.73 m2 for >3 months. CREATININE (test code = CREAT) 1.70 mg/dL 0.7-1.3 H BUN/CREATININE RATIO (test code = BUN/CREA) 21.8 10-20 H CALCIUM (test code = CA) 8.3 mg/dL 8.5-10.1 L BASIC METABOLIC [id number] 04:46:00* Test Item Value Reference Range Interpretation Comments SODIUM (test code = NA) 142 mmol/L 136-145 N POTASSIUM (test code = K) 4.1 mmol/L 3.5-5.1 N CHLORIDE (test code = CL) 112.0 mmol/L 98-107 H CARBON DIOXIDE (test code = CO2) mmol/L 21-32 ANION GAP (test code = GAP) 10-20 GLUCOSE (test code = GLU) mg/dL 74-106 BLOOD UREA NITROGEN (test code = BUN) mg/dL 7-18 GLOMERULAR FILTRATION RATE (test code = GFR) mL/min >=60 CREATININE (test code = CREAT) mg/dL 0.7-1.3 BUN/CREATININE RATIO (test code = BUN/CREA) 10-20 CALCIUM (test code = CA) mg/dL 8.5-10.1 [id number] 20:35:00* Test Item Value Reference Range Interpretation Comments GLUBED (test code = GLUBED) 230 mg/dL 74-106 H Performed by certified tool machine setup operator at [facility] [id number] 17:23:00* Test Item Value Reference Range Interpretation Comments GLUBED (test code = GLUBED) 194 mg/dL 74-106 H Performed by certified tool machine setup operator at [facility] [id number] 12:55:00* Test Item Value Reference Range Interpretation Comments GLUBED (test code = GLUBED) 166 mg/dL 74-106 H Performed by certified tool machine setup operator at [facility] [id number] 09:12:00* Test Item Value Reference Range Interpretation Comments GLUBED (test code = GLUBED) 197 mg/dL 74-106 H Performed by certified tool machine setup operator at [facility] BASIC METABOLIC [id number] 06:43:00* Test Item Value Reference Range Interpretation Comments SODIUM (test code = NA) 140 mmol/L 136-145 N POTASSIUM (test code = K) 3.9 mmol/L 3.5-5.1 N CHLORIDE (test code = CL) 111.0 mmol/L 98-107 H CARBON DIOXIDE (test code = CO2) 19.0 mmol/L 21-32 L ANION GAP (test code = GAP) 13.9 10-20 N GLUCOSE (test code = GLU) 181 mg/dL 74-106 H BLOOD UREA NITROGEN (test code = BUN) 24 mg/dL 7-18 H GLOMERULAR FILTRATION RATE (test code = GFR) 55 mL/min >=60 Estimated GFR by using Modified MDRD formula.Chronic kidney disease is defined as either kidney damageor GFR <60 mL/min/1.73 m2 for >3 months. CREATININE (test code = CREAT) 1.30 mg/dL 0.7-1.3 N BUN/CREATININE RATIO (test code = BUN/CREA) 18.3 10-20 N CALCIUM (test code = CA) 8.6 mg/dL 8.5-10.1 N BASIC METABOLIC [id number] 06:21:00* Test Item Value Reference Range Interpretation Comments SODIUM (test code = NA) 140 mmol/L 136-145 N POTASSIUM (test code = K) 3.9 mmol/L 3.5-5.1 N CHLORIDE (test code = CL) 111.0 mmol/L 98-107 H CARBON DIOXIDE (test code = CO2) 19.0 mmol/L 21-32 L ANION GAP (test code = GAP) 13.9 10-20 N GLUCOSE (test code = GLU) mg/dL 74-106 BLOOD UREA NITROGEN (test code = BUN) mg/dL 7-18 GLOMERULAR FILTRATION RATE (test code = GFR) mL/min >=60 CREATININE (test code = CREAT) mg/dL 0.7-1.3 BUN/CREATININE RATIO (test code = BUN/CREA) 10-20 CALCIUM (test code = CA) 8.6 mg/dL 8.5-10.1 N [id number] 20:06:00* Test Item Value Reference Range Interpretation Comments GLUBED (test code = GLUBED) 186 mg/dL 74-106 H Performed by certified tool machine setup operator at [facility] [id number] 16:37:00* Test Item Value Reference Range Interpretation Comments GLUBED (test code = GLUBED) 184 mg/dL 74-106 H Performed by certified tool machine setup operator at [facility] [id number] 15:31:00* Test Item Value Reference Range Interpretation Comments GLUBED (test code = GLUBED) 142 mg/dL 74-106 H Performed by certified tool machine setup [facility] Nurse~ COVID 19 Asymptomatic IH [id number] 13:26:00* Test Item Value Reference Range Interpretation Comments COVID 19 Asymptomatic IH AG (test code = COVNONPUIAG) NEGATIVE PROTHROMBIN [id number] 11:03:00* Test Item Value Reference Range Interpretation Comments PROTHROMBIN TIME PATIENT (test code = PTP) 12.5 seconds 9.0-14.0 N INTERNATIONAL NORMAL RATIO (test code = INR) 1.1 0.8-1.2 N The therapeutic range for oral anticoagulant therapy formost indications is an international normalized ratio (INR)of between 2.0 and 3.0. The recommended therapeutic INRrange for various clinical situations is listed below: Clinical Situation INR range Pulmonary e mbolism treatment (2.0-3.0)Venous thrombosis treatmentVenous thrombosis prophylaxis (high risk surgery)Prevention of systemic embolism from: Acute myocardial infarction Valvular heart disease Atrial fibrillation Mechanical prosthetic heart valves (2.5-3.5) IS PATIENT ON ANTICOAGULANTS? NTHROMBOPLASTIN TIME [id number] 11:03:00* Test Item Value Reference Range Interpretation Comments THROMBOPLASTIN TIME PARTIAL (test code = PTT) 27.8 seconds 23.0-37. 0 N IS PATIENT ON ANTICOAGULANTS? [id number] 08:07:00* Test Item Value Reference Range Interpretation Comments GLUBED (test code = GLUBED) 77 mg/dL 74-106 N Performed by certified tool machine setup [facility]~ BASIC METABOLIC [id number] 05:10:00* Test Item Value Reference Range Interpretation Comments SODIUM (test code = NA) 145 mmol/L 136-145 N POTASSIUM (test code = K) 3.3 mmol/L 3.5-5.1 L CHLORIDE (test code = CL) 112.0 mmol/L 98-107 H CARBON DIOXIDE (test code = CO2) 21.0 mmol/L 21-32 N ANION GAP (test code = GAP) 15.3 10-20 N GLUCOSE (test code = GLU) 60 mg/dL 74-106 L BLOOD UREA NITROGEN (test code = BUN) 18 mg/dL 7-18 N GLOMERULAR FILTRATION RATE (test code = GFR) > 60 mL/min >=60 Estimated GFR by using Modified MDRD formula.Chronic kidney disease is defined as either kidney damageor GFR <60 mL/min/1.73 m2 for >3 months. CREATININE (test code = CREAT) 1.10 mg/dL 0.7-1.3 N BUN/CREATININE RATIO (test code = BUN/CREA) 15.8 10-20 N CALCIUM (test code = CA) 8.7 mg/dL 8.5-10.1 N BASIC METABOLIC [id number] 05:01:00* Test Item Value Reference Range Interpretation Comments SODIUM (test code = NA) 145 mmol/L 136-145 N POTASSIUM (test code = K) 3.3 mmol/L 3.5-5.1 L CHLORIDE (test code = CL) 112.0 mmol/L 98-107 H CARBON DIOXIDE (test code = CO2) mmol/L 21-32 ANION GAP (test code = GAP) 10-20 GLUCOSE (test code = GLU) mg/dL 74-106 BLOOD UREA NITROGEN (test code = BUN) mg/dL 7-18 GLOMERULAR FILTRATION RATE (test code = GFR) mL/min >=60 CREATININE (test code = CREAT) mg/dL 0.7-1.3 BUN/CREATININE RATIO (test code = BUN/CREA) 10-20 CALCIUM (test code = CA) mg/dL 8.5-10.1 [id number] 20:15:00* Test Item Value Reference Range Interpretation Comments GLUBED (test code = GLUBED) 194 mg/dL 74-106 H Performed by certified tool machine setup operator at [facility] [id number] 16:03:00* Test Item Value Reference Range Interpretation Comments GLUBED (test code = GLUBED) 190 mg/dL 74-106 H Performed by certified tool machine setup operator at [facility] - MRI C-SPINE W/O [id number] 14:38:00 FAX: Sheila Rodríguez [phone] [place]: B St: [facility] FAX: Jasper Prince MD [phone] Name: BOOKER PIERRE [facility] : 1950 Age/S: 70/M [address] [facility] Unit #: [id number] Loc: [place] [address] Phys: Sheila Funes MD Acct: [id number] Dis Date: Status: ADM IN PHONE #: [phone] Exam Date: 05/30/2020 1326 FAX #: [phone] Reason: Fall, neck pain, RUE weakness EXAMS: CPT CODE: [id number] MRI C-SPINE W/O CONT 46395 HISTORY: Fall, neck pain, RUE weakness TECHNIQUE: Sagittal T1, sagittal T2, sagittal STIR, axial gradient T2, and axial T1 s equences of the cervical spine were acquired without contrast. COMPARISON: CT 05/25/20 FINDINGS: Fluid signal ex tends through the C6-C7 disc space with discontiguous appearance of the lo ngitudinal ligaments and ligamentum flavum. Extensive prevertebral soft ti ssue edema. Paraspinal soft tissue edema is also observed about the C6-C7 posterior elements. Suspect cervical distraction injury without associated fracture. Craniocervical and cervicothoracic articulations are ap propriate. Degenerative changes of the anterior atlantoaxial joint. Verteb ral body alignment is satisfactory. Vertebral body heights are preserved. Marrow signal is unremarkable. Increased T2 signal within the central cord spanning C4-T1, suspect myelomalacia. Visualized posterior fossa c ontents are unremarkable. Indeterminate 1.2 cm T2 hyperintense lesion of t he left thyroid lobe; correlate with ultrasound. C2-C3: No disc bu lge or protrusion. Mild bilateral facet arthrosis. Mild central canal sten osis. No foraminal stenosis. C3-C4: Moderate disc space loss with marginal osteophytes. Bilateral uncovertebral arthrosis. Severe central c anal stenosis. Severe bilateral foraminal stenosis. C4-C5: M ild disc space loss with disc bulge and marginal osteophytes. Mild bilater al facet arthrosis. Severe central canal stenosis. Mild right and moderate left foraminal stenosis. C5-C6: Severe disc space loss with parti al interbody fusion. Posterior disc/osteophyte complex and bilateral uncov ertebral arthrosis. Severe central canal stenosis. Severe bilateral forami nal stenosis. C6-C7: Please see above discussion. Severe central c anal stenosis. Mild right and moderate left foraminal stenosis. C7-T1: Moderate disc space loss with disc bulge and marginal osteophyt es. Severe bilateral facet arthrosis. Severe central canal PAGE 1 Signed Report (CONTINUED) FAX: Sheila Mcallister [phone] [place]: St: ADM FAX: Jasper Prince [phone] Name: BOOKER PIERRE [facility] : 1950 Age/S: 70/M [address] [facility] Unit #: [id number] Loc: V.4010 [place] [address] Phys: Sheila Funes MD Acct: [id number] Dis Date: Status: ADM IN PHONE #: [phone] Exam Date: 05/30/2020 1326 FAX #: [phone] Reason: Fall, neck pain, RUE weakness EXAMS: CPT CODE: [id number] MRI C-SPINE W/O CONT 20209 <Continued> stenosis. Severe bilateral foraminal stenosis. I MPRESSION: Fluid signal extends through the C6-C7 disc space with discontiguous appearance of the longitudinal ligaments and ligament um flavum. Extensive prevertebral soft tissue edema. Paraspinal soft tis glen edema about the C6-C7 posterior elements. Suspect cervical distracti on injury without associated fracture. 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 Associated severe centra l canal and moderate-severe foraminal stenosis, as described. Increased T2 signal within the central cord spanning C4-T1, suspect myelomalacia. Discussed with Dr. Funes at 1436 hours. LOCATION: at 1438 Reported and signed by: Ashley Boateng D.O. CC: Sheila Funes MD; Jasper Jean ra Technologist: Dinesh Mckeon)(MR) Trnscrd Date/Time/By: 05/30/2020 (5624) : By: [email or web address] Orig Print D/T: S: 05/30/2020 (7650) PAGE 2 Signed Report - MRI BRAIN W/O CONTRAST 2020-05-30 14:15:00 FAX: Sheila Rodríguez [phone] [place]: St: ADM FAX: Jasper Prince MD [phone] Name: BOOKER PIERRE [facility] : 1950 Age/S: 70/M [address] [facility] Unit #: [id number] Loc: [address] [address] Phys: Sheila Funes MD Acct: [id number] Dis Date: Status: ADM IN PHONE #: [phone] Exam Date: 05/30/2020 1326 FAX #: [phone] Reason: Falls, RIght hemiparesis r/o stroke EXAMS: CPT CODE: [id number] MRI BRAIN W/O CONTRAST 59724 HISTORY: Falls, RIght hemiparesis r/o stroke TECHNIQUE: Sagittal T1, axial FLAIR, axial T2, axial gradient T2, axial T1, coronal T2, and DWI/ADC sequences of the brain were acquired. Examination acquired within 24 hours of arrival. COMPARISON: None FINDINGS: No evidence of acute ischemic insult. 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 Trace chronic microvascular ischemic changes. No intracranial hemorrhage. No intracranial mass or mass effect. Mild parenchymal atrophy. No hydrocephalus. Pituitary gland and corpus callosum are normal in appearance. No extra-axial fluid collections. Normal vascular flow-voids a re identified. Bilateral lens implants. Paranasal sinuses are clear. Apoorva rial and skull base marrow signal is preserved. IM PRESSION: No acute infarct. Small chronic subcortical infarct s of the anterior right temporal lobe and bilateral parietal lobes. LOCATION: LP at 1415 Reported and signed by: Ashley Boateng D.O. CC: Vianney Funes MD; Jasper Eisenberg Technologist: Dinesh Mckeon)(M R) Trnscrd Date/Time/By: 05/30/2020 (1414) : By: Bo [email or web address] Orig Print D/T: S: 05/30/2020 (1271) CARMELA MOORE 1 Signed Report GLUBED 2020-05-30 12:50:00* Test Item Value Reference Range Interpretation Comments GLUBED (test code = GLUBED) 120 mg/dL 74-106 H Performed by certified tool machine setup operator at [facility] - XR SHOULDER 2 + V [id number] 12:40:00 FAX: David Townsend [place]: B St: ADM FAX: Jasper Prince MD [phone] Name: BOOKER PIERRE [facility] : 1950 Age/S: 70/M [address] [facility] Unit #: [id number] Loc: V.4010 [place] [address] Phys: David Guzman [facility] DO Acct: [id number] Dis Date: Status: ADM IN PHONE #: [phone] Exam Date: 05/30/2020 1221 FAX #: [phone] Reason: soreness and pain fullowing falls EXAMS: CPT CODE: [id number] XR SHOULDER 2 + V RT 15490 HISTORY: soreness and pain following falls TECHNIQUE: Internal/external rotation AP and scapular Y-views of the right shoulder. COMPARISON: 09/23/19 IMPRESSION: No acute fracture or dislocation. No cortical erosion or periosteal reaction. Subacromial space narrowing which may indicate underlying rotator cuff tear. Mild glenohumeral and acromioclavicular degenerative arthrosis. Regional soft tissues are unremarkable. LOCATION: LP at 1240 Reported and signed by: Ashley Boateng D.O. CC: David Guzman DO; Jasper Eisenberg Technologist: Dafne Iglesias RT(R); LYNN RAY RT(R) Trnscrd Date/Time/By: 05/30/2020 (0850) : By: [email or web address] Orig Print D/T: S: 05/30/2020 (9507) PAGE 1 Signed Report [id number] 08:06:00* Test Item Value Reference Range Interpretation Comments GLUBED (test code = GLUBED) 72 mg/dL 74-106 L Performed [facility] certified tool machine [facility]~ BASIC METABOLIC [id number] 05:46:00* Test Item Value Reference Range Interpretation Comments SODIUM (test code = NA) 145 mmol/L 136-145 N POTASSIUM (test code = K) 3.6 mmol/L 3.5-5.1 N CHLORIDE (test code = CL) 114.0 mmol/L 98-107 H CARBON DIOXIDE (test code = CO2) 24.0 mmol/L 21-32 N ANION GAP (test code = GAP) 10.6 10-20 N GLUCOSE (test code = GLU) 67 mg/dL 74-106 L BLOOD UREA NITROGEN (test code = BUN) 19 mg/dL 7-18 H GLOMERULAR FILTRATION RATE (test code = GFR) 60 mL/min >=60 Estimated GFR by using Modified MDRD formula.Chronic kidney disease is defined as either kidney damageor GFR <60 mL/min/1.73 m2 for >3 months. CREATININE (test code = CREAT) 1.20 mg/dL 0.7-1.3 N BUN/CREATININE RATIO (test code = BUN/CREA) 16.2 10-20 N CALCIUM (test code = CA) 8.5 mg/dL 8.5-10.1 N BASIC METABOLIC [id number] 05:29:00* Test Item Value Reference Range Interpretation Comments SODIUM (test code = NA) 145 mmol/L 136-145 N POTASSIUM (test code = K) 3.6 mmol/L 3.5-5.1 N CHLORIDE (test code = CL) 114.0 mmol/L 98-107 H CARBON DIOXIDE (test code = CO2) mmol/L 21-32 ANION GAP (test code = GAP) 10-20 GLUCOSE (test code = GLU) mg/dL 74-106 BLOOD UREA NITROGEN (test code = BUN) mg/dL 7-18 GLOMERULAR FILTRATION RATE (test code = GFR) mL/min >=60 CREATININE (test code = CREAT) mg/dL 0.7-1.3 BUN/CREATININE RATIO (test code = BUN/CREA) 10-20 CALCIUM (test code = CA) mg/dL 8.5-10.1 [id number] 20:07:00* Test Item Value Reference Range Interpretation Comments GLUBED (test code = GLUBED) 196 mg/dL 74-106 H Performed by certified tool machine setup operator at [facility] [id number] 17:59:00* Test Item Value Reference Range Interpretation Comments GLUBED (test code = GLUBED) 126 mg/dL 74-106 H Performed by certified tool machine setup operator at [facility] [id number] 16:08:00* Test Item Value Reference Range Interpretation Comments GLUBED (test code = GLUBED) 143 mg/dL 74-106 H Performed by certified tool machine setup operator at [facility] [id number] 11:25:00* Test Item Value Reference Range Interpretation Comments GLUBED (test code = GLUBED) 147 mg/dL 74-106 H Performed by certified tool machine setup operator at [facility] [id number] 07:52:00* Test Item Value Reference Range Interpretation Comments GLUBED (test code = GLUBED) 87 mg/dL 74-106 N Performed by certified tool machine setup operator at [facility] BASIC METABOLIC [id number] 06:46:00* Test Item Value Reference Range Interpretation Comments SODIUM (test code = NA) 143 mmol/L 136-145 N POTASSIUM (test code = K) 3.3 mmol/L 3.5-5.1 L CHLORIDE (test code = CL) 112.0 mmol/L 98-107 H CARBON DIOXIDE (test code = CO2) 22.0 mmol/L 21-32 N ANION GAP (test code = GAP) 12.3 10-20 N GLUCOSE (test code = GLU) 77 mg/dL 74-106 N BLOOD UREA NITROGEN (test code = BUN) 21 mg/dL 7-18 H GLOMERULAR FILTRATION RATE (test code = GFR) 60 mL/min >=60 Estimated GFR by using Modified MDRD formula.Chronic kidney disease is defined as either kidney damageor GFR <60 mL/min/1.73 m2 for >3 months. CREATININE (test code = CREAT) 1.20 mg/dL 0.7-1.3 N BUN/CREATININE RATIO (test code = BUN/CREA) 17.4 10-20 N CALCIUM (test code = CA) 8.4 mg/dL 8.5-10.1 L CREATINE KINASE (CK)2020-05-29 06:46:00* Test Item Value Reference Range Interpretation Comments CREATINE KINASE (CK) (test code = CK) 240 IUnit/L 26-208 H [id number] 20:36:00* Test Item Value Reference Range Interpretation Comments GLUBED (test code = GLUBED) 112 mg/dL 74-106 H Performed by certified tool machine setup operator at [facility] [id number] 16:21:00* Test Item Value Reference Range Interpretation Comments GLUBED (test code = GLUBED) 90 mg/dL 74-106 N Performed by certified tool machine setup operator at [facility] [id number] 11:34:00* Test Item Value Reference Range Interpretation Comments GLUBED (test code = GLUBED) 171 mg/dL 74-106 H Performed by certified tool machine setup operator at [facility] BASIC METABOLIC [id number] 07:51:00* Test Item Value Reference Range Interpretation Comments SODIUM (test code = NA) 142 mmol/L 136-145 N POTASSIUM (test code = K) 3.5 mmol/L 3.5-5.1 N CHLORIDE (test code = CL) 111.0 mmol/L 98-107 H CARBON DIOXIDE (test code = CO2) 23.0 mmol/L 21-32 N ANION GAP (test code = GAP) 11.5 10-20 N GLUCOSE (test code = GLU) 56 mg/dL 74-106 L BLOOD UREA NITROGEN (test code = BUN) 25 mg/dL 7-18 H GLOMERULAR FILTRATION RATE (test code = GFR) 50 mL/min >=60 Estimated GFR by using Modified MDRD formula.Chronic kidney disease is defined as either kidney damageor GFR <60 mL/min/1.73 m2 for >3 months. CREATININE (test code = CREAT) 1.40 mg/dL 0.7-1.3 H BUN/CREATININE RATIO (test code = BUN/CREA) 18.4 10-20 N CALCIUM (test code = CA) 8.8 mg/dL 8.5-10.1 N [id number] 07:36:00* Test Item Value Reference Range Interpretation Comments GLUBED (test code = GLUBED) 67 mg/dL 74-106 L Performed by certified tool machine setup operator at [facility] CREATINE KINASE (CK)2020-05-28 05:04:00* Test Item Value Reference Range Interpretation Comments CREATINE KINASE (CK) (test code = CK) 539 IUnit/L 26-208 H URINALYSIS [id number] 21:19:00* Test Item Value Reference Range Interpretation Comments UA COLOR (test code = COLU) YELLOW YELLOW UA APPEARANCE (test code = APPU) HAZY CLEAR A UA GLUCOSE DIPSTICK (test code = DGLUU) NEGATIVE mg/dL NEGATIVE UA BILIRUBIN DIPSTICK (test code = BILU) NEGATIVE NEGATIVE UA KETONE DIPSTICK (test code = KETU) NEGATIVE mg/dL NEGATIVE UA SPECIFIC GRAVITY (test code = SGU) 1.010 1.001-1.035 UA BLOOD DIPSTICK (test code = BRYAN) NEGATIVE NEGATIVE UA PH DIPSTICK (test code = SANTIAGO) 7.0 5.0-8.0 UA PROTEIN DIPSTICK (test code = PROU) NEGATIVE mg/dL Neg-15 UA UROBILINIOGEN DIPSTICK (test code = URO) 0.2 mg/dL 0.0-0.2 UA NITRITE DIPSTICK (test code = MARY JO) NEGATIVE NEGATIVE UA LEUKOCYTE ESTERASE W REFLEX (test code = LEUUR) NEGATIVE NEG ATIVE UA WBC (test code = WBCU) per HPF 0-5 UA RBC (test code = RBCU) per HPF 0-5 UA EPITHELIAL CELLS (test code = EPIU) per HPF Few UA BACTERIA (test code = BACU) per HPF NONE Urine Source? Clean CatchUR PROTEIN/CREATININE [id number] 21:19:00* Test Item Value Reference Range Interpretation Comments UR PROTEIN RANDOM (test code = PROTU) 47.8 mg/dL 0.0-11.9 H Protein levels may be falsely elevated in patients withelevated level of aminoglycoside antibiotics in CSF and inhighly concentrated urine specimens. If false elevation issuspected, contact lab for alternated testing technique. UR CREATININE RANDOM (test code = CREATU) 87.0 mg/dL 30-125 N PROTEIN/CREATININE RATIO (test code = P/CRATIO) 0.55 RATIO 0.0-0. 20 H Urine Source? Clean CatchURINALYSIS [id number] 21:19:00* Test Item Value Reference Range Interpretation Comments UA COLOR (test code = COLU) YELLOW YELLOW UA APPEARANCE (test code = APPU) HAZY CLEAR A UA GLUCOSE DIPSTICK (test code = DGLUU) NEGATIVE mg/dL NEGATIVE UA BILIRUBIN DIPSTICK (test code = BILU) NEGATIVE NEGATIVE UA KETONE DIPSTICK (test code = KETU) NEGATIVE mg/dL NEGATIVE UA SPECIFIC GRAVITY (test code = SGU) 1.010 1.001-1.035 UA BLOOD DIPSTICK (test code = BRYAN) NEGATIVE NEGATIVE UA PH DIPSTICK (test code = SANTIAGO) 7.0 5.0-8.0 UA PROTEIN DIPSTICK (test code = PROU) NEGATIVE mg/dL Neg-15 UA UROBILINIOGEN DIPSTICK (test code = URO) 0.2 mg/dL 0.0-0.2 UA NITRITE DIPSTICK (test code = MARY JO) NEGATIVE NEGATIVE UA LEUKOCYTE ESTERASE W REFLEX (test code = LEUUR) NEGATIVE NEG ATIVE UA WBC (test code = WBCU) 0-5 per HPF 0-5 UA RBC (test code = RBCU) 0-2 #/HPF 0-5 UA EPITHELIAL CELLS (test code = EPIU) Few (2-5/hpf) per HPF FEW UA BACTERIA (test code = BACU) FEW #/HPF NONE A Urine Source? Clean CatchUR PROTEIN/CREATININE [id number] 21:19:00* Test Item Value Reference Range Interpretation Comments UR PROTEIN RANDOM (test code = PROTU) 47.8 mg/dL 0.0-11.9 H Protein levels may be falsely elevated in patients withelevated level of aminoglycoside antibiotics in CSF and inhighly concentrated urine specimens. If false elevation issuspected, contact lab for alternated testing technique. UR CREATININE RANDOM (test code = CREATU) 87.0 mg/dL 30-125 N PROTEIN/CREATININE RATIO (test code = P/CRATIO) 0.55 RATIO 0.0-0. 20 H Urine Source? Clean CatchURINALYSIS [id number] 21:03:00* Test Item Value Reference Range Interpretation Comments UA COLOR (test code = COLU) YELLOW UA APPEARANCE (test code = APPU) CLEAR UA BILIRUBIN DIPSTICK (test code = BILU) NEGATIVE UA SPECIFIC GRAVITY (test code = SGU) 1.001-1.035 UA PH DIPSTICK (test code = SANTIAGO) 5.0-8.0 UA UROBILINIOGEN DIPSTICK (test code = URO) mg/dL 0.0-0.2 UA NITRITE DIPSTICK (test code = MARY JO) NEGATIVE UA LEUKOCYTE ESTERASE W REFLEX (test code = LEUUR) NEG ATIVE UA WBC (test code = WBCU) per HPF 0-5 UA RBC (test code = RBCU) per HPF 0-5 UA EPITHELIAL CELLS (test code = EPIU) per HPF Few UA BACTERIA (test code = BACU) per HPF NONE Urine Source? Clean CatchUR PROTEIN/CREATININE [id number] 21:03:00* Test Item Value Reference Range Interpretation Comments UR PROTEIN RANDOM (test code = PROTU) 47.8 mg/dL 0.0-11.9 H Protein levels may be falsely elevated in patients withelevated level of aminoglycoside antibiotics in CSF and inhighly concentrated urine specimens. If false elevation issuspected, contact lab for alternated testing technique. UR CREATININE RANDOM (test code = CREATU) 87.0 mg/dL 30-125 N PROTEIN/CREATININE RATIO (test code = P/CRATIO) 0.55 RATIO 0.0-0. 20 H Urine Source? Clean CatchURINALYSIS [id number] 20:56:00* Test Item Value Reference Range Interpretation Comments UA COLOR (test code = COLU) YELLOW UA APPEARANCE (test code = APPU) CLEAR UA BILIRUBIN DIPSTICK (test code = BILU) NEGATIVE UA SPECIFIC GRAVITY (test code = SGU) 1.001-1.035 UA PH DIPSTICK (test code = SANTIAGO) 5.0-8.0 UA UROBILINIOGEN DIPSTICK (test code = URO) mg/dL 0.0-0.2 UA NITRITE DIPSTICK (test code = MARY JO) NEGATIVE UA LEUKOCYTE ESTERASE W REFLEX (test code = LEUUR) NEG ATIVE UA WBC (test code = WBCU) per HPF 0-5 UA RBC (test code = RBCU) per HPF 0-5 UA EPITHELIAL CELLS (test code = EPIU) per HPF Few UA BACTERIA (test code = BACU) per HPF NONE Urine Source? Clean CatchUR PROTEIN/CREATININE [id number] 20:56:00* Test Item Value Reference Range Interpretation Comments UR PROTEIN RANDOM (test code = PROTU) 47.8 mg/dL 0.0-11.9 H Protein levels may be falsely elevated in patients withelevated level of aminoglycoside antibiotics in CSF and inhighly concentrated urine specimens. If false elevation issuspected, contact lab for alternated testing technique. UR CREATININE RANDOM (test code = CREATU) mg/dL 30-125 PROTEIN/CREATININE RATIO (test code = P/CRATIO) RATIO 0.0-0. 20 Urine Source? Clean [id number] 20:08:00* Test Item Value Reference Range Interpretation Comments GLUBED (test code = GLUBED) 117 mg/dL 74-106 H Performed by certified tool machine setup operator at [facility] [id number] 15:55:00* Test Item Value Reference Range Interpretation Comments GLUBED (test code = GLUBED) 211 mg/dL 74-106 H Performed by certified tool machine setup operator at [facility] [id number] 11:23:00* Test Item Value Reference Range Interpretation Comments GLUBED (test code = GLUBED) 171 mg/dL 74-106 H Performed by certified tool machine setup operator at [facility] [id number] 08:18:00* Test Item Value Reference Range Interpretation Comments GLUBED (test code = GLUBED) 103 mg/dL 74-106 N Performed by certified tool machine setup operator at [facility] COMPREHENSIVE METABOLIC [id number] 06:05:00* Test Item Value Reference Range Interpretation Comments SODIUM (test code = NA) 142 mmol/L 136-145 N POTASSIUM (test code = K) 3.8 mmol/L 3.5-5.1 N CHLORIDE (test code = CL) 107.0 mmol/L 98-107 N CARBON DIOXIDE (test code = CO2) 26.0 mmol/L 21-32 N ANION GAP (test code = GAP) 12.8 10-20 N GLUCOSE (test code = GLU) 81 mg/dL 74-106 N BLOOD UREA NITROGEN (test code = BUN) 30 mg/dL 7-18 H GLOMERULAR FILTRATION RATE (test code = GFR) 46 mL/min >=60 Estimated GFR by using Modified MDRD formula.Chronic kidney disease is defined as either kidney damageor GFR <60 mL/min/1.73 m2 for >3 months. CREATININE (test code = CREAT) 1.50 mg/dL 0.7-1.3 H BUN/CREATININE RATIO (test code = BUN/CREA) 20.4 10-20 H TOTAL PROTEIN (test code = PROT) 7.4 gram/dL 6.4-8.2 N ALBUMIN (test code = ALB) 3.7 g/dL 3.4-5.0 N GLOBULIN (test code = GLOB) 3.7 gram/dL 2.7-4.2 N ALBUMIN/GLOBULIN RATIO (test code = A/G) 1.0 0.75-1.50 N CALCIUM (test code = CA) 8.9 mg/dL 8.5-10.1 N BILIRUBIN TOTAL (test code = BILT) 0.40 mg/dL 0.0-1.0 N SGOT/AST (test code = AST) 27 IUnit/L 15-37 N SGPT/ALT (test code = ALT) 25 IUnit/L 12-78 N ALKALINE PHOSPHATASE TOTAL (test code = ALKP) 53 IUnit/L 45-117 N Note change in reference range due to change in reagent. COMPREHENSIVE METABOLIC [id number] 06:02:00* Test Item Value Reference Range Interpretation Comments SODIUM (test code = NA) 142 mmol/L 136-145 N POTASSIUM (test code = K) 3.8 mmol/L 3.5-5.1 N CHLORIDE (test code = CL) 107.0 mmol/L 98-107 N CARBON DIOXIDE (test code = CO2) mmol/L 21-32 ANION GAP (test code = GAP) 10-20 GLUCOSE (test code = GLU) mg/dL 74-106 BLOOD UREA NITROGEN (test code = BUN) mg/dL 7-18 GLOMERULAR FILTRATION RATE (test code = GFR) mL/min >=60 CREATININE (test code = CREAT) mg/dL 0.7-1.3 BUN/CREATININE RATIO (test code = BUN/CREA) 10-20 TOTAL PROTEIN (test code = PROT) gram/dL 6.4-8.2 ALBUMIN (test code = ALB) g/dL 3.4-5.0 GLOBULIN (test code = GLOB) gram/dL 2.7-4.2 ALBUMIN/GLOBULIN RATIO (test code = A/G) 0.75-1.50 CALCIUM (test code = CA) mg/dL 8.5-10.1 BILIRUBIN TOTAL (test code = BILT) mg/dL 0.0-1.0 SGOT/AST (test code = AST) IUnit/L 15-37 SGPT/ALT (test code = ALT) IUnit/L 12-78 ALKALINE PHOSPHATASE TOTAL (test code = ALKP) IUnit/L 45-117 [id number] 17:33:00* Test Item Value Reference Range Interpretation Comments GLUBED (test code = GLUBED) 105 mg/dL 74-106 N Performed by certified tool machine setup operator at [facility] URIC [id number] 16:52:00* Test Item Value Reference Range Interpretation Comments URIC ACID (test code = URIC) 13.9 mg/dL 2.6-7.2 H CREATINE KINASE (CK)2020-05-26 16:52:00* Test Item Value Reference Range Interpretation Comments CREATINE KINASE (CK) (test code = CK) 2109 IUnit/L 26-208 H [id number] 16:49:00* Test Item Value Reference Range Interpretation Comments GLUBED (test code = GLUBED) 201 mg/dL 74-106 H Performed by certified tool machine setup operator at [facility] RETRO [id number] 14:11:00 Name: BOOKER PIERRE [facility] : 1950 Age/S: 70 / M [address] Unit #: [id number] Loc: [place] [address] Phys: Tyrese Moreljerome Jevon Acct: [id number] Dis Date: Status: ADM IN PHONE #: [phone] Exam Date: 05/26/2020 1351 FAX #: [phone] Reason: BC EXAMS: CPT CODE: [id number] US RETRO LTD 63325 REASON FOR EXAM: BC EXAM ORDER DATE: 05/26/2020 1:13 PM Attending MMatt: Denilson Morel PROCEDURE: - US RETRO LTD Comparison: None FINDINGS: Right kidney: parenchyma echogenicity: Normal echogenicity size: 9.8 x 5.5 x 6.2 cm. stones: none cysts/masses: none hydronephrosis: none Left kidney: parenchyma echogenicity: Normal echogenicity size: 10.2 x 5.6 x 7.2 cm. stones: none cysts/masses: none hydronephrosis: none Urinary Bladder: Ureteral jets: Not visualized Intraluminal masses/debris: None Wall thickness: Normal Outpouching: None IMPRESSION: Sonographically unremarkable kidneys. Location: [facility] at 1411 Reported and signed by: Michael Mehta MD PAGE 1 Signed Report (CONTINUED) Name: BOOKER PIERRE [facility] : 1950 Age/S: 70 / M [address] Unit #: [id number] Loc: [place] [address] Phys: Tyrese Morelriosmatthewnitish Escoto Acct: [id number] Dis Date: Status: ADM IN PHONE #: [phone] Exam Date: 05/26/2020 1351 FAX #: [phone] Reason: BC EXAMS: CPT CODE: [id number] US RETRO LTD 21193 < Continued> CC: Jasper Eisenberg Technologist: Marquise Hsu RDMS Trnscb Date/Time: 05/26/2020 (1411) [email or web address] Orig Print D/T: S: 05/26/2020 (1414) Probe: PAGE 2 Signed Report GLUBED 2020-05-26 13:18:00* Test Item Value Reference Range Interpretation Comments GLUBED (test code = GLUBED) 155 mg/dL 74-106 H Performed by certified tool machine setup operator at [facility] [id number] 08:31:00* Test Item Value Reference Range Interpretation Comments GLUBED (test code = GLUBED) 98 mg/dL 74-106 N Performed by certified tool machine setup operator at [facility] BASIC METABOLIC [id number] 05:25:00* Test Item Value Reference Range Interpretation Comments SODIUM (test code = NA) 139 mmol/L 136-145 POTASSIUM (test code = K) 4.1 mmol/L 3.5-5.1 N CHLORIDE (test code = CL) 102.0 mmol/L 98-107 N CARBON DIOXIDE (test code = CO2) 27.0 mmol/L 21-32 N ANION GAP (test code = GAP) 14.1 10-20 N GLUCOSE (test code = GLU) 119 mg/dL 74-106 H BLOOD UREA NITROGEN (test code = BUN) 43 mg/dL 7-18 H GLOMERULAR FILTRATION RATE (test code = GFR) 28 mL/min >=60 Estimated GFR by using Modified MDRD formula.Chronic kidney disease is defined as either kidney damageor GFR <60 mL/min/1.73 m2 for >3 months. CREATININE (test code = CREAT) 2.30 mg/dL 0.7-1.3 H BUN/CREATININE RATIO (test code = BUN/CREA) 18.7 10-20 N CALCIUM (test code = CA) 9.2 mg/dL 8.5-10.1 N BASIC METABOLIC [id number] 05:23:00* Test Item Value Reference Range Interpretation Comments SODIUM (test code = NA) 139 mmol/L 136-145 POTASSIUM (test code = K) 4.1 mmol/L 3.5-5.1 N CHLORIDE (test code = CL) 102.0 mmol/L 98-107 N CARBON DIOXIDE (test code = CO2) mmol/L 21-32 ANION GAP (test code = GAP) 10-20 GLUCOSE (test code = GLU) mg/dL 74-106 BLOOD UREA NITROGEN (test code = BUN) mg/dL 7-18 GLOMERULAR FILTRATION RATE (test code = GFR) mL/min >=60 CREATININE (test code = CREAT) mg/dL 0.7-1.3 BUN/CREATININE RATIO (test code = BUN/CREA) 10-20 CALCIUM (test code = CA) mg/dL 8.5-10.1 [id number] 05:22:00* Test Item Value Reference Range Interpretation Comments TROPONIN-I (test code = TROPI) <0.015 ng/mL 0-0.045 N COMMENTS TO DEVELOPMENT AND PLANNING ENGINEER: COLLECT 3 HOURS AFTER PREVIOUS [id number] 03:52:00* Test Item Value Reference Range Interpretation Comments TROPONIN-I (test code = TROPI) <0.015 ng/mL 0-0.045 N COMMENTS TO DEVELOPMENT AND PLANNING ENGINEER: COLLECT 3 HOURS AFTER PREVIOUS SAMPLECREATINE KINASE (CK)2020-05-25 21:07:00* Test Item Value Reference Range Interpretation Comments CREATINE KINASE (CK) (test code = CK) 2351 IUnit/L 26-208 H - XR T-SPINE 3 [id number] 19:17:00 FAX: Praneeth Wiggins MD [phone] [place]: St: [facility] FAX: Jasper Prince MD [phone] Name: BOOKER PIERRE [facility] : 1950 Age/S: 70/M [address] [facility] Unit #: [id number] Loc: [place] [address] Phys: Praneeth Wiggins MD Acct: [id number] Dis Date: Status: REG ER PHONE #: [phone] Exam Date: 05/25/2020 184 FAX #: [phone] Reason: back pain EXAMS: CPT CODE: [id number] XR T-SPINE 3 VIEWS [id number] REASON FOR EXAM: SYNCOPE Exam Order Date: 05/25/2020 5:57 PM Ordering Samantha: Praneeth Wiggins MD [place] OCEDURE: - XR CHEST 1 V, - XR T-SPINE 3 VIEWS COMPARISON: Chest radiograph May 16, 2019 FINDINGS: The lungs are clear. T here is no pleural effusion or pneumothorax. Pulmonary vascularity is with in normal limits. Cardiomediastinal silhouette is normal in size f or technique. The mediastinal contours are within normal limits. Degenerative changes are present in the thoracic spine with confluent osteophytes. The visualized upper abdomen is within normal limits. IMPRESSION: No acute cardiopulmonary process. Confluent osteophytes in the thoracic spine suggest diffuse hepatic skeletal hyperostosis. However no fracture or malalignment is seen. Location: [facility] Electronically Signed by Michael Mehta MD on 0 05/25/2020 at 1917 Reported and signed by: Michael Mehta MD CC: Praneeth Wiggins MD; Jasper Eisenberg Technologist: RT KALEB(R) Trnscrd Date/Time/By: 05/25/2020 (1916) : By: [email or web address] Orig Print D/T: S: 05/25/2020 (1920) PAGE 1 Signed Report - XR CHEST 1 [id number] 19:17:00 FAX: Praneeth Wiggins MD [phone] [place]: St: [facility] FAX: Jasper Prince MD [phone] Name: BOOKER PIERRE [facility] : 1950 Age/S: 70/M [address] [facility] Unit #: [id number] Loc: [place] [address] Phys: Praneeth Wiggins MD Acct: [id number] Dis Date: Status: REG ER PHONE #: [phone] Exam Date: 05/25/2020 1840 FAX #: [phone] Reason: SYNCOPE EXAMS: CPT CODE: [id number] XR CHEST 1 V [id number] REASON FOR EXAM: SYNCOPE Exam Order Date: 05/25/2020 5:57 PM Ordering M.D.: Praneeth Wiggins MD [place] OCEDURE: - XR CHEST 1 V, - XR T-SPINE 3 VIEWS COMPARISON: Chest radiograph May 16, 2019 FINDINGS: The lungs are clear. T here is no pleural effusion or pneumothorax. Pulmonary vascularity is with in normal limits. Cardiomediastinal silhouette is normal in size f or technique. The mediastinal contours are within normal limits. Degenerative changes are present in the thoracic spine with confluent osteophytes. The visualized upper abdomen is within normal limits. IMPRESSION: No acute cardiopulmonary process. Confluent osteophytes in the thoracic spine suggest diffuse hepatic skeletal hyperostosis. However no fracture or malalignment is seen. Location: [facility] Electronically Signed by Michael Mehta MD on 0 05/25/2020 at 1917 Reported and signed by: Michael Mehta MD CC: Praneeth Wiggins MD; Jasper Eisenberg Technologist: RT KALEB(R) Trnscrd Date/Time/By: 05/25/2020 (1916) : By: [email or web address] Orig Print D/T: S: 05/25/2020 (1920) PAGE 1 Signed Report B-TYPE NATRIURETIC [id number] 19:12:00* Test Item Value Reference Range Interpretation Comments B-TYPE NATRIURETIC PEPTIDE (test code = BNP) 18.32 pgram/mL 0-100 N - CT C-SPINE W/O [id number] 18:55:00 Name: BOOKER PIERRE [facility] : 1950 Age[facility]S: 70 [facility] [address] [facility] [id number] Loc: [place] [address] Phys: Praneeth Wiggins MD Acct: [id number] Dis Date: Status: REG ER PHONE #: [phone] Exam Date: 05/25/2020 183 FAX #: [phone] Reason: neck pain fall EXAMS: CPT CODE: [id number] CT C-SPINE W/O CONTRAST 57323 HISTORY: Syncope TECHNIQUE: Noncontrast 2.[address] of the head and cervical spine. Examination acquired within 24 hours of arrival. Automated exposure control for dose reduction. COMPARISON: None FINDINGS: No lacerations or contusions of the scalp or facial soft tissues. There appears to been a prior craniotomy involving the right parietal bone (4). Otherwise the calvarium and skull base are intact. No acute hemorrhage. No intracranial mass, mass effect, or midline shift. No effacement of the sulci or bronson-white matter interface. There is mild cortical atrophy and microvascular ischemic change of the white m atter. Visualized paranasal sinuses are clear. Mastoid air cells and middle ear cavities are clear. Orbital contents are unremarkabl e. No acute fracture of the cervical spine. No subluxation. Craniocervical and cervicothoracic articulations are appropriate. Vertebral body heights are preserved. Intervertebral disc heights are pr eserved. No prevertebral or paraspinal soft tissue abnormality. Lung apices are clear. IMPRESSION: No acute intracranial process. Atrophic and microvascular ischemic ch anges of the white matter. Location: [facility] Electroni franck Signed by Michael Mehta MD on 05/25/2020 at 1855 Rep orted and signed by: Michael Mehta MD PAGE 1 Signed Re port (CONTINUED) Name: BOOKER PIERRE [facility] : 1950 Age/S: 70 / M [address] Unit #: [id number] Loc: [place] [address] Phys: Praneeth Wiggins MD Acct: [id number] Dis Date: Status: REG ER PHONE #: [phone] Exam Date: 05/25/2020 1830 FAX #: [phone] Reason: neck pain fall EXAMS: CPT CODE: [id number] CT C-SPINE W/O CONTRAST [id number] <Continued> CC: Praneeth Wiggins MD; Jasper Eisenberg Technologist:Damaris Bowen RT(R); KATHY Lam CTDI: DLP: Trnscb Date/Time: 05/25/2020 (1854) [email or web address] Orig Print D/T: S: 05/25/2020 (1858) PAGE 2 Signed Report - CT HEAD/BRAIN W/O CONT 2020-05-25 18:55:00 Name: BOOKER PIERRE [facility] : 1950 Age/S: 70 / M [address] Unit #: [id number] Loc: [place] [id number] Phys: Praneeth Wiggins MD Acct: [id number] Dis Date: Status: REG ER PHONE #: [phone] Exam Date: 05/25/20201824 FAX #: [phone] Reason: Syncope EXAMS: CPT CODE: [id number] CT HEAD/BRAIN W/O CONT 98256 HISTORY: Syncope TECHNIQUE: Noncontrast 2.[address] of the head and cervical spine. Examination acquired within 24 hours of arrival. Automated exposure control for dose reduction. COMPARISON: None FINDINGS: No lacerations or contusions of the scalp or facial soft tissues. There appears to been a prior craniotomy involving the right parietal bone (). Otherwise the calvarium and skull base are intact. No acute hemorrhage. No intracranial mass, mass effect, or midline shift. No effacement of the sulci or bronson-white matter interface. There is mild cortical atrophy and microvascular ischemic change of the white matter. Visualized paranasal sinuses are clear. Mastoid air cells and middle ear cavities are clear. Orbital contents are unremarkable. No acute fracture of the cervical spine. No subluxation. Craniocervical and cervicothoracic articulations are appropriate. Vertebral body heights are preserved. Intervertebral disc heights are preserved. No prevertebral or paraspinal soft tissue abnormality. Lung apices are clear. IMPRESSION: No acute intracranial process. Atrophic and microvascular ischemic changes of the white matter. Location: [facility] at 1855 Reported and signed by: Michael Mehta MD PAGE 1 Signed Report (CONTINUED) Name: BOOKER PIERRE [facility] : 1950 Age/S: 70 / M [address] Unit #: [id number] Loc: [place] [address] Phys: Praneeth Wiggins MD Acct: [id number] Dis Date: Status: REG ER PHONE #: [phone] Exam Date: 05/25/20201824 FAX #: [phone] Reason: Syncope EXAMS: CPT CODE: [id number] CT HEAD/BRAIN W/O CONT 36501 <Continued> CC: Praneeth Wiggins MD; Jasper Eisenberg Technologist:Damaris Bowen RT(R); KATHY Lam CTDI: DLP: Trnscb Date/Time: 05/25/2020 (1854) [email or web address] Orig Print D/T: S: 05/25/2020 (1858) PAGE 2 Signed Report BASIC METABOLIC [id number] 18:52:00* Test Item Value Reference Range Interpretation Comments SODIUM (test code = NA) 134 mmol/L 136-145 L POTASSIUM (test code = K) 4.1 mmol/L 3.5-5.1 N CHLORIDE (test code = CL) 98.0 mmol/L 98-107 N CARBON DIOXIDE (test code = CO2) 27.0 mmol/L 21-32 N ANION GAP (test code = GAP) 13.1 10-20 N GLUCOSE (test code = GLU) 248 mg/dL 74-106 H BLOOD UREA NITROGEN (test code = BUN) 53 mg/dL 7-18 H GLOMERULAR FILTRATION RATE (test code = GFR) 21 mL/min >=60 Estimated GFR by using Modified MDRD formula.Chronic kidney disease is defined as either kidney damageor GFR <60 mL/min/1.73 m2 for >3 months. CREATININE (test code = CREAT) 3.00 mg/dL 0.7-1.3 H BUN/CREATININE RATIO (test code = BUN/CREA) 17.5 10-20 N CALCIUM (test code = CA) 9.5 mg/dL 8.5-10.1 N [id number] 18:52:00* Test Item Value Reference Range Interpretation Comments TROPONIN-I (test code = TROPI) <0.015 ng/mL 0-0.045 N BASIC METABOLIC [id number] 18:39:00* Test Item Value Reference Range Interpretation Comments SODIUM (test code = NA) 134 mmol/L 136-145 L POTASSIUM (test code = K) 4.1 mmol/L 3.5-5.1 N CHLORIDE (test code = CL) 98.0 mmol/L 98-107 N CARBON DIOXIDE (test code = CO2) mmol/L 21-32 ANION GAP (test code = GAP) 10-20 GLUCOSE (test code = GLU) mg/dL 74-106 BLOOD UREA NITROGEN (test code = BUN) mg/dL 7-18 GLOMERULAR FILTRATION RATE (test code = GFR) mL/min >=60 CREATININE (test code = CREAT) mg/dL 0.7-1.3 BUN/CREATININE RATIO (test code = BUN/CREA) 10-20 CALCIUM (test code = CA) mg/dL 8.5-10.1 [id number] 18:39:00* Test Item Value Reference Range Interpretation Comments TROPONIN-I (test code = TROPI) ng/mL 0-0.045 CBC W/O [id number] 18:27:00* Test Item Value Reference Range Interpretation Comments WHITE BLOOD CELL (test code = WBC) 12.6 K/mm3 4.5-12.5 H RED BLOOD CELL (test code = RBC) 3.81 mill/mm3 4.0-5.8 L HEMOGLOBIN (test code = HGB) 11.1 gram/dL 13.0-17.5 L HEMATOCRIT (test code = HCT) 33.2 % 42.0-52.0 L MEAN CELL VOLUME (test code = MCV) 87.1 fL 80-98 N MEAN CELL HGB (test code = MCH) 29.1 picogram 27.0-33.0 N MEAN CELL HGB CONCETRATION (test code = MCHC) 33.4 gram/dL 33.0-36. 0 N RED CELL DISTRIBUTION WIDTH (test code = RDW) 13.2 % 11.6-16. 2 N PLATELET COUNT (test code = PLT) 371 K/mm3 150-450 N MEAN PLATELET VOLUME (test code = MPV) 8.5 fL 6.7-11.0 N [id number] 10:50:00* Test Item Value Reference Range Interpretation Comments GLUBED (test code = GLUBED) 78 mg/dL 74-106 N Performed by certified tool machine setup operator at [facility] - XR ELBOW 3 + V [id number] 16:12:00 FAX: Jasper Prince MD [phone] [place]: B St: REG FAX: Bekah Rodriguez MD [phone] Name: BOOKER PIERRE [facility] : 1950 Age/S: 69/M [address] [facility] Unit #: [id number] Loc: [place] [address] Phys: Bekah Rodriguez MD Acct: [id number] Dis Date: Status: REG ER PHONE #: [phone] Exam Date: 09/23/2019 1609 FAX #: [phone] Reason: pain, trauma EXAMS: CPT CODE: [id number] XR ELBOW 3 + V RT 59111 HISTORY: Pain after trauma. COMPARISON: None avail able. 3 views of the right elbow: No acute fracture or dislocation. Narrowed elbow joint. No joint fluid. Olecranon enthesophy te. Mineralization is normal. IMPRESSION: No a cute fracture or dislocation. Narrowed elbow joint. No joint fluid. at 1612 Reported and signed by: Maxx Meyer M.D. CC: Jasper Eisenberg; Bekah Rodriguez MD Technologist: JOSTIN MONDRAGON Trnscrd Date/Time/By: (1612) : By: [email or web address] PAGE 1 Signed R eport - XR SHOULDER 2 + V [id number] 15:27:00 FAX: Jasper Prince MD [phone] [place]: B St: REG FAX: Bekah Rodriguez MD [phone] Name: BOOKER PIERRE [facility] : 1950 Age/S: 69/M [address] [facility] Unit #: [id number] Loc: [place] [address] Phys: Bekah Rodriguez MD Acct: [id number] Dis Date: Status: REG ER PHONE #: [phone] Exam Date: 09/23/2019 1515 FAX #: [phone] Reason: pain, trauma EXAMS: CPT CODE: [id number] XR SHOULDER 2 + V RT 21881 HISTORY: Pain after trauma. COMPARISON: None avail able. 3 views of the right shoulder: No acute fractu re or dislocation. Narrowed glenohumeral and AC joints along with sternocl avicular joint. Chondrocalcinosis. Mild degenerative changes. Irregular ma rgins of the glenoid rim. Scapula and coracoid are unremarkable. Visualize d lungs are clear. IMPRESSION: No acute fractu re or dislocation. Narrowed joint spaces. at 1527 Reported and sign ed by: Maxx Meyer M.D. CC: Jasper Eisenberg; Candice Rodriguez MD Technologist: Debra aGrzon; STUDENT TECHNOL OGHITESH Trnscrd Date/Time/By: 09/23/2019 (1527) : By: [email or web address] Orig Print D/T: S: 09/23/2019 (6288) PAGE 1 Signed Report [id number] 12:31:00* Test Item Value Reference Range Interpretation Comments GLYCOSYLATED HEMOGLOBIN (HA1C) (test code = GLYHGB) 6.9 % HbA1 4. 8-6.0 H ESTIMATED AVERAGE GLUCOSE (test code = EAG) 151 MG/DL COMPREHENSIVE METABOLIC [id number] 12:31:00* Test Item Value Reference Range Interpretation Comments SODIUM (test code = NA) 140 mmol/L 136-145 N POTASSIUM (test code = K) 4.0 mmol/L 3.5-5.1 N CHLORIDE (test code = CL) 106.0 mmol/L 98-107 N CARBON DIOXIDE (test code = CO2) 25.0 mmol/L 21-32 N ANION GAP (test code = GAP) 13.0 10-20 N GLUCOSE (test code = GLU) 68 mg/dL 74-106 L BLOOD UREA NITROGEN (test code = BUN) 16 mg/dL 7-18 N GLOMERULAR FILTRATION RATE (test code = GFR) 60 mL/min >=60 Estimated GFR by using Modified MDRD formula.Chronic kidney disease is defined as either kidney damageor GFR <60 mL/min/1.73 m2 for >3 months. CREATININE (test code = CREAT) 1.20 mg/dL 0.7-1.3 N BUN/CREATININE RATIO (test code = BUN/CREA) 13.8 10-20 N TOTAL PROTEIN (test code = PROT) 8.2 gram/dL 6.4-8.2 N ALBUMIN (test code = ALB) 3.7 g/dL 3.4-5.0 N GLOBULIN (test code = GLOB) 4.5 gram/dL 2.7-4.2 H ALBUMIN/GLOBULIN RATIO (test code = A/G) 0.8 0.75-1.50 N CALCIUM (test code = CA) 9.0 mg/dL 8.5-10.1 N BILIRUBIN TOTAL (test code = BILT) 0.30 mg/dL 0.0-1.0 N SGOT/AST (test code = AST) 8 IUnit/L 15-37 L SGPT/ALT (test code = ALT) 15 IUnit/L 12-78 N ALKALINE PHOSPHATASE TOTAL (test code = ALKP) 78 IUnit/L 45-117 N Note change in reference range due to change in reagent. LIPID PROFILE (CORONARY RISK)2019-09-23 12:31:00* Test Item Value Reference Range Interpretation Comments TRIGLYCERIDES (test code = TRIG) 120 mg/dL 20-150 N CHOLESTEROL (test code = CHOL) 156 mg/dL 0-200 N CHOLESTEROL/HDL RATIO (test code = CHOLHDL) 3.0 RATIO 0-4.9 N RISK ASSOCIATED WITH CHOL/HDL RATIOS: Risk Male Female1/2 AVERAGE 3.43 3.27AVERAGE 4.97 4.442X AVERAGE 9.55 7.053X AVERAGE 23.39 11.04 REFERENCE VALUE IS RELATED TO RISK LEVELS ASRECOMMENDED BY THE IGGY. HEART, LUNG, AND BLOOD INST. HDL CHOLESTEROL (test code = HDL) 42 mg/dL 40-60 N LIPOPROTEIN LDL (test code = LDL) 104 mg/dL 100-129 N RN PERSONNEL, CONTACT PHYSICIAN IMMEDIATELY IF THIS IS A STROKE, AMI OR CAROTID STENOSIS PATIENT WHEN THE LDL >100 (1ST OCCURENCE, THIS ADMISSION) Reference Interval: mg/dL mmol/L Optimal <100 <2.6Near/above optimal 100-129 2.6- 3.3Borderline High 130-159 3.4-4.1High 160-189 4.1-4.9Very High >=190 >=4.9========= This LDL result is a direct measurement.========= COMPREHENSIVE METABOLIC [id number] 12:21:00* Test Item Value Reference Range Interpretation Comments SODIUM (test code = NA) 140 mmol/L 136-145 N POTASSIUM (test code = K) 4.0 mmol/L 3.5-5.1 N CHLORIDE (test code = CL) 106.0 mmol/L 98-107 N CARBON DIOXIDE (test code = CO2) mmol/L 21-32 ANION GAP (test code = GAP) 10-20 GLUCOSE (test code = GLU) mg/dL 74-106 BLOOD UREA NITROGEN (test code = BUN) mg/dL 7-18 GLOMERULAR FILTRATION RATE (test code = GFR) mL/min >=60 CREATININE (test code = CREAT) mg/dL 0.7-1.3 BUN/CREATININE RATIO (test code = BUN/CREA) 10-20 TOTAL PROTEIN (test code = PROT) gram/dL 6.4-8.2 ALBUMIN (test code = ALB) g/dL 3.4-5.0 GLOBULIN (test code = GLOB) gram/dL 2.7-4.2 ALBUMIN/GLOBULIN RATIO (test code = A/G) 0.75-1.50 CALCIUM (test code = CA) mg/dL 8.5-10.1 BILIRUBIN TOTAL (test code = BILT) mg/dL 0.0-1.0 SGOT/AST (test code = AST) IUnit/L 15-37 SGPT/ALT (test code = ALT) IUnit/L 12-78 ALKALINE PHOSPHATASE TOTAL (test code = ALKP) IUnit/L 45-117 LIPID PROFILE (CORONARY RISK)2019-09-23 12:21:00* Test Item Value Reference Range Interpretation Comments TRIGLYCERIDES (test code = TRIG) mg/dL 20-150 CHOLESTEROL (test code = CHOL) mg/dL 0-200 CHOLESTEROL/HDL RATIO (test code = CHOLHDL) RATIO 0-4.9 HDL CHOLESTEROL (test code = HDL) mg/dL 40-60 LIPOPROTEIN LDL (test code = LDL) mg/dL 100-129 PROTHROMBIN [id number] 11:58:00* Test Item Value Reference Range Interpretation Comments PROTHROMBIN TIME PATIENT (test code = PTP) 10.9 seconds 9.0-14.0 N INTERNATIONAL NORMAL RATIO (test code = INR) 0.9 0.8-1.2 N The therapeutic range for oral anticoagulant therapy formost indications is an international normalized ratio (INR)of between 2.0 and 3.0. The recommended therapeutic INRrange for various clinical situations is listed below: Clinical Situation INR range Pulmonary e mbolism treatment (2.0-3.0)Venous thrombosis treatmentVenous thrombosis prophylaxis (high risk surgery)Prevention of systemic embolism from: Acute myocardial infarction Valvular heart disease Atrial fibrillation Mechanical prosthetic heart valves (2.5-3.5) THROMBOPLASTIN TIME [id number] 11:58:00* Test Item Value Reference Range Interpretation Comments THROMBOPLASTIN TIME PARTIAL (test code = PTT) 31.9 seconds 25.0-36. 5 N CBC W/AUTO [id number] 11:51:00* Test Item Value Reference Range Interpretation Comments WHITE BLOOD CELL (test code = WBC) 8.6 K/mm3 4.5-12.5 N RED BLOOD CELL (test code = RBC) 4.60 mill/mm3 4.0-5.8 N HEMOGLOBIN (test code = HGB) 13.3 gram/dL 13.0-17.5 N HEMATOCRIT (test code = HCT) 39.8 % 42.0-52.0 L MEAN CELL VOLUME (test code = MCV) 86.5 fL 80-98 N MEAN CELL HGB (test code = MCH) 28.9 picogram 27.0-33.0 N MEAN CELL HGB CONCETRATION (test code = MCHC) 33.4 gram/dL 33.0-36. 0 N RED CELL DISTRIBUTION WIDTH (test code = RDW) 13.4 % 11.6-16. 2 N RED CELL DISTRIBUTION WIDTH SD (test code = RDW-SD) 41.9 fL 37 .0-51.0 N PLATELET COUNT (test code = PLT) 377 K/mm3 150-450 N MEAN PLATELET VOLUME (test code = MPV) 8.5 fL 6.7-11.0 N NEUTROPHIL % (test code = NT%) 54.0 % 39.0-69.0 N IMMATURE GRANULOCYTE % (test code = IG%) 0.2 % 0.0-5.0 N LYMPHOCYTE % (test code = LY%) 33.6 % 25.0-55.0 N MONOCYTE % (test code = MO%) 7.1 % 0.0-10.0 N EOSINOPHIL % (test code = EO%) 4.5 % 0.0-5.0 N BASOPHIL % (test code = BA%) 0.6 % 0.0-1.0 N NUCLEATED RBC % (test code = NRBC%) 0.0 % 0-0 N NEUTROPHIL # (test code = NT#) 4.66 K/mm3 1.8-7.7 N IMMATURE GRANULOCYTE # (test code = IG#) 0.02 x10 3/uL 0-0.03 N LYMPHOCYTE # (test code = LY#) 2.90 K/mm3 1.0-5.0 N MONOCYTE # (test code = MO#) 0.61 K/mm3 0-0.8 N EOSINOPHIL # (test code = EO#) 0.39 K/mm3 0.0-0.5 N BASOPHIL # (test code = BA#) 0.05 K/mm3 0.0-0.2 N NUCLEATED RBC # (test code = NRBC#) 0.00 K/mm3 0.0-0.1 N CBC W/AUTO [id number] 11:47:00* Test Item Value Reference Range Interpretation Comments WHITE BLOOD CELL (test code = WBC) K/mm3 4.5-12.5 RED BLOOD CELL (test code = RBC) mill/mm3 4.0-5.8 HEMOGLOBIN (test code = HGB) 13.3 gram/dL 13.0-17.5 N HEMATOCRIT (test code = HCT) % 42.0-52.0 MEAN CELL VOLUME (test code = MCV) fL 80-98 MEAN CELL HGB (test code = MCH) picogram 27.0-33.0 MEAN CELL HGB CONCETRATION (test code = MCHC) gram/dL 33.0-36. 0 RED CELL DISTRIBUTION WIDTH (test code = RDW) % 11.6-16. 2 RED CELL DISTRIBUTION WIDTH SD (test code = RDW-SD) fL 37 .0-51.0 PLATELET COUNT (test code = PLT) K/mm3 150-450 MEAN PLATELET VOLUME (test code = MPV) fL 6.7-11.0 NEUTROPHIL % (test code = NT%) % 39.0-69.0 IMMATURE GRANULOCYTE % (test code = IG%) % 0.0-5.0 LYMPHOCYTE % (test code = LY%) % 25.0-55.0 MONOCYTE % (test code = MO%) % 0.0-10.0 EOSINOPHIL % (test code = EO%) % 0.0-5.0 BASOPHIL % (test code = BA%) % 0.0-1.0 NEUTROPHIL # (test code = NT#) K/mm3 1.8-7.7 LYMPHOCYTE # (test code = LY#) K/mm3 1.0-5.0 MONOCYTE # (test code = MO#) K/mm3 0-0.8 EOSINOPHIL # (test code = EO#) K/mm3 0.0-0.5 BASOPHIL # (test code = BA#) K/mm3 0.0-0.2 - XR CHEST 2 [id number] 10:24:00 FAX: Jasper Prince MD [phone] [place]: O St: REG Name: BOOKER ROYAL [facility] : [birth year] Age/S: 69/M [address] [facility] Unit #: [id number] Loc: [place] [address] Phys: Jasper Eisenberg MD Acct: [id number] Dis Date: Status: REG CLI PHONE #: [phone] Exam Date: 05/16/2019 1000 FAX #: [phone] Reason: R06.0,I51.7 EXAMS: CPT CODE: [id number] XR CHEST 2 V 94237 TECHNIQUE - XR CHEST 2 V . COMPARISON: Chest x-ray 02/06/2018 HISTORY: 69 years Male R06.0,I51.7 FINDINGS: Lungs: No nodules. No air space or interstitial lung disease. Lungs are normal in volume. Mediastinum and john: No enlargement or other mass. Cardiovascular structures: No cardiomegaly. No abnormalitie s in vascular structures. Pleura/CP angles: Clear. No pneu mothorax. Bones: No osseous abnormalities. Soft tiss ues: No abnormalities. Tubes and lines: None. Other : None. IMPRESSION: No acute cardiopulmonary abnormaliti es. at 1024 * * Reported and signed by: Juan Antonio Quintana M.D. CC: Jasper Hidalgo Technologist: RT DAISY( R) Trnscrd Date/Time/By: 05/16/2019 (6011) : By: Sukhdeep Corcoran Print D/T: S: 05/16/2019 (9323) PAGE 1 Signed Report US RENAL RETROPERITONEAL [id number] 13:54:00 [place] [address] Patient Name: BOOKER PIERRE MR #: [id number] : 1950 Age/Sex: 69/M Req #: [id number] Adm Physician: Ordered by: ANA DYSON MD Report #: [id number] Location: Room/Bed: Procedure: [id number] US/US RENAL RETROPERITONEAL COMP Exam Date: Exam Time: REPORT STATUS: Signed Renal ultr asound. History: Proteinuria Discussion: Transverse and longitudinal i mages of the kidneys were obtained demonstrating normal renal sizes and echoge nicities. There is no evidence of hydronephrosis, mass or renal calculus. The right kidney measures 11.5 x 6.8 x 6.3 cm with a maximal cortical thickness of 1.5 cm and the left kidney measures 12.2 x 7.1 x 4.2 cm with a maximal cortic al thickness of 1.6 cm. The urinary bladder is unremarkable. Bilateral uri nary jet is noted. There is no evidence of free fluid. IMPRESSION: Normal renal ultrasound. Signed by: Dr. Rosemarie Roman DO on 01/20/2019 1:56 PM Dictated By: ROSEMARIE ROMAN DO 4568 Transcribed By: MIRIAN on 01/20/19 1351 COPY TO: ANA DYSON MD MRI SHOULDER RIGHT W [place] [address] Patient Name: BOOKER PIERRE MR #: [id number] : 1950 Age/Sex: 67/M Req #: [id number] Adm Physician: Ordered by: ANA AGUILAR MD Report #: [id number] Location: DX Room/Bed: Procedure: [id number] MRI/MRI SHOULDER RIGHT W Exam Date: Exam Time: REPORT STATUS: Signed MRI of the right shoulder with contrast. History: Shoulder pain. Labral t ear. Fall. Decreased range of motion. Comparison: None Technique: Mul tiplanar multisequence MRI of the shoulder after the administration of intra-a rticular gadolinium contrast material Findings: Rotator cuff: There is ro tator cuff tendinosis with a full-thickness tear involving the supraspinatus a nd anterior fibers of the infraspinatus tendons at the humeral insertion site. There is retraction of the torn fibers to the level of the glenoid and there is moderate rotator cuff muscle atrophy. Additionally, there is subscapularis tendinosis. The teres minor tendon is intact. Osseous acromion complex: The re is a type II acromion with mild lateral downsloping. There is moderate dege nerative arthrosis at the acromioclavicular joint with undersurface spurring a nd narrowing of the supraspinatus tendon outlet. There is subacromial/subdelto id bursitis. Glenohumeral joint: There is circumferential degeneration and fraying of the labrum. The glenohumeral articular cartilage surfaces are thinn ed with regions of fraying and fissuring most pronounced at the inferior gleno id best seen on coronal series 5 image 12. Gadolinium contrast material is see n filling the glenohumeral joint. Biceps tendon: There is intra-articular biceps tendinosis with fraying at the biceps anchor. Other findings: Neg ative for muscle denervation or osseous fracture. Impression: Rotator cuf f tendinosis with full-thickness tear, retraction and muscle atrophy as descri bed above. Moderate degenerative arthrosis at the acromioclavicular joint w ith narrowing of the supraspinatus tendon outlet and subacromial/subdeltoid bu rsitis. 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 Intra-articu lar biceps tendinosis with fraying at the biceps anchor. Signed by: Dr. Kirti Glover M.D. on 12/06/2017 12:56 PM Dictated By: KIRTI GLOVER MD, MD 1256 Transcribed By: MIRIAN on 12/06/17 1256 COPY TO: ANA AGUILAR MD GUIDE NEEDLE PLMT/LOC DE [place] [address] Patient Name: BOOKER PIERRE MR #: [id number] : 1950 Age/Sex: 67/M Req #: [id number] Adm Physician: Ordered by: ANA AGUILAR MD Report #: [id number] Location: DX Room/Bed: Procedure: [id number] DX/FLURO GUIDE NEEDLE PLMT/LOC DE Exam Date: Exam Time: REPORT STATUS: Sig good Right shoulder arthrogram December 06, 2017 Pre-Procedure Diagnosis: Right shoulder pain Post-procedure Diagnosis:Rotator cuff tear [place] Dr[employer] Operator: Samantha Larson Structural Metal Fabricator Apprentice: None Radiation Dose: 32.55 mGy (cumulative air k salty) Fluoroscopy time: 3.8 minutes Estimate blood loss: <5 mL Blood administered: None Complications: None Implants/Grafts: None Specimen: None Procedure: Informed consent was obtained and the patient placed supine. A timeout was performed. The right shoulder was prepped and draped in standard sterile fashion. Using fluoroscopic guidance a 22-gauge spinal needle was advanced into the right glenohumeral joint. Fluid from an effusion was returned and a 10 mL solution consisting of 5 mL normal saline, 5 mL 1% lidocaine and 0.1 mL gadolinium contrast was injected into the joint. The injection was monitored under fluoroscopy to confirm intra-joint positioning. The needle was removed and a sterile dressing applied. Findings: Please see the magnetic resonance imaging report for full findings. I mpression: Successful right shoulder arthrogram. This report was ge nerated with voice-recognition technology. Errors in machine welt butter can occur. Please interpret accordingly and contact a radiologist if there are any questi ons regarding the report. Signed by: Dr. Melinda Larson M.D. on 12/06/2017 1:49 PM Dictated By: MELINDA LARSON MD 1349 Transcribed By: MIRIAN on 12/06/17 1349 COPY TO: ANA AGUILAR MD INJECTION ARTHROGRAM SHOULDER [place] [address] Patient Name: BOOKER PIERRE MR #: [id number] : 1950 Age/Sex: 67/M Req #: [id number] [facility] Physician: Ordered by: ANA AGUILAR MD Report #: [id number] Location: Room/Bed: Procedure: [id number] IR/INJECTION ARTHROGRAM SHOULD ER Exam Date: 12/06/17 Exam Time: 1057 REPORT STATUS: Signed Right shoulder arthrogram December 06, 2017 Pre-Procedure Diagnosis: Right shoulder pain Post-procedure Diagnosis:Rotator cuff tear [place] [employer] Operator: Samantha Larson Structural Metal Fabricator Apprentice: None Radiation Dose: 32.55 mGy (cumul ative air kerma) Fluoroscopy time: 3.8 minutes Estimate blood loss: <5 mL Blood administered: None Complications: None Implants/Grafts: None Sp ecimen: None Procedure: Informed consent was obtained and the patient placed supine. A timeout was performed. The right shoulder was prepped and akua ped in standard sterile fashion. Using fluoroscopic guidance a 22-gauge s teagan needle was advanced into the right glenohumeral joint. Fluid from an eff usion was returned and a 10 mL solution consisting of 5 mL normal saline, 5 mL 1% lidocaine and 0.1 mL gadolinium contrast was injected into the joint. The injection was monitored under fluoroscopy to confirm intra-joint positioning. The needle was removed and a sterile dressing applied. Findings: Please see the magnetic resonance imaging report for full findings. I mpression: Successful right shoulder arthrogram. This report was ge nerated with voice-recognition technology. Errors in machine welt butter can occur. Please interpret accordingly and contact a radiologist if there are any questi ons regarding the report. Signed by: Dr. Melinda Larson M.D. on 12/06/2017 1:49 PM Dictated By: MELINDA LARSON MD 1347 Transcribed By: MIRIAN on 12/06/17 1343 COPY TO: ANA AGUILAR MD
--- OUTSIDE RECORDS SUMMARY | 2020-08-22 16:38 | XMS REPORT | Continuity of Care Document ---
Author Author [facility] t Organization [facility] Address [address] [place] [address] Phone Unavailable Care Team Providers Care Health Club Manager Name Role Phone RENEE BASHIR Attphys Unavailable [...] Known Allergies DA Active U 2020-06-11 00:00:00 [facility] No Known Allergies DA Active U 2020-06-10 00:00:00 [facility] No Known Allergies DA Active U 2020-05-25 00:00:00 [facility] No Known Allergies DA Active U 2019-09-23 00:00:00 [facility] Fish Containing Products DA Active U 2016-07-30 00:00:00 [facility] Fish Containing Products FA Active U 2016-07-30 00:00:00 [facility] Medications This patient has no known medications. Procedures This patient has no known procedures. Results Test Description Test Time Test Comments Results Result Comments Source CHEST SINGLE (PORTABLE) 2020-08-22 06:38:00 [facility] [address] [place], [place] [address] Patient Name: BOOKER PIERRE MR #: [id number] : 1950 Age/Sex: 70/M Req #: [id number] Adm Physician: RENEE BASHIR MD Ordered by: ALEXEI WRIGHT MD Report #: [id number] Location: ICU Room/Bed: ICU 196 Procedure: [id number] DX/CHEST SINGLE (PORTABLE) Exam Date: Exam Time: [...] WRIGHT MD CHEST SINGLE (PORTABLE) 2020-08-21 15:04:00 [place] [address] Patient Name: BOOKER PIERRE MR #: [id number] : 1950 Age/Sex: 70/M Req #: [id number] Adm Physician: RENEE BASHIR MD Ordered by: ALEXEI WRIGHT MD Report #: [id number] Location: ICU Room/Bed: ICU 196-1 Procedure: [id number] DX/CHEST SINGLE (PORTABLE) Exam Date: Exam Time: [...] 3:07 PM Dictated By: JAYANT BOLDEN MD 1501 Transcribed By: MIRIAN on 08/21/20 1507 COPY TO: ALEXEI WRIGHT MD CHEST SINGLE (PORTABLE) 2020-08-21 10:10:00 [place] [address] Patient Name: BOOKER PIERRE MR #: [id number] : 1950 Age/Sex: 70/M Req #: [id number] Adm Physician: RENEE BASHIR MD Ordered by: JOBY DENNY MD Report #: [id number] Location: ERHOLD Room/Bed: ERHOLD-1 Procedure: [id number] DX/CHEST SINGLE (PORTABLE) Exam Date: 08/21/20 Exam [...] DENNY MD CHEST SINGLE (PORTABLE) 2020-08-21 08:55:00 [place] [address] Patient Name: BOOKER PIERRE MR #: [id number] : 1950 Age/Sex: 70/M Req #: [id number] Adm Physician: Ordered by: JOBY DENNY MD Report #: [id number] Location: ER Room/Bed: Procedure: [id number] DX/CHEST SINGLE (PORTABLE) Exam Date: 08/21/20 Exam [...] on 08/21/20901 COPY TO: JOBY DENNY MD [facility] 2020-07-02 16:28:00 RUN DATE: 07/02/20 [facility] Lab PAGE 1 RUN TIME: 1628 Specimen Inquiry RUN USER: INTERFACE PATIENT: BOOKER PIERRE LOC: DAY[place] U #: [id number] AGE/SX: 70/M ROOM: [facility] RE06/14/20REG DR: Stephanie Morel : 50 BED: A DIS: 07/01/20 STATUS: DIS IN TLOC: SPEC #: [id number] RECD: 07/01/20 STATUS: SOUT REQ #: [id number] MYLES: 06/30/20- [facility] DR: Denilson Morel ENTERED: 07/01/20-1003 SP TYPE: STOMACH OTHR DR: No Primary or Family Physician Sánchez Gan MD, Daniel Haryanto MD Faisal, Muhammad MD Guthikonda, Lalitha N MD Pakzaban, Peyman MD Pham,Jasper Bobo MD, MD, Andres F MDORDERED: GROSS COPIES TO: No Primary or Family Physician Sánchez Gan MD [address] [place] [address] Patrick Martinez MD [address], [address] [place], [place] [address] Checo Valladares MD [address] [place] [address] Maria TeresaTyresejerome Escoto [address] [place] [address] [place] F[place] [address] [facility], [address] [place] [address] Jamie Rust MD [address] [place] [address] CONTINUED ON NEXT PAGE RUN DATE: 07/02/20 [place] - Lab PAGE 2 RUN TIME: 1628 Specimen Inquiry RUN USER: INTERFACE SPEC #: [id number] PATIENT: BOOKER PIERRE #[id number] (Continued)--------- --- COPIES TO: (Continued) Tanja Boateng MD [address] [place], [place] [address], [place] [address] Jasper Eisenberg MD [address] [place] [address] Gordon Priest MD [address] [facility] [address] [place] [address] PROCEDURES: GROSS (07/02/20-1321) TISSUES: ANTRUM - BX CLINICAL HISTORY COLLECTION DATE: 06/30/20 DYSPHAGIA FINAL DIAGNOSIS Gastric antrum, biopsy: GASTRIC MUCOSA WITH MILD REACTIVE EPITHELIAL CHANGE NO SIGNIFICANTLY INCREASED ACUTE OR CHRONIC INFLAMMATION NEGATIVE FOR INTESTINAL METAPLASIA NEGATIVE FOR HELICOBACTER ORGANISMS NEGATIVE FOR MALIGNANCY RRB/gm D 02334, 05451 MACROSCOPIC The specimen is received in formalin, labeled with the patient's name, identified as "antrum", and consists of a single hennessy biopsy measuring 0.25 cm, submitted for histologic evaluation. GROSS PERFORMED AT [facility] CONTINUED ON NEXT PAGE ---- --------RUN DATE: 07/02/20 [place] - Lab PAGE 3 RUN TIME: 1628 Specimen Inquiry RUN USER: INTERFACE SPEC #: [id number] PATIENT: BOOKER PIERRE #[id number] (Continued) MACROSCOPIC (Continued) [address] [place] [address] [phone] MICROSCOPIC At the request of Dr. Saldaña, a Giemsa stain is performed to exclude Helicobacter organisms. No organisms are identified. All of the stains, including any controls performed, stain appropriately. MICROSCOPIC PERFORMED AT [facility] [address] [place] [address] [phone] PERFORMING SITE Processed at: [facility] [address] [place] [address] Signed SIGNATURE ON FILE Josef Nuno MD 07/02/20 1628 END OF REPORT GLUBED 2020-07-01 17:54:00 Test Item GLUBED (test code = GLUBED) 163 mg/dL 74-106 H Performed by certified diesel plant operator at [facility] [id number] 17:38:00* Test Item Value Reference Range Interpretation Comments GLUBED (test code = GLUBED) 165 mg/dL 74-106 H Performed by certified diesel plant operator at [facility] [id number] 12:10:00* Test Item Value Reference Range Interpretation Comments GLUBED (test code = GLUBED) 174 mg/dL 74-106 H Performed by certified diesel plant operator at [facility] - XR CHEST 1 [id number] 07:51:00 FAX: Ama Long NP [place]: B St: ADM FAX: David Townsend [facility] Fo FAX: Jasper Prince MD [phone] Name: BOOKER PIERRE [facility] : 1950 Age/S: 70/M [address] [facility] Unit #: [id number] Loc: [address] [address] Phys: Ama Long NP Acct: [id number] Dis Date: Status: ADM IN PH ONE #: [phone] Exam Date: 07/01/2020 0518 FAX #: [phone] Reason: Acute Respiratory Failure EXAMS: CPT CODE: [id number] XR CHEST 1 V 77308 REASON FOR EXAM: Acute Respiratory Failure Exam [...] removal of enteric suction tube. Location : [facility] at 0751 Reported and signed by: Michael Mehta MD CC: Ama Long UTILITY PERSON; David Guzman DO; Jasper Eisenberg Technologist: JONN MILES JR RT (R) Trnscrd Date/Time/By: 07/01/2020 (075) : B y: [email or web address] Orig Print D/T: S: 07/01/2020 (075) PAGE 1 Signed Report [id number] 05:50:00* Test Item Value Reference Range Interpretation Comments GLUBED (test code = GLUBED) 132 mg/dL 74-106 H Performed by certified diesel plant operator at [facility] COMPREHENSIVE METABOLIC [id number] 04:15:00* Test Item Value Reference Range Interpretation [...] reference range due to change in reagent. [id number] 04:15:00* Test Item Value Reference Range Interpretation Comments PHOSPHORUS (test code = PHOS) 3.4 mg/dL 2.5-4.9 N [id number] 04:15:00* Test Item Value Reference Range Interpretation Comments MAGNESIUM (test code = MAG) 2.0 mg/dL 1.8-2.4 N CALCIUM [id number] 04:15:00* Test Item Value Reference Range Interpretation Comments CALCIUM IONIZED (test code = PHILLIP) 1.20 mmol/L 1.12-1.32 N COMPREHENSIVE METABOLIC [id number] 04:10:00* Test Item Value Reference Range Interpretation [...] reference range due to change in reagent. [id number] 04:10:00* Test Item Value Reference Range Interpretation Comments PHOSPHORUS (test code = PHOS) 3.4 mg/dL 2.5-4.9 N [id number] 04:10:00* Test Item Value Reference Range Interpretation Comments MAGNESIUM (test code = MAG) 2.0 mg/dL 1.8-2.4 N CALCIUM [id number] 04:10:00* Test Item Value Reference Range Interpretation Comments CALCIUM IONIZED (test code = PHILLIP) mmol/L 1.12-1.32 COMPREHENSIVE METABOLIC [id number] 04:07:00* Test Item Value Reference Range Interpretation [...] TOTAL (test code = ALKP) IUnit/L 45-117 [id number] 04:07:00* Test Item Value Reference Range Interpretation Comments PHOSPHORUS (test code = PHOS) mg/dL 2.5-4.9 [id number] 04:07:00* Test Item Value Reference Range Interpretation Comments MAGNESIUM (test code = MAG) mg/dL 1.8-2.4 CALCIUM [id number] 04:07:00* Test Item Value Reference Range Interpretation Comments CALCIUM IONIZED (test code = PHILLIP) mmol/L 1.12-1.32 CBC W/AUTO [id number] 02:50:00* Test Item Value Reference Range Interpretation [...] (test code = MDIFF) NO CBC W/AUTO [id number] 02:49:00* Test Item Value Reference Range Interpretation [...] # (test code = BA#) K/mm3 0.0-0.2 [id number] 00:50:00* Test Item Value Reference Range Interpretation Comments GLUBED (test code = GLUBED) 149 mg/dL 74-106 H Performed by certified diesel plant operator at [facility] [id number] 18:21:00* Test Item Value Reference Range Interpretation Comments GLUBED (test code = GLUBED) 141 mg/dL 74-106 H Performed by certified diesel plant operator at [facility] [id number] 11:56:00* Test Item Value Reference Range Interpretation Comments GLUBED (test code = GLUBED) 145 mg/dL 74-106 H Performed by certified diesel plant operator at [facility] - XR CHEST 1 [id number] 07:50:00 FAX: Ama Long NP [place]: B St: ADM FAX: David Townsend Fo FAX: Jasper Prince MD [phone] Name: BOOKER PIERRE [facility] : 1950 Age/S: 70/M [address] [facility] Unit #: [id number] Loc: [place] [address] Phys: Ama Long NP Acct: [id number] Dis Date: Status: ADM IN ONE #: [phone] Exam Date: 06/30/2020 05 FAX #: [phone] Reason: Acute Respiratory Failure EXAMS: CPT CODE: [id number] XR CHEST 1 V 79282 REASON FOR EXAM: Acute Respiratory Failure Exam [...] when accounting for differences in technique. Location: [facility] at 0750 Reported and sig good by: Michael Mehta MD CC: Ama Long UTILITY PERSON; David Guzman DO; Jasper Eisenberg Technologist: JONN MILES JR RT(R) T rnscrd Date/Time/By: 06/30/2020 (075) : By: [email or web address] Orig Print D/T: S: 06/30/2020 (3898) PAGE 1 Sign ed Report [id number] 05:51:00* Test Item Value Reference Range Interpretation Comments GLUBED (test code = GLUBED) 207 mg/dL 74-106 H Performed by certified diesel plant operator at [facility] COMPREHENSIVE METABOLIC [id number] 03:57:00* Test Item Value Reference Range Interpretation [...] reference range due to change in reagent. [id number] 03:57:00* Test Item Value Reference Range Interpretation Comments PHOSPHORUS (test code = PHOS) 3.1 mg/dL 2.5-4.9 N [id number] 03:57:00* Test Item Value Reference Range Interpretation Comments MAGNESIUM (test code = MAG) 1.6 mg/dL 1.8-2.4 L CALCIUM [id number] 03:57:00* Test Item Value Reference Range Interpretation Comments CALCIUM IONIZED (test code = PHILLIP) 0.88 mmol/L 1.12-1.32 L COMPREHENSIVE METABOLIC [id number] 03:17:00* Test Item Value Reference Range Interpretation [...] reference range due to change in reagent. [id number] 03:17:00* Test Item Value Reference Range Interpretation Comments PHOSPHORUS (test code = PHOS) 3.1 mg/dL 2.5-4.9 N [id number] 03:17:00* Test Item Value Reference Range Interpretation Comments MAGNESIUM (test code = MAG) 1.6 mg/dL 1.8-2.4 L CALCIUM [id number] 03:17:00* Test Item Value Reference Range Interpretation Comments CALCIUM IONIZED (test code = PHILLIP) mmol/L 1.12-1.32 COMPREHENSIVE METABOLIC [id number] 03:05:00* Test Item Value Reference Range Interpretation [...] TOTAL (test code = ALKP) IUnit/L 45-117 [id number] 03:05:00* Test Item Value Reference Range Interpretation Comments PHOSPHORUS (test code = PHOS) mg/dL 2.5-4.9 [id number] 03:05:00* Test Item Value Reference Range Interpretation Comments MAGNESIUM (test code = MAG) mg/dL 1.8-2.4 CALCIUM [id number] 03:05:00* Test Item Value Reference Range Interpretation Comments CALCIUM IONIZED (test code = PHILLIP) mmol/L 1.12-1.32 CBC W/AUTO [id number] 02:49:00* Test Item Value Reference Range Interpretation [...] DIFF REQUIRED (test code = MDIFF) NO [id number] 00:47:00* Test Item Value Reference Range Interpretation Comments GLUBED (test code = GLUBED) 211 mg/dL 74-106 H Performed by certified diesel plant operator at [facility] [id number] 17:22:00* Test Item Value Reference Range Interpretation Comments GLUBED (test code = GLUBED) 225 mg/dL 74-106 H Performed by certified diesel plant operator at [facility] [id number] 11:29:00* Test Item Value Reference Range Interpretation Comments GLUBED (test code = GLUBED) 212 mg/dL 74-106 H Performed by certified diesel plant operator at [facility] ARTERIAL BLOOD [id number] 07:28:00* Test Item Value Reference Range Interpretation [...] = O2CT) 9.7 % vol 18.0-22.0 LL [id number] 05:42:00* Test Item Value Reference Range Interpretation Comments GLUBED (test code = GLUBED) 139 mg/dL 74-106 H Performed by certified diesel plant operator at [facility] CBC W/MANUAL [id number] 04:42:00* Test Item Value Reference Range Interpretation [...] IMMAT) 0 % 0-0 N COMPREHENSIVE METABOLIC [id number] 04:35:00* Test Item Value Reference Range Interpretation [...] reference range due to change in reagent. [id number] 04:35:00* Test Item Value Reference Range Interpretation Comments PHOSPHORUS (test code = PHOS) 4.0 mg/dL 2.5-4.9 N [id number] 04:35:00* Test Item Value Reference Range Interpretation Comments MAGNESIUM (test code = MAG) 1.8 mg/dL 1.8-2.4 N CALCIUM [id number] 04:35:00* Test Item Value Reference Range Interpretation Comments CALCIUM IONIZED (test code = PHILLIP) 1.11 mmol/L 1.12-1.32 L COMPREHENSIVE METABOLIC [id number] 04:28:00* Test Item Value Reference Range Interpretation [...] TOTAL (test code = ALKP) IUnit/L 45-117 [id number] 04:28:00* Test Item Value Reference Range Interpretation Comments PHOSPHORUS (test code = PHOS) mg/dL 2.5-4.9 [id number] 04:28:00* Test Item Value Reference Range Interpretation Comments MAGNESIUM (test code = MAG) mg/dL 1.8-2.4 CALCIUM [id number] 04:28:00* Test Item Value Reference Range Interpretation Comments CALCIUM IONIZED (test code = PHILLIP) 1.11 mmol/L 1.12-1.32 L COMPREHENSIVE METABOLIC [id number] 04:22:00* Test Item Value Reference Range Interpretation [...] TOTAL (test code = ALKP) IUnit/L 45-117 [id number] 04:22:00* Test Item Value Reference Range Interpretation Comments PHOSPHORUS (test code = PHOS) mg/dL 2.5-4.9 [id number] 04:22:00* Test Item Value Reference Range Interpretation Comments MAGNESIUM (test code = MAG) mg/dL 1.8-2.4 CALCIUM [id number] 04:22:00* Test Item Value Reference Range Interpretation Comments CALCIUM IONIZED (test code = PHILLIP) 1.11 mmol/L 1.12-1.32 L CBC W/MANUAL [id number] 03:31:00* Test Item Value Reference Range Interpretation [...] MORPHOLOGY (test code = PLTMORPH) CBC W/MANUAL [id number] 03:31:00* Test Item Value Reference Range Interpretation [...] MORPHOLOGY (test code = PLTMORPH) CBC W/MANUAL [id number] 03:31:00* Test Item Value Reference Range Interpretation [...] MORPHOLOGY (test code = PLTMORPH) CBC W/MANUAL [id number] 03:31:00* Test Item Value Reference Range Interpretation [...] MORPHOLOGY (test code = PLTMORPH) CBC W/MANUAL [id number] 03:31:00* Test Item Value Reference Range Interpretation [...] MORPHOLOGY (test code = PLTMORPH) CBC W/AUTO [id number] 03:26:00* Test Item Value Reference Range Interpretation [...] BA#) K/mm3 0.0-0.2 - XR CHEST 1 [id number] 03:25:00 FAX: Ama Long NP [place]: B St: ADM FAX: David Townsend FAX: Jasper Prince MD [phone] Name: BOOKER PIERRE [facility] : 1950 Age/S: 70/M [address] Unit #: [id number] Loc: [address] [place] [address] Phys: Ama Long NP Acct: [id number] Dis Date: Status: ADM IN ONE #: [phone] Exam Date: 06/29/2020 0130 FAX #: [phone] Reason: acute resp failure EXAMS: CPT CODE: [id number] XR CHEST 1 V 07738 HISTOR Y: Respiratory failure Location: C3 COMPARISON:06/28/2020 [...] S: 06/29/2020 (0420) PAGE 1 Signed Report [id number] 00:17:00* Test Item Value Reference Range Interpretation Comments GLUBED (test code = GLUBED) 137 mg/dL 74-106 H Performed by certified diesel plant operator at [facility] - [facility] W/[id number] 12:06:00 Name: BOOKER PIERRE [facility] : 1950 Age/S: 70 / M [address] Unit #: [id number] Loc: [place] [address] Phys: Tanja Boateng MD Acct: [id number] Dis Date: Status: ADM IN PHONE #: [phone] Exam Date: 06/28/2020 1138 FAX #: [phone] Reason: right pleural effusion EXAMS: CPT CODE: [id number] US CHST W/MEDIASTINUM 01815 REASON FOR EXAM: right pleural effusion EXAM ORDER DATE: 06/28/2020 8:27 AM Attending M.D.: Tanja Boateng MD PROCEDURE: - US CHST W/MEDIASTINUM Comparison: Chest x-ray earlier today at 6:11 AM FINDINGS/ IMPRESSION: No pleural effusions are seen. Location: [facility] at 1206 Reported and signed by: Michael Mehta MD CC: David Guzman [facility] ; Tanja Boateng MD; Jasper Eisenberg Technologist: JUNAID MORTON [facility] Trnscb Date/Time: 06/28/2020 (2726) t.SDR.RR31 Orig Print D/T: S: 06/28/2020 (6013) Probe: PAGE 1 Signed Report [id number] 11:47:00* Test Item Value Reference Range Interpretation Comments GLUBED (test code = GLUBED) 159 mg/dL 74-106 H Performed by certified diesel plant operator at [facility] - XR CHEST 1 [id number] 08:30:00 FAX: Ama Long NP [place]: B St: ADM FAX: David Townsend FAX: Jasper Prince MD [phone] Name: BOOKER PIERRE [facility] : 1950 Age/S: 70/M [address] [facility] Unit #: [id number] Loc: [place] [address] Phys: Ama Long NP Acct: [id number] Dis Date: Status: ADM IN PH ONE #: [phone] Exam Date: 06/28/2020 0611 FAX #: [phone] Reason: acute resp failure EXAMS: CPT CODE: [id number] XR CHEST 1 V 89309 REASON FOR EXAM: acute resp failure Exam [...] No change from prior ex am. Location: [facility] at 0830 Reported and signed by: Noemy Mehta MD CC: Ama Long NP; David Guzman DO; Jasper Eisenberg Technologist: JONN MILES JR RT(R) Trnscrd Date/Time/By: 06/28/2020 (829) : By: [email or web address] Orig Print D/T: S: 01/2020 (3233) PAGE 1 Signed Repo rt [id number] 05:29:00* Test Item Value Reference Range Interpretation Comments GLUBED (test code = GLUBED) 149 mg/dL 74-106 H Performed by certified diesel plant operator at [facility] COMPREHENSIVE METABOLIC [id number] 04:33:00* Test Item Value Reference Range Interpretation [...] reference range due to change in reagent. [id number] 04:33:00* Test Item Value Reference Range Interpretation Comments PHOSPHORUS (test code = PHOS) 3.0 mg/dL 2.5-4.9 N [id number] 04:33:00* Test Item Value Reference Range Interpretation Comments MAGNESIUM (test code = MAG) 1.7 mg/dL 1.8-2.4 L CALCIUM [id number] 04:33:00* Test Item Value Reference Range Interpretation Comments CALCIUM IONIZED (test code = PHILLIP) 1.14 mmol/L 1.12-1.32 N CBC W/MANUAL [id number] 04:30:00* Test Item Value Reference Range Interpretation [...] IMMAT) 0 % 0-0 N COMPREHENSIVE METABOLIC [id number] 03:59:00* Test Item Value Reference Range Interpretation [...] TOTAL (test code = ALKP) IUnit/L 45-117 [id number] 03:59:00* Test Item Value Reference Range Interpretation Comments PHOSPHORUS (test code = PHOS) mg/dL 2.5-4.9 [id number] 03:59:00* Test Item Value Reference Range Interpretation Comments MAGNESIUM (test code = MAG) mg/dL 1.8-2.4 CALCIUM [id number] 03:59:00* Test Item Value Reference Range Interpretation Comments CALCIUM IONIZED (test code = PHILLIP) 1.14 mmol/L 1.12-1.32 N COMPREHENSIVE METABOLIC [id number] 03:57:00* Test Item Value Reference Range Interpretation [...] TOTAL (test code = ALKP) IUnit/L 45-117 [id number] 03:57:00* Test Item Value Reference Range Interpretation Comments PHOSPHORUS (test code = PHOS) mg/dL 2.5-4.9 [id number] 03:57:00* Test Item Value Reference Range Interpretation Comments MAGNESIUM (test code = MAG) mg/dL 1.8-2.4 CALCIUM [id number] 03:57:00* Test Item Value Reference Range Interpretation Comments CALCIUM IONIZED (test code = PHILLIP) mmol/L 1.12-1.32 ARTERIAL BLOOD [id number] 03:51:00* Test Item Value Reference Range Interpretation [...] O2CT) 12.8 % vol 18.0-22.0 L PROTHROMBIN [id number] 03:19:00* Test Item Value Reference Range Interpretation [...] (2.5-3.5) IS PATIENT ON ANTICOAGULANTS? NTHROMBOPLASTIN TIME [id number] 03:19:00* Test Item Value Reference Range Interpretation Comments THROMBOPLASTIN TIME PARTIAL (test code = PTT) 27.0 seconds 23.0-37. 0 N IS PATIENT ON ANTICOAGULANTS? NCBC W/MANUAL [id number] 03:14:00* Test Item Value Reference Range Interpretation [...] MORPHOLOGY (test code = PLTMORPH) CBC W/MANUAL [id number] 03:14:00* Test Item Value Reference Range Interpretation [...] MORPHOLOGY (test code = PLTMORPH) CBC W/MANUAL [id number] 03:14:00* Test Item Value Reference Range Interpretation [...] MORPHOLOGY (test code = PLTMORPH) CBC W/MANUAL [id number] 03:14:00* Test Item Value Reference Range Interpretation [...] MORPHOLOGY (test code = PLTMORPH) CBC W/MANUAL [id number] 03:14:00* Test Item Value Reference Range Interpretation [...] MORPHOLOGY (test code = PLTMORPH) CBC W/AUTO [id number] 03:05:00* Test Item Value Reference Range Interpretation [...] # (test code = BA#) K/mm3 0.0-0.2 [id number] 23:58:00* Test Item Value Reference Range Interpretation Comments GLUBED (test code = GLUBED) 130 mg/dL 74-106 H Performed by certified diesel plant operator at [facility] [id number] 17:10:00* Test Item Value Reference Range Interpretation Comments GLUBED (test code = GLUBED) 166 mg/dL 74-106 H Performed by certified diesel plant operator at [facility] [id number] 11:14:00* Test Item Value Reference Range Interpretation Comments GLUBED (test code = GLUBED) 199 mg/dL 74-106 H Performed by certified diesel plant operator at [facility] - XR CHEST 1 [id number] 06:52:00 FAX: Ama Long NP [place]: St: ADM FAX: David Townsend Fo FAX: Jasper Prince MD [phone] Name: PIERREBOOKER [facility] : 1950 Age/S: 70/M [address] [facility] Unit #: [id number] Loc: [address] [place] [address] Phys: Ama Long NP Acct: [id number] Dis Date: Status: ADM IN ONE #: [phone] Exam Date: 06/27/2020 023 FAX #: [phone] Reason: acute resp failure EXAMS: CPT CODE: [id number] XR CHEST 1 V 72388 HISTORY: Acute respiratory failure. COMPARISON: Previous day. [...] Technologist: Popeye Henley RT(R); EDENILSON JUAN RT(R) [facility] Date/Time/By: 06/27/2020 (0652) : By: [email or web address] Orig Print D/T: S: (0648) PAGE 1 Signed Rep ort [id number] 05:33:00* Test Item Value Reference Range Interpretation Comments GLUBED (test code = GLUBED) 184 mg/dL 74-106 H Performed by certified diesel plant operator at [facility] ARTERIAL BLOOD [id number] 04:01:00* Test Item Value Reference Range Interpretation [...] 13.5 % vol 18.0-22.0 L COMPREHENSIVE METABOLIC [id number] 02:53:00* Test Item Value Reference Range Interpretation [...] reference range due to change in reagent. [id number] 02:53:00* Test Item Value Reference Range Interpretation Comments PHOSPHORUS (test code = PHOS) 2.7 mg/dL 2.5-4.9 N [id number] 02:53:00* Test Item Value Reference Range Interpretation Comments MAGNESIUM (test code = MAG) 1.8 mg/dL 1.8-2.4 N CALCIUM [id number] 02:53:00* Test Item Value Reference Range Interpretation Comments CALCIUM IONIZED (test code = PHILLIP) 1.11 mmol/L 1.12-1.32 L COMPREHENSIVE METABOLIC [id number] 02:37:00* Test Item Value Reference Range Interpretation [...] reference range due to change in reagent. [id number] 02:37:00* Test Item Value Reference Range Interpretation Comments PHOSPHORUS (test code = PHOS) 2.7 mg/dL 2.5-4.9 N [id number] 02:37:00* Test Item Value Reference Range Interpretation Comments MAGNESIUM (test code = MAG) 1.8 mg/dL 1.8-2.4 N CALCIUM [id number] 02:37:00* Test Item Value Reference Range Interpretation Comments CALCIUM IONIZED (test code = PHILLIP) mmol/L 1.12-1.32 COMPREHENSIVE METABOLIC [id number] 02:30:00* Test Item Value Reference Range Interpretation [...] TOTAL (test code = ALKP) IUnit/L 45-117 [id number] 02:30:00* Test Item Value Reference Range Interpretation Comments PHOSPHORUS (test code = PHOS) mg/dL 2.5-4.9 [id number] 02:30:00* Test Item Value Reference Range Interpretation Comments MAGNESIUM (test code = MAG) mg/dL 1.8-2.4 CALCIUM [id number] 02:30:00* Test Item Value Reference Range Interpretation Comments CALCIUM IONIZED (test code = PHILLIP) mmol/L 1.12-1.32 CBC W/AUTO [id number] 02:23:00* Test Item Value Reference Range Interpretation [...] (test code = MDIFF) NO CBC W/AUTO [id number] 02:18:00* Test Item Value Reference Range Interpretation [...] # (test code = BA#) K/mm3 0.0-0.2 [id number] 00:03:00* Test Item Value Reference Range Interpretation Comments GLUBED (test code = GLUBED) 201 mg/dL 74-106 H Performed by certified diesel plant operator at [facility] HGB [id number] 20:56:00* Test Item Value Reference Range Interpretation Comments HEMOGLOBIN (test code = HGB) 8.7 gram/dL 13.0-17.5 L HEMATOCRIT (test code = HCT) 27.4 % 42.0-52.0 L [id number] 20:52:00* Test Item Value Reference Range Interpretation Comments GLUBED (test code = GLUBED) 239 mg/dL 74-106 H Performed by certified diesel plant operator at [facility] [id number] 18:13:00* Test Item Value Reference Range Interpretation Comments GLUBED (test code = GLUBED) 239 mg/dL 74-106 H Performed by certified diesel plant operator at [facility] [id number] 11:53:00* Test Item Value Reference Range Interpretation Comments GLUBED (test code = GLUBED) 249 mg/dL 74-106 H Performed by certified diesel plant operator at [facility] - XR CHEST 1 [id number] 07:56:00 FAX: Ama Long NP [place]: B St: ADM FAX: David Townsend [place] Fo FAX: Jasper Prince MD [phone] Name: BOOKER PIERRE [facility] : 1950 Age/S: 70/M [address] Unit #: [id number] Loc: [place] [address] Phys: Ama Long NP Acct: [id number] Dis Date: Status: ADM IN ONE #: [phone] Exam Date: 06/26/2020238 FAX #: [phone] Reason: acute resp failure EXAMS: CPT CODE: [id number] XR CHEST 1 V 01415 REASON FOR EXAM: acute resp failure EXAM ORDER DATE: 06/26/2020 2:00 AM Ordering: Ama Long NP Attending:Denilson lane Location:[facility] PROCEDURE: - XR CHEST 1 V COMPARISON: [...] Kecia Orig Print D/T: S: 06/26/20 20 (0751) PAGE 1 Signed Report [id number] 06:13:00* Test Item Value Reference Range Interpretation Comments GLUBED (test code = GLUBED) 264 mg/dL 74-106 H Performed by certified diesel plant operator at [facility] [id number] 06:13:00* Test Item Value Reference Range Interpretation Comments GLUBED (test code = GLUBED) 301 mg/dL 74-106 H Performed by certified diesel plant operator at [facility] COMPREHENSIVE METABOLIC [id number] 03:56:00* Test Item Value Reference Range Interpretation [...] reference range due to change in reagent. [id number] 03:56:00* Test Item Value Reference Range Interpretation Comments PHOSPHORUS (test code = PHOS) 2.3 mg/dL 2.5-4.9 L [id number] 03:56:00* Test Item Value Reference Range Interpretation Comments MAGNESIUM (test code = MAG) 2.0 mg/dL 1.8-2.4 N CALCIUM [id number] 03:56:00* Test Item Value Reference Range Interpretation Comments CALCIUM IONIZED (test code = PHILLIP) 1.10 mmol/L 1.12-1.32 L COMPREHENSIVE METABOLIC [id number] 02:58:00* Test Item Value Reference Range Interpretation [...] TOTAL (test code = ALKP) IUnit/L 45-117 [id number] 02:58:00* Test Item Value Reference Range Interpretation Comments PHOSPHORUS (test code = PHOS) mg/dL 2.5-4.9 [id number] 02:58:00* Test Item Value Reference Range Interpretation Comments MAGNESIUM (test code = MAG) mg/dL 1.8-2.4 CALCIUM [id number] 02:58:00* Test Item Value Reference Range Interpretation Comments CALCIUM IONIZED (test code = PHILLIP) 1.10 mmol/L 1.12-1.32 L CBC W/AUTO [id number] 02:55:00* Test Item Value Reference Range Interpretation [...] DIFF REQUIRED (test code = MDIFF) NO [id number] 17:33:00* Test Item Value Reference Range Interpretation Comments GLUBED (test code = GLUBED) 298 mg/dL 74-106 H Performed by certified diesel plant operator at [facility] [id number] 13:08:00* Test Item Value Reference Range Interpretation Comments GLUBED (test code = GLUBED) 282 mg/dL 74-106 H Performed by certified diesel plant operator at [facility] - XR CHEST 1 [id number] 07:03:00 FAX: Ama Long NP [place]: St: ADM FAX: David Townsend Pek FAX: Jasper Prince MD [phone] Name: BOOKER PIERRE [facility] : 1950 Age/S: 70/M [address] Unit #: [id number] Loc: [place], [place] [address] Phys: Ama Long NP Acct: [id number] Dis Date: Status: ADM IN ONE #: [phone] Exam Date: 06/25/2020 0525 FAX #: [phone] Reason: acute resp failure EXAMS: CPT CODE: [id number] XR CHEST 1 V 88893 HISTORY: Acute respiratory failure. COMPARISON: Previous day. Loca tion: TH. ET tube and NG tube are unchanged. Bilateral alveolar i nfiltrates appear unchanged. Dependent changes and left lower lobe segmen heber atelectasis. Cardiomegaly. IMPRESSION: No change in the dense bilateral alveolar infiltrates from previous day. at 070 3 Reported and signed by: Maxx Meyer M.D. CC: Ama Long NP; David Guzman [facility]; Jasper Eisenberg gist: JONN MILES JR RT(R) Trnscrd Date/Time/B y: 06/25/2020 (702) : By: EnocTH4 Orig Print D/T: S: 06/25/2020 (05 31) PAGE 1 Signed Report [id number] 05:42:00* Test Item Value Reference Range Interpretation Comments GLUBED (test code = GLUBED) 257 mg/dL 74-106 H Performed by certified diesel plant operator at [facility] [id number] 05:42:00* Test Item Value Reference Range Interpretation Comments GLUBED (test code = GLUBED) 344 mg/dL 74-106 H Performed by certified diesel plant operator at [facility] [id number] 05:42:00* Test Item Value Reference Range Interpretation Comments GLUBED (test code = GLUBED) 240 mg/dL 74-106 H Performed by certified diesel plant operator at [facility] COMPREHENSIVE METABOLIC [id number] 03:45:00* Test Item Value Reference Range Interpretation [...] reference range due to change in reagent. [id number] 03:45:00* Test Item Value Reference Range Interpretation Comments PHOSPHORUS (test code = PHOS) 1.9 mg/dL 2.5-4.9 L [id number] 03:45:00* Test Item Value Reference Range Interpretation Comments MAGNESIUM (test code = MAG) 2.1 mg/dL 1.8-2.4 N CALCIUM [id number] 03:45:00* Test Item Value Reference Range Interpretation Comments CALCIUM IONIZED (test code = PHILLIP) 1.13 mmol/L 1.12-1.32 N COMPREHENSIVE METABOLIC [id number] 03:02:00* Test Item Value Reference Range Interpretation [...] reference range due to change in reagent. [id number] 03:02:00* Test Item Value Reference Range Interpretation Comments PHOSPHORUS (test code = PHOS) 1.9 mg/dL 2.5-4.9 L [id number] 03:02:00* Test Item Value Reference Range Interpretation Comments MAGNESIUM (test code = MAG) 2.1 mg/dL 1.8-2.4 N CALCIUM [id number] 03:02:00* Test Item Value Reference Range Interpretation Comments CALCIUM IONIZED (test code = PHILLIP) mmol/L 1.12-1.32 COMPREHENSIVE METABOLIC [id number] 02:54:00* Test Item Value Reference Range Interpretation [...] TOTAL (test code = ALKP) IUnit/L 45-117 [id number] 02:54:00* Test Item Value Reference Range Interpretation Comments PHOSPHORUS (test code = PHOS) mg/dL 2.5-4.9 [id number] 02:54:00* Test Item Value Reference Range Interpretation Comments MAGNESIUM (test code = MAG) mg/dL 1.8-2.4 CALCIUM [id number] 02:54:00* Test Item Value Reference Range Interpretation Comments CALCIUM IONIZED (test code = PHILLIP) mmol/L 1.12-1.32 ARTERIAL BLOOD [id number] 02:47:00* Test Item Value Reference Range Interpretation [...] 10.5 % vol 18.0-22.0 L CBC W/AUTO [id number] 02:35:00* Test Item Value Reference Range Interpretation [...] DIFF REQUIRED (test code = MDIFF) NO [id number] 17:23:00* Test Item Value Reference Range Interpretation Comments GLUBED (test code = GLUBED) 249 mg/dL 74-106 H Performed by certified diesel plant operator at [facility] [id number] 10:58:00* Test Item Value Reference Range Interpretation Comments GLUBED (test code = GLUBED) 229 mg/dL 74-106 H Performed by certified diesel plant operator at [facility] - XR CHEST 1 [id number] 07:04:00 FAX: Ama Long NP [place]: St: ADM FAX: David Townsend [employer] FAX: Jasper Prince MD [phone] Name: BOOKER PIERRE [facility] : 1950 Age/S: 70/M [address] [facility] Unit #: [id number] Loc: [address] [address] Phys: Ama Long UTILITY PERSON Acct: [id number] Dis Date: Status: ADM IN PH ONE #: [phone] Exam Date: 06/24/2020 0517 FAX #: [phone] Reason: Resp Failure EXAMS: CPT CODE: [id number] XR CHEST 1 V 62739 HISTORY: Respi ratory failure. COMPARISON: Previous day. Location: [facility]. ET tube and NG tube are in [...] S: 06/24/2020 (07) PAGE 1 Signed Report [id number] 05:29:00 * Test Item Value Reference Range Interpretation Comments GLUBED (test code = GLUBED) 188 mg/dL 74-106 H Performed by certified diesel plant operator at [facility] CBC W/MANUAL [id number] 04:05:00* Test Item Value Reference Range Interpretation Comments WHITE BLOOD CELL (test code = WBC) 10.8 K/mm3 4.5-12.5 N RED BLOOD CELL (test code = RBC) 2.35 mill/mm3 4.0-5.8 L HEMOGLOBIN (test code = HGB) 6.9 gram/dL 13.0-17.5 L HEMATOCRIT (test code = HCT) 21.4 % 42.0-52.0 LL Results called to [id number] by DONI 06/24/20 0244Critical results verified and [...] IMMAT) 0 % 0-0 N ARTERIAL BLOOD [id number] 04:02:00* Test Item Value Reference Range Interpretation [...] = O2CT) 10.4 % vol 18.0-22.0 L [id number] 03:34:00* Test Item Value Reference Range Interpretation Comments TRIGLYCERIDES (test code = TRIG) 135 mg/dL 20-150 N Are CHOL,TRIG & HDL ordered? NOCOMPREHENSIVE METABOLIC [id number] 03:20:00 * Test Item Value Reference Range [...] reference range due to change in reagent. [id number] 03:20:00* Test Item Value Reference Range Interpretation Comments PHOSPHORUS (test code = PHOS) 2.6 mg/dL 2.5-4.9 N [id number] 03:20:00* Test Item Value Reference Range Interpretation Comments MAGNESIUM (test code = MAG) 2.0 mg/dL 1.8-2.4 N CALCIUM [id number] 03:20:00* Test Item Value Reference Range Interpretation Comments CALCIUM IONIZED (test code = PHILLIP) 1.05 mmol/L 1.12-1.32 L COMPREHENSIVE METABOLIC [id number] 02:46:00* Test Item Value Reference Range Interpretation [...] reference range due to change in reagent. [id number] 02:46:00* Test Item Value Reference Range Interpretation Comments PHOSPHORUS (test code = PHOS) 2.6 mg/dL 2.5-4.9 N [id number] 02:46:00* Test Item Value Reference Range Interpretation Comments MAGNESIUM (test code = MAG) 2.0 mg/dL 1.8-2.4 N CALCIUM [id number] 02:46:00* Test Item Value Reference Range Interpretation Comments CALCIUM IONIZED (test code = PHILLIP) mmol/L 1.12-1.32 COMPREHENSIVE METABOLIC [id number] 02:45:00* Test Item Value Reference Range Interpretation [...] TOTAL (test code = ALKP) IUnit/L 45-117 [id number] 02:45:00* Test Item Value Reference Range Interpretation Comments PHOSPHORUS (test code = PHOS) mg/dL 2.5-4.9 [id number] 02:45:00* Test Item Value Reference Range Interpretation Comments MAGNESIUM (test code = MAG) mg/dL 1.8-2.4 CALCIUM [id number] 02:45:00* Test Item Value Reference Range Interpretation Comments CALCIUM IONIZED (test code = PHILLIP) mmol/L 1.12-1.32 CBC W/MANUAL [id number] 02:44:00* Test Item Value Reference Range Interpretation Comments WHITE BLOOD CELL (test code = WBC) 10.8 K/mm3 4.5-12.5 N RED BLOOD CELL (test code = RBC) 2.35 mill/mm3 4.0-5.8 L HEMOGLOBIN (test code = HGB) 6.9 gram/dL 13.0-17.5 L HEMATOCRIT (test code = HCT) 21.4 % 42.0-52.0 LL Results called to [place] [address] by DONI 06/24/20 0244Critical results verified and [...] MORPHOLOGY (test code = PLTMORPH) CBC W/MANUAL [id number] 02:44:00* Test Item Value Reference Range Interpretation Comments WHITE BLOOD CELL (test code = WBC) 10.8 K/mm3 4.5-12.5 N RED BLOOD CELL (test code = RBC) 2.35 mill/mm3 4.0-5.8 L HEMOGLOBIN (test code = HGB) 6.9 gram/dL 13.0-17.5 L HEMATOCRIT (test code = HCT) 21.4 % 42.0-52.0 LL Results called to [id number] by V.LAB.GP 06/24/20 0244Critical results verified and [...] MORPHOLOGY (test code = PLTMORPH) CBC W/MANUAL [id number] 02:44:00* Test Item Value Reference Range Interpretation Comments WHITE BLOOD CELL (test code = WBC) 10.8 K/mm3 4.5-12.5 N RED BLOOD CELL (test code = RBC) 2.35 mill/mm3 4.0-5.8 L HEMOGLOBIN (test code = HGB) 6.9 gram/dL 13.0-17.5 L HEMATOCRIT (test code = HCT) 21.4 % 42.0-52.0 LL Results called to [id number] by AXELGP 06/24/20 0244Critical results verified and [...] MORPHOLOGY (test code = PLTMORPH) CBC W/MANUAL [id number] 02:44:00* Test Item Value Reference Range Interpretation Comments WHITE BLOOD CELL (test code = WBC) 10.8 K/mm3 4.5-12.5 N RED BLOOD CELL (test code = RBC) 2.35 mill/mm3 4.0-5.8 L HEMOGLOBIN (test code = HGB) 6.9 gram/dL 13.0-17.5 L HEMATOCRIT (test code = HCT) 21.4 % 42.0-52.0 LL Results called to [id number] by DONI 06/24/20 0244Critical results verified and [...] MORPHOLOGY (test code = PLTMORPH) CBC W/MANUAL [id number] 02:44:00* Test Item Value Reference Range Interpretation Comments WHITE BLOOD CELL (test code = WBC) 10.8 K/mm3 4.5-12.5 N RED BLOOD CELL (test code = RBC) 2.35 mill/mm3 4.0-5.8 L HEMOGLOBIN (test code = HGB) 6.9 gram/dL 13.0-17.5 L HEMATOCRIT (test code = HCT) 21.4 % 42.0-52.0 LL Results called to [id number] by V.LAB.GP 06/24/20 0244Critical results verified and [...] PLTEST) PLATELET MORPHOLOGY (test code = PLTMORPH) [id number] 18:31:00* Test Item Value Reference Range Interpretation Comments GLUBED (test code = GLUBED) 194 mg/dL 74-106 H Performed by certified diesel plant operator at [facility] INTERVERTEBRAL [id number] 13:11:00 RUN DATE: 06/23/20 [place] - Lab PAGE 1 RUN TIME: 1311 Specimen Inqui ry RUN USER: INTERFACE PATIENT: BOOKER PIERRE ACCT #: [id number] LOC: V.ICU U #: [id number] AGE/SX: 70/M ROOM: [facility] RE06/14/20LAVINIA DR: Rik Morel : 50 BED: A DIS: STATUS: ADM IN TLOC: SPEC #: [id number] RECD: 06/22/20 STATUS: LAKSHMI RELan #: [id number] MYLES: 06/21/20 DR: Rik Morel ENTERED: 06/22/20 SP TYPE: INT DISC OTHR DR: Kia [facility] man or Family Physician Patrick Martinez MD, Muhammad MD Guthikonda, Lalitha N MD Pakzaban, Peyman MD Pham, Dang Thanh MD Sunkara, Durga P MD Vasquez Donado, Andres F MDORDERED: GROSS COPIES TO: Kia Primary or Family Physician Patrick Martinez MD [address] [place] [address] Checo Valladares MD [address] [place] [address] Denilson Morel [address] [place], [place] [id number] [place] F[place] [address] [facility] [place], [place] [id number] Jamie Rust MD [address] [place] [address] Tanja Boateng MD [address] [place] [address] [phone] CONTIN UED ON NEXT PAGE RUN DATE: 06/23/20 [facility] - Lab PAGE 2 RUN TIME: 1311 Specimen Inquiry RUN USER: INTERFACE SPEC #: [id number] CARMELA GOLDMANNT: BOOKER PIERRE #[id number] (Continued) CIGAR MAKING MACHINE SUPERVISOR IES TO: (Continued) Jasper Eisenberg MD [address] [facility] [address] [place], [place] [id number] Gordon Priest MD [address] [facility] [address] [place] [address] PROCEDURES: GROSS (06/23/20-10 05) TISSUES: CERVICAL VERTEBRA, NOS - DISC CLINICAL HISTORY COLLECTION DATE: 06/21/20 C5-6 AND C6-7 INSTABILITY FINAL DIAGNOSIS Cervical disc, C5-6 and C6-7, anterior cervical discectomy: INTERVER TEBRAL DISC MATERIAL BONE NEGATIVE FOR MALIGNANCY DMW/sm D 22589, 13413 MACROSCOPIC The specimen is received in formalin labeled with the patient's name, "cervical disc" and consists of an irregular fragment of light hennessy fibrous tissue and small fragments of possible bone. The tissue measures 1.7 x 1.5 x 0.3 cm in aggregate. After light decalcifica tion the specimen is submitted for histologic evaluation in a single cassette. GROSS PERFORMED AT [facility] [address] [place] [address] (p)[phone] CONTINUED ON NEXT PAGE RUN DATE: [place] - Lab PAGE 3 R UN TIME: 1311 Specimen Inquiry RUN USER: INTERFACE ----- -------SPEC #: [id number] PATIENT: BOOKER PIERRE #[id number] (Continued) MICROSCOPIC All of the stains, inc luding any controls performed, stain appropriately. MICROSCOPIC PERFORME D AT [facility] [address] [place] [address] [phone] PERFORMING SITE Diagnosis pe rformed at: [facility] CARMELA lazaro [address] [facility] [address] Signed SIGNATURE ON FILE Randy Bustos MD 06/23/20 1311 END OF REPORT [id number] 12:11:00* Test Item Value Reference Range Interpretation Comments GLUBED (test code = GLUBED) 169 mg/dL 74-106 H Performed by certified diesel plant operator at [facility] - XR CHEST 1 [id number] 06:58:00 FAX: Ama Long NP [place]: B St: ADM FAX: David Townsend [employer] FAX: Jasper Prince MD [phone] Name: BOOKER PIERRE [facility] : 1950 Age/S: 70/M [address] [facility] Unit #: [id number] Loc: [place] [address] Phys: Ama Long NP Acct: [id number] Dis Date: Status: ADM IN PH ONE #: [phone] Exam Date: 06/23/2020520 FAX #: [phone] Reason: Resp Failure EXAMS: CPT CODE: [id number] XR CHEST 1 V 07470 HISTORY: Respi ratory failure. COMPARISON: Previous day. Location: TH. ET tube and NG tube are in good position. Dense bilateral gilbert eolar infiltrates, greater on the left are unchanged. Dependent changes. Cardiomegaly. Cervical fusion in the lower neck. IMPRESS ION: Dense bilateral alveolar infiltrates, greater on the left ulcerated no change. at 0658 Reported and signed by: Maxx Meyer M.D. CC: Ama Long UTILITY PERSON; David Guzman DO; Jasper Eisenberg Technologist: JONN MILES JR RT(R) Trnscrd Date/Time/By: 06/23/2020 (0658) : By: [email or web address] Orig Print D/T: S: 06/23/2020 (0701) PAGE 1 Signed Report [id number] 05:45:00* Test Item Value Reference Range Interpretation Comments GLUBED (test code = GLUBED) 155 mg/dL 74-106 H Performed by certified diesel plant operator at [facility] CBC W/MANUAL [id number] 05:43:00* Test Item Value Reference Range Interpretation [...] IMMAT) 0 % 0-0 N COMPREHENSIVE METABOLIC [id number] 03:00:00* Test Item Value Reference Range Interpretation Comments SODIUM (test code = NA) 151 mmol/L 136-145 H POTASSIUM (test code = K) 2.9 mmol/L 3.5-5.1 L Re sults called to [id number] by AXELT 06/23/20 0300Critical results verified and [...] reference range due to change in reagent. [id number] 03:00:00* Test Item Value Reference Range Interpretation Comments PHOSPHORUS (test code = PHOS) 2.2 mg/dL 2.5-4.9 L [id number] 03:00:00* Test Item Value Reference Range Interpretation Comments MAGNESIUM (test code = MAG) 1.7 mg/dL 1.8-2.4 L CALCIUM [id number] 03:00:00* Test Item Value Reference Range Interpretation Comments CALCIUM IONIZED (test code = PHILLIP) 1.10 mmol/L 1.12-1.32 L COMPREHENSIVE METABOLIC [id number] 02:50:00* Test Item Value Reference Range Interpretation [...] TOTAL (test code = ALKP) IUnit/L 45-117 [id number] 02:50:00* Test Item Value Reference Range Interpretation Comments PHOSPHORUS (test code = PHOS) mg/dL 2.5-4.9 [id number] 02:50:00* Test Item Value Reference Range Interpretation Comments MAGNESIUM (test code = MAG) mg/dL 1.8-2.4 CALCIUM [id number] 02:50:00* Test Item Value Reference Range Interpretation Comments CALCIUM IONIZED (test code = PHILLIP) 1.10 mmol/L 1.12-1.32 L CBC W/MANUAL [id number] 02:46:00* Test Item Value Reference Range Interpretation [...] MORPHOLOGY (test code = PLTMORPH) CBC W/MANUAL [id number] 02:46:00* Test Item Value Reference Range Interpretation [...] MORPHOLOGY (test code = PLTMORPH) CBC W/MANUAL [id number] 02:46:00* Test Item Value Reference Range Interpretation [...] MORPHOLOGY (test code = PLTMORPH) CBC W/MANUAL [id number] 02:46:00* Test Item Value Reference Range Interpretation [...] MORPHOLOGY (test code = PLTMORPH) CBC W/MANUAL [id number] 02:46:00* Test Item Value Reference Range Interpretation [...] PLTEST) PLATELET MORPHOLOGY (test code = PLTMORPH) [id number] 00:49:00* Test Item Value Reference Range Interpretation Comments GLUBED (test code = GLUBED) 158 mg/dL 74-106 H Performed by certified diesel plant operator at [facility] [id number] 18:28:00* Test Item Value Reference Range Interpretation Comments GLUBED (test code = GLUBED) 145 mg/dL 74-106 H Performed by certified diesel plant operator at [facility] [id number] 11:31:00* Test Item Value Reference Range Interpretation Comments GLUBED (test code = GLUBED) 213 mg/dL 74-106 H Performed by certified diesel plant operator at [facility] - XR CHEST 1 [id number] 07:23:00 FAX: Ama Long NP [place]: St: ADM FAX: David Townsend Fo FAX: Jasper Prince MD [phone] Name: BOOKER PIERRE [facility] : 1950 Age/S: 70/M [address] [facility] Unit #: [id number] Loc: [facility] [place] [address] Phys: Ama Long NP Acct: [id number] Dis Date: Status: ADM IN PH ONE #: [phone] Exam Date: 06/22/2020439 FAX #: [phone] Reason: Resp Failure EXAMS: CPT CODE: [id number] XR CHEST 1 V 15628 HISTORY: Respi ratory failure. COMPARISON: Previous day. [...] by: Maxx Meyer M.D. CC: Marlen Long UTILITY PERSON; David Guzman Tiwari DO; Jasper Eisenberg Technologist: Juanis Granados Trnscrd Date/Time/By: 06/22/2020 (0723) : By: EnocTH4 Orig Print D/T: S: 06/22/2020 (0711) PAGE 1 Signed Report GLUBED 2020-06-22 06:01:00* Test Item Value Reference Range Interpretation Comments GLUBED (test code = GLUBED) 174 mg/dL 74-106 H Performed by certified diesel plant operator at [facility] COMPREHENSIVE METABOLIC [id number] 03:59:00* Test Item Value Reference Range Interpretation [...] reference range due to change in reagent. [id number] 03:59:00* Test Item Value Reference Range Interpretation Comments PHOSPHORUS (test code = PHOS) 2.7 mg/dL 2.5-4.9 N [id number] 03:59:00* Test Item Value Reference Range Interpretation Comments MAGNESIUM (test code = MAG) 1.5 mg/dL 1.8-2.4 L CALCIUM [id number] 03:59:00* Test Item Value Reference Range Interpretation Comments CALCIUM IONIZED (test code = PHILLIP) 1.10 mmol/L 1.12-1.32 L ARTERIAL BLOOD [id number] 03:52:00* Test Item Value Reference Range Interpretation [...] 16.8 % vol 18.0-22.0 L CBC W/MANUAL [id number] 03:46:00* Test Item Value Reference Range Interpretation [...] IMMAT) 0 % 0-0 N COMPREHENSIVE METABOLIC [id number] 03:34:00* Test Item Value Reference Range Interpretation [...] TOTAL (test code = ALKP) IUnit/L 45-117 [id number] 03:34:00* Test Item Value Reference Range Interpretation Comments PHOSPHORUS (test code = PHOS) mg/dL 2.5-4.9 [id number] 03:34:00* Test Item Value Reference Range Interpretation Comments MAGNESIUM (test code = MAG) mg/dL 1.8-2.4 CALCIUM [id number] 03:34:00* Test Item Value Reference Range Interpretation Comments CALCIUM IONIZED (test code = PHLILIP) 1.10 mmol/L 1.12-1.32 L COMPREHENSIVE METABOLIC [id number] 03:24:00* Test Item Value Reference Range Interpretation [...] TOTAL (test code = ALKP) IUnit/L 45-117 [id number] 03:24:00* Test Item Value Reference Range Interpretation Comments PHOSPHORUS (test code = PHOS) mg/dL 2.5-4.9 [id number] 03:24:00* Test Item Value Reference Range Interpretation Comments MAGNESIUM (test code = MAG) mg/dL 1.8-2.4 CALCIUM [id number] 03:24:00* Test Item Value Reference Range Interpretation Comments CALCIUM IONIZED (test code = PHILLIP) mmol/L 1.12-1.32 CBC W/MANUAL [id number] 02:50:00* Test Item Value Reference Range Interpretation [...] MORPHOLOGY (test code = PLTMORPH) CBC W/MANUAL [id number] 02:50:00* Test Item Value Reference Range Interpretation [...] MORPHOLOGY (test code = PLTMORPH) CBC W/MANUAL [id number] 02:50:00* Test Item Value Reference Range Interpretation [...] MORPHOLOGY (test code = PLTMORPH) CBC W/MANUAL [id number] 02:50:00* Test Item Value Reference Range Interpretation [...] MORPHOLOGY (test code = PLTMORPH) CBC W/MANUAL [id number] 02:50:00* Test Item Value Reference Range Interpretation [...] PLTEST) PLATELET MORPHOLOGY (test code = PLTMORPH) [id number] 23:35:00* Test Item Value Reference Range Interpretation Comments GLUBED (test code = GLUBED) 207 mg/dL 74-106 H Performed by certified diesel plant operator at [facility] [id number] 17:59:00* Test Item Value Reference Range Interpretation Comments GLUBED (test code = GLUBED) 205 mg/dL 74-106 H Performed by certified diesel plant operator at [facility] [id number] 11:58:00* Test Item Value Reference Range Interpretation Comments GLUBED (test code = GLUBED) 237 mg/dL 74-106 H Performed by certified diesel plant operator at [facility] - XR CHEST 1 [id number] 07:28:00 FAX: Ama Long NP [place]: St: ADM FAX: David Townsend FAX: Jasper Prince MD [phone] Name: [facility] PI[facility] : 1950 Age/S: 70/M [address] [facility] #: [id number] Loc: [place] [address] Phys: Ama Long NP Acct: [id number] Dis Date: Status: ADM IN ONE #: [phone] Exam Date: 06/21/2020524 FAX #: [phone] Reason: Resp Failure EXAMS: CPT CODE: [id number] XR CHEST 1 V 65138 HISTORY: Respi ratory failure. COMPARISON: Chest x-ray [...] M.D. CC: Ama Long NP; David Guzman [facility] DO; Jasper Eisenberg Technologist: Kathy Stevens) Trnscrd Date/Time/By: 06/21/2020 (0728) : By: [email or web address] Orig Print D/T: S: 06/21/2020 (9864) PAGE 1 Signed Report [id number] 05:48:00* Test Item Value Reference Range Interpretation Comments GLUBED (test code = GLUBED) 245 mg/dL 74-106 H Performed by certified diesel plant operator at [facility] COMPREHENSIVE METABOLIC [id number] 05:26:00* Test Item Value Reference Range Interpretation [...] reference range due to change in reagent. [id number] 05:26:00* Test Item Value Reference Range Interpretation Comments PHOSPHORUS (test code = PHOS) 1.6 mg/dL 2.5-4.9 L [id number] 05:26:00* Test Item Value Reference Range Interpretation Comments MAGNESIUM (test code = MAG) 2.0 mg/dL 1.8-2.4 N CALCIUM [id number] 05:26:00* Test Item Value Reference Range Interpretation Comments CALCIUM IONIZED (test code = PHILLIP) 1.09 mmol/L 1.12-1.32 L COMPREHENSIVE METABOLIC [id number] 04:37:00* Test Item Value Reference Range Interpretation [...] reference range due to change in reagent. [id number] 04:37:00* Test Item Value Reference Range Interpretation Comments PHOSPHORUS (test code = PHOS) 1.6 mg/dL 2.5-4.9 L [id number] 04:37:00* Test Item Value Reference Range Interpretation Comments MAGNESIUM (test code = MAG) 2.0 mg/dL 1.8-2.4 N CALCIUM [id number] 04:37:00* Test Item Value Reference Range Interpretation Comments CALCIUM IONIZED (test code = PHILLPI) mmol/L 1.12-1.32 CBC W/AUTO [id number] 04:28:00* Test Item Value Reference Range Interpretation [...] (test code = MDIFF) NO COMPREHENSIVE METABOLIC [id number] 04:26:00* Test Item Value Reference Range Interpretation [...] TOTAL (test code = ALKP) IUnit/L 45-117 [id number] 04:26:00* Test Item Value Reference Range Interpretation Comments PHOSPHORUS (test code = PHOS) mg/dL 2.5-4.9 [id number] 04:26:00* Test Item Value Reference Range Interpretation Comments MAGNESIUM (test code = MAG) mg/dL 1.8-2.4 CALCIUM [id number] 04:26:00* Test Item Value Reference Range Interpretation Comments CALCIUM IONIZED (test code = PHILLIP) mmol/L 1.12-1.32 [id number] 00:32:00* Test Item Value Reference Range Interpretation Comments GLUBED (test code = GLUBED) 279 mg/dL 74-106 H Performed by certified diesel plant operator at [facility] [id number] 17:00:00* Test Item Value Reference Range Interpretation Comments GLUBED (test code = GLUBED) 292 mg/dL 74-106 H Performed by certified diesel plant operator at [facility] [id number] 12:08:00* Test Item Value Reference Range Interpretation Comments GLUBED (test code = GLUBED) 249 mg/dL 74-106 H Performed by certified diesel plant operator at [facility] - XR CHEST 1 [id number] 07:49:00 FAX: Ama Long NP [place]: B St: ADM FAX: David Townsend ramonita FAX: Jasper Prince MD [phone] Name: [facility] : 1950 Age/S: 70/M [address] [facility] Unit #: [id number] Loc: [place] [address] Phys: Ama Long NP Acct: [id number] Dis Date: Status: ADM IN PH ONE #: [phone] Exam Date: 06/20/2020223 FAX #: [phone] Reason: Resp Failure EXAMS: CPT CODE: [id number] XR CHEST 1 V 68622 CLINICAL HISTO RY: Respiratory failure TECHNIQUE: AP chest x-ray CO MPARISON: Previous day. IMPRESSION: Worsening right basilar atelectasis and small effusion. Bilateral perihilar airspa ce opacity. Cardiomegaly. ET and enteric tubes. LOCATION: at 0749 Reported and signed by: Ashley Boateng D.O. CC: Ama Long UTILITY PERSON; David Guzman DO; Jasper Berry Technologist: Popeye Henley RT(R); EDENILSON JUAN RT(R) Tr [facility] Date/Time/By: 06/20/2020 (0749) : By: [email or web address] Orig Print D/T: S: 06/20/2020 (0752) PAGE 1 Marlin d Report [id number] 05:56:00* Test Item Value Reference Range Interpretation Comments GLUBED (test code = GLUBED) 264 mg/dL 74-106 H Performed by certified diesel plant operator at [facility] ARTERIAL BLOOD [id number] 04:54:00* Test Item Value Reference Range Interpretation [...] 12.9 % vol 18.0-22.0 L COMPREHENSIVE METABOLIC [id number] 02:28:00* Test Item Value Reference Range Interpretation [...] reference range due to change in reagent. [id number] 02:28:00* Test Item Value Reference Range Interpretation Comments PHOSPHORUS (test code = PHOS) 2.6 mg/dL 2.5-4.9 N [id number] 02:28:00* Test Item Value Reference Range Interpretation Comments MAGNESIUM (test code = MAG) 2.0 mg/dL 1.8-2.4 N CALCIUM [id number] 02:28:00* Test Item Value Reference Range Interpretation Comments CALCIUM IONIZED (test code = PHILLIP) 1.13 mmol/L 1.12-1.32 N COMPREHENSIVE METABOLIC [id number] 01:45:00* Test Item Value Reference Range Interpretation [...] reference range due to change in reagent. [id number] 01:45:00* Test Item Value Reference Range Interpretation Comments PHOSPHORUS (test code = PHOS) 2.6 mg/dL 2.5-4.9 N [id number] 01:45:00* Test Item Value Reference Range Interpretation Comments MAGNESIUM (test code = MAG) 2.0 mg/dL 1.8-2.4 N CALCIUM [id number] 01:45:00* Test Item Value Reference Range Interpretation Comments CALCIUM IONIZED (test code = PHILLIP) mmol/L 1.12-1.32 CBC W/AUTO [id number] 01:28:00* Test Item Value Reference Range Interpretation [...] DIFF REQUIRED (test code = MDIFF) NO [id number] 00:00:00* Test Item Value Reference Range Interpretation Comments GLUBED (test code = GLUBED) 286 mg/dL 74-106 H Performed by certified diesel plant operator at [facility] [id number] 19:53:00* Test Item Value Reference Range Interpretation Comments GLUBED (test code = GLUBED) 263 mg/dL 74-106 H Performed by certified diesel plant operator at [facility] [id number] 13:07:00* Test Item Value Reference Range Interpretation Comments GLUBED (test code = GLUBED) 242 mg/dL 74-106 H Performed by certified diesel plant operator at [facility] - CTA CHEST FOR [id number] 12:52:00 Name: [facility] : 1950 Age/S: 70 / M [address] [facility] Unit #: [id number] Loc: [place] [address] Phys: Jamie Rust MD Acct: [id number] Dis Date: Status: ADM IN PHONE #: [phone] Exam Date: 06/19/2020 1230 FAX #: [phone] Reason: r/p PE EXAMS: CPT CODE: [id number] [place] [address] REASON FOR EXAM: r/p PE EXAM ORDER [...] 1 Signed Report (CONTINUED) Name: [facility] : 1950 Age/S: 70 / M [address] [facility] Unit #: [id number] Loc: [place] [address] Phys: Jamie Rust MD Acct: [id number] Dis Date: Status: ADM IN PHONE #: [phone] Exam Date: 2019 1230 FAX #: [phone] Reason: r/p PE EXAMS: CPT CODE: [id number] [place] [address] <Continued> Visualized upper abdomen: Enteric suction tube [...] may be superimposed aspiration and/or pneumonia. Location: [facility] at 1252 Reported and signed by: Michael Mehta MD CC: David Guzman DO; Jamie Rust MD; Jasper Eisenberg Technologist:Jami Bajwa RT(R),CT CTDI: DLP: Trnscb Date/Time: 06/19/2020 (4783) [email or web address] Orig Print D/T: S: 06/19/2020 (3334) PAGE 2 Signed Report [id number] 09:45:00* Test Item Value Reference Range Interpretation Comments VANCOMYCIN (test code = VANCO) 21.9 UG/ML 5.0-45.0 N - XR CHEST 1 [id number] 07:35:00 FAX: Enrique Segovia [phone] [place]: St: ADM FAX: David Townsend [facility] Fo FAX: Jasper Prince MD [phone] Name: DIAZ PIERRERO [facility] : 1950 Age/S: 70/M [address] [facility] Unit #: [id number] Loc: [address] [address] Phys: Enrique Segovia Acct: [id number] Dis Date: Status: ADM IN ONE #: [phone] Exam Date: 06/19/2020 0135 FAX #: [phone] Reason: updated pulm view. EXAMS: CPT CODE: [id number] XR CHEST 1 V 78683 REASON FOR EXAM: updated pulm view. Exam [...] have improved from the previous examination. Location: [facility] Elect ronically Signed by Michael Mehta MD on 06/19/2020 at 0735 Reported and signed by: Michael Mehta MD CC: Enrique Segovia; David Guzman DO; Jasper Eisenberg Technologist: Popeye Henley RT(R); EDENILSON JUAN RT(R) Trnscrd Date/Time/By: 06/19/2020 (2313) : By: [email or web address] Orig Print D/T: S: 06/19/2020 (0591) PAGE 1 Signed Report ARTERIAL BLOOD GAS [...] = O2CT) 14.8 % vol 18.0-22.0 L [id number] 05:45:00* Test Item Value Reference Range Interpretation Comments PHOSPHORUS (test code = PHOS) 4.3 mg/dL 2.5-4.9 N [id number] 05:45:00* Test Item Value Reference Range Interpretation Comments MAGNESIUM (test code = MAG) 2.0 mg/dL 1.8-2.4 N CALCIUM [id number] 05:45:00* Test Item Value Reference Range Interpretation Comments CALCIUM IONIZED (test code = PHILLIP) 1.14 mmol/L 1.12-1.32 N [id number] 05:40:00* Test Item Value Reference Range Interpretation Comments PHOSPHORUS (test code = PHOS) mg/dL 2.5-4.9 [id number] 05:40:00* Test Item Value Reference Range Interpretation Comments MAGNESIUM (test code = MAG) 2.0 mg/dL 1.8-2.4 N CALCIUM [id number] 05:40:00* Test Item Value Reference Range Interpretation Comments CALCIUM IONIZED (test code = PHILLIP) 1.14 mmol/L 1.12-1.32 N [id number] 05:31:00* Test Item Value Reference Range Interpretation Comments PHOSPHORUS (test code = PHOS) mg/dL 2.5-4.9 [id number] 05:31:00* Test Item Value Reference Range Interpretation Comments MAGNESIUM (test code = MAG) mg/dL 1.8-2.4 CALCIUM [id number] 05:31:00* Test Item Value Reference Range Interpretation Comments CALCIUM IONIZED (test code = PHILLIP) 1.14 mmol/L 1.12-1.32 N [id number] 05:11:00* Test Item Value Reference Range Interpretation Comments GLUBED (test code = GLUBED) 279 mg/dL 74-106 H Performed by certified diesel plant operator at [facility] BASIC METABOLIC [id number] 04:08:00* Test Item Value Reference Range Interpretation [...] CA) 7.8 mg/dL 8.5-10.1 L HEPATIC FUNCTION [id number] 03:50:00* Test Item Value Reference Range Interpretation [...] reference range due to change in reagent. [id number] 03:49:00* Test Item Value Reference Range Interpretation Comments D-DIMER (test code = DDIMER) 1418.00 ng/mLFEU 0-500 HH Results called to [id number] by [email or web address] 06/19/20 0348Critical results verified and [...] skin infections -Liver cirrhosis - BASIC METABOLIC [id number] 03:31:00* Test Item Value Reference Range Interpretation [...] code = CA) mg/dL 8.5-10.1 CBC W/O [id number] 03:26:00* Test Item Value Reference Range Interpretation [...] code = MPV) 10.6 fL 6.7-11.0 N [id number] 23:10:00* Test Item Value Reference Range Interpretation Comments GLUBED (test code = GLUBED) 249 mg/dL 74-106 H Performed by certified diesel plant operator at [facility] [id number] 17:35:00* Test Item Value Reference Range Interpretation Comments VANCOMYCIN (test code = VANCO) 40.2 UG/ML 5.0-45.0 N BASIC METABOLIC [id number] 17:33:00* Test Item Value Reference Range Interpretation [...] code = CA) 7.7 mg/dL 8.5-10.1 L [id number] 17:33:00* Test Item Value Reference Range Interpretation Comments PHOSPHORUS (test code = PHOS) 3.9 mg/dL 2.5-4.9 N [id number] 17:33:00* Test Item Value Reference Range Interpretation Comments MAGNESIUM (test code = MAG) 2.1 mg/dL 1.8-2.4 N BASIC METABOLIC [id number] 17:29:00* Test Item Value Reference Range Interpretation [...] CALCIUM (test code = CA) mg/dL 8.5-10.1 [id number] 17:29:00* Test Item Value Reference Range Interpretation Comments PHOSPHORUS (test code = PHOS) mg/dL 2.5-4.9 [id number] 17:29:00* Test Item Value Reference Range Interpretation Comments MAGNESIUM (test code = MAG) mg/dL 1.8-2.4 - XR CHEST 1 [id number] 13:04:00 FAX: Yves Rodriguez [place]: B St: ADM FAX: David Townsend Fo FAX: Jasper Prince MD [phone] Name: B[facility] PIERRE [facility] : 1950 Age/S: 70/M [address] [facility] Unit #: [id number] Loc: V[address] [place] [address] Phys: Yves Hubbard Acct: [id number] Dis Date: Status: ADM IN PH ONE #: [phone] Exam Date: 06/18/2020 1250 FAX #: [phone] Reason: ett placement EXAMS: CPT CODE: [id number] XR CHEST 1 V 39041 REASON FOR EXAM: ett placement Exam Order [...] structures are unchanged. Locatio n: [facility] at 1308 Reported and signed by: Michael Metha MD CC: Yves Hubbard; David Guzman [facility] DO; Jasper Eisenberg Technologist: RT DAISY(Evangelina) Trnscrd Date/Time/By: 06/18/20 20 (9885) : By: [email or web address] Orig Print D/T: S: 06/18/2020 (4152) PAGE 1 Signed Report ARTERIAL BLOOD [id number] 11:55:00* Test Item Value Reference Range Interpretation [...] by Dr Gordon 11:55 - 06/18/2020; by [email or web address] ABG O2 SATURATION (test code = SATA) [...] back by Dr Gordon 11:55 06/18/2020; by [email or web address] METHEMOGLOBIN (test code = METHGB) 0.6 % 0.0-1.50 N O2 CONTENT (test code = O2CT) 14.8 % vol 18.0-22.0 L ARTERIAL BLOOD [id number] 08:41:00* Test Item Value Reference Range Interpretation [...] vol 18.0-22.0 L - XR CHEST 1 [id number] 07:39:00 FAX: Enrique Segovia [phone] [place]: St: ADM FAX: David Townsend [facility] FAX: Jasper Prince MD [phone] Name: B[facility] PIER[facility] : 1950 Age/S: 70/M [address] [facility] Unit #: [id number] Loc: [place] [address] Phys: Enrique Segovia Acct: [id number] Dis Date: Status: ADM IN PH ONE #: [phone] Exam Date: 06/18/2020527 FAX #: [phone] Reason: updated pulm view. EXAMS: CPT CODE: [id number] XR CHEST 1 V 87026 CLINICAL HISTO RY: updated pulm view. TECHNIQUE: [...] By: [email or web address] Orig Print D/T: S: 06/18/2020 (0750) PAGE 1 Signed Report [id number] 06:05:00* Test Item Value Reference Range Interpretation Comments PHOSPHORUS (test code = PHOS) 4.0 mg/dL 2.5-4.9 N [id number] 06:05:00* Test Item Value Reference Range Interpretation Comments MAGNESIUM (test code = MAG) 2.0 mg/dL 1.8-2.4 N CALCIUM [id number] 06:05:00* Test Item Value Reference Range Interpretation Comments CALCIUM IONIZED (test code = PHILLIP) 1.18 mmol/L 1.12-1.32 N CBC W/O [id number] 06:04:00* Test Item Value Reference Range Interpretation [...] MPV) 10.5 fL 6.7-11.0 N BASIC METABOLIC [id number] 05:48:00* Test Item Value Reference Range Interpretation [...] code = CA) 7.9 mg/dL 8.5-10.1 L [id number] 05:48:00* Test Item Value Reference Range Interpretation Comments PHOSPHORUS (test code = PHOS) 4.0 mg/dL 2.5-4.9 N [id number] 05:48:00* Test Item Value Reference Range Interpretation Comments MAGNESIUM (test code = MAG) 2.0 mg/dL 1.8-2.4 N CALCIUM [id number] 05:48:00* Test Item Value Reference Range Interpretation Comments CALCIUM IONIZED (test code = PHILLIP) mmol/L 1.12-1.32 [id number] 05:14:00* Test Item Value Reference Range Interpretation Comments GLUBED (test code = GLUBED) 196 mg/dL 74-106 H Performed by certified diesel plant operator at [facility] [id number] 05:08:00* Test Item Value Reference Range Interpretation Comments D-DIMER (test code = DDIMER) 1367.00 ng/mLFEU 0-500 HH Results called to [id number] by [email or web address] 06/18/20 0508Critical results verified and read back by Nurse? YClinical Cut-off value for D-Dimer is 500 ng/mL FEU. Comment: The [facility] [facility] D- Dimer assay is intended for use [...] skin infections -Liver cirrhosis - ARTERIAL BLOOD [id number] 04:09:00* Test Item Value Reference Range Interpretation [...] = O2CT) 14.3 % vol 18.0-22.0 L [id number] 23:46:00* Test Item Value Reference Range Interpretation Comments GLUBED (test code = GLUBED) 175 mg/dL 74-106 H Performed by certified diesel plant operator at [facility] [id number] 18:20:00* Test Item Value Reference Range Interpretation Comments GLUBED (test code = GLUBED) 178 mg/dL 74-106 H Performed by certified diesel plant operator at [facility] [id number] 11:39:00* Test Item Value Reference Range Interpretation Comments GLUBED (test code = GLUBED) 203 mg/dL 74-106 H Performed by certified diesel plant operator at [facility] - XR CHEST 1 [id number] 07:18:00 FAX: Enrique Segovia [phone] [place]: B St: ADM FAX: Daivd Townsend Fo FAX: Jasper Prince MD [phone] Name: [facility]ER[facility] : 1950 Age/S: 70/M [address] [facility] Unit #: [id number] [facility] [place] [place] [address] Phys: Enrique Segovia Acct: [id number] Dis Date: Status: ADM IN ONE #: [phone] Exam Date: 06/17/2020 045 FAX #: [phone] Reason: updated pulm view. EXAMS: CPT CODE: [id number] XR CHEST 1 V 92809 CLINICAL HISTO RY: updated pulm view. TECHNIQUE: [...] P AGE 1 Signed Report CBC W/MANUAL [id number] 06:41:00* Test Item Value Reference Range Interpretation [...] % 0-0 N SPECIMEN COMMENTS: RECOLLECTED SPECIMEN [id number] 04:24:00* Test Item Value Reference Range Interpretation Comments GLUBED (test code = GLUBED) 232 mg/dL 74-106 H Performed by certified diesel plant operator at [facility] CBC W/MANUAL [id number] 03:41:00* Test Item Value Reference Range Interpretation [...] PLTMORPH) SPECIMEN COMMENTS: RECOLLECTED SPECIMEN INLABCBC W/MANUAL [id number] 03:41:00* Test Item Value Reference Range Interpretation [...] PLTMORPH) SPECIMEN COMMENTS: RECOLLECTED SPECIMEN INLABCBC W/MANUAL [id number] 03:41:00* Test Item Value Reference Range Interpretation [...] PLTMORPH) SPECIMEN COMMENTS: RECOLLECTED SPECIMEN INLABCBC W/MANUAL [id number] 03:41:00* Test Item Value Reference Range Interpretation [...] PLTMORPH) SPECIMEN COMMENTS: RECOLLECTED SPECIMEN INLABCBC W/MANUAL [id number] 03:41:00* Test Item Value Reference Range Interpretation [...] code = PLTMORPH) SPECIMEN COMMENTS: RECOLLECTED SPECIMEN [id number] 01:53:00* Test Item Value Reference Range Interpretation Comments D-DIMER (test code = DDIMER) 1082.00 ng/mLFEU 0-500 HH Results called to [id number] by VThe Art [email or web address] 06/17/20 0153Critical results verified and read back [...] skin infections -Liver cirrhosis - BASIC METABOLIC [id number] 01:51:00* Test Item Value Reference Range Interpretation [...] code = CA) 7.5 mg/dL 8.5-10.1 L [id number] 01:51:00* Test Item Value Reference Range Interpretation Comments PHOSPHORUS (test code = PHOS) 3.0 mg/dL 2.5-4.9 N [id number] 01:51:00* Test Item Value Reference Range Interpretation Comments MAGNESIUM (test code = MAG) 2.1 mg/dL 1.8-2.4 N CALCIUM [id number] 01:51:00* Test Item Value Reference Range Interpretation Comments CALCIUM IONIZED (test code = PHILLIP) 1.17 mmol/L 1.12-1.32 N CBC W/O [id number] 01:39:00* Test Item Value Reference Range Interpretation Comments WHITE BLOOD CELL (test code = WBC) 13.9 K/mm3 4.5-12.5 H RED BLOOD CELL (test code = RBC) 2.28 mill/mm3 4.0-5.8 L HEMOGLOBIN (test code = HGB) 6.8 gram/dL 13.0-17.5 L HEMATOCRIT (test code = HCT) 21.7 % 42.0-52.0 LL Results called to [place] [address] by DONI 06/17/20 0138Critical results verified and [...] MPV) 10.2 fL 6.7-11.0 N BASIC METABOLIC [id number] 01:37:00* Test Item Value Reference Range Interpretation [...] CALCIUM (test code = CA) mg/dL 8.5-10.1 [id number] 01:37:00* Test Item Value Reference Range Interpretation Comments PHOSPHORUS (test code = PHOS) mg/dL 2.5-4.9 [id number] 01:37:00* Test Item Value Reference Range Interpretation Comments MAGNESIUM (test code = MAG) mg/dL 1.8-2.4 CALCIUM [id number] 01:37:00* Test Item Value Reference Range Interpretation Comments CALCIUM IONIZED (test code = PHILLIP) 1.17 mmol/L 1.12-1.32 N BASIC METABOLIC [id number] 01:36:00* Test Item Value Reference Range Interpretation [...] CALCIUM (test code = CA) mg/dL 8.5-10.1 [id number] 01:36:00* Test Item Value Reference Range Interpretation Comments PHOSPHORUS (test code = PHOS) mg/dL 2.5-4.9 [id number] 01:36:00* Test Item Value Reference Range Interpretation Comments MAGNESIUM (test code = MAG) mg/dL 1.8-2.4 CALCIUM [id number] 01:36:00* Test Item Value Reference Range Interpretation Comments CALCIUM IONIZED (test code = PHILLIP) 1.17 mmol/L 1.12-1.32 N [id number] 21:53:00* Test Item Value Reference Range Interpretation Comments GLUBED (test code = GLUBED) 242 mg/dL 74-106 H Performed by certified diesel plant operator at [facility] [id number] 15:54:00* Test Item Value Reference Range Interpretation Comments GLUBED (test code = GLUBED) 236 mg/dL 74-106 H Performed by certified diesel plant operator at [facility] [id number] 10:36:00* Test Item Value Reference Range Interpretation Comments GLUBED (test code = GLUBED) 248 mg/dL 74-106 H Performed by certified diesel plant operator at [facility] - XR CHEST 1 [id number] 07:27:00 FAX: Enrique Segovia [phone] [place]: [address]: ADM FAX: [facility] FAX: Jasper Prince MD [phone] Name: BOOKER PIERRE [facility] : 1950 Age/S: 70/M [address] [facility] [place] Unit #: [id number] Loc: [place] [address] Phys: Enrique Segovia Acct: [id number] Dis Date: Status: ADM IN ONE #: [phone] Exam Date: 06/16/2020 0430 FAX #: [phone] Reason: updated pulm view. EXAMS: CPT CODE: [id number] XR CHEST 1 V 31279 CLINICAL HISTO RY: updated pulm view. TECHNIQUE: [...] By: [email or web address] Orig Print D/T: S: 06/16/2020 (0498) PAGE 1 Signed Report [id number] 05:53:00* Test Item Value Reference Range Interpretation Comments GLUBED (test code = GLUBED) 280 mg/dL 74-106 H Performed by certified diesel plant operator at [facility] ARTERIAL BLOOD [id number] 05:48:00* Test Item Value Reference Range Interpretation [...] = O2CT) 13.5 % vol 18.0-22.0 L [id number] 04:40:00* Test Item Value Reference Range Interpretation Comments D-DIMER (test code = DDIMER) 1787.00 ng/mLFEU 0-500 HH Results called to [id number] by [email or web address] 06/16/20 0439Critical results verified and [...] pneumonia, severe skin infections -Liver cirrhosis - [id number] 04:09:00* Test Item Value Reference Range Interpretation Comments PHOSPHORUS (test code = PHOS) 4.2 mg/dL 2.5-4.9 N [id number] 04:09:00* Test Item Value Reference Range Interpretation Comments MAGNESIUM (test code = MAG) 2.0 mg/dL 1.8-2.4 N CALCIUM [id number] 04:09:00* Test Item Value Reference Range Interpretation Comments CALCIUM IONIZED (test code = PHILLIP) 1.15 mmol/L 1.12-1.32 N [id number] 03:58:00* Test Item Value Reference Range Interpretation Comments PHOSPHORUS (test code = PHOS) mg/dL 2.5-4.9 [id number] 03:58:00* Test Item Value Reference Range Interpretation Comments MAGNESIUM (test code = MAG) 2.0 mg/dL 1.8-2.4 N CALCIUM [id number] 03:58:00* Test Item Value Reference Range Interpretation Comments CALCIUM IONIZED (test code = PHILLIP) 1.15 mmol/L 1.12-1.32 N [id number] 03:36:00* Test Item Value Reference Range Interpretation Comments PHOSPHORUS (test code = PHOS) mg/dL 2.5-4.9 [id number] 03:36:00* Test Item Value Reference Range Interpretation Comments MAGNESIUM (test code = MAG) mg/dL 1.8-2.4 CALCIUM [id number] 03:36:00* Test Item Value Reference Range Interpretation Comments CALCIUM IONIZED (test code = PHILLIP) 1.15 mmol/L 1.12-1.32 N BASIC METABOLIC [id number] 03:34:00* Test Item Value Reference Range Interpretation [...] CA) 7.1 mg/dL 8.5-10.1 L CBC W/O [id number] 03:22:00* Test Item Value Reference Range Interpretation [...] MPV) 10.9 fL 6.7-11.0 N BASIC METABOLIC [id number] 03:22:00* Test Item Value Reference Range Interpretation [...] CALCIUM (test code = CA) mg/dL 8.5-10.1 [id number] 23:48:00* Test Item Value Reference Range Interpretation Comments GLUBED (test code = GLUBED) 223 mg/dL 74-106 H Performed by certified diesel plant operator at [facility] [id number] 18:59:00* Test Item Value Reference Range Interpretation Comments TROPONIN-I (test code = TROPI) 0.027 ng/mL 0-0.045 N [id number] 16:15:00* Test Item Value Reference Range Interpretation Comments GLUBED (test code = GLUBED) 227 mg/dL 74-106 H Performed by certified diesel plant operator at [facility] [id number] 15:33:00* Test Item Value Reference Range Interpretation Comments TROPONIN-I (test code = TROPI) 0.036 ng/mL 0-0.045 N - XR CHEST 1 [id number] 13:18:00 FAX: David Townsend [facility] [employer] [place]: B St: ADM FAX: Jasper Prince MD [phone] Name: BOOKER PIERRE [facility] : 1950 Age/S: 70/M [address] [facility] Unit #: [id number] Loc: [place] [address] Phys: Denilson Morel Acct: [id number] Dis Date: Status: ADM IN PHONE #: [phone] Exam Date: 06/15/2020 1256 FAX #: [phone] Reason: NEW OG TUBE PLACEMENT EXAMS: CPT CODE: [id number] XR CHEST 1 V 61131 REASON FOR EXAM: NEW OG TUBE PLACEMENT Exam Order Date: 06/15/2020 12:36 PM Ordering Samantha: Denilson Morel PROCEDURE: - XR CHEST 1 V COMPARISON: Chest x-ray and CT scan earlier today FINDINGS/ IMPRESSION: Enteric suction tube terminates in the stomach. ET tube and cardiac pulmonary findings are unchanged. Location: [facility] at 1318 Reported and signed by: Michael Mehta MD CC: David Guzman DO; Jasper Eisenberg Technologist: Irma Delong(R) Trnscrd Date/Time/By: 06/15/2020 (4328) : By: [email or web address] Orig Print D/T: S: 06/15/2020 (1194) PAGE 1 Signed Report [id number] 12:21:00* Test Item Value Reference Range Interpretation Comments TROPONIN-I (test code = TROPI) 0.037 ng/mL 0-0.045 N [id number] 11:26:00* Test Item Value Reference Range Interpretation Comments GLUBED (test code = GLUBED) 199 mg/dL 74-106 H Performed by certified diesel plant operator at [facility] COVID 19 INHOUSE [id number] 10:27:00* Test Item Value Reference Range Interpretation Comments COVID 19 INHOUSE AG (test code = [id number]) NEGATIVE ARTERIAL BLOOD [id number] 07:32:00* Test Item Value Reference Range Interpretation [...] by Dr boateng/alonzo 07:31 - 06/15/2020; by [email or web address] ABG O2 SATURATION (test code = SATA) [...] by Dr boateng/alonzo 07:31 - 06/15/2020; by [email or web address] METHEMOGLOBIN (test code = METHGB) 0.6 % 0.0-1.50 N O2 CONTENT (test code = O2CT) 14.3 % vol 18.0-22.0 L - XR CHEST 1 [id number] 07:18:00 FAX: Enrique Segovia [phone] [place]: St: ADM FAX: David Townsend [place] FAX: Jasper Prince MD [phone] Name: BOOKER PIERRE [facility] : 1950 Age/S: 70/M [address] [facility] Unit #: [id number] Loc: [place] [address] Phys: Enrique Segovia Acct: [id number] Dis Date: Status: ADM IN ONE #: [phone] Exam Date: 06/15/2020520 FAX #: [phone] Reason: updated pulm view. EXAMS: CPT CODE: [id number] XR CHEST 1 V 96294 CLINICAL HISTO RY: updated pulm view. TECHNIQUE: [...] into account the patients history. ARTERIAL BLOOD [id number] 06:28:00* Test Item Value Reference Range Interpretation [...] vol 18.0-22.0 L - CT CHEST W/O [id number] 06:26:00 Name: BOOKER PIERRE [facility] : 1950 Age/S: 70 / M [address] Unit #: [id number] Loc: [place] [address] Phys: Enrique Segovia Acct: [id number] Dis Date: Status: ADM IN PHONE #: [phone] Exam Date: 06/15/2020 06 FAX #: [phone] Reason: S/P Cardaic arrest with acute respiratory failu EXAMS: CPT CODE: [id number] CT CHEST W/O CONTRAST 45863 EXAM: - CT CHEST W/O CONTRAST LOCATION: [...] 1 Signed Report (CONTINUED) Name: BOOKER PIERRE [facility] : 1950 Age/S: 70 / M [address] Unit #: [id number] Loc: Babita [place] 7 [address] Phys: Enrique Segovia Acct: [id number] Dis Date: Status: ADM IN PHONE #: [phone] Exam Date: 06/15/2020 0606 FAX #: [phone] Reason: S/P Cardaic arrest with acute respiratory failu EXAMS: CPT CODE: [id number] CT CHEST W/O CONTRAST 34384 <Continued> CC: Enrique Segovia; David Guzman ramonita [...] This LDL result is a direct measurement.========= [id number] 06:25:00* Test Item Value Reference Range Interpretation Comments TROPONIN-I (test code = TROPI) 0.047 ng/mL 0-0.045 HH Results called to [place] [address] by V.LAB.AG1 06/15/20 0625Critical results verified and read back by Nurse? Y - CT HEAD/BRAIN W/O [id number] 06:21:00 Name: BOOKER PIERRE [facility] : 1950 Age/S: 70 / M [address] [facility] [place] Unit #: [id number] Loc: [place] [address] Phys: Enrique Segovia Acct: [id number] Dis Date: Status: ADM IN PHONE #: [phone] Exam Date: 06/15/2020 0606 FAX #: [phone] Reason: S/P Cardaic arrest EXAMS: CPT CODE: [id number] CT HEAD/BRAIN W/O CONT 28853 EXAM: - CT HEAD/BRAIN W/O CONT LOCATION: [...] 1 Signed Report (CONTINUED) Name: BOOKER PIERRE [facility] : 1950 Age/S: 70 / M [address] Unit #: [id number] Loc: [place] [address] Phys: Enrique Segovia Acct: [id number] Dis Date: Status: ADM IN PHONE #: [phone] Exam Date: 605 FAX #: [phone] Reason: S/P Cardaic arres t EXAMS: CPT CODE: [id number] CT HEAD/BRAIN W/O CONT 36305 <Continued> at 0621 Reported and signed by: Keshav Guevara M.D. CC: Enrique Segovia; David Guzman DO; Jasper Eisenberg Technologist:DIGNA JHAVERI, RT; JUAN ANTONIO DIA CTDI: DLP: Trnscb Date/Time: 06/15/2020 (620) t.[email or web address] Orig Print D/T: S: 06/15/2020 (0624) PAGE 2 Signed Report - CT C-SPINE W/O [id number] 06:19:00 Name: BOOKER PIERRE [facility] : 1950 Age/S: 70 / M [address] Unit #: [id number] Loc: [place] [address] Phys: Enrique Segovia Acct: [id number] Dis Date: Status: ADM IN PHONE #: [phone] Exam Date: 06/15/2020605 FAX #: [phone] Reason: S/P Cardaic arrest with recent cervical discect EXAMS: CPT CODE: [id number] CT C-SPINE W/O CONTRAST 86571 EXAM: CT CERVICAL SPINE WITHOUT CONTRAST LOCATION: [...] 1 Signed Report (CONTINUED) Name: BOOKER PIERRE [facility] : 1950 Age/S: 70 / M [address] [facility] Unit #: [id number] Loc: [place] [address] Phys: Roopa Segovia Acct: [id number] Dis Date: Status: ADM IN PHONE #: [phone] Exam Date: 06/15/2020 06 FAX #: [phone] Reason: S/P Cardaic arrest with recent cervical discect EXAMS: CPT CODE: [id number] CT C-SPINE W/O CONTRAST 05672 <Continued> CC: Enrique Segovia; David Guzman [facility] DO; Jasper Eisenberg Technologist:DIGNA JHAVERI, RT; JUAN ANTONIO AT CTDI: DLP: Trnscb Date/Time: 06/15/2020 (618) [email or web address] Orig Print D/T: S: 06/15/2020 (621) PAGE 2 Signed Report LACTIC [id number] 06:14:00* Test Item Value Reference Range Interpretation Comments LACTIC ACID (test code = LACT) 1.5 mmol/L 0.4-1.9 N [id number] 05:53:00* Test Item Value Reference Range Interpretation Comments D-DIMER (test code = DDIMER) 6737.00 ng/mLFEU 0-500 HH Results called to [id number] by DONI 06/15/20 0552Critical results verified and [...] pneumonia, severe skin infections -Liver cirrhosis - [id number] 05:44:00* Test Item Value Reference Range Interpretation Comments GLUBED (test code = GLUBED) 195 mg/dL 74-106 H Performed by certified diesel plant operator at [facility] ARTERIAL BLOOD [id number] 05:07:00* Test Item Value Reference Range Interpretation [...] = O2CT) 14.5 % vol 18.0-22.0 L [id number] 05:04:00* Test Item Value Reference Range Interpretation Comments PHOSPHORUS (test code = PHOS) 4.4 mg/dL 2.5-4.9 N [id number] 05:04:00* Test Item Value Reference Range Interpretation Comments MAGNESIUM (test code = MAG) 2.0 mg/dL 1.8-2.4 N CALCIUM [id number] 05:04:00* Test Item Value Reference Range Interpretation Comments CALCIUM IONIZED (test code = PHILLIP) 1.21 mmol/L 1.12-1.32 N [id number] 04:57:00* Test Item Value Reference Range Interpretation Comments PHOSPHORUS (test code = PHOS) mg/dL 2.5-4.9 [id number] 04:57:00* Test Item Value Reference Range Interpretation Comments MAGNESIUM (test code = MAG) 2.0 mg/dL 1.8-2.4 N CALCIUM [id number] 04:57:00* Test Item Value Reference Range Interpretation Comments CALCIUM IONIZED (test code = PHILLIP) 1.21 mmol/L 1.12-1.32 N BASIC METABOLIC [id number] 04:57:00* Test Item Value Reference Range Interpretation [...] CA) 7.7 mg/dL 8.5-10.1 L BASIC METABOLIC [id number] 04:56:00* Test Item Value Reference Range Interpretation [...] CALCIUM (test code = CA) mg/dL 8.5-10.1 [id number] 04:47:00* Test Item Value Reference Range Interpretation Comments PHOSPHORUS (test code = PHOS) mg/dL 2.5-4.9 [id number] 04:47:00* Test Item Value Reference Range Interpretation Comments MAGNESIUM (test code = MAG) mg/dL 1.8-2.4 CALCIUM [id number] 04:47:00* Test Item Value Reference Range Interpretation Comments CALCIUM IONIZED (test code = PHILLIP) 1.21 mmol/L 1.12-1.32 N CBC W/O [id number] 04:30:00* Test Item Value Reference Range Interpretation [...] code = MPV) 10.4 fL 6.7-11.0 N [id number] 23:23:00* Test Item Value Reference Range Interpretation Comments GLUBED (test code = GLUBED) 144 mg/dL 74-106 H Performed by certified diesel plant operator at [facility] [id number] 20:15:00* Test Item Value Reference Range Interpretation Comments GLUBED (test code = GLUBED) 153 mg/dL 74-106 H Performed by certified diesel plant operator at [facility] COVID 19 INHOUSE [id number] 19:17:00* Test Item Value Reference Range Interpretation Comments COVID 19 INHOUSE AG (test code = [id number]) NEGATIVE - XR CHEST 1 [id number] 18:47:00 FAX: David Townsend [place]: B St: ADM FAX: Jasper Prince MD [phone] Name: BOOKER PIERRE [facility] : 1950 Age/S: 70/M [address] [facility] Unit #: [id number] Loc: V.3096 [place] [address] Phys: David Guzman DO Acct: [id number] Dis Date: Status: ADM IN PHONE #: [phone] Exam Date: 06/14/20201839 FAX #: [phone] Reason: SOB EXAMS: CPT CODE: [id number] XR CHEST 1 V 81338 Examination: One view chest x-ray Location code: [...] Eisenberg Technologist: NICOLE ALCALA, RT(R); JOSTIN MONDRAGON Trnpard Date/Time/By: 06/14/2020 (1846) : By: [email or web address] Orig Print D/T: S: 06/14/2020 (1849) PAGE 1 Signed Report [id number] 17:32:00* Test Item Value Reference Range Interpretation Comments GLUBED (test code = GLUBED) 204 mg/dL 74-106 H Performed by certified diesel plant operator at [facility] [id number] 12:46:00* Test Item Value Reference Range Interpretation Comments GLUBED (test code = GLUBED) 268 mg/dL 74-106 H Performed by certified diesel plant operator at [facility] - XR SWLW FUNC W/C [id number] 12:34:00 FAX: David Townsend [place]: B St: ADM FAX: Jasper Prince MD [phone] Name: BOOKER PIERRE [facility] : 1950 Age/S: 70/M [address] [facility] Unit #: [id number] Loc: [address] [address] [facility] Ac[facility]: [id number] Dis Date: Status: ADM IN PHONE #: [phone] Exam Date: 06/14/2020 1050 FAX #: [phone] Reason: SWALLOW EVAL EXAMS: CPT [facility]: [id number] [facility] W/C V 09956 EXAM: Modified barium swallow; INFORMATION: HISTORY of fall; cord contusion, cervical myelopathy; dysphagia; IMPRESSION: 1. No evidence of aspiration. 2. Laryngeal penetration was observed with all consistencies including thin liquids nectar, honey and puree. 3. Vallecular pooling with all consistencies. Fluoroscopy Time: 115.4 sec CAK : 9.27 mGy Location code: [facility] at 1234 Reported and signed by: Lucio Taylor M.D. CC: David Guzman ; Jasper Eisenberg Technologist: RT DAISY(Evangelina) Jaquelin Date/Time/By: (5300) : By: Nighat Orig Print D/T: S: 06/14/2020 (9587) PAGE 1 Signed Report [id number] 09:05:00* Test Item Value Reference Range Interpretation Comments GLUBED (test code = GLUBED) 193 mg/dL 74-106 H Performed by certified diesel plant operator at [facility] [id number] 20:14:00* Test Item Value Reference Range Interpretation Comments GLUBED (test code = GLUBED) 183 mg/dL 74-106 H Performed by certified diesel plant operator at [facility] [id number] 16:29:00* Test Item Value Reference Range Interpretation Comments GLUBED (test code = GLUBED) 211 mg/dL 74-106 H Performed by certified diesel plant operator at [facility] [id number] 11:40:00* Test Item Value Reference Range Interpretation Comments GLUBED (test code = GLUBED) 261 mg/dL 74-106 H Performed by certified diesel plant operator at [facility] [id number] 08:01:00* Test Item Value Reference Range Interpretation Comments GLUBED (test code = GLUBED) 223 mg/dL 74-106 H Performed by certified diesel plant operator at [facility] [id number] 20:37:00* Test Item Value Reference Range Interpretation Comments GLUBED (test code = GLUBED) 154 mg/dL 74-106 H Performed by certified diesel plant operator at [facility] BASIC METABOLIC [id number] 15:51:00* Test Item Value Reference Range Interpretation [...] CA) 7.5 mg/dL 8.5-10.1 L BASIC METABOLIC [id number] 15:47:00* Test Item Value Reference Range Interpretation [...] CALCIUM (test code = CA) mg/dL 8.5-10.1 [id number] 15:40:00* Test Item Value Reference Range Interpretation Comments GLUBED (test code = GLUBED) 157 mg/dL 74-106 H Performed by certified diesel plant operator at [facility] [id number] 12:28:00* Test Item Value Reference Range Interpretation Comments GLUBED (test code = GLUBED) 198 mg/dL 74-106 H Performed by certified diesel plant operator at [facility] [id number] 07:20:00* Test Item Value Reference Range Interpretation Comments GLUBED (test code = GLUBED) 248 mg/dL 74-106 H Performed by certified diesel plant operator at [facility] CBC W/O [id number] 05:58:00* Test Item Value Reference Range Interpretation [...] code = MPV) 10.6 fL 6.7-11.0 N [id number] 20:29:00* Test Item Value Reference Range Interpretation Comments GLUBED (test code = GLUBED) 280 mg/dL 74-106 H Performed by certified diesel plant operator at [facility] [id number] 15:59:00* Test Item Value Reference Range Interpretation Comments GLUBED (test code = GLUBED) 208 mg/dL 74-106 H Performed by certified diesel plant operator at [facility] COMPREHENSIVE METABOLIC [id number] 13:21:00* Test Item Value Reference Range Interpretation [...] due to change in reagent. COMPREHENSIVE METABOLIC [id number] 13:11:00* Test Item Value Reference Range Interpretation [...] IUnit/L 45-117 - XR ABDOMEN AP 1 [id number] 12:04:00 FAX: David Townsend Fo [place]: B St: ADM FAX: Jasper Prince MD [phone] Name: BOOKER PIERRE [facility] : 1950 Age/S: 70/M [address] [facility] [place] Unit #: [id number] Loc: V.3091 [place] [address] Phys: Meek Lepe MD Acct: [id number] Dis Date: Status: ADM IN PHONE #: [phone] Exam Date: 06/11/2020 1150 FAX #: [phone] Reason: BOWEL OBSTRUCTION EXAMS: CPT CODE: [id number] XR ABDOMEN AP 1 V 36652 HISTORY: BOWEL OBSTRUCTION TECHNIQUE: AP abdomen x-ray [...] the spine. Lung bases are clear. Location: [facility] at 1204 Reported and signed by: Michael Mehta MD CC: David Guzman [facility] ; Jasper Eisenberg Technologist: NICOLE ALCALA, RT(R); Steffany Tirado RT(R) Trnpard Date/Time/By: 06/11/2020 (6262) : By: [email or web address] Orig Print D/T: S: 0 06/11/2020 (3103) PAGE 1 Signed Re port [id number] 11:51:00* Test Item Value Reference Range Interpretation Comments GLUBED (test code = GLUBED) 292 mg/dL 74-106 H Performed by certified diesel plant operator at [facility] [id number] 08:09:00* Test Item Value Reference Range Interpretation Comments GLUBED (test code = GLUBED) 252 mg/dL 74-106 H Performed by certified diesel plant operator at [facility] [id number] 21:45:00* Test Item Value Reference Range Interpretation Comments GLUBED (test code = GLUBED) 305 mg/dL 74-106 H Performed by certified diesel plant operator at [facility] [id number] 18:49:00* Test Item Value Reference Range Interpretation Comments GLUBED (test code = GLUBED) 392 mg/dL 74-106 H Performed by certified diesel plant operator at [facility] [id number] 17:09:00* Test Item Value Reference Range Interpretation Comments GLUBED (test code = GLUBED) 453 mg/dL 74-106 H Performed by certified diesel plant operator at [facility] - CT ABD PELVIS W/O [id number] 11:56:00 Name: BOOKER PIERRE [facility] : 1950 Age/S: 70 / M [address] [facility] [place] Unit #: [id number] Loc: [place] [address] Phys: Armida Glover Acct: [id number] Dis Date: Status: ADM IN PHONE #: [phone] Exam Date: 06/10/2020 1131 FAX #: [phone] Reason: non improving abd distention EXAMS: CPT CODE: [id number] CT ABD PELVIS W/O CONT 45340 REASON FOR EXAM: non improving abd distention [...] tube terminates in the stomach. On the coding coordinator views the stomach is markedly less distended [...] : 1950 Age/S: 70 / M [address] [facility] Unit #: [id number] Loc: [place], [place] [address] Phys: Armida Glover Acct: [id number] Dis Date: Status: ADM IN PHONE #: [phone] Exam Date: 06/10/2020 1131 FAX #: [phone] Reason: non improving abd distention EXAMS: CPT CODE: [id number] CT ABD PELVIS W/O CONT 25735 < Continued> Musculoskeletal structures and abdominal wall: Degenerative changes are present in the spine IMPRESSION: The stomach is less distended than on the abdominal radiographs earlier today. No pyloric or duodenal mass to explain the gastric distention seen on the earlier today. No findings of bowel obstruction. Location: [facility] at 1156 Reported and signed by: Michael Mehta MD CC: Armida Glover; Jasper Eisenberg Technologist:Roxane Neville,RT(R),CT CTDI: DLP: Trnscb Date/Time: 06/10/2020 (1156) t.SDR.RR31 Orig Print D/T: S: 06/10/2020 (8729) PAGE 2 Signed Report [id number] 11:38:00* Test Item Value Reference Range Interpretation Comments GLUBED (test code = GLUBED) 379 mg/dL 74-106 H Performed by certified diesel plant operator at [facility] - XR ABDOMEN AP 1 [id number] 09:50:00 FAX: Jasper Prince MD [phone] [place]: B St: ADM Name: BOOK[facility] ROYAL [facility] : [birth year] Age/S: 70/M [address] [facility] Unit #: [id number] Loc: V.5004 [place] [address] Phys: Meek Lepe MD Acct: [id number] Dis Date: Status: ADM IN PHONE #: [phone] Exam Date: 06/10/2020914 FAX #: [phone] Reason: FOLLOW UP GASTRIC DISTENTION EXAMS: CPT CODE: [id number] XR ABDOMEN AP 1 V 30944 HISTORY: FOLLOW UP GASTRIC DISTEN TION TECHNIQUE: AP abdomen x-ray COMPARISON: Abdom inal radiograph the previous afternoon FINDINGS/ IMPRESSIO N: The stomach is markedly distended despite the presence of an enteri c suction tube. There is a paucity of gas in the remainder of the bowel. Degenerative changes of the spine and other musculoskeletal f indings are unchanged. Location: [facility] Signed by Michael Mehta MD on 06/10/2020 at 0950 Reported and signed by: Michael Mehta MD CC: Jasper Eisenberg Technologist: Irma Delong(Evangelina) Trnscrd Date/Time/By: 06/10/2020 (0950) : By: missael [email or web address] [facility] Print D/T: S: 06/10/2020 (9345) PAGE 1 Signed Report GLUBED 2020-06-10 07:16:00* Test Item Value Reference Range Interpretation Comments GLUBED (test code = GLUBED) 300 mg/dL 74-106 H Performed by certified diesel plant operator at [facility] [id number] 06:23:00* Test Item Value Reference Range Interpretation Comments GLUBED (test code = GLUBED) 313 mg/dL 74-106 H Performed by certified diesel plant operator at [facility] BASIC METABOLIC [id number] 05:45:00* Test Item Value Reference Range Interpretation [...] code = CA) 7.9 mg/dL 8.5-10.1 L [id number] 00:58:00* Test Item Value Reference Range Interpretation Comments GLUBED (test code = GLUBED) 339 mg/dL 74-106 H Performed by certified diesel plant operator at [facility] [id number] 20:39:00* Test Item Value Reference Range Interpretation Comments GLUBED (test code = GLUBED) 343 mg/dL 74-106 H Performed by certified diesel plant operator at [facility] [id number] 16:58:00* Test Item Value Reference Range Interpretation Comments GLUBED (test code = GLUBED) 269 mg/dL 74-106 H Performed by certified diesel plant operator at [facility] - XR ABDOMEN AP 1 [id number] 12:48:00 FAX: Jasper Prince MD [phone] [place]: B St: ADM Name: B[facility] ROYAL [facility] : [birth year] Age/S: 70/M [address] Unit #: [id number] Loc: [address] [place] [address] Phys: Meek Lepe MD Acct: [id number] Dis Date: Status: ADM IN PHONE #: [phone] Exam Date: 06/09/2020 1222 FAX #: [phone] Reason: BOWEL OBSTRUCTION EXAMS: CPT CODE: [id number] XR ABDOMEN AP 1 V 14369 HISTORY: BOWEL OBSTRUCTION TECHNIQUE: AP abdomen x-ray COMPARISON: Abdominal radiograph the previous morning FINDINGS/ IMPRESSION: The stomach remains markedly distended despite the presence of an enteric suction tube. There is a paucity of gas within the large and small bowel. No abnormal intra-abdominal calcifications. Degenerative changes of the spine appear similar to the previous exam. Location: [facility] at 3207 Reported and signed by: Michael Mehta MD CC: Jasper Eisenberg Technologist: Kathy Galindo RT(R) Trnscrd Date/Time/By: 06/09/2020 (3896) : By: [email or web address] Orig Print D/T: S: 06/09/2020 (1527) PAGE 1 Signed R eport [id number] 11:17:00* Test Item Value Reference Range Interpretation Comments GLUBED (test code = GLUBED) 255 mg/dL 74-106 H Performed by certified diesel plant operator at [facility] BASIC METABOLIC [id number] 09:42:00* Test Item Value Reference Range Interpretation [...] mg/dL 8.5-10.1 L [V.LAB. 06/09/20 0326]BASIC METABOLIC [id number] 09:35:00* Test Item Value Reference Range Interpretation [...] code = CA) mg/dL 8.5-10.1 [V.LAB. 06/09/20 0326][id number] 07:31:00* Test Item Value Reference Range Interpretation Comments GLUBED (test code = GLUBED) 301 mg/dL 74-106 H Performed by certified diesel plant operator at [facility] [id number] 06:28:00* Test Item Value Reference Range Interpretation Comments GLUBED (test code = GLUBED) 327 mg/dL 74-106 H Performed by certified diesel plant operator at [facility] [id number] 00:16:00* Test Item Value Reference Range Interpretation Comments GLUBED (test code = GLUBED) 362 mg/dL 74-106 H Performed by certified diesel plant operator at [facility] [id number] 20:41:00* Test Item Value Reference Range Interpretation Comments GLUBED (test code = GLUBED) 353 mg/dL 74-106 H Performed by certified diesel plant operator at [facility] [id number] 18:50:00* Test Item Value Reference Range Interpretation Comments GLUBED (test code = GLUBED) 320 mg/dL 74-106 H Performed by certified diesel plant operator at [facility] - XR INTRO LONG GI [id number] 16:41:00 FAX: Jasper Prince MD [phone] [place]: St: ADM Name: [facility] : [birth year] Age/S: 70/M [address] [facility] Unit #: [id number] Loc: V.5004 [place] [address] Phys: Randal Morel Acct: [id number] Dis Date: Status: ADM IN PHONE #: [phone] Exam Date: 06/08/2020 1412 FAX #: [phone] Reason: NG TUBE PLACEMENT EXAMS: CPT CODE: [id number] XR INTRO LONG GI TUBE 14231 REASON FOR EXAM:Gastric distention Location: [facility] PROCEDURE: Fluoroscopic placement of NG tube FINDINGS: [...] CC: Jasper Eisenberg Technologist: Roopa ALCALA [facility]R) [facility] Date/Time/By: 05/26 (8248) : By: [email or web address] Orig Print D/T: S: 06/08/2020 (4236) PAGE 1 Signed Report [id number] 16:11:00* Test Item Value Reference Range Interpretation Comments GLUBED (test code = GLUBED) 255 mg/dL 74-106 H Performed by certified diesel plant operator at [facility] [id number] 11:47:00* Test Item Value Reference Range Interpretation Comments GLUBED (test code = GLUBED) 300 mg/dL 74-106 H Performed by certified diesel plant operator at [facility] - XR ABDOMEN AP 1 [id number] 10:30:00 FAX: Nav Gomez MD [phone] [place]: St: ADM FAX: Jasper Prince MD [phone] Name: B[facility] PIERRE [facility] : 1950 Age/S: 70/M [address] [facility] Unit #: [id number] Loc: V.5004 [place] [address] Phys: Nav Gleason MD Acct: [id number] Dis Date: Status: ADM IN PHONE #: [phone] Exam Date: 06/08/2020939 FAX #: [phone] Reason: ngt EXAMS: CPT CODE: [id number] XR ABDOMEN AP 1 V 44545 HISTORY: ngt TECHNIQUE: AP abdomen x-ray COMPARISON: [...] By: [email or web address] Orig Print D/T: S: 06/08/2020 (3726) PAGE 1 Signed Report - XR CHEST 1 [id number] 10:27:00 FAX: Nav Gomez MD [phone] [place]: St: ADM FAX: Jasper Prince MD [phone] Name: BOOKER PIERRE [facility] : 1950 Age/S: 70/M [address] [facility] Unit #: [id number] Loc: V.500[address] [place] [address] Phys: Nav Gleason MD Acct: [id number] Dis Date: Status: ADM IN PHONE #: [phone] Exam Date: 06/08/2020 0950 FAX #: [phone] Reason: NG TUBE PLACEMENT EXAMS: CPT CODE: [id number] XR CHEST 1 V 24175 REASON FOR EXAM: NG TUBE PLACEMENT Exam [...] No enteric suction tube is seen. Location: [facility] at 1027 Reported and s igned by: Michael Mehta MD CC: Nav Gleason MD; Jasper Eisenberg Technologist: Rema Rodriguez RT(R) Trnscrd Date/Time/By: 06/08/2020 (1027) : By: [email or web address] PAGE 1 Signed Report BASIC METABOLIC [id number] 06:04:00* Test Item Value Reference Range Interpretation [...] = CA) 8.2 mg/dL 8.5-10.1 L [V.LAB. 06/08/20110][id number] 06:04:00* Test Item Value Reference Range Interpretation Comments PHOSPHORUS (test code = PHOS) 4.2 mg/dL 2.5-4.9 N [V.LAB. 06/08/20110][id number] 06:04:00* Test Item Value Reference Range Interpretation Comments MAGNESIUM (test code = MAG) 2.7 mg/dL 1.8-2.4 H [V.LAB. 06/08/20110]CALCIUM [id number] 06:04:00* Test Item Value Reference Range Interpretation Comments CALCIUM IONIZED (test code = PHILLIP) 1.25 mmol/L 1.12-1.32 N [V.LAB. 06/08/20 0111]CBC W/O [id number] 05:36:00* Test Item Value Reference Range Interpretation [...] code = MPV) 9.9 fL 6.7-11.0 N [id number] 05:34:00* Test Item Value Reference Range Interpretation Comments GLUBED (test code = GLUBED) 270 mg/dL 74-106 H Performed by certified diesel plant operator at [facility] BASIC METABOLIC [id number] 05:30:00* Test Item Value Reference Range Interpretation [...] (test code = CA) mg/dL 8.5-10.1 [V.LAB. 06/08/20110][id number] 05:30:00* Test Item Value Reference Range Interpretation Comments PHOSPHORUS (test code = PHOS) mg/dL 2.5-4.9 [V.LAB. 06/08/20110][id number] 05:30:00* Test Item Value Reference Range Interpretation Comments MAGNESIUM (test code = MAG) mg/dL 1.8-2.4 [V.LAB. 06/08/20110]CALCIUM [id number] 05:30:00* Test Item Value Reference Range Interpretation Comments CALCIUM IONIZED (test code = PHILLIP) 1.25 mmol/L 1.12-1.32 N [V.LAB. 06/08/20110][id number] 23:09:00* Test Item Value Reference Range Interpretation Comments GLUBED (test code = GLUBED) 235 mg/dL 74-106 H Performed by certified diesel plant operator at [facility] [id number] 20:24:00* Test Item Value Reference Range Interpretation Comments GLUBED (test code = GLUBED) 319 mg/dL 74-106 H Performed by certified diesel plant operator at [facility] - XR ABDOMEN AP 1 [id number] 17:30:00 FAX: Nav Gomez MD [phone] [place]: St: ADM FAX: Jasper Prince MD [phone] Name: B[facility]ER PEIR[facility] : 1950 Age/S: 70/M [address] [facility] Unit #: [id number] Loc: V.500[address] [place] [address] Phys: Nav Gleason MD Acct: [id number] Dis Date: Status: ADM IN PHONE #: [phone] Exam Date: 06/07/2020 1540 FAX #: [phone] Reason: ngt placement EXAMS: CPT CODE: [id number] XR ABDOMEN AP 1 V 17627 EXAM: Abdomen, 2 views; INFORMATION: Gastric diste [...] MONDRAGON; Steffany Tirado RT(R) Trnscrd Date/Time/By: 06/07/2020 (670) : By: EnocGRW Orig Print D/T: S: 06/07/2020 (0433) PAGE 1 Signed Report [id number] 16:41:00* Test Item Value Reference Range Interpretation Comments GLUBED (test code = GLUBED) 246 mg/dL 74-106 H Performed by certified diesel plant operator at [facility] ARTERIAL BLOOD [id number] 13:02:00* Test Item Value Reference Range Interpretation [...] by Dr scott 13:01 - 06/07/2020; by [email or web address] METHEMOGLOBIN (test code = METHGB) 0.7 % 0.0-1.50 N O2 CONTENT (test code = O2CT) 14.3 % vol 18.0-22.0 L [id number] 11:46:00* Test Item Value Reference Range Interpretation Comments GLUBED (test code = GLUBED) 231 mg/dL 74-106 H Performed by certified diesel plant operator at [facility] - XR CHEST 1 [id number] 09:46:00 FAX: Enrique Segovia [phone] [place]: B St: ADM FAX: Jasper Prince MD [phone] Name: B[facility] PIERRE [facility] : 1950 Age/S: 70/M [address] [facility] Unit #: [id number] Loc: V.500[address] [place] [address] Phys: Enrique Segovia Acct: [id number] Dis Date: Status: ADM IN PHONE #: [phone] Exam Date: 06/07/2020 0850 FAX #: [phone] Reason: updated pulm view EXAMS: CPT CODE: [id number] XR CHEST 1 V 19397 REASON FOR EXAM: updated pulm view EXAM ORDER DATE: 06/07/2020 2:00 AM Ordering: CARMELA Kaur Attending:Denilson Morel Location:[facility] PROCEDURE: - XR CHEST 1 V COMPARISON: [...] P AGE 1 Signed Report BASIC METABOLIC [id number] 08:26:00* Test Item Value Reference Range Interpretation Comments SODIUM (test code = NA) 157 mmol/L 136-145 H Resu lts called to [id number] by VLUÍS 06/07/20 0824Critical results verified and [...] CANCELLED ORDER NEEDS TO BE CANCELLEDCBC W/O [id number] 08:22:00* Test Item Value Reference Range Interpretation [...] code = MPV) 9.6 fL 6.7-11.0 N [id number] 07:44:00* Test Item Value Reference Range Interpretation Comments GLUBED (test code = GLUBED) 295 mg/dL 74-106 H Performed by certified diesel plant operator at [facility] BASIC METABOLIC [id number] 06:09:00* Test Item Value Reference Range Interpretation Comments SODIUM (test code = NA) 157 mmol/L 136-145 H Resu lts called to [id number] by V.LAB.GP 06/07/20 0609Critical results verified and [...] code = CA) 8.6 mg/dL 8.5-10.1 N [id number] 06:09:00* Test Item Value Reference Range Interpretation Comments PHOSPHORUS (test code = PHOS) 3.8 mg/dL 2.5-4.9 N [id number] 06:09:00* Test Item Value Reference Range Interpretation Comments MAGNESIUM (test code = MAG) 2.8 mg/dL 1.8-2.4 H CALCIUM [id number] 06:09:00* Test Item Value Reference Range Interpretation Comments CALCIUM IONIZED (test code = PHILLIP) 1.24 mmol/L 1.12-1.32 N BASIC METABOLIC [id number] 06:06:00* Test Item Value Reference Range Interpretation [...] CALCIUM (test code = CA) mg/dL 8.5-10.1 [id number] 06:06:00* Test Item Value Reference Range Interpretation Comments PHOSPHORUS (test code = PHOS) mg/dL 2.5-4.9 [id number] 06:06:00* Test Item Value Reference Range Interpretation Comments MAGNESIUM (test code = MAG) mg/dL 1.8-2.4 CALCIUM [id number] 06:06:00* Test Item Value Reference Range Interpretation Comments CALCIUM IONIZED (test code = PHILLIP) 1.24 mmol/L 1.12-1.32 N [id number] 06:01:00* Test Item Value Reference Range Interpretation Comments GLUBED (test code = GLUBED) 286 mg/dL 74-106 H Performed by certified diesel plant operator at [facility] [id number] 23:55:00* Test Item Value Reference Range Interpretation Comments GLUBED (test code = GLUBED) 274 mg/dL 74-106 H Performed by certified diesel plant operator at [facility] [id number] 18:27:00* Test Item Value Reference Range Interpretation Comments GLUBED (test code = GLUBED) 278 mg/dL 74-106 H Performed by certified diesel plant operator at [facility] [id number] 16:20:00* Test Item Value Reference Range Interpretation Comments GLUBED (test code = GLUBED) 244 mg/dL 74-106 H Performed by certified diesel plant operator at [facility] [id number] 12:00:00* Test Item Value Reference Range Interpretation Comments GLUBED (test code = GLUBED) 254 mg/dL 74-106 H Performed by certified diesel plant operator at [facility] - XR CHEST 1 [id number] 09:09:00 FAX: Enrique Segovia [phone] [place]: B St: [facility] FAX: Jasper Prince MD [phone] Name: [facility] : 1950 Age/S: 70/M [address] [facility] Unit #: [id number] Loc: V.[address]4 [place] [address] Phys: Enrique Segovia Acct: [id number] Dis Date: Status: ADM IN PHONE #: [phone] Exam Date: 06/06/2020 0900 FAX #: [phone] Reason: updated pulm view EXAMS: CPT CODE: [id number] XR CHEST 1 V 26468 HISTORY: Fall and syncopal episode. COMPARISON: Previous [...] S: 06/06/2020 (911) PAGE 1 Signed Report [id number] 07:50:00* Test Item Value Reference Range Interpretation Comments GLUBED (test code = GLUBED) 238 mg/dL 74-106 H Performed by certified diesel plant operator at [facility] BASIC METABOLIC [id number] 06:36:00* Test Item Value Reference Range Interpretation [...] code = CA) 8.7 mg/dL 8.5-10.1 N [id number] 06:36:00* Test Item Value Reference Range Interpretation Comments PHOSPHORUS (test code = PHOS) 4.5 mg/dL 2.5-4.9 N [id number] 06:36:00* Test Item Value Reference Range Interpretation Comments MAGNESIUM (test code = MAG) 2.9 mg/dL 1.8-2.4 H CALCIUM [id number] 06:36:00* Test Item Value Reference Range Interpretation Comments CALCIUM IONIZED (test code = PHILLIP) 1.26 mmol/L 1.12-1.32 N BASIC METABOLIC [id number] 06:08:00* Test Item Value Reference Range Interpretation [...] code = CA) 8.7 mg/dL 8.5-10.1 N [id number] 06:08:00* Test Item Value Reference Range Interpretation Comments PHOSPHORUS (test code = PHOS) 4.5 mg/dL 2.5-4.9 N [id number] 06:08:00* Test Item Value Reference Range Interpretation Comments MAGNESIUM (test code = MAG) 2.9 mg/dL 1.8-2.4 H CALCIUM [id number] 06:08:00* Test Item Value Reference Range Interpretation Comments CALCIUM IONIZED (test code = PHILLIP) mmol/L 1.12-1.32 [id number] 05:33:00* Test Item Value Reference Range Interpretation Comments GLUBED (test code = GLUBED) 238 mg/dL 74-106 H Performed by certified diesel plant operator at [facility] CBC W/O [id number] 04:21:00* Test Item Value Reference Range Interpretation [...] code = MPV) 9.2 fL 6.7-11.0 N [id number] 00:44:00* Test Item Value Reference Range Interpretation Comments GLUBED (test code = GLUBED) 223 mg/dL 74-106 H Performed by certified diesel plant operator at [facility] - XR ABDOMEN AP 1 [id number] 19:38:00 FAX: Juan Alberto Paniagua MD [phone] [place]: B St: [facility] FAX: Jasper Prince MD [phone] Name: [facility] PIER[facility] : 1950 Age/S: 70/M [address] [facility] Unit #: [id number] Loc: V.500[address] [place] [address] Phys: Juan Alberto Paniagua MD Acct: [id number] Dis Date: Status: ADM IN PHONE #: [phone] Exam Date: 06/05/20201921 FAX #: [phone] Reason: ILEUS EXAMS: CPT CODE: [id number] XR ABDOMEN AP 1 V 67336 HISTORY: Ileus and syncope. COMPARISON: X-ray from [...] S: 06/05/2020 (1940) PAGE 1 Signed Report [id number] 16:09:00* Test Item Value Reference Range Interpretation Comments GLUBED (test code = GLUBED) 238 mg/dL 74-106 H Performed by certified diesel plant operator at [facility] [id number] 11:54:00* Test Item Value Reference Range Interpretation Comments GLUBED (test code = GLUBED) 293 mg/dL 74-106 H Performed by certified diesel plant operator at [facility] - XR CHEST 1 [id number] 09:08:00 FAX: Enrique Segovia [phone] [place]: B St: ADM FAX: Jasper Prince MD [phone] Name: BOOKER PIERRE [facility] : 1950 Age/S: 70/M Justine Blake Unit #: [id number] Loc: V.500[address] [place] [address] Phys: Enrique Segovia Acct: [id number] Dis Date: Status: ADM IN PHONE #: [phone] Exam Date: 06/05/2020 0840 FAX #: [phone] Reason: updated pulm view EXAMS: CPT CODE: [id number] XR CHEST 1 V 56870 EXAM: Chest x-ray, one view; INFORMATION: Status [...] S: 06/05/2020 (0911) PAGE 1 Signed Report [id number] 07:28:00* Test Item Value Reference Range Interpretation Comments GLUBED (test code = GLUBED) 299 mg/dL 74-106 H Performed by certified diesel plant operator at [facility] [id number] 06:11:00* Test Item Value Reference Range Interpretation Comments GLUBED (test code = GLUBED) 284 mg/dL 74-106 H Performed by certified diesel plant operator at [facility] BASIC METABOLIC [id number] 05:43:00* Test Item Value Reference Range Interpretation [...] CA) 8.4 mg/dL 8.5-10.1 L BASIC METABOLIC [id number] 05:42:00* Test Item Value Reference Range Interpretation [...] CALCIUM (test code = CA) mg/dL 8.5-10.1 [id number] 02:37:00* Test Item Value Reference Range Interpretation Comments PHOSPHORUS (test code = PHOS) 3.0 mg/dL 2.5-4.9 N [id number] 02:37:00* Test Item Value Reference Range Interpretation Comments MAGNESIUM (test code = MAG) 2.8 mg/dL 1.8-2.4 H CALCIUM [id number] 02:37:00* Test Item Value Reference Range Interpretation Comments CALCIUM IONIZED (test code = PHILLIP) 1.27 mmol/L 1.12-1.32 N BASIC METABOLIC [id number] 02:37:00* Test Item Value Reference Range Interpretation [...] CA) 8.6 mg/dL 8.5-10.1 N CBC W/O [id number] 02:28:00* Test Item Value Reference Range Interpretation [...] code = MPV) 9.3 fL 6.7-11.0 N [id number] 02:26:00* Test Item Value Reference Range Interpretation Comments PHOSPHORUS (test code = PHOS) mg/dL 2.5-4.9 [id number] 02:26:00* Test Item Value Reference Range Interpretation Comments MAGNESIUM (test code = MAG) 2.8 mg/dL 1.8-2.4 H CALCIUM [id number] 02:26:00* Test Item Value Reference Range Interpretation Comments CALCIUM IONIZED (test code = PHILLIP) 1.27 mmol/L 1.12-1.32 N BASIC METABOLIC [id number] 02:26:00* Test Item Value Reference Range Interpretation [...] CALCIUM (test code = CA) mg/dL 8.5-10.1 [id number] 02:19:00* Test Item Value Reference Range Interpretation Comments PHOSPHORUS (test code = PHOS) mg/dL 2.5-4.9 [id number] 02:19:00* Test Item Value Reference Range Interpretation Comments MAGNESIUM (test code = MAG) mg/dL 1.8-2.4 CALCIUM [id number] 02:19:00* Test Item Value Reference Range Interpretation Comments CALCIUM IONIZED (test code = PHILLIP) 1.27 mmol/L 1.12-1.32 N [id number] 00:07:00* Test Item Value Reference Range Interpretation Comments GLUBED (test code = GLUBED) 293 mg/dL 74-106 H Performed by certified diesel plant operator at [facility] [id number] 20:33:00* Test Item Value Reference Range Interpretation Comments GLUBED (test code = GLUBED) 229 mg/dL 74-106 H Performed by certified diesel plant operator at [facility] [id number] 18:15:00* Test Item Value Reference Range Interpretation Comments GLUBED (test code = GLUBED) 208 mg/dL 74-106 H Performed by certified diesel plant operator at [facility] [id number] 16:41:00* Test Item Value Reference Range Interpretation Comments GLUBED (test code = GLUBED) 191 mg/dL 74-106 H Performed by certified diesel plant operator at [facility] - XR ABDOMEN AP 1 [id number] 14:28:00 FAX: Armida Glover [phone] [place]: St: [facility] FAX: Jasper Prince MD [phone] Name: BOOKER PIERRE [facility] : 1950 Age/S: 70/M [address] [facility] Unit #: [id number] Loc: V.[address] [place] [address] Phys: Armida Glover Acct: [id number] Dis Date: Status: ADM IN PHONE #: [phone] Exam Date: 06/04/2020 1415 FAX #: [phone] Reason: ileus status EXAMS: CPT CODE: [id number] XR ABDOMEN AP 1 V 19917 HISTORY: ileus status TECHNIQUE: AP abdomen x-ray [...] the presence of enteric suction tube. Location: [facility] at 1428 Reported and signed by: Michael Mehta MD CC: Armida Glover; Jasper Eisenberg Technologist: NICOLE ALCALA, RT(R); Rema Rodriguez RT(R) Trnscrd Date/Time/By: 08/2020 (5065) : By: [email or web address] Orig Print D/T: S: 06/04/2020 (6024) PAGE 1 Signed Report [id number] 14:11:00* Test Item Value Reference Range Interpretation Comments GLUBED (test code = GLUBED) 270 mg/dL 74-106 H Performed by certified diesel plant operator at [facility] [id number] 12:26:00* Test Item Value Reference Range Interpretation Comments GLUBED (test code = GLUBED) 261 mg/dL 74-106 H Performed by certified diesel plant operator at [facility] - XR CHEST 1 [id number] 07:38:00 FAX: Enrique Segovia [phone] [place]: B St: ADM FAX: Jasper Prince MD [phone] Name: BOOKER PIERRE [facility] : 1950 Age/S: 70/M [address] [facility] Unit #: [id number] Loc: V.S[address] [place] [address] Phys: Enrique Segovia Acct: [id number] Dis Date: Status: ADM IN PHONE #: [phone] Exam Date: 06/04/2020 0539 FAX #: [phone] Reason: updated pulm view EXAMS: CPT CODE: [id number] XR CHEST 1 V 25887 CLINICAL HISTORY: updated pulm view TECHNIQUE: AP [...] By: EnocLDP1 Orig Print D/T: S: 06/04/2020 (4441) PAGE 1 Signed Report [id number] 05:36:00* Test Item Value Reference Range Interpretation Comments PHOSPHORUS (test code = PHOS) 3.7 mg/dL 2.5-4.9 N [id number] 05:36:00* Test Item Value Reference Range Interpretation Comments MAGNESIUM (test code = MAG) 2.8 mg/dL 1.8-2.4 H CALCIUM [id number] 05:36:00* Test Item Value Reference Range Interpretation Comments CALCIUM IONIZED (test code = PHILLIP) 1.26 mmol/L 1.12-1.32 N COMPREHENSIVE METABOLIC [id number] 04:35:00* Test Item Value Reference Range Interpretation [...] reference range due to change in reagent. [id number] 03:42:00* Test Item Value Reference Range Interpretation Comments PHOSPHORUS (test code = PHOS) mg/dL 2.5-4.9 [id number] 03:42:00* Test Item Value Reference Range Interpretation Comments MAGNESIUM (test code = MAG) mg/dL 1.8-2.4 CALCIUM [id number] 03:42:00* Test Item Value Reference Range Interpretation Comments CALCIUM IONIZED (test code = PHILLIP) 1.26 mmol/L 1.12-1.32 N CBC W/O [id number] 03:27:00* Test Item Value Reference Range Interpretation [...] code = MPV) 8.8 fL 6.7-11.0 N [id number] 22:14:00* Test Item Value Reference Range Interpretation Comments GLUBED (test code = GLUBED) 226 mg/dL 74-106 H Performed by certified diesel plant operator at [facility] ARTERIAL BLOOD [id number] 19:38:00* Test Item Value Reference Range Interpretation [...] back by Yannick : - 06/03/2020; by [id number] ABG O2 SATURATION (test code = SATA) [...] and read back by Yannick 06/03/2020; by [id number] METHEMOGLOBIN (test code = METHGB) 0.1 % 0.0-1.50 N O2 CONTENT (test code = O2CT) 16.8 % vol 18.0-22.0 L ARTERIAL BLOOD [id number] 19:37:00* Test Item Value Reference Range Interpretation Comments ARTERIAL BLOOD GAS PH (test code = PHA) 7.08 7.35-7.45 L L Results called to and read back by Jake 06/03/2020; by [id number] ARTERIAL BLOOD GAS PCO2 (test code = PCO2A) 89.2 mm Hg 35-45 HH Results called to and read back by Jake 06/03/2020; by [id number] ARTERIAL BLOOD GAS PO2 (test code = PO2A) 115.6 mmHg 80-100 H BICARBONATE TOTAL HCO3 (test code = HCO3) 26.0 mmol/L 23.0-27.0 N BASE EXCESS (test code = HERBERT) -5.9 mmol/L -3.0-5.0 LL Results called to and read back by Jake 06/03/2020; by [id number] ABG O2 SATURATION (test code = SATA) [...] and read back by Jake 06/03/2020; by [id number] METHEMOGLOBIN (test code = METHGB) 0.7 % 0.0-1.50 N O2 CONTENT (test code = O2CT) 17.6 % vol 18.0-22.0 L [id number] 16:06:00* Test Item Value Reference Range Interpretation Comments GLUBED (test code = GLUBED) 244 mg/dL 74-106 H Performed by certified diesel plant operator at [facility] INTERVERTEBRAL [id number] 15:48:00 RUN DATE: 06/03/20 [place] - Lab PAGE 1 RUN TIME: 1548 Specimen Inqui ry RUN USER: INTERFACE PATIENT: BOOKER PIERRE ACCT #: [id number] LOC: [facility] U #: [id number] AGE/SX: 70/M ROOM: [facility] RE05/25/20REG DR: Rik Morel : 50 BED: A DIS: STATUS: ADM IN TLOC: SPEC #: [id number] RECD: 06/01/20-1312 STATUS: [place] REQ #: [id number] MYLES: 06/01/20- SUBM DR: Rik Morel ENTERED: 06/01/20-131 SP TYPE: INT DISC OTHR DR: Sheila Zarate MD, Salman A MD Lee,David Pek Tiwari DO Jamie Rust MD, Durga P MD Vasquez Donado, Andres F MDORDERED: GROSS COPIES TO: Maria TeresaHorosalind Escoto [id number] [place] [address] [place] [id number] [facility], [address] [place] [address] Pili Crockett MD [phone] [facility] [address] [place] [address] Sherley rizo,David Pek Twiari DO [address] [place] [address] Jamie Rust MD [address] [place] [address] Jasper Eisenberg MD [address] [facility] [address] [place], [place] [address] Gordon Priest MD [address] [facility] [address] [place] [address] CONTINUED ON NEXT PAGE RUN DATE: 06/03/20 [facility] PAGE 2 RUN TIME: 1548 Specimen Inquiry RUN USER: INTERFACE SPEC #: [id number] [place] T: BOOKER PIERRE #[id number] (Continued) PROCEDU RES: GROSS (06/03/20-104) TISSUES: CERVICAL VERTEBRA, NOS - DISC CLINICAL HISTORY COLLECTION DATE: 06/01/2020 CERVICAL SPONDYLOSIS W /MYELOPATHY AND CORD CONTUSION FINAL DIAGNOSIS Cervical disc material , C3-C5, discectomy: CARTILAGE WITH DEGENERATIVE CHANGE SMALL FRAG MENTS OF UNREMARKABLE TRABECULAR BONE NEGATIVE FOR MALIGNANCY R RB/pino D 17189, 320[address] MACROSCOPIC GROSS PERFORMED AT [facility] [address] [place] [address] [id number] [phone] MICROSCOPIC The specimen is r eceived in formalin, labeled with the patient's name, and is identified as "Ce rvical disc". It consists of irregular fragments of hennessy/light-pink fibrous ti ssue and small fragments of bone. The specimen measures 3.5 x 3.5 x 0.6 cm in aggregate. Store Worker portions of tissue are submitted for decalcificati on and followup histologic evaluation in a single cassette. GROSS PERFOR MED AT [facility] [address] [place] [address] [phone] CONTINUED ON NEXT PAGE RUN DATE: 06/03/20 [facility] PAGE 3 RUN TIME: 1548 Specimen Inquiry RUN USER: INTERFACE SPEC #: [id number] PATIENT: BOOKER PIERRE #[id number] (Contin ued) PERFORMING SITE Diagnosis performed at: [facility] [address] [place] [address] Sig good SIGNATURE ON FILE Josef Nuno MD 06/03/20 1548 END OF REPORT - XR CHEST 1 [id number] 15:25:00 FAX: Jasper Prince MD [phone] [place]: St: ADM Name: [facility] : [birth year] Age/S: 70/M [address] [facility] Unit #: [id number] Loc: V.5016 [place] [address] Phys: Randal Morel Acct: [id number] Dis Date: Status: ADM IN PHONE #: [phone] Exam Date: 06/03/2020 1523 FAX #: [phone] Reason: DIFFICULTY BREATHING EXAMS: CPT CODE: [id number] XR CHEST 1 V 25540 REASON FOR EXAM: DIFFICULTY BREATHING Exam Order [...] IMPRESSION: No acute cardiopulm onary process. Location: [facility] at 1525 Reported and si gned by: Michael Mehta MD CC: Jasper Eisenberg Technologist: JOSTIN MONDRAGON Trnscrd Date/Time/By: 06/03/2020 (4399) : By: [email or web address] Orig Print D/T: S: 06/03/2020 (3596) PAGE 1 Signed Report [id number] 15:04:00* Test Item Value Reference Range Interpretation Comments GLUBED (test code = GLUBED) 219 mg/dL 74-106 H Performed by certified diesel plant operator at [facility] [id number] 13:23:00* Test Item Value Reference Range Interpretation Comments GLUBED (test code = GLUBED) 228 mg/dL 74-106 H Performed by certified diesel plant operator at [facility] - CT ABD PELVIS W/O [id number] 12:59:00 Name: [facility] : 1950 Age/S: 70 / M [address] [facility] #: [id number] [place]: [place] [address] Phys: Kaelyn Crockett MD Acct: [id number] Dis Date: Status: ADM IN PHONE #: [phone] Exam Date: 06/03/2020 1237 FAX #: [phone] Reason: ABDOMINAL DISTENTION EXAMS: CPT CODE: [id number] CT ABD PELVIS W/O CONT 81592 HISTORY: Abdominal distention. COMPARISON: None available. Location: [facility]. CT of abdomen and pelvis: Stone protocol. [...] 1 Signed Report (CONTINUED) Name: BOOK[facility] PIERRE [facility] : 1950 Age/S: 70 / M [address] [facility] Unit #: [id number] Loc: [place] [address] Phys: Kaelyn Crockett MD Acct: [id number] Dis Date: Status: ADM IN PHONE #: [phone] Exam Date: 06/03/2020 1237 FAX #: [phone] Reason: ABDOMINAL DISTENTION EXAMS: CPT CODE: [id number] ABD PELVIS W/O CONT 20125 <Continued> IMPRESSION: Markedly distended air-filled st omach [...] (1259) [email or web address] Orig Print D/T: S: 06/03/2020 (2531) PAGE 2 Signed Report - XR SWLW FUNC W/C [id number] 11:53:00 FAX: Jasper Prince MD [phone] [place]: B St: ADM Name: [facility] : [birth year] Age/S: 70/M [address] Unit #: [id number] Loc: V.[address] [place] [address] Phys: Randal Morel Acct: [id number] Dis Date: Status: ADM IN PHONE #: [phone] Exam Date: 06/03/2020 1120 FAX #: [phone] Reason: DIFFICULTY SWALLOWING EXAMS: CPT CODE: [id number] XR SWLW FUNC W/C V 61732 HISTORY: Difficulty swallowing. COMPARISON: None available. 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 [facility] BASIC METABOLIC [id number] 04:54:00* Test Item Value Reference Range Interpretation [...] CA) 8.7 mg/dL 8.5-10.1 N BASIC METABOLIC [id number] 04:46:00* Test Item Value Reference Range Interpretation [...] CALCIUM (test code = CA) mg/dL 8.5-10.1 [id number] 21:27:00* Test Item Value Reference Range Interpretation Comments GLUBED (test code = GLUBED) 153 mg/dL 74-106 H Performed by certified diesel plant operator at [facility] [id number] 20:36:00* Test Item Value Reference Range Interpretation Comments GLUBED (test code = GLUBED) 165 mg/dL 74-106 H Performed by certified diesel plant operator at [facility] B-TYPE NATRIURETIC [id number] 17:17:00* Test Item Value Reference Range Interpretation Comments B-TYPE NATRIURETIC PEPTIDE (test code = BNP) 94.63 pgram/mL 0-100 N [id number] 11:56:00* Test Item Value Reference Range Interpretation Comments GLUBED (test code = GLUBED) 200 mg/dL 74-106 H Performed by certified diesel plant operator at [facility] - XR C-SPINE 2-3 [id number] 10:23:00 FAX: Jamie Larios MD [phone] [place]: St: ADM FAX: Jasper Prince MD [phone] Name: [facility]ERRE [facility] : 1950 Age/S: 70/M [address] [facility] Unit #: [id number] Loc: V.[address] [place] [address] Phys: Jamie Rust MD Acct: [id number] Dis Date: Status: ADM IN PHONE #: [phone] Exam Date: 06/02/2020 1015 FAX #: [phone] Reason: s/p fusion EXAMS: CPT CODE: [id number] XR C-SPINE 2-3 VIEWS 64824 HISTORY: Post fusion. COMPARISON: CT scan from May 25, 2020. Location: [facility]. AP and lateral view of the cervical [...] By: [email or web address] Orig Print D/T: S: 06/02/2020 (8041) PAGE 1 Signed Report [id number] 08:34:00* Test Item Value Reference Range Interpretation Comments GLUBED (test code = GLUBED) 158 mg/dL 74-106 H Performed by certified diesel plant operator at [facility] BASIC METABOLIC [id number] 05:26:00* Test Item Value Reference Range Interpretation [...] CA) 8.3 mg/dL 8.5-10.1 L BASIC METABOLIC [id number] 04:46:00* Test Item Value Reference Range Interpretation [...] CALCIUM (test code = CA) mg/dL 8.5-10.1 [id number] 20:35:00* Test Item Value Reference Range Interpretation Comments GLUBED (test code = GLUBED) 230 mg/dL 74-106 H Performed by certified diesel plant operator at [facility] [id number] 17:23:00* Test Item Value Reference Range Interpretation Comments GLUBED (test code = GLUBED) 194 mg/dL 74-106 H Performed by certified diesel plant operator at [facility] [id number] 12:55:00* Test Item Value Reference Range Interpretation Comments GLUBED (test code = GLUBED) 166 mg/dL 74-106 H Performed by certified diesel plant operator at [facility] [id number] 09:12:00* Test Item Value Reference Range Interpretation Comments GLUBED (test code = GLUBED) 197 mg/dL 74-106 H Performed by certified diesel plant operator at [facility] BASIC METABOLIC [id number] 06:43:00* Test Item Value Reference Range Interpretation [...] CA) 8.6 mg/dL 8.5-10.1 N BASIC METABOLIC [id number] 06:21:00* Test Item Value Reference Range Interpretation [...] code = CA) 8.6 mg/dL 8.5-10.1 N [id number] 20:06:00* Test Item Value Reference Range Interpretation Comments GLUBED (test code = GLUBED) 186 mg/dL 74-106 H Performed by certified diesel plant operator at [facility] [id number] 16:37:00* Test Item Value Reference Range Interpretation Comments GLUBED (test code = GLUBED) 184 mg/dL 74-106 H Performed by certified diesel plant operator at [facility] [id number] 15:31:00* Test Item Value Reference Range Interpretation Comments GLUBED (test code = GLUBED) 142 mg/dL 74-106 H [facility] certified diesel plant [facility]~ COVID 19 Asymptomatic IH [id number] 13:26:00* Test Item Value Reference Range Interpretation Comments COVID 19 Asymptomatic IH AG (test code = COVNONPUIAG) NEGATIVE PROTHROMBIN [id number] 11:03:00* Test Item Value Reference Range Interpretation [...] (2.5-3.5) IS PATIENT ON ANTICOAGULANTS? NTHROMBOPLASTIN TIME [id number] 11:03:00* Test Item Value Reference Range Interpretation Comments THROMBOPLASTIN TIME PARTIAL (test code = PTT) 27.8 seconds 23.0-37. 0 N IS PATIENT ON ANTICOAGULANTS? [id number] 08:07:00* Test Item Value Reference Range Interpretation Comments GLUBED (test code = GLUBED) 77 mg/dL 74-106 N [facility] certified diesel plant operator [facility] BASIC METABOLIC [id number] 05:10:00* Test Item Value Reference Range Interpretation [...] CA) 8.7 mg/dL 8.5-10.1 N BASIC METABOLIC [id number] 05:01:00* Test Item Value Reference Range Interpretation [...] CALCIUM (test code = CA) mg/dL 8.5-10.1 [id number] 20:15:00* Test Item Value Reference Range Interpretation Comments GLUBED (test code = GLUBED) 194 mg/dL 74-106 H Performed by certified diesel plant operator at [facility] [id number] 16:03:00* Test Item Value Reference Range Interpretation Comments GLUBED (test code = GLUBED) 190 mg/dL 74-106 H Performed by certified diesel plant operator at [facility] - MRI C-SPINE W/O [id number] 14:38:00 FAX: Sheila Rodríguez [phone] [place]: B St: [facility] FAX: Jasper Prince MD [phone] Name: [facility] PIER[facility] : 1950 Age/S: 70/M [address] [facility] Unit #: [id number] Loc: [place] [address] Phys: Sheila Funes MD Acct: [id number] Dis Date: Status: ADM IN PHONE #: [phone] Exam Date: 05/30/2020 1326 FAX #: [phone] Reason: Fall, neck pain, RUE weakness EXAMS: CPT CODE: [id number] MRI C-SPINE W/O CONT 35712 HISTORY: Fall, neck pain, RUE weakness TECHNIQUE: [...] 1 Signed Report (CONTINUED) FAX: Sheila Mcallister [phone] [place]: St: ADM FAX: Jasper Prince [phone] Name: B[facility]ERRE [facility] : 1950 Age/S: 70/M [address] [facility] Unit #: [id number] Loc: V.[address] [place] [address] Phys: Sheila Funes MD Acct: [id number] Dis Date: Status: ADM IN PHONE #: [phone] Exam Date: 05/30/2020 1326 FAX #: [phone] Reason: Fall, neck pain, RUE weakness EXAMS: CPT CODE: [id number] MRI C-SPINE W/O CONT 73898 <Continued> stenosis. Severe bilateral foraminal stenosis. I [...] ra Technologist: Dinesh Mckeon)(MR) Trnscrd Date/Time/By: 05/30/2020 (1686) : By: [email or web address] Orig Print D/T: S: 05/30/2020 (7903) PAGE 2 Signed Report - MRI BRAIN W/O CONTRAST 2020-05-30 14:15:00 FAX: Sheila Rodríguez [phone] [place]: St: ADM FAX: Jasper Prince MD [phone] Name: B[facility] PI[facility]RE [facility] : 1950 Age/S: 70/M [address] [facility] Unit #: [id number] Loc: [address] [address] Phys: Sheila Funes MD Acct: [id number] Dis Date: Status: ADM IN PHONE #: [phone] Exam Date: 05/30/2020 1326 FAX #: [phone] Reason: Falls, RIght hemiparesis r/o stroke EXAMS: CPT CODE: [id number] MRI BRAIN W/O CONTRAST 48967 HISTORY: Falls, RIght hemiparesis r/o stroke TECHNIQUE: [...] Bo [id number] Orig Print D/T: S: 05/30/2020 (9325) CARMELA MOORE 1 Signed Report GLUBED 2020-05-30 12:50:00* Test Item Value Reference Range Interpretation Comments GLUBED (test code = GLUBED) 120 mg/dL 74-106 H Performed by certified diesel plant operator at [facility] - XR SHOULDER 2 + V [id number] 12:40:00 FAX: David Townsend [place]: B St: ADM FAX: Jasper Prince MD [phone] Name: B[facility] PIERRE [facility] : 1950 Age/S: 70/M [address] [facility] Unit #: [id number] Loc: V.4010 [place] [address] Phys: David Guzman [facility] DO Acct: [id number] Dis Date: Status: ADM IN PHONE #: [phone] Exam Date: 05/30/2020 1221 FAX #: [phone] Reason: soreness and pain fullowing falls EXAMS: CPT CODE: [id number] XR SHOULDER 2 + V RT [address] HISTORY: soreness and pain following falls TECHNIQUE: [...] RT(R); LYNN RAY RT(R) Trnscrd Date/Time/By: 05/30/2020 (0544) : By: [email or web address] Orig Print D/T: S: 05/30/2020 (4498) PAGE 1 Signed Report [id number] 08:06:00* Test Item Value Reference Range Interpretation Comments GLUBED (test code = GLUBED) 72 mg/dL 74-106 L [facility] certified diesel plant [facility] BASIC METABOLIC [id number] 05:46:00* Test Item Value Reference Range Interpretation [...] CA) 8.5 mg/dL 8.5-10.1 N BASIC METABOLIC [id number] 05:29:00* Test Item Value Reference Range Interpretation [...] CALCIUM (test code = CA) mg/dL 8.5-10.1 [id number] 20:07:00* Test Item Value Reference Range Interpretation Comments GLUBED (test code = GLUBED) 196 mg/dL 74-106 H Performed by certified diesel plant operator at [facility] [id number] 17:59:00* Test Item Value Reference Range Interpretation Comments GLUBED (test code = GLUBED) 126 mg/dL 74-106 H Performed by certified diesel plant operator at [facility] [id number] 16:08:00* Test Item Value Reference Range Interpretation Comments GLUBED (test code = GLUBED) 143 mg/dL 74-106 H Performed by certified diesel plant operator at [facility] [id number] 11:25:00* Test Item Value Reference Range Interpretation Comments GLUBED (test code = GLUBED) 147 mg/dL 74-106 H Performed by certified diesel plant operator at [facility] [id number] 07:52:00* Test Item Value Reference Range Interpretation Comments GLUBED (test code = GLUBED) 87 mg/dL 74-106 N Performed by certified diesel plant operator at [facility] BASIC METABOLIC [id number] 06:46:00* Test Item Value Reference Range Interpretation [...] code = CK) 240 IUnit/L 26-208 H [id number] 20:36:00* Test Item Value Reference Range Interpretation Comments GLUBED (test code = GLUBED) 112 mg/dL 74-106 H Performed by certified diesel plant operator at [facility] [id number] 16:21:00* Test Item Value Reference Range Interpretation Comments GLUBED (test code = GLUBED) 90 mg/dL 74-106 N Performed by certified diesel plant operator at [facility] [id number] 11:34:00* Test Item Value Reference Range Interpretation Comments GLUBED (test code = GLUBED) 171 mg/dL 74-106 H Performed by certified diesel plant operator at [facility] BASIC METABOLIC [id number] 07:51:00* Test Item Value Reference Range Interpretation [...] code = CA) 8.8 mg/dL 8.5-10.1 N [id number] 07:36:00* Test Item Value Reference Range Interpretation Comments GLUBED (test code = GLUBED) 67 mg/dL 74-106 L Performed by certified diesel plant operator at [facility] CREATINE KINASE (CK)2020-05-28 05:04:00* Test Item Value Reference Range Interpretation Comments CREATINE KINASE (CK) (test code = CK) 539 IUnit/L 26-208 H URINALYSIS [id number] 21:19:00* Test Item Value Reference Range Interpretation [...] HPF NONE Urine Source? Clean CatchUR PROTEIN/CREATININE [id number] 21:19:00* Test Item Value Reference Range Interpretation [...] 0.0-0. 20 H Urine Source? Clean CatchURINALYSIS [id number] 21:19:00* Test Item Value Reference Range Interpretation [...] NONE A Urine Source? Clean [facility] PROTEIN/CREATININE [id number] 21:19:00* Test Item Value Reference Range Interpretation [...] 0.0-0. 20 H Urine Source? Clean CatchURINALYSIS [id number] 21:03:00* Test Item Value Reference Range Interpretation [...] HPF NONE Urine Source? Clean [facility] PROTEIN/CREATININE [id number] 21:03:00* Test Item Value Reference Range Interpretation [...] 0.0-0. 20 H Urine Source? Clean CatchURINALYSIS [id number] 20:56:00* Test Item Value Reference Range Interpretation [...] HPF NONE Urine Source? Clean CatchUR PROTEIN/CREATININE [id number] 20:56:00* Test Item Value Reference Range Interpretation [...] P/CRATIO) RATIO 0.0-0. 20 Urine Source? Clean [id number] 20:08:00* Test Item Value Reference Range Interpretation Comments GLUBED (test code = GLUBED) 117 mg/dL 74-106 H Performed by certified diesel plant operator at [facility] [id number] 15:55:00* Test Item Value Reference Range Interpretation Comments GLUBED (test code = GLUBED) 211 mg/dL 74-106 H Performed by certified diesel plant operator at [facility] [id number] 11:23:00* Test Item Value Reference Range Interpretation Comments GLUBED (test code = GLUBED) 171 mg/dL 74-106 H Performed by certified diesel plant operator at [facility] [id number] 08:18:00* Test Item Value Reference Range Interpretation Comments GLUBED (test code = GLUBED) 103 mg/dL 74-106 N Performed by certified diesel plant operator at [facility] COMPREHENSIVE METABOLIC [id number] 06:05:00* Test Item Value Reference Range Interpretation [...] due to change in reagent. COMPREHENSIVE METABOLIC [id number] 06:02:00* Test Item Value Reference Range Interpretation [...] TOTAL (test code = ALKP) IUnit/L 45-117 [id number] 17:33:00* Test Item Value Reference Range Interpretation Comments GLUBED (test code = GLUBED) 105 mg/dL 74-106 N Performed by certified diesel plant operator at [facility] URIC [id number] 16:52:00* Test Item Value Reference Range Interpretation Comments URIC ACID (test code = URIC) 13.9 mg/dL 2.6-7.2 H CREATINE KINASE (CK)2020-05-26 16:52:00* Test Item Value Reference Range Interpretation Comments CREATINE KINASE (CK) (test code = CK) 2109 IUnit/L 26-208 H [id number] 16:49:00* Test Item Value Reference Range Interpretation Comments GLUBED (test code = GLUBED) 201 mg/dL 74-106 H Performed by certified diesel plant operator at [facility] RETRO [id number] 14:11:00 Name: BOOK[facility] PIERRE [facility] : 1950 Age/S: 70 / M [address] Unit #: [id number] Loc: [place] [address] Phys: Tyrese Moreljerome Jevon Acct: [id number] Dis Date: Status: ADM IN PHONE #: [phone] Exam Date: 05/26/2020 1351 FAX #: [phone] Reason: BC EXAMS: CPT CODE: [id number] US RETRO LTD 35128 REASON FOR EXAM: BC EXAM ORDER DATE: [...] Outpouching: None IMPRESSION: Sonographically unremarkable kidneys. Location: [facility] at 1411 Reported and signed by: Michael Mehta MD PAGE 1 Signed Report (CONTINUED) Name: BOOK[facility] PIERRE [facility] : 1950 Age/S: 70 / M [address] Unit #: [id number] Loc: [place] [address] Phys: Tyrese Morelriosmatthewnitish Escoto Acct: [id number] Dis Date: Status: ADM IN PHONE #: [phone] Exam Date: 05/26/2020 1351 FAX #: [phone] Reason: BC EXAMS: CPT CODE: [id number] US RETRO LTD 28238 < Continued> CC: Jasper Eisenberg Technologist: Marquise Hsu RDMS Trnscb Date/Time: 05/26/2020 (1411) [id number] Orig Print D/T: S: 05/26/2020 (1414) Probe: PAGE 2 Signed Report GLUBED 2020-05-26 13:18:00* Test Item Value Reference Range Interpretation Comments GLUBED (test code = GLUBED) 155 mg/dL 74-106 H Performed by certified diesel plant operator at [facility] [id number] 08:31:00* Test Item Value Reference Range Interpretation Comments GLUBED (test code = GLUBED) 98 mg/dL 74-106 N Performed by certified diesel plant operator at [facility] BASIC METABOLIC [id number] 05:25:00* Test Item Value Reference Range Interpretation [...] CA) 9.2 mg/dL 8.5-10.1 N BASIC METABOLIC [id number] 05:23:00* Test Item Value Reference Range Interpretation [...] CALCIUM (test code = CA) mg/dL 8.5-10.1 [id number] 05:22:00* Test Item Value Reference Range Interpretation Comments TROPONIN-I (test code = TROPI) <0.015 ng/mL 0-0.045 N COMMENTS TO ATTENDANT COIN OPERATED LAUNDRY: COLLECT 3 HOURS AFTER PREVIOUS [id number] 03:52:00* Test Item Value Reference Range Interpretation Comments TROPONIN-I (test code = TROPI) <0.015 ng/mL 0-0.045 N COMMENTS TO ATTENDANT COIN OPERATED LAUNDRY: COLLECT 3 HOURS AFTER PREVIOUS SAMPLECREATINE KINASE (CK)2020-05-25 21:07:00* Test Item Value Reference Range Interpretation Comments CREATINE KINASE (CK) (test code = CK) 2351 IUnit/L 26-208 H - XR T-SPINE 3 [id number] 19:17:00 FAX: Praneeth Wiggins MD [phone] [place]: St: [facility] FAX: Jasper Prince MD [phone] Name: [facility] : 1950 Age/S: 70/M [address] [facility] Unit #: [id number] Loc: [place] [address] Phys: Praneeth Wiggins MD Acct: [id number] Dis Date: Status: REG ER PHONE #: [phone] Exam Date: 05/25/2020 184 FAX #: [phone] Reason: back pain EXAMS: CPT CODE: [id number] XR T-SPINE 3 VIEWS 79405 REASON FOR EXAM: SYNCOPE Exam Order Date: 05/25/2020 5:57 PM Ordering Samantha: Praneeth Wiggins MD [place] OCEDURE: - XR CHEST 1 V, - [...] no fracture or malalignment is seen. Location: [facility] Electronically Signed by Michael Mehta MD on 0 05/25/2020 at 1917 Reported and signed by: Michael Mehta MD CC: Praneeth Wiggins MD; Japser Eisenberg Technologist: RT KALEB(R) Trnscrd Date/Time/By: 05/25/2020 (1916) : By: [email or web address] Orig Print D/T: S: 05/25/2020 (1920) PAGE 1 Signed Report - XR CHEST 1 [id number] 19:17:00 FAX: Praneeth Wiggins MD [phone] [place]: St: [facility] FAX: Jasper Prince MD [phone] Name: [facility] : 1950 Age/S: 70/M [address] [facility] Unit #: [id number] Loc: [place] [address] Phys: Praneeth Wiggins MD Acct: [id number] Dis Date: Status: REG ER PHONE #: [phone] Exam Date: 05/25/2020 1840 FAX #: [phone] Reason: SYNCOPE EXAMS: CPT CODE: [id number] XR CHEST 1 V 62024 REASON FOR EXAM: SYNCOPE Exam Order Date: 05/25/2020 5:57 PM Ordering M.D.: Praneeth Wiggins MD [place] OCEDURE: - XR CHEST 1 V, - [...] no fracture or malalignment is seen. Location: [facility] Electronically Signed by Michael Mehta MD on 0 05/25/2020 at 1917 Reported and signed by: Michael Mehta MD CC: Praneeth Wiggins MD; Jasper Eisenberg Technologist: RT KALEB(R) Trnscrd Date/Time/By: 05/25/2020 (1916) : By: [email or web address] Orig Print D/T: S: 05/25/2020 (1920) PAGE 1 Signed Report B-TYPE NATRIURETIC [id number] 19:12:00* Test Item Value Reference Range Interpretation Comments B-TYPE NATRIURETIC PEPTIDE (test code = BNP) 18.32 pgram/mL 0-100 N - CT C-SPINE W/O [id number] 18:55:00 Name: [facility] : 1950 Age/S: 70 / M [address] [facility]: [id number] Loc: [place] [address] Phys: Praneeth Wiggins MD Acct: [id number] Dis Date: Status: REG ER PHONE #: [phone] Exam Date: 05/25/2020 183 FAX #: [phone] Reason: neck pain fall EXAMS: CPT CODE: [id number] CT C-SPINE W/O CONTRAST 77869 HISTORY: Syncope TECHNIQUE: Noncontrast 2.5 mm axial [...] ch anges of the white matter. Location: [facility] Electroni franck Signed by Michael Mehta MD on 05/25/2020 at 1855 Rep orted and signed by: Michael Mehta MD PAGE 1 Signed Re port (CONTINUED) Name: BOOKER PIERRE [facility] : 1950 Age/S: 70 / M [address] Unit #: [id number] Loc: [place] [address] Phys: Praneeth Wiggins MD Acct: [id number] Dis Date: Status: REG ER PHONE #: [phone] Exam Date: 05/25/2020 1830 FAX #: [phone] Reason: neck pain fall EXAMS: CPT CODE: [id number] CT C-SPINE W/O CONTRAST 23331 <Continued> CC: Praneeth Wiggins MD; Jasper Eisenberg Technologist:Damaris Bowen RT(R); KATHY Lam CTDI: DLP: Trnscb Date/Time: 05/25/2020 (1854) [email or web address] Orig Print D/T: S: 05/25/2020 (1858) PAGE 2 Signed Report - CT HEAD/BRAIN W/O CONT 2020-05-25 18:55:00 Name: BOOKER PIERRE [facility] : 1950 Age/S: 70 / M [address] Unit #: [id number] Loc: [place] [address] Phys: Praneeth Wiggins MD Acct: [id number] Dis Date: Status: REG ER PHONE #: [phone] Exam Date: 05/25/20201824 FAX #: [phone] Reason: Syncope EXAMS: CPT CODE: [id number] CT HEAD/BRAIN W/O CONT 09723 HISTORY: Syncope TECHNIQUE: Noncontrast 2.5 mm axial [...] ischemic changes of the white matter. Location: [facility] at 1855 Reported and signed by: Michael Mehta MD PAGE 1 Signed Report (CONTINUED) Name: OBOKER PIERRE [facility] : 1950 Age/S: 70 / M [address] Unit #: [id number] Loc: [place] [address] Phys: Praneeth Wiggins MD Acct: [id number] Dis Date: Status: REG ER PHONE #: [phone] Exam Date: 05/25/20201824 FAX #: [phone] Reason: Syncope EXAMS: CPT CODE: [id number] CT HEAD/BRAIN W/O CONT 65901 <Continued> CC: Praneeth Wiggins MD; Jasper Eisenberg Technologist:Damaris Bowen RT(R); KATHY Lam CTDI: DLP: Trnscb Date/Time: 05/25/2020 (1854) [email or web address] Orig Print D/T: S: 05/25/2020 (1858) PAGE 2 Signed Report BASIC METABOLIC [id number] 18:52:00* Test Item Value Reference Range Interpretation [...] code = CA) 9.5 mg/dL 8.5-10.1 N [id number] 18:52:00* Test Item Value Reference Range Interpretation Comments TROPONIN-I (test code = TROPI) <0.015 ng/mL 0-0.045 N BASIC METABOLIC [id number] 18:39:00* Test Item Value Reference Range Interpretation [...] CALCIUM (test code = CA) mg/dL 8.5-10.1 [id number] 18:39:00* Test Item Value Reference Range Interpretation Comments TROPONIN-I (test code = TROPI) ng/mL 0-0.045 CBC W/O [id number] 18:27:00* Test Item Value Reference Range Interpretation [...] code = MPV) 8.5 fL 6.7-11.0 N [id number] 10:50:00* Test Item Value Reference Range Interpretation Comments GLUBED (test code = GLUBED) 78 mg/dL 74-106 N Performed by certified diesel plant operator at [facility] - XR ELBOW 3 + V [id number] 16:12:00 FAX: Jasper Prince MD [phone] [place]: B St: REG FAX: Bekah Rodriguez MD [phone] Name: BOOKER PIERRE [facility] : 1950 Age/S: 69/M [address] [facility] Unit #: [id number] Loc: [place] [address] Phys: Bekah Rodriguez MD Acct: [id number] Dis Date: Status: REG ER PHONE #: [phone] Exam Date: 09/23/2019 1609 FAX #: [phone] Reason: pain, trauma EXAMS: CPT CODE: [id number] XR ELBOW 3 + V RT 429[address] HISTORY: Pain after trauma. COMPARISON: None avail [...] eport - XR SHOULDER 2 + V [id number] 15:27:00 FAX: Jasper Prince MD [phone] [place]: B St: REG FAX: Bekah Rodriguez MD [phone] Name: BOOKER PIERRE [facility] : 1950 Age/S: 69/M [address] [facility] Unit #: [id number] Loc: [place] [address] Phys: Bekah Rodriguez MD Acct: [id number] Dis Date: Status: REG ER PHONE #: [phone] Exam Date: 09/23/2019 1515 FAX #: [phone] Reason: pain, trauma EXAMS: CPT CODE: [id number] XR SHOULDER 2 + V RT [address] HISTORY: Pain after trauma. COMPARISON: None avail [...] Jasper Eisenberg; Candice Rodriguez MD Technologist: Debra Garzon; STUDENT TECHNOL OGHITESH Trnscrd Date/Time/By: 09/23/2019 (1527) : By: [email or web address] Orig Print D/T: S: 09/23/2019 (7393) PAGE 1 Signed Report [id number] 12:31:00* Test Item Value Reference Range Interpretation Comments GLYCOSYLATED HEMOGLOBIN (HA1C) (test code = GLYHGB) 6.9 % HbA1 4. 8-6.0 H ESTIMATED AVERAGE GLUCOSE (test code = EAG) 151 MG/DL COMPREHENSIVE METABOLIC [id number] 12:31:00* Test Item Value Reference Range Interpretation [...] result is a direct measurement.========= COMPREHENSIVE METABOLIC [id number] 12:21:00* Test Item Value Reference Range Interpretation [...] (test code = LDL) mg/dL 100-129 PROTHROMBIN [id number] 11:58:00* Test Item Value Reference Range Interpretation [...] Mechanical prosthetic heart valves (2.5-3.5) THROMBOPLASTIN TIME [id number] 11:58:00* Test Item Value Reference Range Interpretation Comments THROMBOPLASTIN TIME PARTIAL (test code = PTT) 31.9 seconds 25.0-36. 5 N CBC W/AUTO [id number] 11:51:00* Test Item Value Reference Range Interpretation [...] NRBC#) 0.00 K/mm3 0.0-0.1 N CBC W/AUTO [id number] 11:47:00* Test Item Value Reference Range Interpretation [...] BA#) K/mm3 0.0-0.2 - XR CHEST 2 [id number] 10:24:00 FAX: Jasper Prince MD [phone] [place]: O St: REG Name: BOOKER ROYAL [facility] : [birth year] Age/S: 69/M [address] [facility] Unit #: [id number] Loc: [place] [address] Phys: Jasper Eisenberg MD Acct: [id number] Dis Date: Status: REG CLI PHONE #: [phone] Exam Date: 05/16/2019 1000 FAX #: [phone] Reason: R06.0,I51.7 EXAMS: CPT CODE: [id number] XR CHEST 2 V 92131 TECHNIQUE - XR CHEST 2 V . [...] Technologist: RT DAISY( R) Trnscrd Date/Time/By: 05/16/2019 (2778) : By: Sukhdeep Corcoran Print D/T: S: 05/16/2019 (5834) PAGE 1 Signed Report US RENAL RETROPERITONEAL [id number] 13:54:00 [place] [address] Patient Name: BOOKER PIERRE MR #: [id number] : 1950 Age/Sex: 69/M Req #: [id number] Adm Physician: Ordered by: ANA DYSON MD Report #: [id number] Location: Room/Bed: Procedure: [id number] US/US RENAL RETROPERITONEAL COMP Exam Date: Exam [...] 1:56 PM Dictated By: ROSEMARIE ROMAN DO 8147 Transcribed By: MIRIAN on 01/20/19 1353 COPY TO: ANA DYSON MD MRI SHOULDER RIGHT W [place] [address] Patient Name: BOOKER PIERRE MR #: [id number] : 1950 Age/Sex: 67/M Req #: [id number] Adm Physician: Ordered by: ANA AGUILAR MD Report #: [id number] Location: DX Room/Bed: Procedure: [id number] MRI/MRI SHOULDER RIGHT W Exam Date: Exam [...] ANA AGUILAR MD GUIDE NEEDLE PLMT/LOC DE [place] [address] Patient Name: BOOKER PIERRE MR #: [id number] : 1950 Age/Sex: 67/M Req #: [id number] Adm Physician: Ordered by: ANA AGUILAR MD Report #: [id number] Location: DX Room/Bed: Procedure: [id number] DX/FLURO GUIDE NEEDLE PLMT/LOC DE Exam Date: Exam Time: REPORT STATUS: Sig good Right shoulder arthrogram December 06, 2017 Pre-Procedure Diagnosis: Right shoulder pain Post-procedure Diagnosis:Rotator cuff tear Field Account Director: Samantha Larson Plaster Tender: None Radiation Dose: 32.55 mGy (cumulative air [...] ge nerated with voice-recognition technology. Errors in roving department supervisor can occur. Please interpret accordingly and contact a radiologist if there are any questi ons regarding the report. Signed by: Dr. Melinda Larson M.D. on 12/06/2017 1:49 PM Dictated By: MELINDA LARSON MD 1349 Transcribed By: MIRIAN on 12/06/17 1349 COPY TO: ANA AGUILAR MD INJECTION ARTHROGRAM SHOULDER [place] [address] Patient Name: BOOKER PIERRE MR #: [id number] : 1950 Age/Sex: 67/M Req #: [id number] [facility] Physician: Ordered by: ANA AGUILAR MD Report #: [id number] Location: Room/Bed: Procedure: [id number] IR/INJECTION ARTHROGRAM SHOULD ER Exam Date: 12/06/17 Exam Time: 1057 REPORT STATUS: Signed Right shoulder arthrogram December 06, 2017 Pre-Procedure Diagnosis: Right shoulder pain Post-procedure Diagnosis:Rotator cuff tear Field Account Director: Samantha Larson Plaster Tender: None Radiation Dose: 32.55 mGy (cumul ative [...] ge nerated with voice-recognition technology. Errors in roving department supervisor can occur. Please interpret accordingly and contact a radiologist if there are any questi ons regarding the report. Signed by: Dr. Melinda Larson M.D. on 12/06/2017 1:49 PM Dictated By: MELINDA LARSON MD 1347 Transcribed By: MIRIAN on 12/06/17 134 COPY TO: ANA AGUILAR MD
[2020-08-22] MEDS: ATORVASTATIN 10 MG TAB PO SCH (21:17)
[2020-08-22] MEDS: DOXAZOSIN MESYLATE 2 MG TAB PO SCH (21:17)
[2020-08-23] VITALS (26 sets, daily range): BP systolic 103–135; BP diastolic 54–74
[2020-08-23] MEDS: ALBUMIN 25% 25GM 100ML 0.25 GM/ML BTL IV SCH
[2020-08-23] MEDS: INSULIN REGULAR, HUMAN 100 UNIT/1 ML 3ML VIAL SQ SCH ×4 (01:30→17:26)
--- NOTE | 2020-08-23 05:06 | Progress Note ---
DATE: 08/22/2020 CONSULTING PHYSICIAN: Davin Quach MD, Pulmonology/Critical Care Medicine. SUBJECTIVE: The patient lying supine in bed. He is able to mouth some words and speaks mostly Arabic. He does complain of neck pain. He is able to move his left hand and gross motor movements; however, likely unable to use a communication board effectively. He has incomplete quadriplegia neurologically. He arrived with low temperature, but denies any chills. OBJECTIVE: VITAL SIGNS: Temperature 98.8, pulse 92, blood pressure 111/55, respirations 29, oxygen saturation 100%. Intake and output 1840 mL in and 250 mL out. GENERAL: Supine with head of bed elevated. LUNGS: Diminished in the bases. Tracheostomy with ventilator. PRVC 20, FiO2 of 60%, tidal volume 430, PEEP of 8, peak pressure 26, minute ventilation 12.1. HEENT: EOMI. Moist mucous membranes. NECK: C-collar in place. CARDIOVASCULAR: Regular rate and rhythm. No murmur. Right upper extremity PICC line. ABDOMEN: Bowel sounds positive. Soft, nontender. Keene catheter with mela urine. PEG with Vital AF 40 mL an hour. EXTREMITIES: Right upper extremity swelling noted. Bilateral SCDs to lower extremities. Heel protectors bilaterally. NEUROLOGIC: Makes eye contact and able to mouth words. No speech. Follows commands. LABORATORY DATA: WBCs 20.18, hemoglobin 6.9, hematocrit 22.5, platelets 470, neutrophils 91%. ABG this morning, pH 7.44, pCO2 39, PO2 168, HCO3 27, oxygen saturation 100%. Base excess of 2, FiO2 of 80%. Sodium 140, potassium 4.5, chloride 105, CO2 of 25, anion gap 14.5, BUN 42, creatinine 0.9, estimated GFR greater than 60, glucose 130. Fingerstick blood glucose levels 157, 169, 158, calcium 7.9, total bilirubin 0.2, AST 18, ALT 17, alkaline phosphatase 92, total protein 6.2, albumin 2.4, creatine kinase 134, CK-MB 7.8, troponin-I 0.024. Lactic acid last night was 1.4. On 08/21, coronavirus PCR not detected. Blood and urine cultures both have grown Gram-negative bacillus. These are preliminary results. Awaiting final results. IMAGING: Chest x-ray, slightly increased diffuse bilateral airspace opacities. Echocardiogram, ejection fraction 55%. The patient received 1 unit of packed RBCs today. ASSESSMENT/PLAN: 1. Gram-negative urinary tract infection with bacteremia, septic shock, and hypothermia, POA. Continue Merrem. Vancomycin has been discontinued. WBCs 20.1 (17.1). Currently, not requiring Levophed. Await final blood and urine culture and sensitivity results. 2. Healthcare-associated pneumonia, POA. Continue IV Merrem. Appreciate recommendations from Pulmonology/Critical Care Medicine. 3. Uqlhd-dg-uqehfzk respiratory failure, tracheostomy in situ, ventilator waiting as tolerated per Pulmonology recommendations. 4. Incomplete quadriplegia from cervical spinal stenosis with cord compression. Supportive care. Wound care consult. Monitor for any skin breakdown. 5. Uncontrolled type 2 diabetes mellitus with hyperglycemia. Serum glucose 130. Continue regular insulin low-dose sliding scale. Monitor fingerstick blood glucose levels every 6 hours. 6. PEG in situ. Continue tube feeds at current rate. Dietitian to see the patient for tube feeding/dietary recommendations and ask her to please list severity, if protein calorie malnutrition does indeed exist. 7. Acute hypomagnesemia. Magnesium level 1.6 yesterday, 2 g of magnesium sulfate was given then. We will recheck magnesium level tomorrow. 8. Acute hypokalemia, improved. Potassium level 4.5 (2.7). Reassess potassium level tomorrow. 9. Hypoalbuminemia due to protein calorie malnutrition. Continue Vital AF at 40 mL an hour. Dietitian consult ordered. 10. Anemia, requiring blood transfusion, hemoglobin 6.9, hematocrit 22.5, 1 unit of PRBCs administered today. Reassess H and H in the morning. We will check fecal occult blood test. 11. Buttock stage II decubitus ulcer. Wound care consult. Offloading. 12. Prophylaxis, IV Pepcid and SCDs. Inpatient, ICU bed 196, billing code [id number], time spent 35 minutes. Dictated by Tomas Pretty NP Maico Fajardo MD [facility]/MODL /[id number]
[2020-08-23] MEDS: MEROPENEM 1GM 100 ML IV SCH ×3 (06:20→22:03)
[2020-08-23 06:33] LABS: BASOPHILS # (AUTO) 0.1 (0.0-0.1); BASOPHILS % 0.3 % (0.0-1.0); EOSINOPHILS # (AUTO) 0.2 (0.0-0.4); EOSINOPHILS % 0.9 % (0.0-6.0); HEMATOCRIT 21.9 % (38.2-49.6); LYMPHOCYTES # (AUTO) 2.4 (1.0-3.2); LYMPHOCYTES % 12.5 % (18.0-39.1); MEAN CORPUSCULAR HEMOGLOBIN 27.8 pg (28-32); MEAN CORPUSCULAR HGB CONC 31.1 g/dL (31-35); MEAN CORPUSCULAR VOLUME 89.4 fL (81-99); MONOCYTES # (AUTO) 0.6 (0.2-0.8); MONOCYTES % 3.1 % (4.4-11.3); NEUTROPHILS # (AUTO) 15.3 (2.1-6.9); PLATELET COUNT 442 x10e3/uL (140-360); RED BLOOD COUNT 2.45 x10e6/uL (4.3-5.7); RED CELL DISTRIBUTION WIDTH 18.3 % (11.7-14.4)
[2020-08-23 06:46] LABS: HEMOGLOBIN 6.8 g/dL (14.0-18.0)
[2020-08-23] MEDS ORDERED: SODIUM CHLORIDE 0.9% 250ML 250 ML IV SCH (07:00)
[2020-08-23 07:07] LABS: ALANINE AMINOTRANSFERASE 16 IU/L (0-55); ALBUMIN 2.9 g/dL (3.5-5.0); ALBUMIN/GLOBULIN RATIO 0.8 (0.8-2.0); ALKALINE PHOSPHATASE 93 IU/L (40-150); ANION GAP 12.5 mmol/L (8-16); BLOOD UREA NITROGEN 38 mg/dL (7-26); BUN/CREATININE RATIO 51 (6-25); CALCIUM 8.4 mg/dL (8.4-10.2); CARBON DIOXIDE 27 mmol/L (22-29); CHLORIDE 101 mmol/L (98-107); CREATININE, SERUM 0.75 mg/dL (0.72-1.25); EST GLOMERULAR FILTRATION RATE > 60 ML/MIN (60-); GLUCOSE 155 mg/dL (74-118); POTASSIUM 3.5 mmol/L (3.5-5.1); SODIUM 137 mmol/L (136-145)
[2020-08-23 07:24] LABS: MAGNESIUM 1.8 MG/DL (1.3-2.1)
[2020-08-23] MEDS: FAMOTIDINE 20 MG/2 ML VIAL IV SCH ×2 (08:25→16:03)
[2020-08-23] MEDS: ASPIRIN 81 MG CHEW TAB GT SCH (08:25)
[2020-08-23] MEDS: DOXAZOSIN MESYLATE 2 MG TAB PO SCH (08:25)
[2020-08-23] MEDS: HEPARIN SOD (PORCINE) 5,000 UNIT/ML VIAL SC SCH ×2 (08:27→21:03)
--- NOTE | 2020-08-23 08:39 | Diagnostic Imaging Report ---
EXAMINATION: CHEST SINGLE (PORTABLE) INDICATION: Respiratory failure COMPARISON: Multiple prior chest radiographs, most recently 08/22/2020 FINDINGS: LINES/TUBES:Tracheostomy tube and right PICC line unchanged. EKG leads overlie the chest. LUNGS:The lungs are moderately inflated. Unchanged bilateral lower lung predominant airspace opacities appear PLEURA:Possible small bilateral pleural effusions. No pneumothorax. MEDIASTINUM:The cardiomediastinal silhouette appears unchanged in size and shape. BONES/SOFT TISSUES:No acute osseous injury. ABDOMEN:No free air under the diaphragm. IMPRESSION: No significant interval change. Signed by: Andrew Rivas MD on 08/23/2020 8:36 AM
--- NOTE | 2020-08-23 09:31 | Progress Note ---
DATE: SUBJECTIVE: The patient is currently on mechanical ventilation. His urine is growing out extended spectrum beta lactamase Klebsiella. His blood cultures growing out gram-negative rods. He required a unit of packed red blood cells yesterday and is scheduled to use even additional unit of packed red blood cells today. He also received Lasix yesterday. PHYSICAL EXAMINATION: VITAL SIGNS: The blood pressure is 134/62, saturation is 100% and the pulse is 76. He is currently on a PRVC mode of ventilation set at a rate of 18 with a tidal volume of 430 and FiO2 of 50%. His PEEP is set at 8. HEENT: No facial swelling or erythema. There is a tracheostomy tube in place. He has a PICC line on the right side. There is some swelling of the right arm. CARDIAC: Regular rate and rhythm with normal S1, S2. LUNGS: Auscultation of the lungs shows decreased breath sounds at the bases. There is no wheezing. ABDOMEN: Soft, nontender. There is no rebound or guarding. EXTREMITIES: Some leg edema. NEUROLOGICAL: Incomplete quadriplegia. LABORATORY DATA: White blood cell count is 18.8, hemoglobin is 6.8. The platelet count is 442. The BUN to creatinine ratio is 38 to 0.75. The other electrolytes are within normal limits and the albumin is 2.9. IMPRESSION: 1. Klebsiella urinary tract infection with bacteremia and septic shock, present on admission. 2. Acute on chronic respiratory failure. 3. Healthcare-associated pneumonia. 4. Spinal stenosis, prior cervical spine surgery and incomplete quadriplegia. 5. Right arm swelling. 6. Diabetes. 7. Obesity. 8. Anemia secondary to chronic blood loss. PLAN: 1. The patient will receive additional packed red blood cells today. 2. Continue meropenem and place the patient in contact isolation. 3. Repeat venous duplex of the upper extremities. [facility]. 4. Continue enteral feedings. 5. Tracheostomy care. 6. Continue to wean ventilator as tolerated. 7. Long-term prognosis remains poor. 8. Consider LTAC evaluation. Greater than 35 minutes in direct critical care time. Micky Hernandez MD [facility]/MODL /[id number]
[2020-08-23] MEDS: CILOSTAZOL 100 MG TAB GT SCH ×2 (10:54→23:04)
[2020-08-23 11:37] LABS: ANISOCYTOSIS SLIGHT; BAND NEUTROPHILS % (MANUAL) 1 %; LYMPHOCYTES % (MANUAL) 9 % (19-48); MONOCYTES % (MANUAL) 1 % (3.4-9.0); MYELOCYTES % (MANUAL) 2 % (0-0); NEUTROPHILS % (MANUAL) 87 % (40-74)
[2020-08-23 11:38] LABS: PLATELET ESTIMATE SLIGHTLY INCREASED
[2020-08-23 11:39] LABS: POIKILOCYTOSIS SLIGHT; RBC MORPHOLOGY COMMENT NORMAL
[2020-08-23 11:40] LABS: PLATELET MORPHOLOGY COMMENT RARE EDTA CLUMPING
--- NOTE | 2020-08-23 14:25 | NUR ---
Nutrition Intervention Note RD Recommendation(s) for Physician: -Continue Vital AF 1.2, advance as tolerated to goal rate at 55 ml/hr (1584 kcal and 99 gm protein). Water flushes and fluid management per MD. -Rec adding MVI w/ minerals and vitamin C for wound healing. Plan of Care: RD following, monitoring for tolerance and adequacy Nutrition reason for involvement: Consult- TF rec's, malnutrition RD Assessment 08/23: Pt re-evaluated per [facility] [employer] consult. Pt remains on vent via trach. No sedation or pressors. TF infusing at 40 ml/hr this am, tolerating. No s/s of malnutrition. TF rec's provided. Chart reviewed. Will continue to monitor. (08/21) 70yo M, who was [facility] for worsening oxygen saturation. + trach on vent and PEG. History of spinal stenosis leading to incomplete quadriplegia. Non-verbal. Per RN, Vital AF 1.2 was initiated an hour ago. + stage I pressure wound on sacrum and stage II on buttock. Negative COVID. Pt was septic on admission and received IVF. No vasopressors. On lasix due to poor output. Principal Problems/Diagnoses: 1. Acute on chronic respiratory failure. 2. Healthcare-associated pneumonia with severe sepsis, present on admission. PMH: 1. Incomplete quadriplegia from spinal stenosis. 2. Arm swelling was checked with the ultrasound, but there was no deep vein thrombosis. 3. Diabetes. 4. Hyperlipidemia. 5. Obesity GI: + PEG, LBM 08/21 Skin: stage I pressure wound on sacrum and stage II on buttock Labs: 08/23: Na 137, K 3.5, BUN 38, Cr 0.75, Gluc 155, POC Gluc 158-167 (08/21) K 2.7 L, BUN 37 H, Glucose 221 H, Ca 8.3 L Meds: pepcid, insulin, abx, lipitor, zofran Ht: 67in Wt: 220.56lb BMI: 34.5kg/m2 IBW: 148lb +/- 10% Adjusted IBW: 125 133lb (quadriplegia) Malnutrition Evaluation (08/23/20) The patient does not meet criteria for a specified degree of malnutrition at this time. Will re-evaluate at follow-up as appropriate. Energy intake: none- TF meeting >75% estimated needs Weight loss: Unable to assess Fat loss: none observed outside of pt room, ample skinfold thickness of arm Muscle loss: none observe outside of pt room, interosseous bulging Supporting Evidence: Fluid accumulation: Moderate, +2 pitting edema- most likely not nutritionally related Functional Status: unable to evaluate Nutrition Prescription (Diet Order): Vital AF 1.2 at 30ml/hr, advanced to 40 ml/hr (1152 kcal and 72 gm protein) Estimated Nutritional Needs: Calories: 9388-9633 kcal (22-25 kcal/kg Adjusted IBW) Protein : 91-121 g (1.5 2 g/kg Adjusted IBW) Diet Adequacy: Not meeting calorie needs, Not meeting protein needs Tolerance: Tolerating TF Diet Education Needs Assessment: Diet education not indicated. Nutrition Care Level: moderate Nutrition Diagnosis: Swallowing difficulty related to trach/ neurological disorder as evidenced by EN via PEG. Goal: Patient will meet 75-100% of estimated needs by follow up Progress: Progressing Interventions: Composition, Rate, Route, Multivitamin/mineral supplement therapy Monitoring/Evaluation: Total energy intake, Total protein intake, Formula/Solution, Weight change Signed: Veronica Xiao RD, LD, CNSC
--- NOTE | 2020-08-23 16:22 | NUR ---
WOUND CARE CONSULT 70 YO MALE HX OF MALNUTRITION LISBETH 13 0N STRICT PUP STATUS AND INTERVENTIONS LABS: WBC- 18.8 HGB- 6.8 GLUCOSE-159 SKIN ASSESSMENT COMPLETE PATIENT PRESENTS WITH RECOMMENDATIONS: NURSING TO CONTINUE TO MONITOR PATIENT AND KEEP SKIN CLEAN AND FREE FROM LOOSE STOOL OR IRRITATING MOISTURE AND CONTINUE TO FOLLOW STRICT PUP INTERVENTIONS MAINTAIN OFFLOADING TO BILATERAL LOWER EXTREMITIES WITH PILLOW SUSPENSION AND ALTERNATING PRESSURE SURFACE COORDINATED WITH FREQUENT Q 2 HR TURNS NURSING TO CONTINUE TO ASSIST PATIENT WITH NUTRITIONAL NEEDS TO SUPPORT HEALING NURSING TO CLEAN RIGHT HIP DTI RT THIGH STG 2 ULCER WITH NORMAL SALINE DAILY AND APPLY VENELEX OINTMENT AND COVER WITH ALLEVYN FOAM DRESSING AROUND PEG TUBE Addendum: 08/23/20 at 1627 by Tre Vásquez RN Amended: Links added.
[2020-08-23] MEDS ORDERED: ALBUTEROL/IPRATROPIUM 3 ML NEB NEB PRN (16:30)
[2020-08-23] MEDS ORDERED: HYDRALAZINE HCL 20 MG/ML VIAL IV PRN (16:30)
[2020-08-23] MEDS: BALSAM PERU/CASTOR OIL 60 GM OINT...G. TP SCH (17:26)
--- NOTE | 2020-08-23 17:32 | NUR ---
INFECTIOUS DISEASE CONSULT NOTE DR. MARTÍN APPLE CHIEF COMPLAINT: Hypothermia, fever, and worsening respiratory status. HISTORY OF PRESENT ILLNESS: The patient is a 70-year-old man with a PMH of spinal stenosis leading to incomplete quadriplegia. s/p laminectomy and apparently fell and developed hematoma and required a second surgery. He has a tracheostomy and is on the ventilator. He was sent from [facility] because of worsening oxygen saturation. He also had hypothermia and increased secretions. PAST SURGICAL HISTORY: 1. Status post cervical spine surgery as noted above. 2. Status post tracheostomy. PAST MEDICAL HISTORY: 1. Incomplete quadriplegia from spinal stenosis. 2. Arm swelling was checked with the ultrasound, but there was no deep vein thrombosis. 3. Diabetes. 4. Hyperlipidemia. ALLERGIES: THERE ARE NO KNOWN DRUG ALLERGIES. SOCIAL HISTORY: former smoker. He is not an active drinker. FAMILY HISTORY: Family history is not obtainable at this time. REVIEW OF SYSTEMS: +weakness +debility ALL 14 POINT ROS NEG UNLESS OTHERWISE NOTED PHYSICAL EXAMINATION: VITAL SIGNS: per chart General: trach CARDIAC: s1, s2, no s3, s4 LUNGS: diminished, no rhonchi, symmetric expansion ABDOMEN: Soft and nontender. There is no rebound or guarding. EXTREMITIES: Shows no leg edema or calf tenderness. There is no cyanosis or clubbing. SKIN: Shows no rashes. NEUROLOGICAL: Incomplete quadriplegia. LABORATORY DATA: per chart RADIOGRAPHIC DATA: Chest x-ray shows bilateral infiltrates, suggestive of multifocal pneumonia. IMPRESSION: 1. Bacteremia Citrobacter present on admission 2. Healthcare-associated pneumonia with severe sepsis, present on admission. 3. Urinary tract infection with chronic indwelling Keene present on admission. 4. Spinal stenosis and prior cervical spine surgery. 5. Diabetes. 6. Obesity 7. Klebsiella ESBL UTI PLAN: Merrem 1gm IV q12h x14 days PICC line persistent Leukocytosis, get CT ABD/Pelvis w/wo contrast Get renal US r/o abscess repeat labs in AM will follow Radha Conklin MSN, FINDING FASTENER, [facility]- Martín Apple M.D.
[2020-08-23 18:06] LABS: ABG HCO3 29 mmol/L (22-26); ABG PCO2 45 mmHg (35-45); ABG PH 7.42 (7.35-7.45); ABG PO2 105 mmHg (80-105); ABG TCO2 31
--- NOTE | 2020-08-23 18:13 | Diagnostic Imaging Report ---
Retroperitoneal ultrasound Indication: Abscess Technique: Select images from retroperitoneal ultrasound provided for interpretation: Comparison: Renal ultrasound 01/20/2019. Findings: The right kidney measures 9.6 cm in greatest length. The echotexture is normal. There is no evidence for mass. There is no collecting system dilatation or evidence of obstruction. No renal calculi evident. No adjacent free fluid or fluid collections. The left kidney measures 11.6 cm in greatest length. The echotexture is normal. There is no evidence for mass. There is no collecting system dilatation or evidence of obstruction. No renal calculi evident. No adjacent free fluid or fluid collections. Bladder is collapsed around a Keene catheter. No free fluid in the pelvis. Survey images of the liver and spleen demonstrate no abnormalities. IMPRESSION: Normal renal echotexture. No evidence of abscess. Signed by: Dr. Orly Taylor MD on 08/23/2020 6:10 PM
[2020-08-23] MEDS: ATORVASTATIN 10 MG TAB PO SCH (21:03)
[2020-08-24] VITALS (26 sets, daily range): BP systolic 116–148; BP diastolic 53–73
[2020-08-24] MEDS: INSULIN REGULAR, HUMAN 100 UNIT/1 ML 3ML VIAL SQ SCH ×5 (00:21→23:27)
--- NOTE | 2020-08-24 05:05 | Diagnostic Imaging Report ---
EXAMINATION: CHEST SINGLE (PORTABLE) INDICATION: Respiratory failure COMPARISON: Same day abdominal CT FINDINGS: TUBES and LINES: Right upper extremity PICC tip terminates in the superior cavoatrial junction. Tracheostomy tube tip projects in the mid intrathoracic trachea.. LUNGS/PLEURA: Extensive bilateral airspace disease. Small bilateral pleural effusions. No pneumothorax. HEART AND MEDIASTINUM: Cardiac size is mildly enlarged. BONES AND SOFT TISSUES: No acute osseous lesion. Soft tissues are unremarkable. Cervical fixation hardware. UPPER ABDOMEN: No free air under the diaphragm. IMPRESSION: Mild cardiomegaly. Extensive bilateral airspace disease can be due to edema and/or pneumonia. Small bilateral pleural effusions. Signed by: Fernando Luna DO on 08/24/2020 5:02 AM
[2020-08-24] MEDS: MEROPENEM 1GM 100 ML IV SCH ×3 (06:08→22:17)
[2020-08-24 06:11] LABS: BASOPHILS # (AUTO) 0.1 (0.0-0.1); BASOPHILS % 0.5 % (0.0-1.0); EOSINOPHILS # (AUTO) 0.1 (0.0-0.4); EOSINOPHILS % 0.3 % (0.0-6.0); HEMATOCRIT 25.8 % (38.2-49.6); HEMOGLOBIN 8.2 g/dL (14.0-18.0); LYMPHOCYTES # (AUTO) 1.8 (1.0-3.2); LYMPHOCYTES % 8.5 % (18.0-39.1); MEAN CORPUSCULAR HGB CONC 31.8 g/dL (31-35); MEAN CORPUSCULAR VOLUME 88.1 fL (81-99); MONOCYTES # (AUTO) 0.9 (0.2-0.8); MONOCYTES % 4.3 % (4.4-11.3); NEUTROPHILS # (AUTO) 17.2 (2.1-6.9); NEUTROPHILS % 82.9 % (38.7-80.0); PLATELET COUNT 377 x10e3/uL (140-360); RED BLOOD COUNT 2.93 x10e6/uL (4.3-5.7); RED CELL DISTRIBUTION WIDTH 17.8 % (11.7-14.4)
--- NOTE | 2020-08-24 06:32 | Diagnostic Imaging Report ---
EXAM: CT Abdomen and Pelvis WITH contrast INDICATION: Rule out infectious process, pyelonephritis COMPARISON: None. TECHNIQUE: Abdomen and pelvis were scanned utilizing a multidetector helical scanner from the lung base to the pubic symphysis after administration of IV contrast. Coronal and sagittal reformations were obtained. Routine protocol was performed. Scan was performed when during portal venous phase. IV CONTRAST: 100 mL of Isovue 370 ORAL CONTRAST: None COMPLICATIONS: None RADIATION DOSE: Total DLP: 811 mGy*cm Estimated effective dose: (DLP x 0.015 x size factor) mSv CTDIvol has been reviewed. It is below the limits set by the Radiation Protocol Committee (RPC). Dose modulation, iterative reconstruction, and/or weight based adjustment of the mA/kV was utilized to reduce the radiation dose to as low as reasonably achievable. FINDINGS: LINES and TUBES: Partially visualized superior approach central venous catheter, tip in the low SVC. Urinary bladder Keene catheter in place, tip and retention balloon in the bladder lumen.. LOWER THORAX: Small bilateral pleural effusions. Near-complete collapse of bilateral lower lobes with internal radiopaque articulations. Consolidative, tree-in-bud and groundglass opacities in the anterior aspects of the lower lobes, lingula, and right middle lobe. Air bronchograms in the lower lobes. HEPATOBILIARY: No focal hepatic lesions. No biliary ductal dilation. GALLBLADDER: No radio-opaque stones or sludge. No wall thickening. SPLEEN: No splenomegaly. PANCREAS: No focal masses or ductal dilatation. ADRENALS: No adrenal nodules KIDNEYS/URETERS: Kidneys enhance symmetrically. No hydronephrosis. No cystic or solid mass lesions. No stones. Subtle bilateral perinephric fat stranding. GI TRACT: No abnormal distention, wall thickening, or evidence of bowel obstruction. No appendicitis. PELVIC ORGANS/BLADDER: Nondistended urinary bladder with Keene catheter in place. LYMPH NODES: No lymphadenopathy. VESSELS: Arterial calcifications. PERITONEUM / RETROPERITONEUM: No free air or fluid. BONES: Degenerative changes. SOFT TISSUES: Unremarkable. IMPRESSION: Multifocal pneumonia in the lower lungs, concerning for aspiration pneumonia. Small bilateral pleural effusions. Low suspicion for pyelonephritis. Signed by: Fernando Luna DO on 08/24/2020 6:29 AM
[2020-08-24 06:39] LABS: ALANINE AMINOTRANSFERASE 16 IU/L (0-55); ALBUMIN 2.7 g/dL (3.5-5.0); ALBUMIN/GLOBULIN RATIO 0.8 (0.8-2.0); ALKALINE PHOSPHATASE 161 IU/L (40-150); ANION GAP 13.5 mmol/L (8-16); BLOOD UREA NITROGEN 31 mg/dL (7-26); BUN/CREATININE RATIO 48 (6-25); CALCIUM 8.7 mg/dL (8.4-10.2); CARBON DIOXIDE 28 mmol/L (22-29); CHLORIDE 101 mmol/L (98-107); CREATININE, SERUM 0.65 mg/dL (0.72-1.25); EST GLOMERULAR FILTRATION RATE > 60 ML/MIN (60-); GLUCOSE 161 mg/dL (74-118); POTASSIUM 3.5 mmol/L (3.5-5.1); SODIUM 139 mmol/L (136-145)
[2020-08-24] MEDS: FAMOTIDINE 20 MG/2 ML VIAL IV SCH ×2 (08:04→16:02)
[2020-08-24] MEDS: ASPIRIN 81 MG CHEW TAB GT SCH (08:04)
[2020-08-24] MEDS: BALSAM PERU/CASTOR OIL 60 GM OINT...G. TP SCH (08:05)
[2020-08-24] MEDS: DOXAZOSIN MESYLATE 2 MG TAB PO SCH (08:05)
[2020-08-24] MEDS: HEPARIN SOD (PORCINE) 5,000 UNIT/ML VIAL SC SCH ×2 (08:15→21:26)
[2020-08-24 08:25] LABS: FERRITIN 1827.13 ng/mL (21.81-274.66)
[2020-08-24] MEDS ORDERED: SODIUM CHLORIDE 0.9% 50ML 50 ML ONE (08:36)
[2020-08-24] MEDS ORDERED: IOPAMIDOL 370 MG/ML 200 ML INFUS..BTL INJ ONE (08:37)
--- NOTE | 2020-08-24 10:36 | Progress Note ---
DATE: SUBJECTIVE: The patient is having less fever. He remains on PRVC mode of ventilation. He is off pressors. PHYSICAL EXAMINATION: VITAL SIGNS: Blood pressure is 116/60, pulse is 76. He is on a PRVC mode of ventilation set at a rate of 18. He is breathing in the low 20s. His tidal volume is set at 430 and his FiO2 is set at 50%. His PEEP is set at 8. HEENT: Shows no facial swelling or erythema. LYMPHATIC: Shows no submandibular, cervical, or supraclavicular adenopathy. CARDIAC: Reveals regular rate and rhythm with normal S1, S2. LUNGS: Auscultation of lungs reveals rhonchorous breath sounds bilaterally. There is no wheezing. ABDOMEN: Soft and nontender. There is no rebound or guarding. EXTREMITIES: Shows no leg edema or calf tenderness. LABORATORY DATA: White blood cell count is 20.78, hemoglobin is 8.2, and the platelet count is 337,000. The OIZ-nr-seabzvzful ratio is 31 to 0.65. Other electrolytes are within normal limits and albumin is 2.7. RADIOGRAPHIC DATA: Chest x-ray shows extensive bilateral infiltrates and small pleural effusions. IMPRESSION: 1. Klebsiella urinary tract infection with pyelonephritis and septic shock, present on admission. 2. Citrobacter bacteremia. 3. Healthcare-associated pneumonia. 4. Acute on chronic respiratory failure. 5. Incomplete quadriplegia related to spinal stenosis and prior cervical spine surgery. 6. Diabetes. 7. Anemia secondary to chronic blood loss. 8. Obesity. PLAN: 1. Continue current ventilator settings. 2. Continue current antibiotics. 3. Await results of venous duplex. 4. Continue enteral feedings. 5. Tracheostomy care. 6. Case discussed with Infectious Disease, nursing, Respiratory, and Internal Medicine. Greater than 35 minutes in direct critical care time. Micky Hernandez MD [facility]/MODL /[id number]
[2020-08-24] MEDS: CILOSTAZOL 100 MG TAB GT SCH ×2 (10:50→22:17)
--- NOTE | 2020-08-24 13:08 | Progress Note ---
DATE: SUBJECTIVE: Mr. Castano remains in the intensive care unit. He has a trach. The patient, who is a 70-year-old with quadriplegic, status post laminectomy. He had tracheostomy. The patient, who is currently in intensive care unit. His urine showed Klebsiella ESBL, but the blood cultures Citrobacter koseri, which was sensitive. PHYSICAL EXAMINATION: VITAL SIGNS: Currently, he is afebrile. There is no fever since admission. HEENT: Normocephalic. NECK: Supple. CHEST: Crackles. HEART: S1 and S2. ABDOMEN: Soft. Bowel sounds present. EXTREMITIES: No edema. SKIN: No rash. IMPRESSION: Sepsis on admission, bacteremia, source probably pneumonia, aspiration with bacteremia. Continue meropenem for 2 weeks. Agree with LTAC. We will check blood cultures. Recheck CBC. We will follow. MD EMILIA Vazquez/JACOB /[id number]
--- NOTE | 2020-08-24 14:48 | NUR ---
ORDER RECEIVED FOR LTAC CALL TO [facility] ; [facility]. SHE ASKED THAT THE CM SPEAK W HER DAUGHTER. DISCUSSED CHOICE FOR LTAC. STATES HER FATHER LEFT [facility] LAST SUNDAY AND WENT TO [facility] AND LASTED ONLY 2 DAYS AND THEN TO [facility]. CONSENTED TO REFERRAL BACK TO [facility]. INITIATED MOT. REFERRAL WAS FAXED TO [facility] [phone] / FAX: [phone].
[2020-08-24] MEDS: ATORVASTATIN 10 MG TAB PO SCH (21:24)
[2020-08-25] VITALS (10 sets, daily range): BP systolic 100–129; BP diastolic 51–62
--- NOTE | 2020-08-25 02:53 | Progress Note ---
DATE: CONSULTING PHYSICIANS: 1. Raya Ford MD with Infectious Disease. 2. Davin Quach MD, Pulmonology/Critical Care Medicine. SUBJECTIVE: The patient remains in the ICU bed 196, able to mouth some words, speaking mostly Yi, remains on mechanical ventilation. OBJECTIVE: VITAL SIGNS: Temperature 98.8, T-max 99.6, pulse 71, blood pressure 130/56, respirations 25, and oxygen saturation 99%. GENERAL: Supine with head of bed elevated. LUNGS: Diminished in the bases. Tracheostomy with ventilator. PRVC 18, tidal volume 430, FiO2 of 50%, PEEP of 8, peak pressure 28, minute ventilation 11.1. HEENT: EOMI. Moist mucous membranes. C-collar in place. CARDIOVASCULAR: Regular rate and rhythm without murmur. Right upper extremity PICC line. ABDOMEN: Bowel sounds positive. Soft, nontender. Keene catheter with mela urine. PEG with vital AF 40 mL an hour. EXTREMITIES: Right upper extremity swelling noted. Bilateral SCDs to lower extremities. Heel protectors bilaterally. NEUROLOGIC: Makes eye contact and mouths words. No speech. Follows simple commands. LABORATORY DATA: WBC 20.78, hemoglobin 8.2, hematocrit 25.8, platelets 377, neutrophils 82.9%. Sodium 139, potassium 3.5, chloride 101, CO2 of 28, anion gap 13.5, BUN 31, creatinine 0.65, estimated GFR greater than 60, glucose 161. Hemoglobin A1c 5.9%, calcium 8.7, iron 18, TIBC 151, percent saturation 12, transferrin 108, ferritin 1827, total bilirubin 0.4, AST 21, ALT 16, alkaline phosphatase 161, total protein 6.3, albumin 2.7, vitamin B12 of 1016. Stool for occult blood was negative today. Microbiology results as per diagnoses listed below. IMAGING: Chest x-ray done today shows extensive bilateral airspace disease can be due to edema and/or pneumonia. Small bilateral pleural effusions. ASSESSMENT/PLAN: 1. Septic shock and hypothermia, POA with HCAP and ESBL MDR UTI. WBCs 20.7. Continue Merrem as per Infectious Disease recommendations. Vancomycin was discontinued. 2. Citrobacter koseri bacteremia. Continue IV Merrem. 3. HCAP, POA, with sputum positive for Citrobacter koseri. Continue IV Merrem. Appreciate recommendations from Pulmonology/Critical Care Medicine. Continue DuoNeb. 4. ESBL, multidrug resistant Klebsiella pneumoniae UTI, POA. Continue IV Merrem, hydration as needed. 5. Acute on chronic respiratory failure with hypoxia, tracheostomy in situ. Weaning of ventilator as per Pulmonology recommendations as tolerated. 6. Incomplete quadriplegia from cervical spinal stenosis with cord compression. Supportive care offloading. 7. Uncontrolled type 2 diabetes mellitus with hyperglycemia. Serum glucose 161. Continue regular insulin low-dose sliding scale. Monitor fingerstick blood glucose levels every 6 hours. 8. Hypoalbuminemia due to multifactorial reasons, PEG in situ. Continue tube feeds per dietitian. The patient does not for protein calorie malnutrition. 9. Anemia due to chronic blood loss. Hemoglobin 8.2, hematocrit 25.8. Monitor. 10. Controlled hypertension. Blood pressure 130/56, monitor. 11. Obesity with BMI of 34.45. Dietary restrictions. 12. Prophylaxis, IV Pepcid and SCDs. 13. Inpatient, ICU bed 196, billing code [id number], time spent 35 minutes. Dictated by Tomas Pretty NP MD [facility]/MODL /[id number]
[2020-08-25 06:04] LABS: BASOPHILS # (AUTO) 0.1 (0.0-0.1); BASOPHILS % 0.5 % (0.0-1.0); EOSINOPHILS # (AUTO) 0.3 (0.0-0.4); EOSINOPHILS % 2.4 % (0.0-6.0); HEMATOCRIT 24.5 % (38.2-49.6); HEMOGLOBIN 7.8 g/dL (14.0-18.0); MEAN CORPUSCULAR HEMOGLOBIN 29.1 pg (28-32); MEAN CORPUSCULAR HGB CONC 31.8 g/dL (31-35); MEAN CORPUSCULAR VOLUME 91.4 fL (81-99); MONOCYTES # (AUTO) 0.9 (0.2-0.8); MONOCYTES % 6.8 % (4.4-11.3); NEUTROPHILS # (AUTO) 8.7 (2.1-6.9); PLATELET COUNT 385 x10e3/uL (140-360); RED BLOOD COUNT 2.68 x10e6/uL (4.3-5.7); RED CELL DISTRIBUTION WIDTH 17.8 % (11.7-14.4)
[2020-08-25 06:32] LABS: ALANINE AMINOTRANSFERASE 14 IU/L (0-55); ALBUMIN 2.4 g/dL (3.5-5.0); ALBUMIN/GLOBULIN RATIO 0.7 (0.8-2.0); ALKALINE PHOSPHATASE 101 IU/L (40-150); ANION GAP 11.1 mmol/L (8-16); BLOOD UREA NITROGEN 27 mg/dL (7-26); BUN/CREATININE RATIO 44 (6-25); CALCIUM 8.6 mg/dL (8.4-10.2); CARBON DIOXIDE 29 mmol/L (22-29); CHLORIDE 104 mmol/L (98-107); CREATININE, SERUM 0.61 mg/dL (0.72-1.25); EST GLOMERULAR FILTRATION RATE > 60 ML/MIN (60-); GLUCOSE 215 mg/dL (74-118); POTASSIUM 3.1 mmol/L (3.5-5.1); SODIUM 141 mmol/L (136-145)
[2020-08-25] MEDS: MEROPENEM 1GM 100 ML IV SCH ×2 (06:35→14:34)
[2020-08-25] MEDS: INSULIN REGULAR, HUMAN 100 UNIT/1 ML 3ML VIAL SQ SCH ×2 (06:38→12:00)
--- NOTE | 2020-08-25 07:52 | Diagnostic Imaging Report ---
EXAMINATION: CHEST SINGLE (PORTABLE) INDICATION: Respiratory failure COMPARISON: Chest x-ray 08/24/2020 FINDINGS: TUBES and LINES: Right upper extremity PICC tip terminates in the superior cavoatrial junction. Tracheostomy tube tip projects in the mid intrathoracic trachea.. LUNGS/PLEURA: Normal lung volumes. Extensive bilateral airspace disease. Small bilateral pleural effusions. No pneumothorax. HEART AND MEDIASTINUM: Cardiac size is mildly enlarged. BONES AND SOFT TISSUES: No acute osseous lesion. Soft tissues are unremarkable. Cervical fixation hardware. UPPER ABDOMEN: No free air under the diaphragm. IMPRESSION: Mild cardiomegaly. Extensive bilateral airspace disease can be due to edema and/or pneumonia. Small bilateral pleural effusions. Signed by: Fernando Luna DO on 08/25/2020 7:49 AM
[2020-08-25] MEDS: ASPIRIN 81 MG CHEW TAB GT SCH (08:51)
[2020-08-25] MEDS: FAMOTIDINE 20 MG/2 ML VIAL IV SCH (08:51)
[2020-08-25] MEDS: HEPARIN SOD (PORCINE) 5,000 UNIT/ML VIAL SC SCH (08:52)
[2020-08-25] MEDS: BALSAM PERU/CASTOR OIL 60 GM OINT...G. TP SCH (08:52)
[2020-08-25] MEDS: DOXAZOSIN MESYLATE 2 MG TAB PO SCH (08:52)
[2020-08-25 09:46] LABS: EOSINOPHILS % (MANUAL) 1 % (0-7); LYMPHOCYTES % (MANUAL) 18 % (19-48); MONOCYTES % (MANUAL) 4 % (3.4-9.0); MYELOCYTES % (MANUAL) 4 % (0-0); NEUTROPHILS % (MANUAL) 73 % (40-74)
[2020-08-25 09:51] LABS: ANISOCYTOSIS SLIGHT; PLATELET ESTIMATE SLIGHTLY INCREASED
[2020-08-25 09:52] LABS: PLATELET MORPHOLOGY COMMENT RARE EDTA CLUMPING; RBC MORPHOLOGY COMMENT NORMAL
--- NOTE | 2020-08-25 10:42 | NUR ---
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
[2020-08-25] MEDS: CILOSTAZOL 100 MG TAB GT SCH (10:55)
[2020-08-25 10:56] LABS: ABG PCO2 45 mmHg (35-45); ABG PH 7.38 (7.35-7.45)
[2020-08-25 10:57] LABS: ABG HCO3 26 mmol/L (22-26); ABG PO2 40 mmHg (80-105); ABG TCO2 28
--- NOTE | 2020-08-25 11:16 | Progress Note ---
DATE: SUBJECTIVE: The patient is currently on a mechanical ventilator. He is not requiring any pressures. PHYSICAL EXAMINATION: VITAL SIGNS: Blood pressure is 118/54 and respiratory rate is 26. Saturation is 96% and the pulse is 76. HEENT: Shows no facial swelling or erythema. There is a hard cervical collar. There is a tracheostomy in good position. CARDIAC: Reveals regular rate and rhythm with normal S1 and S2. LUNGS: Auscultation of lungs reveals decreased breath sounds at the bases. There is no wheezing. ABDOMEN: Soft and nontender. There is no rebound or guarding. EXTREMITIES: Show no leg edema or calf tenderness. There is no cyanosis or clubbing. SKIN: Shows no rashes. NEUROLOGICAL: Shows no focal abnormalities. LABORATORY DATA: White blood cell count is 12.7 and hemoglobin is 7.8. The platelet count is 385. The BUN to creatinine ratio is 27 to 0.61. Potassium is 3.1. The other electrolytes within normal limits and the albumin is 2.4. RADIOGRAPHIC DATA: Chest x-ray shows extensive bilateral airspace opacities. IMPRESSION: 1. Klebsiella urinary tract infection with pyelonephritis and septic shock, present on admission. 2. Citrobacter bacteremia. 3. Healthcare-associated pneumonia. 4. Vvzfg-ag-hizhcac respiratory failure. 5. Incomplete quadriplegia related to spinal stenosis and prior cervical spine surgery. 6. Diabetes. 7. Anemia. 8. Obesity. PLAN: 1. Continue current antibiotics. 2. Probable transfer to LTAC. 3. Continue enteral feedings. 4. Tracheostomy care. MD SCOT Faustin/JACOB /[id number]
[2020-08-25] MEDS ORDERED: VENELEX OINTMEN60 GM TP (11:54)
[2020-08-25] MEDS ORDERED: MERREM1 GM IV (11:54)
[2020-08-25] MEDS ORDERED: Albuterol/Ipratropium Nebulize NEB (11:54)
[2020-08-25] MEDS ORDERED: ONDANSETRON4 MG/2 M1 IV (11:54)
[2020-08-25] MEDS ORDERED: Hydrocodone/Apap 10MG-325MG PO (11:54)
[2020-08-25] MEDS ORDERED: HEPARIN SO5000 UNIT/ SC (11:54)
[2020-08-25] MEDS ORDERED: LORAZEPAM2 MG/1 M1 IV (11:54)
[2020-08-25] MEDS ORDERED: DEXTROSE 50%-WA50 M1 IV (11:54)
[2020-08-25] MEDS ORDERED: FAMOTIDINE20 MG/2 ML IV (11:54)
[2020-08-25] MEDS ORDERED: CARDURA2 MG PO (11:54)
[2020-08-25] MEDS ORDERED: HYDRALAZIN20 MG/1 ML IV (11:54)
[2020-08-25] MEDS ORDERED: HUMULIN R100 UNIT/2 SQ (11:57)
[2020-08-25] MEDS ORDERED: POTASSIUM CHLORIDE 20MEQ/100ML 100 ML IV ONE (13:00)
--- NOTE | 2020-08-25 14:34 | NUR ---
Patient to transfer to [facility] per Dr Ralph Hernandez and Tana order. Dr Davin Quach to accept patient. Evangelina Hussein and Roopa Bowers with [facility] to transport.
--- NOTE | 2020-08-25 15:31 | Discharge Summary ---
PRIMARY CARE PHYSICIAN: Jasper Eisenberg MD. CONSULTING PHYSICIANS: 1. Dr. Raya Ford with Infectious Disease. 2. Dr. Davin Quach with Pulmonology/Critical Care Medicine. It is noted that Dr. Micky Hernandez with Pulmonology/Critical Care Medicine has been covering for Dr. Quach. CHIEF COMPLAINT: Respiratory failure. HISTORY OF PRESENT ILLNESS: The patient is a 70-year-old male brought in by EMS from the [facility] detention facility/alf due to hypoxia and respiratory failure. Apparently his oxygen saturation was low for undetermined duration of time and the patient was being manually ventilated with an Ambu bag by EMS upon arrival according to documentation by the emergency department physician. According to nurses in ICU, the patient has an unfortunate distant history of attempting to open his refrigerator door, having difficulty, giving it a hard jerk and then falling backwards hitting his head. This led to an incomplete quadriplegia. He was put on a backboard at that time, developed respiratory problems and required intubation. He spent about 45 days at a long-term acute care hospital on mechanical ventilation and after that was sent to the [facility]. He has been fully functional prior to that incident. Per documentation, he required laminectomy and apparently developed a hematoma and required a second surgery. Nonetheless, he was sent from the [facility] because of worsening oxygen saturation of unknown duration. He also had hypothermia with increased pulmonary secretions during his stay here. He has been in ICU bed 196 for the duration of his stay. On admission, his temperature was 98.5 and subsequently 89.1 core temperature, heart rate 97, respirations 24, blood pressure 97/49, oxygen saturation 90%. Please see dictated history and physical for past medical, surgical, family and social history. ALLERGIES: HE HAS NO KNOWN ALLERGIES. ADMITTING DIAGNOSES: As follows: 1. Healthcare associated pneumonia with severe sepsis, present on admission. 2. Acute on chronic respiratory failure, tracheostomy in situ. 3. Acute urinary tract infection with chronic indwelling Keene catheter, present on admission. 4. Incomplete quadriplegia from cervical spinal stenosis with cord compression. 5. Uncontrolled type 2 diabetes mellitus with hyperglycemia. 6. PEG in situ. 7. Acute hypomagnesemia. 8. Acute hypokalemia. 9. Hypoalbuminemia due to protein calorie malnutrition. DISCHARGE DIAGNOSES: As follows: 1. Septic shock and hypothermia, present on admission with healthcare-associated pneumonia and extended-spectrum beta-lactamases multidrug-resistant urinary tract infection. 2. Citrobacter koseri bacteremia. 3. Healthcare-associated pneumonia, present on admission, with sputum positive for Citrobacter koseri. 4. Extended-spectrum beta-lactamases multidrug resistant Klebsiella pneumoniae urinary tract infection, present on admission. 5. Acute on chronic respiratory failure with hypoxia, tracheostomy in situ. 6. Incomplete quadriplegia from cervical spinal stenosis with cord compression. 7. Uncontrolled type 2 diabetes mellitus with hyperglycemia and hemoglobin A1c of 5.9%. 8. Hypoalbuminemia due to multifactorial reasons, PEG in situ. 9. Anemia due to chronic blood loss. 10. Controlled hypertension. 11. Obesity with BMI of 34.45. 12. Acute on chronic hypokalemia. HOSPITAL COURSE: During his stay, the patient had a right upper extremity PICC line insertion. The initial chest x-ray on 08/21/2020 showed bilateral opacities, compatible with multifocal pneumonia and/or pulmonary edema. Small bilateral pleural effusions, lucencies overlying the superior mediastinum which may represent overlying material, although small volume pneumomediastinum may have a similar appearance. Chest x-ray that same day around 3 p.m. showed interval placement of right arm PICC, which terminates in the SVC. No evidence of pneumothorax. Bilateral opacities compatible with multifocal pneumonia and/or pulmonary edema, small bilateral pleural effusions. The patient's preliminary echocardiogram done on 08/21/2020 showed an estimated ejection fraction of 55%. Bilateral lower extremity venous Doppler ultrasound done on 08/24/2020 was negative for DVT. CT of the abdomen and pelvis done 08/24/2020 showed multifocal pneumonia in the lower lungs concerning for aspiration pneumonia. Small bilateral pleural effusions. Low suspicion for pyelonephritis. Follow up chest x-ray done today, 08/25/2020, the day of discharge, shows mild cardiomegaly. Extensive bilateral airspace disease, possibly due to an edema and/or pneumonia. Small bilateral pleural effusions. Diagnostic studies, the patient had bilateral upper extremity venous Doppler ultrasound, which showed no evidence of vein thrombosis on 08/23/2020. Laboratory data today on the day of discharge includes WBCs 12.74, hemoglobin 7.8, hematocrit 24.5, platelets 385, neutrophils 68%. Sodium 141, potassium 3.1, chloride 104, CO2 of 29, anion gap 11.1, BUN 27, creatinine 0.61, estimated GFR greater than 60, glucose 215, calcium 8.6, total bilirubin 0.3, AST 13, ALT 14, alkaline phosphatase 101, total protein 5.9, albumin 2.4. Fecal occult blood test done yesterday was negative. Coronavirus PCR was negative on 08/21/2020. Most recent fingerstick blood glucose levels 174, 196, 188, 159. Microbiology results as per discharge diagnoses given his multiple underlying medical problems. The patient is slow to progress, although his white blood cell count today was much improved at 12.7. His potassium level was 3.1. The patient has a PICC line. We will go ahead and give 20 mEq potassium chloride IV once prior to discharge. The patient will continue his current diet of Vital AF at 40 mL an hour via PEG. No significant change from his physical examination as dictated in the progress note yesterday. Minimal activity level, turn every 2 hours. Continue offloading. He did not really meet criteria for protein calorie malnutrition according to dietitian's note. The patient to follow up with accepting physician at [facility]. Dictated by Tomas Pretty NP MD [facility]/AURELIAL /[id number]
== END 2020-08-25 16:02 | DRG 870 ==
LOC: ER 07:24 → ERHOLD 09:21 → ICU 13:52
PROVIDERS: ADMIT Internal Medicine; ATTEND Internal Medicine
PROC: 02HV33Z Insertion of Infusion Device into Superior Vena Cava, Percutaneous Approach (ICD-10-PCS; principal; 2020-08-21)
PROC: 5A1955Z Respiratory Ventilation, Greater than 96 Consecutive Hours (ICD-10-PCS; 2020-08-21)
PROC: B548ZZA Ultrasonography of Superior Vena Cava, Guidance (ICD-10-PCS; 2020-08-21)
PROC: 30233N1 Transfusion of Nonautologous Red Blood Cells into Peripheral Vein, Percutaneous Approach (ICD-10-PCS; 2020-08-22)
PROC: 30233N1 Transfusion of Nonautologous Red Blood Cells into Peripheral Vein, Percutaneous Approach (ICD-10-PCS; 2020-08-23)
DX: A41.9 Sepsis, unspecified organism (principal); G82.52 Quadriplegia, C1-C4 incomplete; R65.21 Severe sepsis with septic shock; J69.0 Pneumonitis due to inhalation of food and vomit; J96.21 Acute and chronic respiratory failure with hypoxia; J15.8 Pneumonia due to other specified bacteria; T83.511A Infection and inflammatory reaction due to indwelling urethral catheter, initial encounter; J95.851 Ventilator associated pneumonia; E44.0 Moderate protein-calorie malnutrition; D62 Acute posthemorrhagic anemia; N39.0 Urinary tract infection, site not specified; Z16.24 Resistance to multiple antibiotics; Z16.12 Extended spectrum beta lactamase (ESBL) resistance; M48.00 Spinal stenosis, site unspecified; Z99.81 Dependence on supplemental oxygen; E78.5 Hyperlipidemia, unspecified; G47.33 Obstructive sleep apnea (adult) (pediatric); E66.9 Obesity, unspecified; Z93.0 Tracheostomy status; Z93.1 Gastrostomy status; L89.152 Pressure ulcer of sacral region, stage 2; L89.321 Pressure ulcer of left buttock, stage 1; L89.311 Pressure ulcer of right buttock, stage 1; Z87.891 Personal history of nicotine dependence; E11.65 Type 2 diabetes mellitus with hyperglycemia; E83.42 Hypomagnesemia; E87.6 Hypokalemia; E88.09 Other disorders of plasma-protein metabolism, not elsewhere classified; Z68.34 Body mass index [BMI] 34.0-34.9, adult; Z11.59 Encounter for screening for other viral diseases; B96.1 Klebsiella pneumoniae [K. pneumoniae] as the cause of diseases classified elsewhere; Z79.4 Long term (current) use of insulin
CPT/HCPCS: 36415; 36569; 36584; 36600; 71045; 74177; 76770; 80053; 81001; 82270; 82550; 82553; 82607; 82728; 82746; 82805; 82948; 83036; 83540; 83605; 83735; 83880; 84100; 84466; 84484; 85025; 85610; 85730; 86850; 86900; 86920; 87040; 87070; 87071; 87086; 87186; 87205; 93005; 93306; 93970; 94002; 94003; 94640; 96372; 99251; 99285; J1644; J1817; J1940; J2185; J3370; J3475; J3480; J7030; J7040; J7050; P9016; P9047; Q9967; U0002